=== PATIENT | male | born 1940 | race Caucasian/White ===

== ENCOUNTER 2016-11-01 14:00 | Outpatient (CLI) | payer MEDICARE, OTHER | END 2016-11-01 15:06 | disposition home or self-care (01) | LOC: RAD 14:00 | PROVIDERS: ATTEND Internal Medicine Critical Care Medicine | DX: G47.19 Other hypersomnia (principal); G47.9 Sleep disorder, unspecified; R06.83 Snoring; R06.00 Dyspnea, unspecified ==

== ENCOUNTER → 2016-11-01 | Outpatient (CLI) | payer MEDICARE, OTHER ==
[~2016-11-01] MED LIST: CATHETER FLUSH 10 ML SYR IV PRN; IOHEXOL 350 MG/ML 100 ML (OMNIPAQUE 350) VIAL IV ONE; NS 100 ML (IVPB) BAG IV ONE
[2016-11-01 11:57] LABS: BASOPHILS # (AUTO) 0.1 10^3/uL (0.0-0.1); BASOPHILS % (AUTO) 1 % (0-10); EOSINOPHILS # (AUTO) 0.5 10^3/uL (0.0-0.3); EOSINOPHILS % (AUTO) 5 % (0-10); LYMPHOCYTES # (AUTO) 2.4 X 10^3 (1.0-4.0); LYMPHOCYTES % (AUTO) 24 % (12-44); MEAN CORPUSCULAR HEMOGLOBIN 30 PG (25-34); MEAN CORPUSCULAR HGB CONC 33 G/DL (32-36); MEAN CORPUSCULAR VOLUME 89 FL (80-99); MEAN PLATELET VOLUME 9.5 FL (7.4-10.4); MONOCYTES # (AUTO) 1.2 X 10^3 (0.0-1.0); MONOCYTES % (AUTO) 12 % (0-12); NEUTROPHILS # (AUTO) 5.8 X 10^3 (1.8-7.8); NEUTROPHILS % (AUTO) 58 % (42-75); PLATELET COUNT 314 10^3/uL (130-400); RED BLOOD COUNT 4.31 10^6/uL (4.35-5.85); RED CELL DISTRIBUTION WIDTH 14.3 % (10.0-14.5)
[2016-11-01 12:17] LABS: CALCIUM 9.2 MG/DL (8.5-10.1); CREATININE SERUM 1.27 MG/DL (0.60-1.30); POTASSIUM 4.3 MMOL/L (3.6-5.0)
[2016-11-01 12:21] LABS: BASOPHILS % (MANUAL) 2 %; EOSINOPHILS % (MANUAL) 10 %; LYMPHOCYTES % (MANUAL) 18 %; NEUTROPHILS % (MANUAL) 53 %; REACTIVE LYMPHOCYTES 5 %
--- NOTE | 2016-11-01 16:29 | Diagnostic Imaging Report ---
PROCEDURE: CT chest with contrast only. TECHNIQUE: Multiple contiguous axial images were obtained through the chest after administration of intravenous contrast. INDICATION: Dyspnea. 75 mL of Omnipaque 350 is administered intravenously. FINDINGS: There is prominent septal interlobular and intralobular thickening seen involving both lungs in the upper, middle, and lower lung zones with no obvious predominance of these findings. This is associated with mild emphysema changes in the upper lungs. Component of ground-glass opacity is seen without solid consolidation. There is no dominant mass. The findings are suggestive of an interstitial lung disease with associated fibrosis. No prior studies are available to confirm chronicity, however. There is mild peripheral bronchiolectasis. There is some subpleural sparing seen which may favor nonspecific interstitial pneumonia (fibrotic variant of NSIP). There is a mildly enlarged right paratracheal lymph node measuring 1.5 cm in size. An infracarinal lymph node measuring 1.3 cm in size is seen. There is no hilar lymphadenopathy. No axillary lymphadenopathy. The thoracic aorta is normal in caliber. The heart size is normal. No pericardial or pleural effusion. The liver demonstrates diffuse fatty infiltration. The osseous structures demonstrate slight right convexity curvature in the mid thoracic spine and degenerative changes. There is a healed sternotomy with sternotomy wires seen in place. IMPRESSION: 1. Findings suggestive of interstitial lung disease with fibrotic changes. 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 2. Mild upper lobe predominant emphysema. 3. Hepatic steatosis. Dictated by: Dictated on workstation # [id number]
== END ==
LOC: RAD 11:36
PROVIDERS: ATTEND Internal Medicine Critical Care Medicine
DX: J84.10 Pulmonary fibrosis, unspecified (principal); K76.0 Fatty (change of) liver, not elsewhere classified
CPT/HCPCS: 36415; 71260; 80048; 83880; 85007; 85027

== ENCOUNTER → 2016-11-30 | Outpatient (CLI) | payer MEDICARE, OTHER ==
[~2016-11-30] MED LIST changes: +AMLO5TAB2 PO; +ASPI-983 PO; +CETI10TA23 PO; +DIAZ2TAB2 PO; +FORM1POW3 MC; +HYDR25TA4 PO; +LISI40TA PO; +MECL-124 PO; +MULT-974 PO; +RT-ALBUINH IH; +RT-ALBUTEROL SULF 2.5 MG/3 ML PRE-MIX VIAL IH ONE
== END ==
LOC: RAD 11:28
PROVIDERS: ATTEND Internal Medicine Critical Care Medicine
DX: R06.00 Dyspnea, unspecified (principal); J44.9 Chronic obstructive pulmonary disease, unspecified
CPT/HCPCS: 94060; 94640; 94726; 94729

== ENCOUNTER → 2016-12-04 | Outpatient (CLI) | payer MEDICARE, OTHER ==
[~2016-12-04] MED LIST changes: -CATHETER FLUSH 10 ML SYR IV PRN; -IOHEXOL 350 MG/ML 100 ML (OMNIPAQUE 350) VIAL IV ONE; -NS 100 ML (IVPB) BAG IV ONE; -RT-ALBUTEROL SULF 2.5 MG/3 ML PRE-MIX VIAL IH ONE
[2016-12-04 15:12] LABS: ALANINE AMINOTRANSFERASE 24 U/L (0-55); ALBUMIN 3.7 GM/DL (3.2-4.5); ANION GAP 6 MMOL/L (5-14); ASPARTATE AMINO TRANSFERASE 22 U/L (5-34); BILIRUBIN,TOTAL 0.3 MG/DL (0.1-1.0); BLOOD UREA NITROGEN 17 MG/DL (7-18); BUN/CREATININE RATIO 19; CALCIUM 9.2 MG/DL (8.5-10.1); CARBON DIOXIDE 26 MMOL/L (21-32); CHLORIDE 103 MMOL/L (98-107); CREATININE SERUM 0.91 MG/DL (0.60-1.30); GFR ESTIMATED > 60; GLUCOSE 128 MG/DL (70-105); POTASSIUM 4.7 MMOL/L (3.6-5.0); SODIUM 135 MMOL/L (135-145); TOTAL PROTEIN 7.6 GM/DL (6.4-8.2)
--- NOTE | 2016-12-04 15:54 | Diagnostic Imaging Report ---
PROCEDURE: CT chest without contrast. TECHNIQUE: Multiple contiguous axial images were obtained through the chest without the use of intravenous contrast. INDICATION: Followup pulmonary fibrosis and groundglass opacities. COMPARISON: 11/01/2016. FINDINGS: LUNGS AND AIRWAY: Moderate centrilobular emphysema in the lung apices is unchanged. Subpleural reticular and groundglass opacities are greatest in the lung bases and have not significantly changed. No definitive stacked subpleural cystic------- cut off . Minimal bronchiectasis within the lung bases is also unchanged. No peribronchial consolidations or centrilobular nodules. No endoluminal lesion in the trachea. There is a small amount of retained secretions in the right mainstem bronchus. PLEURA: No pleural effusion or pneumothorax. HEART AND MEDIASTINUM: No supraclavicular or axillary lymphadenopathy. The visualized thyroid is normal. The borderline enlarged lower right paratracheal lymph node is stable at 1.5 cm. The subcarinal lymph node is also unchanged at 1.2 cm in short axis. No new or enlarging intrathoracic lymphadenopathy. 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 Extensive coronary artery calcifications are present in the [place] vessels. No pericardial effusion. Normal caliber thoracic aorta with fairly extensive atherosclerotic plaquing. UPPER ABDOMEN: Extensive atherosclerotic plaque throughout the upper abdominal aorta and its branches. Mild diffuse hepatic steatosis is unchanged. MUSCULOSKELETAL: Median sternotomy with intact sternal wires. No concerning focal osseous lesions. IMPRESSION: 1. Since the examination of 1 month prior, there are unchanged subpleural and basilar predominant groundglass opacities with early fibrosis. Given the stability of findings, this pattern would suggest fibrotic NSIP versus less likely UIP. 2. A few borderline enlarged mediastinal lymph nodes are unchanged. 3. Stable hepatic steatosis. Dictated by: Dictated on workstation # [id number]
[2016-12-06 08:16] LABS: ANCA PATTERN Not Indicated; ANGIOTENSIN CONVERTING ENZYME 51 U/L (9-67); ANTI NEUTROPHIL CYTOPLASM <1:20 (<1:20)
== END ==
LOC: RAD 14:16
PROVIDERS: ATTEND Nurse Practitioner Family
DX: R91.8 Other nonspecific abnormal finding of lung field (principal); K76.0 Fatty (change of) liver, not elsewhere classified; G47.33 Obstructive sleep apnea (adult) (pediatric); R09.02 Hypoxemia; R06.00 Dyspnea, unspecified
CPT/HCPCS: 36415; 71250; 80053; 82164; 85652; 86021; 86038; 86141; 86430

== ENCOUNTER 2016-12-05 06:22 | Day surgery (SDC) | payer MEDICARE, OTHER ==
[~2016-12-05] VITALS: Ht 175.3 cm; Wt 88.5 kg
[2016-12-05] MEDS ORDERED: LIDOCAINE 4% INJ (XYLOCAINE) 5ML AMP INJ ONE (06:23)
[2016-12-05] MEDS ORDERED: LIDOCAINE JELLY 2% (XYLOCAINE) 30 ML TUBE TOP ONE (06:23)
[2016-12-05] MEDS ORDERED: LIDOCAINE PF 1% 2 ML AMP INJ ONE (06:23)
--- NOTE | 2016-12-05 06:49 | Progress Note-Pre Operative ---
Pre-Operative Progress Note H&P Reviewed The H&P was reviewed, patient examined and no changes noted. Date Seen by Provider: Dec 05, 2016 Time Seen by Provider: 06:49 Date H&P Reviewed: Dec 05, 2016 Time H&P Reviewed: 06:49 Pre-Operative Diagnosis: LORENZO KIRBY DO Dec 05, 2016 06:49
--- NOTE | 2016-12-05 06:50 | Pre-Op Note & Conscious Sedat ---
Pre-Operative Progress Note H&P Reviewed The H&P was reviewed, patient examined and no changes noted. Date H&P Reviewed: Dec 05, 2016 Time H&P Reviewed: 06:50 Conscious Sedation Pre-Proced Time Reviewed: 06:49 ASA Class: 3 Airway Mallampati Classification: (jamul appropriate class) I. II. III, IV Lungs Heart ASA score ASA 1: a normal healthy patient ASA 2: a patient with a mild systemic disease (mid diabetes, controlled hypertension, obesity ASA 3: a patient with a severe systemic disease that limits activity (angina , COPD, prior Myocardial infarction) ASA 4: a patient with an incapacitating disease that is a constant threat to life (CHF, renal failure) ASA 5: a moribund patient not expected to survive 24 hrs. (ruptured aneurysm) ASA 6: a declared brain patient whose organs are being harvested. For emergent operations, add the letter E after the classification Grade 3 Sedation Plan: Analgesia, Amnesia, Plan communicated to team members, Discussed options with patient/fam Note The patient is an appropriate candidate to undergo the planned procedure, sedation, and anesthesia. The patient immediately re-assessed prior to indication. LORENZO CULLEN DO Dec 05, 2016 06:50
[2016-12-05 07:08] VITALS: BP 146/80
[2016-12-05] MEDS ORDERED: NS IV 1000 ML 1,000 ML ONE (07:08)
[2016-12-05] MEDS ORDERED: CETI10TA23 PO (07:19)
[2016-12-05] MEDS ORDERED: DIAZ2TAB2 PO (07:19)
[2016-12-05] MEDS ORDERED: FORM1POW3 MC (07:19)
[2016-12-05] MEDS ORDERED: MULT-974 PO (07:19)
[2016-12-05] MEDS ORDERED: ASPI-983 PO (07:19)
[2016-12-05] MEDS ORDERED: MECL-124 PO (07:19)
[2016-12-05] MEDS ORDERED: HYDR25TA4 PO (07:19)
[2016-12-05] MEDS ORDERED: AMLO5TAB2 PO (07:19)
[2016-12-05] MEDS ORDERED: LISI40TA PO (07:19)
[2016-12-05] MEDS ORDERED: RT-ALBUINH IH (07:19)
[2016-12-05] MEDS ORDERED: NS IV 500 ML 500 ML IV PRN (07:25)
[2016-12-05] MEDS ORDERED: NS IV 1000 ML 1,000 ML IV SCH (07:30)
[2016-12-05] MEDS ORDERED: MIDAZOLAM 2 MG/2 ML (VERSED) VIAL ONE ×4 (07:39→07:40)
[2016-12-05] MEDS ORDERED: fentaNYL INJECTION 100 MCG/2 ML AMP ONE ×2 (07:39)
[2016-12-05] MEDS: fentaNYL INJECTION 100 MCG/2 ML AMP IVP PRN ×4 (07:57→08:08)
[2016-12-05] MEDS: MIDAZOLAM 2 MG/2 ML (VERSED) VIAL IVP PRN ×4 (07:58→08:09)
[2016-12-05 09:15] VITALS: BP 136/67
[2016-12-05 09:40] VITALS: BP 135/62
--- NOTE | 2016-12-05 09:54 | Diagnostic Imaging Report ---
Portable erect AP chest at 841 hours. INDICATION: COPD, respiratory distress. FINDINGS: The CT chest exam performed on 12/04/16 noted groundglass opacities with early fibrosis in both lungs. These finding seemed similar to the prior CT chest exam of 11/01/16. On this study, there are again diffuse alveolar/interstitial infiltrates involving both lungs, particularly lung bases and the right midlung. The density in both lungs, particularly the right midlung, does seem somewhat greater than on the CT exam and it is possible that there could be an element of acute pneumonia/atelectasis superimposed on the underlying chronic pulmonary changes. Clinical followup is recommended. The heart is stable in size. The sternal wires and surgical clips noted previously are again evident and no different. The mediastinum is not widened. The osseous structures are intact. IMPRESSION: 1. The density in both lungs does seem more prominent than noted on the prior exam. There could be an element of acute pneumonia/atelectasis superimposed on the underlying chronic pulmonary disease. Clinical followup is recommended 2. These results were discussed with Stephanie Kumari APRN. Dictated by: Dictated on workstation # [id number]
--- NOTE | 2016-12-05 19:18 | Diagnostic Imaging Report ---
EXAMINATION: Fluoroscopy. INDICATION: Bronchoscopy. FINDINGS: Fluoroscopic assistance was provided for Dr. Shoaib Lozano during his bronchoscopy procedure. 39.5 seconds of fluoro time was utilized. Multiple spot films of the right thorax were obtained. IMPRESSION: Fluoroscopic assistance was provided for Dr. Shoaib Lozano during his bronchoscopy procedure. Dictated by: Dictated on workstation # [id number]
--- NOTE | 2016-12-26 09:42 | Pulmonary Procedures ---
Pulmonary Procedures Date of Procedure Date of Service: Dec 05, 2016 Bronch Bronchoscopy with bronchoalveolar lavage (BAL), transbronchial washes and, brushes. Preop DX ILD Postop DX: same Complications: none After informed consent obtained and formal time out pt was sedated using Fentanyl and Versed. Bronchoscope was advanced through the nare and vocal cords. 1% lidocaine was used to anesthetize vocal cords, epiglottis, alejandrina, and left/right main stem bronchus. An anatomical tour was undertaken down to the segmental bronchi bilaterally. No endobronchial lesions noted. From the RLL a bronchoalveolar lavage (BAL), transbronchial washes and, brushes were obtained. Pt tolerated procedure well. No complications noted. Stat CXR is pending. LORENZO CULLEN DO Dec 26, 2016 09:42
== END 2016-12-05 09:40 | disposition home or self-care (01) ==
LOC: ENDO 06:22
PROVIDERS: ATTEND Internal Medicine Critical Care Medicine
DX: J44.9 Chronic obstructive pulmonary disease, unspecified (principal); R09.02 Hypoxemia; G47.33 Obstructive sleep apnea (adult) (pediatric); J84.10 Pulmonary fibrosis, unspecified; J30.2 Other seasonal allergic rhinitis
CPT/HCPCS: 71010; 87070; 87101; 87116; 87205; 88112; 88305

== ENCOUNTER → 2017-03-04 | Outpatient (CLI) | payer MEDICARE, OTHER ==
--- NOTE | 2017-03-04 12:03 | Diagnostic Imaging Report ---
PROCEDURE: CT chest without contrast. TECHNIQUE: Multiple contiguous axial images were obtained through the chest without the use of intravenous contrast. INDICATION: Shortness of breath. COPD. FINDINGS: When compared to 12/04/2016, fibrotic changes are again noted with subpleural honeycombing seen. The findings are equally distributed in the upper, mid and lower lung zones which is not typical for UIP. There is traction bronchiectasis seen. Mild upper lobe predominant emphysema changes are seen. No significant consolidation or mass is identified. No pleural or pericardial effusion. The thoracic aorta is normal in caliber. Nonspecific minimally enlarged mediastinal lymph nodes up to 1.1 cm in the right paratracheal station seen. Sternotomy wires are noted with healed sternotomy is seen. Sections in the upper abdomen appear grossly unremarkable. The osseous structures demonstrate degenerative changes in the thoracic spine. IMPRESSION: Essentially stable fibrotic changes with honeycombing seen in the lungs. The differential considerations include fibrotic NSIP, UIP or other fibrotic sequela of other interstitial lung disease. Dictated by: Dictated on workstation # [id number]
== END ==
LOC: RAD 10:00
PROVIDERS: ATTEND Nurse Practitioner Family
DX: J84.10 Pulmonary fibrosis, unspecified (principal); J44.9 Chronic obstructive pulmonary disease, unspecified; R09.02 Hypoxemia
CPT/HCPCS: 71250

== ENCOUNTER 2017-05-28 12:04 | Outpatient (RCR) | payer MEDICARE, OTHER ==
[2017-05-28 13:07] LABS: ABG BASE EXCESS -0.4 MMOL/L (-2.5-2.5); ABG OXYGEN SATURATION 99 % (94-100); ABG PCO2 40 MMHG (35-45); ABG PH 7.39 (7.37-7.43); ABG PO2 98 MMHG (79-93); ABG TCO2 25.2 MMOL/L (21.0-31.0)
[2017-05-28 13:11] LABS: ALLENS TEST YES-POS; INSPIRED O2 5; PATIENT TEMP 97.5; VENTILATOR NO
[2017-05-30 10:10] LABS: BUN/CREATININE RATIO 20; CREATININE SERUM 0.99 MG/DL (0.60-1.30); GFR ESTIMATED > 60
[2017-05-30] MEDS ORDERED: IOHEXOL 350 MG/ML 150 ML (OMNIPAQUE 350) VIAL IV ONE (10:15)
[2017-05-30] MEDS ORDERED: NS 250 ML (IVPB) BAG IV ONE (10:15)
--- NOTE | 2017-05-30 11:52 | Diagnostic Imaging Report ---
PROCEDURE: CT angiography of the chest with contrast. TECHNIQUE: Multiple contiguous axial images were obtained through the chest after uneventful bolus administration of intravenous contrast. Reconstructed CTA MIP acquisitions were also performed. INDICATION: Dyspnea upon exertion and hypoxemia. Comparison is made to study of 03/04/2017. FINDINGS: There is good opacification of pulmonary arteries without intraluminal filling defect. Predominantly peripheral interstitial lung disease with subpleural honeycombing and scattered bulla has not significantly changed. There is moderate amount of atherosclerotic disease involving the thoracic aorta with previous coronary artery bypass. There is no evidence of mass or infiltrate. No significant pleural or pericardial fluid is identified. Prominent precarinal lymph node measures 1.7 cm in diameter and may be slightly increased when compared to previous study. IMPRESSION: No CTA evidence of pulmonary embolism or other acute abnormality in the chest. Chronic fibrotic changes are seen in both lungs similar to the previous study. No superimposed infiltrate is identified. There may be mild interval increase in size of mediastinal lymph nodes. This could be on a reactive basis; however, clinical correlation is recommended. Dictated by: Dictated on workstation # [id number]
== END 2017-08-26 | disposition home or self-care (01) ==
LOC: RAD 12:04 → EDSTATUS 05-30 09:45
PROVIDERS: ATTEND Nurse Practitioner Family
DX: J44.9 Chronic obstructive pulmonary disease, unspecified (principal); J84.10 Pulmonary fibrosis, unspecified
CPT/HCPCS: 36415; 71275; 82565; 82805; 84520

== ENCOUNTER 2017-11-08 20:45 | Outpatient (CLI) | payer MEDICARE, OTHER | END 2017-11-09 05:58 | disposition home or self-care (01) | LOC: SLEEP 20:45 | PROVIDERS: ATTEND Nurse Practitioner Family | DX: G47.33 Obstructive sleep apnea (adult) (pediatric) (principal) | CPT/HCPCS: 95811 ==

== ENCOUNTER 2017-12-12 06:53 | Day surgery (SDC) | payer MEDICARE, OTHER ==
[~2017-12-12] VITALS: Ht 175.3 cm; Wt 95.7 kg
[~2017-12-12 06:53] MED LIST changes: -AMLO5TAB2 PO; +AMLO5TAB7 PO
--- OUTSIDE RECORDS SUMMARY | 2017-12-12 06:56 | XMS REPORT | Encounter Summary ---
Author Author [facility] Organization [facility] Address Unknown Phone Unavailable Care Team Providers Care Vp Of Digital Marketing Name Role Phone Pablo Mendes PCP Eris Jack DO 3 Maritza Rosa MD 3 Shoaib Lozano DO 3 Reason for Visit * Reason Comments Follow-up Phone Call Encounter Details Date Type Department Care Team Description 11/28/2017 Telephone [facility] Olegario Adrian MD Follow-up Phone Call Physicians - Internal [address] [place] [id number] [facility] [phone] [address] [place] [address] Social History Tobacco Use Types Packs/Day Years Used Date Former Smoker Cigarettes 2 50 1958 - 2013 Smokeless Tobacco: Former Quit: 1997 User Sex Assigned at Date Recorded Not on file as of this encounter Plan of Treatment Not on fileas of this encounter Visit Diagnoses Not on filein this encounter
--- OUTSIDE RECORDS SUMMARY | 2017-12-12 06:56 | XMS REPORT | Clinical Summary ---
Author Author [facility] Organization [facility] Address Unknown Phone Unavailable Care Team Providers Care Hinging Machine Operator Name Role Phone Pablo Mendes PCP Eris Jack DO 3 Maritza Rosa MD 3 Shoaib Lozano DO 3 Source Comments Some departments are not documenting in the electronic medical record. If you do not see the information that you expected, contact Release of Information in the Health Information Management department at [phone] for further assistance in locating additional records.[facility] Allergies Active Allergy Reactions Severity Noted Date Comments Penicillins UNKNOWN Low 11/26/2017 Current Medications Prescription Sig. Disp. Refills Start End Date Status Date [id number] Inhale by mouth into the Active anter (TRELEGY ELLIPTA) lungs. 100-62.5-25 mcg dsdv lisinopril (PRINIVIL; Take 20 mg by mouth Active ZESTRIL) 20 mg tablet daily. hydroCHLOROthiazide Take 25 mg by mouth every Active (HYDRODIURIL) 25 mg morning. tablet amLODIPine (NORVASC) 5 mg Take 5 mg by mouth daily. Active tablet montelukast (SINGULAIR) Take 10 mg by mouth at Active 10 mg tablet bedtime daily. cetirizine (ZYRTEC) 10 mg Take 10 mg by mouth every Active tablet morning. prednisone (DELTASONE) 10 Take 10 mg by mouth daily Active mg tablet with breakfast. 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 11/26/2017 GERD (gastroesophageal reflux disease) 11/26/2017 MADELYN on CPAP 11/26/2017 Encounters Date Type Specialty Care Team Description 12/04/2017 Telephone PulmonOlegario Jacobson MD Follow-up Phone Call 11/28/2017 Telephone PulmonOlegario Jacobson MD Follow-up Phone Call 11/26/2017 Hospital Lab Olegario Adrian MD Interstitial pulmonary Encounter disease, unspecified (HCC) 11/26/2017 Office Visit PulmonOlegario Jacobson MD ILD ( interstitial lung disease) (HCC) (Primary Dx); Interstitial lung disease (HCC); Exposure to silica; Gastroesophageal reflux disease without esophagitis; MADELYN on CPAP 11/26/2017 Hospital Doctor, Miscellaneous Encounter 11/21/2017 Ancillary Radiology Outpatient, Radiologist Orders 11/19/2017 Orders Only Pulmonology Olegario Adrian MD SOB (shortness of breath) (Primary Dx) 11/18/2017 Telephone PulmonOlegario Jacobson MD Records Request from Last 3 Months Social History Tobacco Use Types Packs/Day Years Used Date Former Smoker Cigarettes 2 50 1958 - 2013 Smokeless Tobacco: Former Quit: 1997 User Sex Assigned at Date Recorded Not on file Last Filed Vital Signs Vital Sign Reading Time Taken Blood Pressure 134/59 11/26/2017 1:34 PM CDT Pulse 77 11/26/2017 1:34 PM CDT Temperature 37 C (98.6 F) 11/26/2017 1:34 PM CDT Respiratory Rate 16 11/26/2017 1:34 PM CDT Oxygen Saturation 95% 11/26/2017 1:34 PM CDT Inhaled Oxygen - - Concentration Weight 98.1 kg (216 lb 3.2 oz) 11/26/2017 1:34 PM CDT Height 175.3 cm (5' 9") 11/26/2017 1:34 PM CDT Body Mass Index 31.93 11/26/2017 1:34 PM CDT Plan of Treatment Health Maintenance Due Date Last Done Comments PHYSICAL (COMPREHENSIVE) 1947 EXAM PERTUSSIS VACCINE 1952 TETANUS VACCINE 1958 SHINGLES RECOMBINANT 06/12/1991 VACCINE (1 of 2) PNEUMONIA (PCV13/PPSV23) 2006 VACCINES (1 of 2 - PCV13) INFLUENZA VACCINE 01/06/2018 Results * T SPOT TB (QUANTIFERON TB) (11/26/2017 2:46 PM) T Spot TB Negative REFERENCE LAB Reference range: Normal Value: Negative A negative test result does not exclude the possibility of exposure to or infection with Mycobacterium tuberculosis (M. tuberculosis). Patients with recent exposure to TB infected individuals exhibiting a negative T-SPOT.TB result should be considered for retesting within 6 weeks or if other relevant clinical symptoms indicate.Results from T-SPOT.TB testing must be used in conjunction with each individual's epidemiological history, current medical status, and results of other diagnostic evaluations.[id number] T-SPOT.TB test is qualitative and results are reported as positive, borderline or negative, given that the test controls perform as expected. In line with the Centers for Disease Control and Prevention's 2010 recommendation to report quantitative measurements alongside the qualitative result, the laboratory provides spot counts for informational purposes only.The T-SPOT.TB test should not be interpreted as a quantitative test. Neg Control TB Spot Count Passed REFERENCE LAB Panel A TB Spot Count 0 REFERENCE LAB Panel B TB Spot Count 0 REFERENCE LAB Pos Control TB Spot Count Passed REFERENCE LAB Specimen Blood Performing Organization Address City/State/[place]cos[place] Phone Number REFERENCE LAB REFERENCE LAB See results for address. * THIOPURINE METHYLTRANSFERASE RBC (11/26/2017 2:46 PM) Thiopurine S-Methyl 27.5 REFERENCE LAB (TPMT) Comment: Reference range: 24.0 to 44.0 Unit: U/mL INTERPRETIVE INFORMATION: Thiopurine Methyltransferase, RBC Normal TPMT activity: 24.0-44.0 U/mL................Individual s are predicted to be at low risk of bone marrow toxicity (myelosuppression) as a consequence of standard thiopurine therapy; no dose adjustment is recommended. Intermediate TPMT activity: 17.0-23.9 U/mL................Individual s are predicted to be at intermediate risk of bone marrow toxicity (myelosuppression) as a consequence of standard thiopurine therapy; a dose reduction and therapeutic drug management is recommended. Low TPMT activity: less than 17.0 U/mL...........Individuals are predicted to be at high risk of bone marrow toxicity (myelosuppression) as a consequence of standard thiopurine dosing. It is recommended to avoid the use of thiopurine drugs. High TPMT activity: greater than 44.0 U/mL........Individuals are not predicted to be at risk for bone marrow toxicity (myelosuppression) as a consequence of standard thiopurine dosing, but may be at risk for therapeutic failure due to excessive inactivation of thiopurine drugs. Individuals may require higher than the normal standard dose. Therapeutic drug management is recommended. The TPMT, RBC assay is used as a screen to detect individuals with low and intermediate TPMT activity who may be at risk for myelosuppression when exposed to standard doses of thiopurines, including azathioprine (Imuran) and 6-mercaptopurine (Purinethol). TPMT is the primary metabolic route for inactivation of thiopurine drugs in the bone marrow. When TPMT activity is low, it is predicted that proportionately more 6-mercaptopurine can be converted into the cytotoxic 6-thioguanine nucleotides that accumulate in the bone marrow causing excessive toxicity. The activity of TPMT is measured by the nanomoles of 6-methylmercaptopurine (inactive metabolite) produced per 1 mL of packed red blood cells, (U/mL). TPMT phenotype testing does not replace the need for clinical monitoring of patients treated with thiopurine drugs. Genotype for TPMT cannot be inferred from TPMT activity (phenotype). Phenotype testing should not be requested for patients currently treated with thiopurine drugs. Current TPMT phenotype may not reflect future TPMT phenotype, particularly in patients who received blood transfusion within 30-60 days of testing.TPMT enzyme activity can be inhibited by several drugs such as: naproxen (Aleve), ibuprofen (Advil, Motrin), ketoprofen (Orudis), furosemide (Lasix), sulfasalazine (Azulfidine), mesalamine (Asacol), olsalazine (Dipentum), mefenamic acid (Ponstel), thiazide diuretics, and benzoic acid inhibitors. TPMT inhibitors may contribute to falsely low results; patients should abstain from these drugs for at least 48 hours prior to TPMT testing. Falsely low results may also occur as a result of inappropriate specimen handling and hemolysis. Test developed and characteristics determined by [facility]. See Compliance Statement B: [email or web address] Performed by [facility], [address] [place] [id number] [email or web address], Jaren Mccarty MD, Lab. Director Specimen Blood Performing Organization Address City/State/Zipcode Phone Number REFERENCE LAB REFERENCE LAB See results for address. * RHEUMATOID FACTOR (RF) (11/26/2017 2:46 PM) Rheum Factor Screen <20 <24 IU/mL [facility] Specimen Blood Performing Organization Address City/State/Zipcode Phone Number [facility] [address] [place] [address] * HYPERSENSITIVITY PNEUMONITIS IGG (11/26/2017 2:46 PM) Alternaria Alternata <2.0 REFERENCE LAB Reference range: <12.0 Unit: mcg/mL Aspergillus Fumigatus IgG 11.6 REFERENCE LAB Comment: Reference range: <46.0 Unit: mcg/mL Aureobasidium Pullulans <2.0 REFERENCE LAB Reference range: <18.0 Unit: mcg/mL Micropolyspora Faeni <2.0 REFERENCE LAB Reference range: <5.0 Unit: mcg/mL Penicillium Notatum 12.5 REFERENCE LAB Comment: Reference range: <22.0 Unit: mcg/mL Phoma Herbarum 3.7 MCG/ML REFERENCE LAB Comment: Reference range: <8.0 Unit: mcg/mL Thermoactomyces Vulgaris 3.0 REFERENCE LAB Comment: Reference range: <13.0 Unit: mcg/mL Trichoderma Viride 5.0 REFERENCE LAB Comment: Reference range: <10.0 Unit: mcg/mL . Antibody levels greater than the reference range indicate that the patient has been immunologically sensitized to the antigen. The significance of elevated IgG depends on the nature of the antigen and the patient's clinical history. The test method was the [employer] ImmunoCAP. . *This test was developed and its performance characteristics determined by [facility]. It has not been cleared or approved by the U.S. Food and Drug Administration. Testing Performed At: [facility] [id number] CLIA ID: [id number] Specimen Blood Performing Organization Address [facility] Phone Number REFERENCE LAB REFERENCE LAB See results for address. * CARDIOLIPIN AB IGG/IGM (11/26/2017 2:46 PM) Cardiolipin, IgG <1.6 <20.0 GPL/ML MAIN LAB Cardiolipin, IgM <0.2 <20.0 MPL/ML MAIN LAB Specimen Blood Performing Organization Address [facility] Phone Number [facility] [address] [place] [address] * ANTI PERALTA(SM) ANTI TRANSMISSION ASSEMBLER AB (11/26/2017 2:46 PM) Anti-Peralta <0.2Comment: Interpretation: <1.0 [facility] MAIN LAB Negative Anti-TRANSMISSION ASSEMBLER 1.7 (H)Comment: <1.0 [facility] MAIN [facility] Interpretation: Positive Specimen Blood Performing Organization Address [facility] Phone Number MAIN LAB [address] [place] [address] * SCL 70 ANTIBODIES (11/26/2017 2:46 PM) SCL70 Ab <0.2 <1.0 [facility] MAIN [facility] Comment: Interpretation: Negative NOTE NEW METHODOLOGY AND REFERENCE RANGE Specimen Blood Performing Organization Address [facility] Phone Number MAIN LAB [address] [place] [address] * ANTI-NEUT CYTO AB (ANCA/PANCA) (11/26/2017 2:46 PM) C-ANCA <20,NEGATIVE TITER MAIN LAB P-ANCA <20,NEGATIVE TITER MAIN LAB Specimen Blood Performing Organization Address [facility] Phone Number MAIN LAB [address] [place] [address] * ANDREW 1 ANTIBODIES (11/26/2017 2:46 PM) Andrew 1 Antibody <0.2 <1.0 [facility] MAIN LAB Comment: Interpretation: Negative NOTE NEW METHODOLOGY AND REFERENCE RANGE Specimen Blood Performing Organization Address [facility] Phone Number MAIN LAB [address] [place] [address] * CCP IGG ANTIBODY (11/26/2017 2:46 PM) CCP IgG Antibody <0.5Comment: NOTE NEW <3.0 [IU]/mL [facility] METHODOLOGY AND REFERENCE RANGE Specimen Blood Performing Organization Address [facility] Phone Number [facility] [address] [place] [address] * ALDOLASE (11/26/2017 2:46 PM) Aldolase 6.9 REFERENCE LAB Comment: Reference range: <7.7 Unit: U/L [facility] Specimen Blood Performing Organization Address [facility] Phone Number REFERENCE LAB REFERENCE LAB See results for address. * ANTI SSA ANTI SSB AB (11/26/2017 2:46 PM) Anti-SSA <0.2Comment: Interpretation: <1.0 AI [facility] Negative Anti-SSB <0.2Comment: Interpretation: <1.0 AI [facility] Negative Specimen Blood Performing Organization Address [facility] Phone Number [facility] [address] [place] [address] * SED RATE (11/26/2017 2:46 PM) Sed Rate -ESR 15 0 - 20 MM/HR [facility] Specimen Blood Performing Organization Address [facility] Phone Number [facility] [address] [place] [address] * CBC AND DIFF (11/26/2017 2:46 PM) White Blood Cells 8.9 4.5 - 11.0 K/UL MAIN LAB RBC 3.76 (L) 4.4 - 5.5 M/UL MAIN LAB Hemoglobin 11.5 (L) 13.5 - 16.5 GM/DL [facility] Hematocrit 34.5 (L) 40 - 50 % [facility] MCV 91.7 80 - 100 FL [facility] MCH 30.6 26 - 34 PG [facility] MCHC 33.4 32.0 - 36.0 G/DL MAIN LAB RDW 15.9 (H) 11 - 15 % [facility] Platelet Count 214 150 - 400 K/UL [facility] MPV 8.4 7 - 11 FL MAIN LAB Neutrophils 80 (H) 41 - 77 % [facility] Lymphocytes 13 (L) 24 - 44 % [facility] Monocytes 7 4 - 12 % [facility] Eosinophils 0 0 - 5 % [facility] Basophils 0 0 - 2 % [facility] Absolute Neutrophil Count 7.00 1.8 - 7.0 K/UL [facility] Absolute Lymph Count 1.20 1.0 - 4.8 K/UL [facility] Absolute Monocyte Count 0.60 0 - 0.80 K/UL [facility] Absolute Eosinophil Count 0.00 0 - 0.45 K/UL [facility] Absolute Basophil Count 0.00 0 - 0.20 K/UL [facility] Specimen Blood Performing Organization Address [facility] Phone Number MAIN LAB [address] [place] [address] * IMMUNOGLOBULINS-IGA,IGG,IGM (11/26/2017 2:46 PM) IgG 1,168 762 - 1,488 MG/DL [facility] IgA 489 (H) 70 - 390 MG/DL [facility] IgM 72 38 - 328 MG/DL [facility] Specimen Blood Performing Organization Address [facility] Phone Number [facility] [address] [place] [address] * C REACTIVE PROTEIN (CRP) (11/26/2017 2:46 PM) C-Reactive Protein 0.11 <1.0 MG/DL MAIN LAB Specimen Blood Performing Organization Address [facility] Phone Number MAIN LAB [address] [place] [address] * ANTI-NUCLEAR ANTIBODY(GÉNESIS) (11/26/2017 2:46 PM) GÉNESIS Screen <80Comment: CYTOPLASMIC <80 TITER [facility] STAINING PRESENT Specimen Blood Performing Organization Address [facility] Phone Number MAIN LAB [address] [place] [address] * CREATINE KINASE-CPK (11/26/2017 2:46 PM) Creatine Kinase 109 35 - 232 U/L MAIN LAB Specimen Blood Performing Organization Address [facility] Phone Number [facility] [address] [place] [address] * COMPREHENSIVE METABOLIC PANEL (11/26/2017 2:46 PM) Sodium 136 (L) 137 - 147 MMOL/L [facility] Potassium 4.2 3.5 - 5.1 MMOL/L [facility] Chloride 102 98 - 110 MMOL/L [facility] Glucose 113 (H) 70 - 100 MG/DL [facility] Blood Urea Nitrogen 24 7 - 25 MG/DL [facility] Creatinine 1.06 0.4 - 1.24 MG/DL [facility] Calcium 9.7 8.5 - 10.6 MG/DL [facility] Total Protein 7.8 6.0 - 8.0 G/DL [facility] Total Bilirubin 0.4 0.3 - 1.2 MG/DL [facility] Albumin 4.4 3.5 - 5.0 G/DL [facility] Alk Phosphatase 42 25 - 110 U/L [facility] AST (SGOT) 20 7 - 40 U/L [facility] CO2 25 21 - 30 MMOL/L [facility] ALT (SGPT) 23 7 - 56 U/L [facility] Anion Gap 9 3 - 12 [facility] eGFR Non >60 >60 mL/min [facility] Comment: The eGFR is not validated for use in drug dosing adjustments.Continue to use estimated creatinine clearance per dosing reference text.Please contact the Clinical Pharmacist for questions. eGFR >60 >60 mL/min [facility] Comment: The eGFR is not validated for use in drug dosing adjustments.Continue to use estimated creatinine clearance per dosing reference text.Please contact the Clinical Pharmacist for questions. Specimen Blood Performing Organization Address City/State/Zipcode Phone Number MAIN LAB [address] [place] [address] * PFT COMPLETE PULM FUNCTION (11/26/2017 12:41 PM) FVC-Pre 2.24 L [facility] PFT MAIN FVC-%Pred-pre 58 % [facility] FEV1-Pre 1.92 L [facility] FEV1-%Pred-Pre 69 % [facility] [id number] 2.70 L/sec [facility]FT [facility] QRA8751-%Pred-Pre 136 % [facility] VCSVC-Pre 2.45 L [facility] ICSVC-Pre 2.24 L [facility] ERVSVC-Pre 0.21 L [facility] PEF-Pre 512.2 L/min [facility]FT [facility] TGVPleth-Pre 1.58 L [facility] PFT MAIN RVPleth-Pre 0.95 L [facility] PFT MAIN RVPleth-%Pred-Pre 38 % [facility] PFT MA[facility] TLCPleth-Pre 3.29 L [facility] PFT MAIN TLCPleth-%Pred-Pre 49 % [facility] PFT MA[facility] DLCOunc-Pred 23.83 ml/min/mmHg [facility] PFT MAIN DLCOunc-Pre 7.65 ml/min/mmHg [facility] PFT MAIN DLCOunc-%Pred-Pre 32 % [facility] PFT MAIN DLCOunc-SD 6.04 ml/min/mmHg [facility] PFT MAIN DLCOunc-LLN 11.75 ml/min/mmHg [facility] PFT [facility] DLCOunc-ULN 35.91 ml/min/mmHg [facility] PFT MA[facility] DLCOunc-#SD -2.678 ml/min/mmHg [facility] PFT [facility] DLVA-Pred 3.85 ml/min/mmHg/L [facility] PFT [facility] DLVA-Pre 2.52 ml/min/mmHg/L [facility] PFT [facility] DLVA-%Pred-Pre 65 % [facility] PFT [facility] DLVA-SD 0.73 ml/min/mmHg/L [facility] PFT [facility] DLVA-LLN 2.39 ml/min/mmHg/L [facility] PFT [facility] DLVA-ULN 5.31 ml/min/mmHg/L [facility] PFT [facility] DLVA-#SD -1.819 ml/min/mmHg/L [facility] PFT [facility]IN Performing Organization Address City/State/Zipcode Phone Number [facility] PFT [facility]IN [address] [place] [address] from Last 3 Months
--- OUTSIDE RECORDS SUMMARY | 2017-12-12 06:56 | XMS REPORT | Encounter Summary ---
Author Author [facility] Organization [facility] Address Unknown Phone Unavailable Care Team Providers Care Undercutter Operator Name Role Phone Pablo Mendes PCP Eris Jack DO 3 Maritza Rosa MD 3 Shoaib Lozano DO 3 Reason for Visit * Reason Comments Follow-up Phone Call Encounter Details Date Type Department Care Team Description 12/04/2017 Telephone [facility] Olegario Adrian MD Follow-up Phone Call Physicians - Internal [address] [place] [id number] [facility]o [facility] [phone] [address] [place] [address] Social History Tobacco Use Types Packs/Day Years Used Date Former Smoker Cigarettes 2 50 9 - 2013 Smokeless Tobacco: Former Quit: 1997 User Sex Assigned at Date Recorded Not on file as of this encounter Miscellaneous Notes * Telephone Encounter - Olegario Adrian MD - 12/04/2017 11:49 AM CDT I have attempted to contact Mr. Finn on the phone yesterday and today to discuss next steps in evaluation. I have been unable to reach him. I will attempt to contact his leather fitter. in this encounter Plan of Treatment Not on fileas of this encounter Visit Diagnoses Not on filein this encounter
--- OUTSIDE RECORDS SUMMARY | 2017-12-12 06:57 | XMS REPORT | Encounter Summary ---
Author Author [facility] Organization [facility] Address Unknown Phone Unavailable Care Team Providers Care Flask Maker Name Role Phone Ferniebrenton Pablo PCP Eris Jack DO 3 Maritza Rosa MD 3 Shoaib Lozano DO 3 Reason for Referral * Consult, Test & Treat Status Reason Specialty Diagnoses / Referred By Referred To Procedures Contact Contact New Request Specialty Diagnoses Olegario Adrian, Pulmonary Function Services ILD MD Wilkes dg Kennedy Required (interstitial [address] lung disease) [address] ([facility]) [place] [address] Phone: Fax: Scheduling Instructions With f/u * Radiology Services (Routine) Status Reason Specialty Diagnoses / Referred By Referred To Procedures Contact Contact New Request Radiology Diagnoses Olegario Adrian, ILD (interstitial [address] lung disease) ([facility]) [place] [address] rocedures Phone: CT CHEST WO [phone] CONTRAST Reason for Visit * Reason Comments Shortness of Breath * Consult, Test & Treat (Routine) Status Reason Specialty Diagnoses / Referred By Referred To Procedures Contact Contact New Request Pulmonology Eris Jack Ukp Im Pulmonary DO Ortho and Medical [address] Level [address] CIR [address] [place], [place] [phone] Phone: Fax: Encounter Details Date Type Department Care Team Description 11/26/2017 Office Visit [facility] Olegario Adrian MD ILD ( interstitial lung Physicians - Internal [address] disease) ([facility]) ([place] [address] Dx); Ortho and Medical [phone] Interstitial lung disease Pavilion Level 5A ([facility]); [address] Exposure to silica; [place], [place] Gastroesophageal reflux [id number] disease without [phone] esophagitis; MADELYN on CPAP Social History Tobacco Use Types Packs/Day Years Used Date Former Smoker Cigarettes 2 50 1958 - 2013 Smokeless Tobacco: Former Quit: 1997 User Sex Assigned at Date Recorded Not on file as of this encounter Last Filed Vital Signs Vital Sign Reading [...] Mass Index 31.93 11/26/2017 1:34 PM CDT in this encounter Instructions * Patient Instructions - Violette Rivers, RUTHIE - 11/26/2017 2:00 PM CDT Clinic Visit Summary: Lab after check out today We will schedule you for a high resolution CT of the chest next available. Next clinic visit follow up with Dr. Adrian recommended in 6 months with Pulmonary Function Test. Please contact Pulmonary Nurse Coordinator with signs and symptoms of worsening productive cough with thick secretions, blood in sputum, chest tightness/pain, shortness of breath, fever, chills, night sweats, or any questions or concerns. Pulmonary RN Coordinator-Eugenio Ariza RN/Martha Castrejon RN/ Violette Rivers RN T) [phone] F)[phone] For refills on medications, please have your pharmacy fax a refill authorization request form to our office at Fax) [phone]. Please allow at least 3 business days for refill requests. For urgent issues after business hours/weekends/holidays call [phone] and request for the health diagnostics teacher to be paged in this encounter Progress Notes * Olegario Adrian MD - 11/26/2017 2:00 PM CDT Formatting of this note may be different from the original. Date of Service: 11/26/2017 History of Present Illness This is a 77 y.o. year old male who presents to the [facility] for further evaluation. To summarize his history, patient's lung problems started about 1 year ago. Patient noticed worsening SOB with mowing and weed eating. Patient noted that over the last year he has worsened. He was subsequently referred to the [facility] for further evaluation. At his initial visit in the [facility]D Clinic, He reports respiratory symptoms have been subjectively worsening over the last few months. Dyspnea on stairs and inclines is the biggest limitation. Patient can climb 8 stairs without stopping. Patient is currently on 3 L oxygen at rest and exertion with occasional needs to go to 4-5 L oxygen with exertion. Patient also on CPAP for MADELYN. Patient just completed a new sleep study. Dr. Shoaib Lozano I screened him for autoimmune symptoms that might suggest an autoimmune featured interstitial lung disease. Patient reports arthralgias mainly in knees and ankles and occasionally in hands, but denies any synovitis. Patient denies significant sicca symptoms. Patient admits GERD symptoms which are controlled with acid reflux medication, and denies food sticking to suggest esophageal dysphagia. Patient denies denies raynaud's phenomenon, sclerodactyly , or hyperkeratosis. Patient admits muscle weakness and tenderness. Patient denies denies any significant skin rashes or ulcerations. I also screened for environmental exposures that might suggest a chronic hypersensitivity pneumonitis. Patient denies birds in the home. Patient denies feather pillows or a down comforter. Denies routine exposure polyurethane or isocyanate. Patient denies a history of water damage in the home. Mold growth is not obvious. Patient denies the use of a hot tub. Patient uses free standing humidifiers but cleans them regularly. He doesn't live near any industrial or agricultural facilities. 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 Patient is not currently exposed to any of the above. Potential drug exposures were also reviewed to exclude a drug induced cause. He denies the use of chronic nitrofurantoin, methotrexate or amiodarone. Patient denies radiation exposure. Patient currently in pulmonary rehab two days a week Past Medical History: Diagnosis Date COPD (chronic obstructive pulmonary disease) (HCC) On supplemental oxygen therapy Seasonal allergic reaction SOCIAL HISTORY: Former Smoker. 100 pack years. Quit 2013. He denies significant alcohol or illicit substances. FAMILY HISTORY: Pulmonary fibrosis or autoimmune diseases does not run in the family. Patient's brother has COPD but no other history of lung disease. Review of Systems Constitutional: Positive for chills. HENT: Positive for hearing loss. Respiratory: Positive for shortness of breath. Musculoskeletal: Positive for arthralgias, back pain and neck pain. Neurological: Positive for dizziness. A full 14 point review of systems was performed and is as above or is unremarkable. Objective: amLODIPine (NORVASC) 5 mg tablet Take 5 mg by mouth daily. cetirizine (ZYRTEC) 10 mg tablet Take 10 mg by mouth every morning. qiyzeqyixxz-rohglrecy-vvlhjiiq (TRELEGY ELLIPTA) 100-62.5-25 mcg dsdv Inhale by mouth into the lungs. hydroCHLOROthiazide (HYDRODIURIL) 25 mg tablet Take 25 mg by mouth every morning. lisinopril (PRINIVIL; ZESTRIL) 20 mg tablet Take 20 mg by mouth daily. montelukast (SINGULAIR) 10 mg tablet Take 10 mg by mouth at bedtime daily. prednisone (DELTASONE) 10 mg tablet Take 10 mg by mouth daily with breakfast. Vitals: 11/26/17 1334 BP: 134/59 Pulse: 77 Resp: 16 Temp: 37 C (98.6 F) TempSrc: Oral SpO2: 95% Weight: 98.1 kg (216 lb 3.2 oz) Height: 175.3 cm (69") Body mass index is 31.93 kg/m. Physical Exam GENERAL: Alert and Pleasant, No Distress, wearing O2 HEENT: PERRL, EOMI, Grade 2 Mallampati Airway, No Nasal Polyps, No Frontal or Maxillary Sinus Tenderness NECK: No Cervical or Supraclavicular Adenopathy, No Thyromegaly CVS: Regular Rate and Rhythm, No Splitting of P2 Heart Sound, No Murmurs, Rubs , or Gallops LUNGS: Bibasilar Crackles, No Wheezes ABDOMEN: Soft, Nontender, No Hepatosplenomegaly EXTREMITIES: Normal muscle bulk and tone with 5/5 strength, No active Raynaud's , No tenosynovitis, or sclerodactyly. No edema. SKIN: No rashes. No ulcers. 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 There is subpleural fibrosis throughout the lungs with traction bronchiectasis and possibly some honeycombing without a basilar predominance. There are some areas of ground glass opacities. Cardiac Data: Echocardiogram: Patient has had echocardiogram in the last year but we do not have the records Pathology Data: None available for review Lab Data: None available for review Assessment and Plan: This is a 77 y.o. male with interstitial lung disease who presents to the [facility] for further evaluation. I reviewed his prior CT imaging, and the radiologic features are not suggestive of UIP. There is evidence of fibrosis, traction bronchiectasis and possibly some honeycombing, but it does not have a basilar predominance. There are also ground glass opacities. We reviewed potential environmental exposures that could induce a chronic hypersensitivity pneumonitis. We will check a hypersensitivity pneumonitis panel. We also reviewed autoimmune symptoms that might suggest an autoimmune featured interstitial lung disease. In roughly 10% of cases the ILD may precede more definitive autoimmune symptoms by a few years. Consequently, we will plan to obtain additional autoimmune serologies to exclude an occult autoimmune process. We will check an GÉNESIS, ANCA with MPO and PR3 confirmatory antibodies, Rheumatoid Factor, and Anti-CCP antibodies, as well as a CK, Aldolase, SS-A, and Anti-Jo1. If the GÉNESIS, Aldolase , CK, or SSA/SSB is positive but the remaining studies are negative we will also send an anti-myositis antibody panel, Anti-Scl70, Anti-INVENTORY AUDITOR/Sm, and Anti- cardiolipin Antibodies. If a hypersensitivity pneumonitis is considered probable or confirmed, then we would recommend environmental testing of the home to exclude occult mold exposure. There has also been increasing recognition that GERD may play a role in the progression of several different types of interstitial lung disease. It is suspected that microaspiration of digestive enzymes might contribute to additional lung damage. In several clinical trials, subgroups of patients who were on an acid blocking medication showed stability in lung function tests and improved survival compared to patients who were not on any form of treatment. I generally favor empiric treatment initially, but if there is a progressive decline in lung function, then we should pursue formal testing with a pH probe to make certain this is not a contributing factor. I would like to obtain a high resolution CT scan with inspirator and expiratory images to evaluate for air trapping. His PFTs from 1 year ago are unchanged from the ones obtained today. It may be reasonable to monitor him and avoid further exposures, pending results from laboratory tests. Otherwise we will plan for follow-up in 6 months with repeat pulmonary function tests. He will follow with his local soil expert between visits. PROBLEM LIST: 1. Interstitial Lung Disease - likely from prior exposures 2. Significant exposure history 3. MADELYN 4. GERD PLAN: 1. Obtain lab studies as above. 2. Discuss at [facility] 3. Avoidance of known causes of hypersensitivity pneumonitis 4. TTE with estimation of PASP if not done in past year 5. Continue pulmonary rehabilitation 6. High Resolution CT with inspiratory and expiratory imaging 7. GERD therapy I spent 80% of this 70 minute encounter in face to face time. I spent 40 minutes counseling the patient discussing important aspects of disease education , including a review of specific imaging features that shape the differential diagnosis, as well as the proposed evaluation and management plan as above. If there are any additional questions please do not hesitate to contact the [facility]D Clinic at . (This documentation was created with [employer] Dictation software, and while some editing occurred at the time of the dictation, grammatical errors may still be present) in this encounter Plan of Treatment Name Priority Associated Diagnoses Order Schedule CT CHEST WO CONTRAST Routine ILD (interstitial lung Expected: 11/26/2017 disease) ([facility]) (Approximate), Expires: 11/26/2018 Name Priority Associated Diagnoses Order Schedule AMB REFERRAL TO PULMONARY FUNCTION LAB Routine ILD (interstitial lung Ordered: 11/26/2017 disease) ([facility]) as of this encounter Results * T SPOT TB (QUANTIFERON TB) [...] medical status, and results of other diagnostic evaluations.[id number] T-SPOT.TB test is qualitative and results are [...] REFERENCE LAB Specimen Blood Performing Organization Address City/State/Zipcode Phone Number REFERENCE LAB REFERENCE LAB See results for address. * IMMUNOGLOBULINS-IGA,IGG,IGM (11/26/2017 2:46 PM) IgG 1,168 762 - 1,488 MG/DL MAIN LAB IgA 489 (H) 70 - 390 MG/DL MAIN LAB IgM 72 38 - 328 MG/DL MAIN LAB Specimen Blood Performing Organization Address [facility] Phone Number MAIN LAB [address] [place] [address] * CARDIOLIPIN AB IGG/IGM (11/26/2017 2:46 PM) Cardiolipin, IgG <1.6 <20.0 GPL/ML MAIN LAB Cardiolipin, IgM <0.2 <20.0 MPL/ML MAIN LAB Specimen Blood Performing Organization Address [facility] Phone Number [facility] LAB [address] [place] [address] * CREATINE KINASE-CPK (11/26/2017 2:46 PM) Creatine Kinase 109 35 - 232 U/L MAIN LAB Specimen Blood Performing Organization Address [facility] Phone Number MAIN LAB [address] [place] [address] * ANTI PERALTA(SM) ANTI INVENTORY AUDITOR AB (11/26/2017 2:46 PM) Anti-Peralta <0.2Comment: Interpretation: <1.0 AI MAIN LAB Negative Anti-INVENTORY AUDITOR 1.7 (H)Comment: <1.0 AI MAIN LAB Interpretation: Positive Specimen Blood Performing Organization Address [facility] Phone Number MAIN LAB [address] [place] [address] * SCL 70 ANTIBODIES (11/26/2017 2:46 PM) SCL70 Ab <0.2 <1.0 AI MAIN LAB Comment: Interpretation: Negative NOTE NEW METHODOLOGY AND REFERENCE RANGE Specimen Blood Performing Organization Address [facility] Phone Number MA[facility] LAB [address] [place] [address] * HYPERSENSITIVITY PNEUMONITIS IGG (11/26/2017 2:46 PM) [...] clinical history. The test method was the [employer] ImmunoCAP. . *This test was developed and its performance characteristics determined by [facility]. It has not been cleared or approved by the U.S. Food and Drug Administration. Testing Performed At: [facility] [address] [place] [id number] CLIA ID: [id number] Specimen Blood Performing Organization Address [facility] Phone Number REFERENCE LAB REFERENCE LAB See results for address. * RHEUMATOID FACTOR (RF) (11/26/2017 2:46 PM) Rheum Factor Screen <20 <24 IU/mL [facility] MAIN [facility] Specimen Blood Performing Organization Address [facility] Phone Number [facility] [address] [place] [address] * ANTI-NEUT CYTO AB (ANCA/PANCA) (11/26/2017 2:46 PM) C-ANCA <20,NEGATIVE TITER [facility] MAIN [facility] P-ANCA <20,NEGATIVE TITER [facility] MAIN LAB Specimen Blood Performing Organization Address [facility] Phone Number [facility] [address] [place] [address] * THIOPURINE METHYLTRANSFERASE RBC (11/26/2017 2:46 PM) [...] hemolysis. Test developed and characteristics determined by [facility]. See Compliance Statement B: [email or web address] Performed by [facility], [address] [place] [address] [email or web address], Jaren Mccarty MD, Lab. Director Specimen Blood Performing Organization Address [facility] Phone Number REFERENCE LAB REFERENCE LAB See results for address. * SED RATE (11/26/2017 2:46 PM) Sed Rate -ESR 15 0 - 20 MM/HR MAIN LAB Specimen Blood Performing Organization Address [facility] Phone Number MAIN LAB [address] [place] [address] * C REACTIVE PROTEIN (CRP) (11/26/2017 2:46 PM) C-Reactive Protein 0.11 <1.0 MG/DL MAIN LAB Specimen Blood Performing Organization Address [facility] Phone Number [facility] LAB [address] [place] [address] * ANTI SSA ANTI SSB AB (11/26/2017 2:46 PM) Anti-SSA <0.2Comment: Interpretation: <1.0 AI [facility] MAIN LAB Negative Anti-SSB <0.2Comment: Interpretation: <1.0 AI [facility] MAIN [facility] Negative Specimen Blood Performing Organization Address [facility] Phone Number [facility] [address] [place] [address] * ANTI-NUCLEAR ANTIBODY(GÉNESIS) (11/26/2017 2:46 PM) GÉNESIS Screen <80Comment: CYTOPLASMIC <80 TITER [facility] MAIN LAB STAINING PRESENT Specimen Blood Performing Organization Address [facility] Phone Number [facility] [address] [place] [address] * JENNY 1 ANTIBODIES (11/26/2017 2:46 PM) Jenny 1 Antibody <0.2 <1.0 AI [facility] MAIN [facility] Comment: Interpretation: Negative NOTE NEW METHODOLOGY AND REFERENCE RANGE Specimen Blood Performing Organization Address [facility] Phone Number [facility] [address] [place] [address] * CCP IGG ANTIBODY (11/26/2017 2:46 PM) CCP IgG Antibody <0.5Comment: NOTE NEW <3.0 [IU]/mL [facility] MAIN [facility] METHODOLOGY AND REFERENCE RANGE Specimen Blood Performing Organization Address [facility] Phone Number [facility] [address] [place] [address] * ALDOLASE (11/26/2017 2:46 PM) Aldolase 6.9 REFERENCE LAB Comment: Reference range: <7.7 Unit: U/L [facility] Specimen Blood Performing Organization Address [facility] Phone Number REFERENCE LAB REFERENCE LAB See results for address. * COMPREHENSIVE METABOLIC PANEL (11/26/2017 2:46 PM) [...] Address City/State/Zipcode Phone Number [facility]IN [facility] [address] [place] [address] * CBC AND DIFF (11/26/2017 2:46 PM) White Blood Cells 8.9 4.5 - 11.0 K/UL [facility] MA[facility] RBC 3.76 (L) 4.4 - 5.5 M/UL [facility] MAIN [facility] Hemoglobin 11.5 (L) 13.5 - 16.5 GM/DL [facility] MAIN [facility] Hematocrit 34.5 (L) 40 - 50 % [facility] MA[facility] MCV 91.7 80 - 100 FL [facility] MA[facility] MCH 30.6 26 - 34 PG [facility] MCHC 33.4 32.0 - 36.0 G/DL [facility] MAIN [facility] RDW 15.9 (H) 11 - 15 % [facility] MAIN [facility] Platelet Count 214 150 - 400 K/UL [facility] MA[facility] MPV 8.4 7 - 11 FL [facility] MAIN LAB Neutrophils 80 (H) 41 - [...] Organization Address City/State/Zipcode Phone Number MAIN LAB [address] [place] [address] in this encounter Visit Diagnoses Diagnosis ILD (interstitial lung disease) (HCC) - Primary Postinflammatory pulmonary fibrosis Interstitial lung disease (HCC) 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
--- OUTSIDE RECORDS SUMMARY | 2017-12-12 06:57 | XMS REPORT | Encounter Summary ---
Author Author [facility] Organization [facility] Address Unknown Phone Unavailable Care Team Providers Care Truss Driver Helper Name Role Phone Pablo Mendes PCP Eris Jack DO 3 Maritza Rosa MD 3 Shoaib Lozano DO 3 Reason for Referral * Consult, Test & Treat Status Reason Specialty Diagnoses / Referred By Referred To Procedures Contact Contact New Request Specialty Diagnoses Olegario Adrian, Pulmonary Function Services SOB ([address] [place] Required of breath) [address] [place] [address] Phone: Fax: Encounter Details Date Type Department Care Team Description 11/19/2017 Orders Only [facility] Olegario Adrian MD SOB ( shortness of breath) Physicians - Internal [address] (Primary Dx) [place] [address] Ortho and Medical [phone] [address] [place] [address] Social History Tobacco Use Types Packs/Day Years Used Date Former Smoker Cigarettes 1 50 1958 - 2013 Sex Assigned at Date Recorded Not on file as of this encounter Plan of Treatment Name Priority Associated Diagnoses Order Schedule AMB REFERRAL TO PULMONARY FUNCTION LAB Routine SOB (shortness of breath) Ordered: 11/19/2017 as of this encounter Visit Diagnoses Diagnosis SOB (shortness of breath) - Primary Shortness of breath
--- OUTSIDE RECORDS SUMMARY | 2017-12-12 06:57 | XMS REPORT | Encounter Summary ---
Author Author [facility] Organization [facility] Address Unknown Phone Unavailable Care Team Providers Care Special Services Supervisor Name Role Phone Pablo Mendes PCP Eris Jack DO 3 Maritza Rosa MD 3 Shoaib Lozano DO 3 Encounter Details Date Type Department Care Team Description 11/26/2017 [facility] Olegario Adrian MD Interstitial pulmonary Encounter [facility] 1st fl [address] [facility] disease, unspecified [address] [place] [address] ([facility]) [place] [address] [phone] Social History Tobacco Use Types Packs/Day Years Used Date Former Smoker Cigarettes 2 50 1958 - 2013 Smokeless Tobacco: Former Quit: 1997 User Sex Assigned at Date Recorded Not on file as of this encounter Medications at Time of Discharge Medication Sig. Disp. Refills Start Date End Date amLODIPine (NORVASC) 5 mg Take 5 mg by mouth daily. tablet cetirizine (ZYRTEC) 10 mg Take 10 mg by mouth every tablet morning. serhxnsgyls-reoikabjb-kun Inhale by mouth into the anter (TRELEGY ELLIPTA) lungs. 100-62.5-25 mcg dsdv hydroCHLOROthiazide Take 25 mg by mouth every (HYDRODIURIL) 25 mg morning. tablet lisinopril (PRINIVIL; Take 20 mg by mouth ZESTRIL) 20 mg tablet daily. montelukast (SINGULAIR) Take 10 mg by mouth at 10 mg tablet bedtime daily. prednisone (DELTASONE) 10 Take 10 mg by mouth daily mg tablet with breakfast. as of this encounter Plan of Treatment Not on fileas of this encounter Results * T SPOT [...] medical status, and results of other diagnostic evaluations.[id number] T-SPOT.TB test is qualitative and results are [...] REFERENCE LAB Specimen Blood Performing Organization Address [facility] Phone Number REFERENCE LAB REFERENCE LAB See results for address. * IMMUNOGLOBULINS-IGA,IGG,IGM (11/26/2017 2:46 PM) IgG 1,168 762 - 1,488 MG/DL [facility] IgA 489 (H) 70 - 390 MG/DL [facility] IgM 72 38 - 328 MG/DL [facility] Specimen Blood Performing Organization Address [facility] Phone Number [facility] [address] [place] [address] * CARDIOLIPIN AB IGG/IGM (11/26/2017 2:46 PM) Cardiolipin, IgG <1.6 <20.0 GPL/ML [facility] Cardiolipin, IgM <0.2 <20.0 MPL/ML [facility] Specimen Blood Performing Organization Address [facility] Phone Number [facility] [address] [place] [address] * CREATINE KINASE-CPK (11/26/2017 2:46 PM) Creatine Kinase 109 35 - 232 U/L MAIN LAB Specimen Blood Performing Organization Address [facility] Phone Number MAIN LAB [address] [place] [address] * ANTI PERALTA(SM) ANTI HIGHWAY ENGINEERING TEACHER AB (11/26/2017 2:46 PM) Anti-Peralta <0.2Comment: Interpretation: <1.0 [facility] MAIN LAB Negative Anti-HIGHWAY ENGINEERING TEACHER 1.7 (H)Comment: <1.0 [facility] MAIN LAB Interpretation: Positive Specimen Blood Performing Organization Address [facility] Phone Number MAIN LAB [address] [place] [address] * SCL 70 ANTIBODIES (11/26/2017 2:46 PM) SCL70 Ab <0.2 <1.0 [facility] MAIN LAB Comment: Interpretation: Negative NOTE NEW METHODOLOGY AND REFERENCE RANGE Specimen Blood Performing Organization Address [facility] Phone Number MAIN LAB [address] [place] [address] * HYPERSENSITIVITY PNEUMONITIS IGG (11/26/2017 2:46 PM) [...] clinical history. The test method was the [employer] ImmunoCAP. . *This test was developed and its performance characteristics determined by [employer]. It has not been cleared or approved by the U.S. Food and Drug Administration. Testing Performed At: [employer] [address] [facility] [place] [id number] CLIA ID: [id number] Specimen Blood Performing Organization Address City/[facility]/Zipcode Phone Number REFERENCE LAB REFERENCE LAB See results for address. * RHEUMATOID FACTOR (RF) (11/26/2017 2:46 PM) Rheum Factor Screen <20 <24 IU/mL [facility] Specimen Blood Performing Organization Address [facility] Phone Number [facility] [address] [place] [address] * ANTI-NEUT CYTO AB (ANCA/PANCA) (11/26/2017 2:46 PM) C-ANCA <20,NEGATIVE TITER [facility] P-ANCA <20,NEGATIVE TITER [facility] Specimen Blood Performing Organization Address [facility] Phone Number [facility] [address] [place] [address] * THIOPURINE METHYLTRANSFERASE RBC (11/26/2017 2:46 PM) [...] hemolysis. Test developed and characteristics determined by [employer]. See Compliance Statement B: www.[employer]/CS Performed by [employer], [address] [facility] [place] [address] [email or web address], Jaren Mccarty MD, Lab. Director Specimen Blood Performing Organization Address [facility] Phone Number REFERENCE LAB REFERENCE LAB See results for address. * SED RATE (11/26/2017 2:46 PM) Sed Rate -ESR 15 0 - 20 MM/HR MAIN LAB Specimen Blood Performing Organization Address [facility] Phone Number MAIN LAB [address] [place] [address] * C REACTIVE PROTEIN (CRP) (11/26/2017 2:46 PM) C-Reactive Protein 0.11 <1.0 MG/DL MAIN LAB Specimen Blood Performing Organization Address [facility] Phone Number MAIN LAB [address] [place] [address] * ANTI SSA ANTI SSB AB (11/26/2017 2:46 PM) Anti-SSA <0.2Comment: Interpretation: <1.0 [facility] MAIN LAB Negative Anti-SSB <0.2Comment: Interpretation: <1.0 [facility] MAIN LAB Negative Specimen Blood Performing Organization Address [facility] Phone Number MAIN LAB [address] [place] [address] * ANTI-NUCLEAR ANTIBODY(GÉNESIS) (11/26/2017 2:46 PM) GÉNESIS Screen <80Comment: CYTOPLASMIC <80 TITER MAIN LAB STAINING PRESENT Specimen Blood Performing Organization [facility] Phone Number MAIN LAB [address] [place] [address] * ANDREW 1 ANTIBODIES (11/26/2017 2:46 PM) Andrew 1 Antibody <0.2 <1.0 [facility] MAIN LAB Comment: Interpretation: Negative NOTE NEW METHODOLOGY AND REFERENCE RANGE Specimen Blood Performing Organization Address [facility] Phone Number MAIN LAB [address] [place] [address] * CCP IGG ANTIBODY (11/26/2017 2:46 PM) CCP IgG Antibody <0.5Comment: NOTE NEW <3.0 [IU]/mL [facility] METHODOLOGY AND REFERENCE RANGE Specimen Blood Performing Organization Address [facility] Phone Number [facility] [address] [place] [address] * ALDOLASE (11/26/2017 2:46 PM) Aldolase 6.9 REFERENCE LAB Comment: Reference range: <7.7 Unit: U/L [facility] Specimen Blood Performing Organization Address [facility] Phone Number REFERENCE LAB REFERENCE LAB See [...] for questions. Specimen Blood Performing Organization Address [facility] Phone Number MAIN LAB [address] [place] [address] * CBC AND DIFF (11/26/2017 2:46 PM) [...] Organization Address City/State/Zipcode Phone Number MAIN LAB [address] [place] [address] in this encounter Visit Diagnoses Diagnosis ILD (interstitial lung disease) (HCC) Postinflammatory pulmonary fibrosis Admitting Diagnoses Diagnosis Interstitial pulmonary disease, unspecified (HCC) Interstitial pulmonary disease, unspecified
--- OUTSIDE RECORDS SUMMARY | 2017-12-12 06:57 | XMS REPORT | Encounter Summary ---
Author Author [facility] Organization [facility] Address Unknown Phone Unavailable Care Team Providers Care Case Supervisor Name Role Phone Pablo Mendes PCP Eris Jack DO 3 Maritza oRsa MD 3 Shoaib Lozano DO 3 Encounter Details Date Type Department Care Team Description 11/21/2017 [facility], Radiologist Orders [address] [place] [address] Social History Tobacco Use Types Packs/Day Years Used Date Former Smoker Cigarettes 1 50 1958 - 2013 Sex Assigned at Date Recorded Not on file as of this encounter Plan of Treatment Not on fileas of this encounter Results * CT CHEST EXTERNAL IMAGING (05/30/2017 12:00 PM) Narrative Performed At This order has been auto finalized and does not contain a result. in this encounter Visit Diagnoses Not on filein this encounter
--- OUTSIDE RECORDS SUMMARY | 2017-12-12 06:57 | XMS REPORT | Encounter Summary ---
Author Author [facility] Organization [facility] Address Unknown Phone Unavailable Care Team Providers Care Marketing Communications Manager Name Role Phone Pablo Mendes PCP Eris Jack DO 3 Maritza Rosa MD 3 Shoaib Lozano DO 3 Reason for Visit * Reason Comments Records Request Encounter Details Date Type Department Care Team Description 11/18/2017 Telephone [facility] Olegario Adrian MD Records Request Physicians - Internal [address] [place] [address] [facility] [phone] [address] [place] [address] Social History Tobacco Use Types Packs/Day Years Used Date Former Smoker Cigarettes 1 50 1958 - 2013 Sex Assigned at Date Recorded Not on file as of this encounter Miscellaneous Notes * Telephone Encounter - Violette Rivers RN - 11/18/2017 11:22 AM CDT Call placed to [facility] radiology to cloud images from 11/01/16 to [facility]. M requesting call back. Violette Rivers RN in this encounter Plan of Treatment Not on fileas of this encounter Visit Diagnoses Not on filein this encounter
--- OUTSIDE RECORDS SUMMARY | 2017-12-12 06:57 | XMS REPORT | Encounter Summary ---
Author Author [facility] Organization [facility] Address Unknown Phone Unavailable Care Team Providers Care Wet Roller Name Role Phone Pablo Mendes PCP Eris Jack DO 3 Maritza Rosa MD 3 Shoaib Lozano DO 3 Reason for Visit * Consult, Test & Treat Status Reason Specialty Diagnoses / Referred By Referred To Procedures Contact Contact New Request Specialty Diagnoses Olegario Adrian, Pulmonary Function Services SOB (anne Wil[facility] Required of breath) [address] [place], [place] [phone] Phone: Fax: Encounter Details Date Type Department Care Team Description 11/26/2017 Hospital [facility] Doctor, Miscellaneous Encounter Hospital Pulmonary Function [facility] [address] [place] [address] Social History Tobacco Use Types Packs/Day Years [...] 10 mg by mouth every tablet morning. ztwxntqbvnv-natvrtzff-iqf Inhale by mouth into the anter (TRELEGY [...] on fileas of this encounter Results * PFT COMPLETE PULM FUNCTION (11/26/2017 12:41 PM) FVC-Pre 2.24 L [facility]IN FVC-%Pred-pre 58 % [facility] FEV1-Pre 1.92 L [facility] FEV1-%Pred-Pre 69 % [facility] [id number] 2.70 L/sec [facility] VYL6788-%Pred-Pre 136 % [facility] VCSVC-Pre 2.45 [...] Address City/State/Zipcode Phone Number [facility] PFT MAIN [address] [place] [address] in this encounter Visit Diagnoses Diagnosis Dyspnea, unspecified type - Primary
[2017-12-12 07:15] VITALS: BP 154/81
[2017-12-12] MEDS ORDERED: CLINDAMYCIN 600 MG/50 ML IVPB 50 ML IV ONE (07:15)
[2017-12-12] MEDS: LACTATED RINGERS 1,000 ML IV PRN ×2 (07:25→09:38)
[2017-12-12] MEDS ORDERED: CATHETER FLUSH 10 ML SYR IV PRN (07:45)
--- NOTE | 2017-12-12 08:16 | Progress Note-Pre Operative ---
Pre-Operative Progress Note H&P Reviewed The H&P was reviewed, patient examined and no changes noted. Date Seen by Provider: Dec 12, 2017 Time Seen by Provider: 08:00 Date H&P Reviewed: Dec 12, 2017 Time H&P Reviewed: 08:05 Pre-Operative Diagnosis: Biliary Dyskinesia STEF COOK APRN Dec 12, 2017 8:16 am
[2017-12-12] MEDS ORDERED: BUP/EPI 0.5% 1:200,000 (SENSORCAINE) 30 ML VIAL ONE (08:21)
[2017-12-12] MEDS ORDERED: ACETAMINOPHEN 325 MG TABLET PO PRN (08:30)
[2017-12-12] MEDS ORDERED: HYDROcodone/APAP 5 MG/325 MG (LORTAB) TAB PO ONE (08:30)
[2017-12-12] MEDS ORDERED: ONDANSETRON 4 MG/2 ML (SDV) Z0FRAN IVP PRN ×2 (08:30→10:15)
[2017-12-12] MEDS ORDERED: fentaNYL INJECTION 100 MCG/2 ML AMP IVP PRN (08:30)
[2017-12-12] MEDS ORDERED: fentaNYL INJECTION 100 MCG/2 ML AMP ONE ×2 (08:36→09:49)
[2017-12-12] MEDS ORDERED: ONDANSETRON 4 MG/2 ML (SDV) Z0FRAN ONE (08:37)
[2017-12-12] MEDS ORDERED: ROCURONIUM 10 MG/ML 5 ML SYRINGE IV ONE (08:37)
[2017-12-12] MEDS ORDERED: LIDOCAINE PF 2% 5 ML (XYLOCAINE) VIAL ONE (08:37)
[2017-12-12] MEDS ORDERED: proPOfol 200 MG/20 ML (DIPRIVAN) VIAL IV ONE (08:37)
[2017-12-12] MEDS ORDERED: SEVOFLURANE (ULTANE) 15 ML INHAL SOLN ONE ×2 (08:59→10:05)
[2017-12-12 09:07] LABS: BASOPHILS % (AUTO) 0 % (0-10); EOSINOPHILS # (AUTO) 0.1 10^3/uL (0.0-0.3); EOSINOPHILS % (AUTO) 1 % (0-10); HEMATOCRIT 34 % (40-54); HEMOGLOBIN 11.3 G/DL (13.3-17.7); LYMPHOCYTES # (AUTO) 1.2 X 10^3 (1.0-4.0); LYMPHOCYTES % (AUTO) 10 % (12-44); MEAN CORPUSCULAR HEMOGLOBIN 30 PG (25-34); MEAN CORPUSCULAR HGB CONC 33 G/DL (32-36); MEAN CORPUSCULAR VOLUME 92 FL (80-99); MEAN PLATELET VOLUME 11.1 FL (7.4-10.4); MONOCYTES # (AUTO) 1.3 X 10^3 (0.0-1.0); MONOCYTES % (AUTO) 10 % (0-12); NEUTROPHILS # (AUTO) 10.2 X 10^3 (1.8-7.8); NEUTROPHILS % (AUTO) 79 % (42-75); PLATELET COUNT 235 10^3/uL (130-400); RED BLOOD COUNT 3.73 10^6/uL (4.35-5.85); RED CELL DISTRIBUTION WIDTH 14.9 % (10.0-14.5); WHITE BLOOD COUNT 12.8 10^3/uL (4.3-11.0)
[2017-12-12] MEDS ORDERED: DEXAMETHASONE 10 MG/ML (DECADRON) 1 ML VIAL ONE (09:14)
[2017-12-12] MEDS ORDERED: NEOSTIGMINE 1 MG/ML 5 ML SYRINGE ONE (09:32)
[2017-12-12] MEDS ORDERED: GLYCOPYRROLATE 0.2 MG/ML (ROBINUL) 2 ML VIAL ONE ×2 (09:32→09:37)
--- NOTE | 2017-12-12 10:13 | Progress Note-Post Operative ---
Post-Operative Progess Note Surgeon (s)/[employer] Machine Tender (s) Surgeon ELIGIO BANKS MD [employer] Machine Tender: yoan corona WASHER HAND Pre-Operative Diagnosis Biliary Dyskinesia Post-Operative Diagnosis same Procedure & Operative Findings Date of Procedure 12/12/17 Procedure Performed/Findings laparoscopic cholecystectomy. Anesthesia Type CS Estimated Blood Loss Estimated blood loss (mL): minimal Specimens/Packing Specimens Removed gallbladder ELGIIO BANKS MD Dec 12, 2017 10:13 am
[2017-12-12] MEDS ORDERED: HYDR-34 PO (10:14)
[2017-12-12] MEDS ORDERED: HYDROmorphone 2 MG/ML VIAL (DILAUDID) IV ONE (10:15)
--- NOTE | 2017-12-12 10:16 | Discharge Inst-Surgical ---
D/C Lap Instructions-JOCELYN New, Converted, or Re-Newed RX: RX on Chart Follow Up Appt in 2 weeks Activity as tolerated No driving for 24 hours No driving while on pain medications Incentive Spirometry use every 2 hours while awake Regular Diet Symptoms to Report: Fever over 101 degree F, Nausea/Vomiting Infection Signs and Symptoms to report: Increased redness, Foul odor of wound, Increased drainage Bathing instructions: May shower Operative Area Clean/Dry; Keep incision clean/dry If any problems/questions: Contact your physician or go to Emergency Room ELIGIO BANKS MD Dec 12, 2017 10:16 am
[2017-12-12] MEDS: morphine INJ 10 MG/ML 1ML (SYR OR VIAL) IVP ONE (10:37)
[2017-12-12 11:13] VITALS: BP 127/53
[2017-12-12 11:43] VITALS: BP 130/55
[2017-12-12 12:13] VITALS: BP 124/56
[2017-12-12] MEDS ORDERED: HYDROcodone/APAP 5 MG/325 MG (LORTAB) TAB ONE (12:13)
[2017-12-12 12:55] VITALS: BP 124/56
--- NOTE | 2017-12-12 13:36 | OPERATIVE REPORT ---
DATE OF SERVICE: 12/12/2017 ATTENDING PRIMARY CARE PHYSICIAN: Pablo Mendes M.D. PREOPERATIVE DIAGNOSIS: Symptomatic biliary dyskinesia. POSTOPERATIVE DIAGNOSIS: Symptomatic biliary dyskinesia. PROCEDURE: Laparoscopic cholecystectomy. SURGEON: Eligio Banks M.D. CUTTING DEPARTMENT SUPERVISOR: Jose Philip APRN. ANESTHESIA: General endotracheal. ESTIMATED BLOOD LOSS: Minimal. FINDINGS: Dilated gallbladder with a hpdf-ma-jjtdhjjd chronic inflammation. DISPOSITION: The patient tolerated the procedure well. INDICATIONS: The patient is a 77-year-old male who has had issues with abdominal pain, episodes of bloating, and fullness sensation using right upper abdominal quadrant usually after meals. An ultrasound was performed, which did not show any gallstones. He then underwent a HIDA scan, which showed a very low ejection fraction of 3% as well as reproduction of symptoms upon administration of the Kinevac analogue consistent with a biliary dyskinesia. DESCRIPTION OF PROCEDURE: The patient was brought to the operating room, laid supine on the table. After adequate IV pain and sedating medications and general endotracheal intubation, the abdomen was prepped and draped in standard surgical fashion. A Marcaine, 0.5% with epinephrine was used to anesthetize the overlying skin in the left upper abdominal quadrant and a small transverse skin incision made using a 15-blade. An 0-silk suture was applied to the medial aspect of the incision for retraction and a Veress needle inserted with a low opening pressure of 0 mmHg and the abdomen was then insufflated to 15 mmHg pressure. The Veress needle removed and a 5 mm Xcel trocar placed followed by a 5-mm 45 degree angle laparoscope visualizing the peritoneal cavity. A 4-quadrant abdominal exploration was performed. There was mild liver steatosis. There was a slightly distended gallbladder as well as hpxf-sf-haecxyfv chronic inflammatory changes. The remainder of the omentum, stomach, and small bowel appeared normal. We then proceeded to place a supraumbilical 10-mm port after the skin and peritoneal lining were anesthetized using 0.5% Marcaine with epinephrine and a transverse skin incision made using 15-blade. In a similar manner, a right upper abdominal quadrant 5-mm port was placed. The patient was then placed in reverse Trendelenburg position as well as plane right side up, left side down. The fundus of the gallbladder was then retracted anteriorly and superiorly. The hepatoduodenal ligament was then opened using electrocautery and the hook instrument as well as blunt dissection. The entire critical view of safety was identified including the triangle of Calot as well as the cystic duct and arteries as the only two structures going into the gallbladder and the cystic plate behind the proximal gallbladder. A timeout was then taken. The cystic duct and artery were then clipped proximally and distally and cut with EndoShears. The gallbladder was then dissected off of the liver bed using electrocautery on the hook instrument with visualization of good hemostasis as well as no leaking ducts of Luschka. The gallbladder was then removed through the 10-mm port site using an EndoCatch bag. The 10-mm port fascia and peritoneum were then closed under direct visualization using a Ishaan-Dashawn device and 0-Vicryl suture. The abdomen was desufflated and remaining ports removed. All skin incisions were closed using 4-0 Monocryl running subcuticular sutures. Wounds were then cleaned and covered with Dermabond. The patient tolerated the procedure well. We will start IV and oral pain medication as well as a clear liquid diet. Once he is tolerating clears, has good pain control with oral pain medications, ambulating well, we will discharge him home. Job ID: [id number] DocumentID: [id number] Dictated Date: 12/12/2017 09:53:43 Garnishment Specialist Date: 12/12/2017 12:57:09 Dictated By: ELIGIO BANKS MD
--- NOTE | 2017-12-12 14:24 | Anesthesia-General Post-Op ---
General Patient Condition Mental Status/LOC: Same as Preop Cardiovascular: Satisfactory Nausea/Vomiting: Absent Respiratory: Satisfactory Pain: Controlled Complications: Absent Post Op Complications Complications None Follow Up Care/Instructions Patient Instructions None needed. Anesthesia/Patient Condition Patient Condition Patient is doing well, no complaints, stable vital signs, no apparent adverse anesthesia problems. No complications reported per nursing. D/C home per [facility] Criteria: Yes HOLLY FRY CRNA Dec 12, 2017 14:24
== END 2017-12-12 13:10 | disposition home or self-care (01) ==
LOC: SDC 06:53
PROVIDERS: ATTEND Surgery
DX: K81.1 Chronic cholecystitis (principal); K82.8 Other specified diseases of gallbladder; I25.10 Atherosclerotic heart disease of native coronary artery without angina pectoris; I10 Essential (primary) hypertension; G47.33 Obstructive sleep apnea (adult) (pediatric); J44.9 Chronic obstructive pulmonary disease, unspecified; K21.9 Gastro-esophageal reflux disease without esophagitis; Z95.1 Presence of aortocoronary bypass graft; Z95.820 Peripheral vascular angioplasty status with implants and grafts; Z87.891 Personal history of nicotine dependence; Z79.82 Long term (current) use of aspirin; Z79.899 Other long term (current) drug therapy
CPT/HCPCS: 36415; 85025; 87081; 88304

== ENCOUNTER → 2018-08-19 | Outpatient (CLI) | payer MEDICARE, OTHER ==
[~2018-08-19] MED LIST changes: -AMLO5TAB7 PO; +AMLO5TAB9 PO; +HOLD METFORMIN - RECEIVED CONTRAST 20 ML VIAL IV SCH; +HYDR-34 PO; +IOHEXOL 350 MG/ML 100 ML (OMNIPAQUE 350) VIAL IV ONE
[2018-08-19 14:19] LABS: CREATININE SERUM 1.29 MG/DL (0.60-1.30)
--- NOTE | 2018-08-19 15:48 | Diagnostic Imaging Report ---
PROCEDURE: CT abdomen and pelvis with contrast. TECHNIQUE: Multiple contiguous axial images were obtained through the abdomen and pelvis after administration of intravenous contrast. Auto Exposure Controls were utilized during the CT exam to meet ALARA standards for radiation dose reduction. INDICATION: Left flank pain for three years. COMPARISON: No prior studies are available for comparison. FINDINGS: Imaging through the lung bases demonstrates interstitial fibrotic changes in bilateral lower lobes. There is calcified granuloma in left lower lobe as well. The liver demonstrates generalized low density consistent with hepatic steatosis. No discrete mass is identified. Gallbladder is surgically absent. No biliary ductal dilatation is seen. The pancreas and spleen are unremarkable. No adrenal mass is identified. Kidneys are unremarkable. Aorta is heavily calcified but nonaneurysmal. The small and large bowel loops are normal caliber. No obstruction is seen. The appendix is unremarkable in the right lower quadrant. There is no ascites. Prostate is enlarged. The bladder is unremarkable. No central retroperitoneal or mesenteric lymphadenopathy is seen. No pelvic lymphadenopathy is identified. Bony structures demonstrate postsurgical changes of posterior instrumented fusion from L4 through S1 as well as anterior lumbar interbody fusion at L4-L5 and L5-S1 levels. Decompression laminectomy at L5 is seen. IMPRESSION: 1. Hepatic steatosis. 2. Prostatomegaly. 3. No acute feature is identified. Dictated by: Dictated on workstation # [id number]
== END ==
LOC: RAD 13:41
PROVIDERS: ATTEND Surgery
DX: K76.0 Fatty (change of) liver, not elsewhere classified (principal); N40.0 Benign prostatic hyperplasia without lower urinary tract symptoms; Z98.1 Arthrodesis status; Z90.49 Acquired absence of other specified parts of digestive tract
CPT/HCPCS: 36415; 74177; 82565; 84520

== ENCOUNTER → 2018-11-06 | Outpatient (CLI) | payer MEDICARE, OTHER ==
[~2018-11-06] MED LIST changes: -HOLD METFORMIN - RECEIVED CONTRAST 20 ML VIAL IV SCH; -IOHEXOL 350 MG/ML 100 ML (OMNIPAQUE 350) VIAL IV ONE
--- NOTE | 2018-11-06 15:14 | Diagnostic Imaging Report ---
PROCEDURE: CT chest without contrast. TECHNIQUE: Multiple contiguous axial images were obtained through the chest without the use of intravenous contrast. Auto Exposure Controls were utilized during the CT exam to meet ALARA standards for radiation dose reduction. INDICATION: Interstitial lung disease, pulmonary fibrosis. Surveillance imaging. COMPARISON: 11/28/2013. FINDINGS: Lungs and airway: No endoluminal nodule within the trachea. Subpleural reticulations with associated stacked cysts and traction bronchiectasis involving all five lobes have not changed in distribution and severity. No pulmonary mass or noncalcified nodule. Pleura: No pleural effusion or pneumothorax. Heart and mediastinum: Stable calcified nodule within the right thyroid lobe. No supraclavicular or axillary lymphadenopathy. No mediastinal, hilar, or juxtaphrenic lymphadenopathy. 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 No pericardial effusion. Normal-caliber thoracic aorta. Upper abdomen: Extensive atherosclerotic plaquing in the upper abdomen is unchanged. Cholecystectomy. No acute abnormality in the upper abdomen. Musculoskeletal: No worrisome focal osseous lesions. IMPRESSION: 1. No progression of multifocal pulmonary fibrosis compared to examination approximately one year prior. Dictated by: Dictated on workstation # [id number]
== END ==
LOC: RAD 12:24
PROVIDERS: ATTEND Internal Medicine Pulmonary Disease
DX: J84.10 Pulmonary fibrosis, unspecified (principal); Z87.891 Personal history of nicotine dependence; Z95.1 Presence of aortocoronary bypass graft
CPT/HCPCS: 71250

== ENCOUNTER → 2018-11-14 | Outpatient (CLI) | payer MEDICARE, OTHER ==
[~2018-11-14] VITALS: Ht 175.3 cm; Wt 95.7 kg
[~2018-11-14] MED LIST changes: +NS IV 1000 ML 1,000 ML IV ONE; +NS IV 1000 ML 1,000 ML ONE; +ONDANSETRON 4 MG/2 ML (SDV) Z0FRAN IV PRN; +ONDANSETRON 4 MG/2 ML (SDV) Z0FRAN ONE; +RT-ALBUTEROL/IPRATROPIUM 3 ML (DUONEB) VIAL ONE
[2018-11-14 09:31] LABS: HEMOGLOBIN 10.1 G/DL (13.3-17.7); MEAN PLATELET VOLUME 8.6 FL (7.4-10.4); RED CELL DISTRIBUTION WIDTH 14.6 % (10.0-14.5); WHITE BLOOD COUNT 8.9 10^3/uL (4.3-11.0)
[2018-11-14 09:49] LABS: ALBUMIN 3.9 GM/DL (3.2-4.5); BILIRUBIN,TOTAL 0.3 MG/DL (0.1-1.0); CALCIUM 9.7 MG/DL (8.5-10.1); CREATININE SERUM 1.9 MG/DL (0.60-1.30); POTASSIUM 4.2 MMOL/L (3.6-5.0); TOTAL PROTEIN 6.7 GM/DL (6.4-8.2)
[2018-11-14 10:18] LABS: BILIRUBIN,URINE NEGATIVE (NEGATIVE); CLARITY,URINE CLEAR; COLOR,URINE YELLOW; GLUCOSE, URINE (UA) NEGATIVE (NEGATIVE); KETONES,URINE NEGATIVE (NEGATIVE); LEUKOCYTE ESTERASE ,URINE 1+ (NEGATIVE); NITRITE,URINE NEGATIVE (NEGATIVE); PH,URINE 5 (5-9); PROTEIN,URINE 2+ (NEGATIVE); UROBILINOGEN,URINE NORMAL (NORMAL)
[2018-11-14 10:32] LABS: BACTERIA,URINE NEGATIVE /HPF; HYALINE CASTS, URINE 25-50 /LPF; WBC,URINE RARE /HPF
--- NOTE | 2018-11-14 10:35 | NUR ---
IV FLUIDS INFUSED. LABS CALLED TO JOSEPH CALDERON APRN, [place] TO SEND PATIENT HOME. ENCOURAGE FLUIDS AND DISCONTINUE TAKING AMLODIPINE.
[2018-11-14 10:50] VITALS: BP 147/59
== END ==
LOC: SDC 09:13
PROVIDERS: ATTEND Nurse Practitioner Family
DX: E86.0 Dehydration (principal); R55 Syncope and collapse; R11.0 Nausea
CPT/HCPCS: 36415; 80053; 81000; 85027; 96360; 96374

== ENCOUNTER → 2019-04-02 | Outpatient (CLI) | payer MEDICARE, OTHER ==
[~2019-04-02] MED LIST changes: +GADOBUTROL 7.5 MMOL/7.5 ML (GADAVIST) VIAL IV ONE; -NS IV 1000 ML 1,000 ML IV ONE; -NS IV 1000 ML 1,000 ML ONE; -ONDANSETRON 4 MG/2 ML (SDV) Z0FRAN IV PRN; -ONDANSETRON 4 MG/2 ML (SDV) Z0FRAN ONE; -RT-ALBUTEROL/IPRATROPIUM 3 ML (DUONEB) VIAL ONE
[2019-04-02 09:15] LABS: BILIRUBIN,TOTAL 0.3 MG/DL (0.1-1.0); CALCIUM 9.1 MG/DL (8.5-10.1); CREATININE SERUM 1.44 MG/DL (0.60-1.30)
[2019-04-02 09:16] LABS: ALBUMIN 3.9 GM/DL (3.2-4.5); TOTAL PROTEIN 6.8 GM/DL (6.4-8.2)
--- NOTE | 2019-04-02 11:35 | Diagnostic Imaging Report ---
PROCEDURE: MR imaging of the brain with and without contrast. TECHNIQUE: Multiplanar, multisequence MR imaging of the brain was performed with and without contrast. INDICATION: Persistent vertigo. COMPARISON: No prior studies are available for comparison. FINDINGS: Ventricles and sulci are appropriate for the patient's age. There is moderate periventricular and subcortical white matter signal abnormalities noted consistent with chronic microvascular ischemia. 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 Small area in the right occipital lobe is also noted consistent with an old infarct. No diffusion restriction is identified to suggest acute ischemia. The normal expected flow-voids within the carotid siphons are seen. No acute intra-axial or extra-axial hemorrhage is detected. No abnormal enhancement following contrast administration is seen. Thin slice imaging through the IACs is unremarkable. Seventh and eighth nerve complexes are unremarkable. No CP angle mass is detected. Corpus callosum is unremarkable. The sella and parasellar structures are unremarkable. IMPRESSION: Chronic changes, as described. No acute intracranial process is detected. Dictated by: Dictated on workstation # [id number]
== END ==
LOC: RAD 08:29
PROVIDERS: ATTEND Nurse Practitioner Family
DX: R42 Dizziness and giddiness (principal)
CPT/HCPCS: 36415; 70553; 80053

== ENCOUNTER 2019-05-28 13:36 | Inpatient (IN) | payer MEDICARE, OTHER ==
[~2019-05-28] VITALS: Ht 175.3 cm; Wt 95.5 kg
[2019-05-28] VITALS (7 sets, daily range): BP systolic 111–169; BP diastolic 60–85
[~2019-05-28 13:36] MED LIST changes: -GADOBUTROL 7.5 MMOL/7.5 ML (GADAVIST) VIAL IV ONE
[2019-05-28] MEDS ORDERED: methylPREDNISolone 125 MG (Solu-MEDROL) VIAL IV STA (13:57)
[2019-05-28] MEDS ORDERED: RT-ALBUTEROL SULF 2.5 MG/3 ML PRE-MIX VIAL INH STA (13:57)
[2019-05-28] MEDS ORDERED: ASPIRIN 81 MG CHEW (CHILDREN'S ASA) PO ONE (14:00)
--- NOTE | 2019-05-28 14:00 | NUR ---
pt sitting in ED bed visiting with family, pt has no needs or c/o at this time, vs assessed and stable, pt shows no new s/s of distress, will continue to monitor
[2019-05-28 14:10] LABS: BASOPHILS % (AUTO) 0 % (0-10); EOSINOPHILS % (AUTO) 0 % (0-10); HEMATOCRIT 31 % (40-54); HEMOGLOBIN 9.4 G/DL (13.3-17.7); LYMPHOCYTES # (AUTO) 1.6 X 10^3 (1.0-4.0); LYMPHOCYTES % (AUTO) 7 % (12-44); MEAN CORPUSCULAR HEMOGLOBIN 31 PG (25-34); MEAN CORPUSCULAR HGB CONC 31 G/DL (32-36); MEAN CORPUSCULAR VOLUME 100 FL (80-99); MEAN PLATELET VOLUME 9.7 FL (7.4-10.4); MONOCYTES # (AUTO) 1.9 X 10^3 (0.0-1.0); MONOCYTES % (AUTO) 8 % (0-12); NEUTROPHILS # (AUTO) 19.4 X 10^3 (1.8-7.8); NEUTROPHILS % (AUTO) 85 % (42-75); PLATELET COUNT 266 10^3/uL (130-400); WHITE BLOOD COUNT 22.9 10^3/uL (4.3-11.0)
--- NOTE | 2019-05-28 14:14 | ED Respiratory ---
General Chief Complaint: Respiratory Problems Stated Complaint: SOA Nursing Triage Note: woke up this AM not feeling well, has hx of COPD, had an O2 sat of 77% when EMS arrived, was given an albuterol treatment in route Source: patient, EMS Exam Limitations: no limitations (CHITRA MCLAIN MEDICAL STUDENT) History of Present Illness Date Seen by Provider: May 28, 2019 Time Seen by Provider: 13:55 Initial Comments This is a 78 yo male brought in by EMS for complaint of SOB that started when he ambulated to the bathroom this morning upon waking. He continued to get progressively more SOB and also became dizzy, and experienced CP and PINEDA. He describes the CP as substernal pressure that worsens with deep inspiration. On scene O2 saturation was 77%. EMS provided one round of nebulizer tx and placed pt on 15L of 100% O2, which improved the patients sats to >90 and his CP resolved. The pt has a hx of COPD, he is on 2L of O2 via nasal cannula and BiPAP at home. He also has a hx of MA and CABG in 1998, but denies a hx of CHF. He denies recent cough, congestion, runny nose, nausea, vomiting, diarrhea, dysuria. He quit smoking cigarettes 4 years ago. 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 Timing/Duration: this morning Severity: moderate Context: ambulating to bathroom Prior Episodes/Possible Cause: occasional episodes, unknown cause Modifying Factors: Worse With Activity; Improves With Albuterol Nebulizer, Improves With Oxygen Associated Symptoms: chest pain/soreness; No cough; dizziness; No fever/chills, No nasal congestion; shortness of breath; No wheezing (CHITRA MCLAIN MEDICAL STUDENT) Timing/Duration: this morning, getting worse Severity: moderate, severe Associated Symptoms: chest pain/soreness, shortness of breath (ALVAREZ AVERY MD) Allergies and Home Medications Allergies Coded Allergies: Penicillins (Verified Allergy, Severe, 12/05/17) codeine (Verified Allergy, Severe, 12/05/17) Sulfa (Sulfonamide Antibiotics) (Verified Allergy, Unknown, 12/05/17) Home Medications Albuterol Sulfate 1 Puff Puff, 2 PUFF IH QID, (Reported) 1 PUFF = 90 MCG Amlodipine Besylate 5 Mg Tablet, 5 MG PO DAILY, (Reported) Aspirin 81 Mg Tablet.dr, 81 MG PO DAILY, (Reported) Cetirizine HCl 10 Mg Tab.chew, 10 MG PO DAILY, (Reported) Formoterol Fumarate 1 Gm Powder, 1 GM MC BID, (Reported) Hydrochlorothiazide 25 Mg Tablet, 25 MG PO DAILY, (Reported) Hydrocodone Bit/Acetaminophen 1 Ea Tablet, 1-2 EACH PO Q4H Prescribed by: ELIGIO BANKS on 12/12/17 1014 Lisinopril 40 Mg Tablet, 40 MG PO DAILY, (Reported) Patient Home Medication List Home Medication List Reviewed: Yes (CHITRA MCLAIN) Home Medication List Reviewed: Yes (ALVAREZ AVERY MD) Review of Systems Review of Systems Constitutional: No chills, No diaphoresis, No fever EENTM: No nose congestion, No throat swelling Respiratory: No cough; dyspnea on exertion, short of breath; No wheezing Cardiovascular: chest pain, Hx of Intervention Gastrointestinal: No abdominal pain, No diarrhea, No nausea, No vomiting Genitourinary: No dysuria, No hematuria Musculoskeletal: no symptoms reported Skin: no symptoms reported Psychiatric/Neurological: No Symptoms Reported Hematologic/Lymphatic: No Symptoms Reported Immunological/Allergic: no symptoms reported (CHITRA MCLAIN) All Other Systems Reviewed Negative Unless Noted: Yes (ALVAREZ AVERY MD) Past Eascwlo-Xwmmba-Vncovq Hx Past Med/Social Hx: Reviewed Nursing Past Med/Soc Hx (CHITRA MCLAIN) Patient Social History Type Used: Cigarettes Former Smoker, Quit: Dec 06, 2015 Recent Foreign Travel: No Contact w/Someone Who Travel: No Recent Infectious Disease Expo: No Recent Hopitalizations: No (CHITRA MCLAIN) Immunizations Up To Date Date of Pneumonia Vaccine: Jan 09, 2016 Date of Influenza Vaccine: Jan 21, 2017 (CHITRA MCLAIN) Seasonal Allergies Seasonal Allergies: Yes (CHITRA MCLAIN) Past Medical History CABG Sleep Apnea, COPD, Pulmonary Fibrosis, Emphysema Currently Using CPAP: Yes Currently Using BIPAP: No Coronary Artery Disease, Hypertension Reproductive Disorders: No Sexually Transmitted Disease: No HIV/AIDS: No Gall Bladder Disease Arthritis, Chronic Back Pain Loss of Vision: Bilateral Hearing Impairment: Denies Adverse Reaction/Blood Tranf: Yes (HAS HAD BLOOD WITH NO REACTION) (COOLMAN,CHITRA MEDICAL STUDENT) Family Medical History Reviewed Nursing Family Hx (ALVAREZ AVERY MD) Physical Exam Vital Signs - First Documented 05/28/19 05/28/19 13:39 14:18 Temp 36.8 Pulse 112 Resp 20 B/P (MAP) 100/58 (72) Pulse Ox 96 O2 Delivery Nasal Cannula O2 Flow Rate 3.00 (ALVAREZ AVERY MD) Capillary Refill : Less Than 3 Seconds (CHITRA MCLAIN MEDICAL STUDENT) Height: 5'9.00" Weight: 211lbs. 0.0oz. 95.911519bi; 27.00 BMI Method: General Appearance: WD/WN, no apparent distress Eyes: Bilateral Eye PERRL, Bilateral Eye EOMI HEENT: pharynx normal; No pale conjunctivae (R), No pale conjunctivae (L) Neck: non-tender, full range of motion, supple, normal inspection Respiratory: chest non-tender, respiratory distress, decreased breath sounds, a ccessory muscle use, crackles (diffuse) Cardiovascular: normal peripheral pulses, regular rate, rhythm, no gallop, no JVD, no murmur Gastrointestinal: normal bowel sounds, non tender, soft Extremities: non-tender, normal inspection, normal capillary refill, swelling Neurologic/Psychiatric: alert, oriented x 3 Skin: normal color, warm/dry Lymphatic: no adenopathy (CHITRA MCLAIN MEDICAL STUDENT) General Appearance: WD/WN, no apparent distress HEENT: PERRL/EOMI, pharynx normal Neck: full range of motion, supple Respiratory: respiratory distress (mild), crackles (throughout) Cardiovascular: no murmur, tachycardia Gastrointestinal: non tender, soft Extremities: non-tender, pedal edema, swelling Neurologic/Psychiatric: alert, oriented x 3 Skin: normal color, warm/dry (ALVAREZ AVERY MD) Progress/Results/Core Measures Suspected Sepsis Recent Fever Within 48 Hours: No Infection Criteria Present: Suspected New Infection New/Unexplained Altered Menta: No Sepsis Screen: No Definite Risk SIRS Temperature: Pulse: 112 Respiratory Rate: 20 Laboratory Tests 05/28/19 13:50: White Blood Count 22.9H Blood Pressure 100 /58 Mean: 72 Laboratory Tests 05/28/19 13:50: Platelet Count 266 (CHITRA MCLAIN MEDICAL STUDENT) Results/Orders Lab Results Laboratory Tests Test 05/28/19 13:50 05/28/19 14:20 Range/Units White Blood Count 22.9 H 4.3-11.0 10^3/uL Red Blood Count 3.06 L 4.35-5.85 10^6/uL Hemoglobin 9.4 L 13.3-17.7 G/DL Hematocrit 31 L 40-54 % Mean Corpuscular Volume 100 H 80-99 FL Mean Corpuscular Hemoglobin 31 25-34 PG Mean Corpuscular Hemoglobin Concent 31 L 32-36 G/DL Red Cell Distribution Width 15.0 H 10.0-14.5 % Platelet Count 266 130-400 10^3/uL Mean Platelet Volume 9.7 7.4-10.4 FL Neutrophils (%) (Auto) 85 H 42-75 % Lymphocytes (%) (Auto) 7 L 12-44 % Monocytes (%) (Auto) 8 0-12 % Eosinophils (%) (Auto) 0 0-10 % Basophils (%) (Auto) 0 0-10 % Neutrophils # (Auto) 19.4 H 1.8-7.8 X 10^3 Lymphocytes # (Auto) 1.6 1.0-4.0 X 10^3 Monocytes # (Auto) 1.9 H 0.0-1.0 X 10^3 Eosinophils # (Auto) 0.0 0.0-0.3 10^3/uL Basophils # (Auto) 0.0 0.0-0.1 10^3/uL Neutrophils % (Manual) 73 % Lymphocytes % (Manual) 6 % Monocytes % (Manual) 3 % Eosinophils % (Manual) 0 % Basophils % (Manual) 0 % Band Neutrophils 18 % Toxic Granulation 1+ Hypochromasia SLIGHT Poikilocytosis SLIGHT Anisocytosis SLIGHT Macrocytosis SLIGHT Elliptocytes SLIGHT Sodium Level 138 135-145 MMOL/L Potassium Level 4.0 3.6-5.0 MMOL/L Chloride Level 101 98-107 MMOL/L Carbon Dioxide Level 19 L 21-32 MMOL/L Anion Gap 18 H 5-14 MMOL/L Blood Urea Nitrogen 25 H 7-18 MG/DL Creatinine 1.98 H 0.60-1.30 MG/DL Estimat Glomerular Filtration Rate 33 BUN/Creatinine Ratio 13 Glucose Level 124 H 70-105 MG/DL Calcium Level 8.7 8.5-10.1 MG/DL Corrected Calcium 8.9 8.5-10.1 MG/DL Magnesium Level 1.2 L 1.6-2.4 MG/DL Total Bilirubin 0.6 0.1-1.0 MG/DL Aspartate Amino Transf (AST/SGOT) 43 H 5-34 U/L Alanine Aminotransferase (ALT/SGPT) 17 0-55 U/L Alkaline Phosphatase 51 40-136 U/L Myoglobin 2387.4 H 10.0-92.0 NG/ML Troponin I 9.913 *H <0.028 NG/ML B-Type Natriuretic Peptide 414.0 H <100.0 PG/ML Total Protein 6.5 6.4-8.2 GM/DL Albumin 3.8 3.2-4.5 GM/DL Prothrombin Time 15.2 H 12.2-14.7 SEC INR Comment 1.2 0.8-1.4 Activated Partial Thromboplast Time 37 H 24-35 SEC (ALVAREZ AVERY MD) Micro Results Microbiology 05/28/19 Influenza Types A,B Antigen (EMMANUELLE) - Final, Complete (ALVAREZ AVERY MD) My Orders Orders - ALVAREZ AVERY MD Cbc With Automated Diff (05/28/19 13:57) Magnesium (05/28/19 13:57) Chest 1 View, Ap/Pa Only (05/28/19 13:57) Ekg Tracing (05/28/19 13:57) Comprehensive Metabolic Panel (05/28/19 13:57) Myoglobin Serum (05/28/19 13:57) Protime With Inr (05/28/19 13:57) Partial Thromboplastin Time (05/28/19 13:57) O2 (05/28/19 13:57) Monitor-Rhythm Ecg Trace Only (05/28/19 13:57) Lipid Panel (05/29/19 06:00) Ed Iv/Invasive Line Start (05/28/19 13:57) BNP (05/28/19 13:57) Troponin I (05/28/19 13:57) Aspirin Chewable Tablet (Baby Aspirin Ch (05/28/19 14:00) Albuterol Pre-Mix Nebs (Rt) (Proventil (05/28/19 13:57) Methylprednisolone Sod Succ (Solu-Medrol (05/28/19 13:57) Svn Small Volume Nebulizer (05/28/19 13:57) Manual Differential (05/28/19 13:50) Lactic Acid Analyzer (05/28/19 14:39) Ua Culture If Indicated (05/28/19 14:39) Blood Culture (05/28/19 14:39) Sputum Culture (05/28/19 14:39) Lactated Ringers (Lr 1000 Ml Iv Solution (05/28/19 14:39) Enoxaparin Injection (Lovenox Injection) (05/28/19 14:45) Metoprolol Succinate (Xl) Tab (Toprol Xl (05/28/19 14:45) Clopidogrel Tablet (Plavix Tablet) (05/28/19 14:45) (ALVAREZ AVERY MD) Medications Given in ED Current Medications Medications Dose Ordered Sig/Shabana Route Start Time Stop Time Status Last Admin Dose Admin Aspirin 324 mg ONCE ONCE PO 05/28/19 14:00 05/28/19 14:01 DC 05/28/19 14:10 324 MG Clopidogrel Bisulfate 300 mg ONCE ONCE PO 05/28/19 14:45 05/28/19 14:46 DC 05/28/19 14:56 300 MG Enoxaparin Sodium 80 mg ONCE ONCE SC 05/28/19 14:45 05/28/19 14:46 DC 05/28/19 14:56 80 MG Lactated Ringer's 1,000 ml @ 0 mls/hr Q0M ONCE IV 05/28/19 14:39 05/28/19 14:42 DC 05/28/19 14:56 1,000 MLS/HR Metoprolol Succinate 25 mg ONCE ONCE PO 05/28/19 14:45 05/28/19 14:46 DC 05/28/19 14:56 25 MG (ALVAREZ AVERY MD) Vital Signs/I&O 05/28/19 05/28/19 13:39 14:18 Temp 36.8 Pulse 112 Resp 20 B/P (MAP) 100/58 (72) Pulse Ox 96 95 O2 Delivery Nasal Cannula Nasal Cannula O2 Flow Rate 3.00 (ALVAREZ AVERY MD) Vital Signs/I&O Capillary Refill : Less Than 3 Seconds (CHITRA MCLAIN MEDICAL STUDENT) Blood Pressure Mean: 72 Progress Note : Progress Note I have seen and evaluated the patient and agree with above except as indicated. Have directed the plan of care. We will initiate chest pain order set as well as albuterol neb 3 and Solu-Medrol 125 mg IV given. Presentation of respiratory distress in the setting of chronic COPD. Denies recent fevers or other infective symptoms. Chest pain is central and seems to be worse with respiratory distress and better now. He was evaluated by EMS and given DuoNeb in route which markedly improved his respiratory distress. He is having decreasing oxygen requirements. 1440: Patient's troponin noted to be 9.9 and he does have markedly elevated white count. Chest x-ray shows chronic lung disease. I did discuss the case with Dr. Mccall. We will go ahead and give Lovenox 80 mg subcutaneous now as well as Plavix 300 mg by mouth. Patient to be admitted to the ICU and he will further evaluate from there. He has requested old records which I have written orders for. 1449: I did discuss the case with Dr. Lozano. Given his chronic lung disease and elevated white count, we will go ahead and treat as if there is pneumonia although it is not clearly defined. I have added blood cultures and lactic acid. Lactic acid will be elevated in the setting of several hours of hypoxia so that will not be clear as to delineate sepsis. I do believe there is component of cardiogenic hypotension although it is greater than 90 systolic and 65 map. We will initiate 1 L of LR now. We may initiate more bolus depending on how patient is doing but we'll continue LR at 250 ml hour [address] per sepsis protocol. Dr. Lozano will see the patient in the ICU. 1454: I did discuss the case with Dr. Jones and she will see the patient in the ICU as well and agrees with current plan. Admit, inpatient status to the ICU. (ALVAREZ AVERY MD) ECG Initial ECG Impression Date: May 28, 2019 Initial ECG Impression Time: 13:57 Initial ECG Rate: 104 Initial ECG Rhythm: S.Tach Initial ECG Comparisson: No Previous ECG Available Comment Sinus tachycardia with ST depression in leads one and aVL. No evidence of ST elevation MA. There is LVH noted. Leftward axis. No previous available for comparison. Interpreted by me. (ALVAREZ AVERY MD) Diagnostic Imaging Diagonstic Imaging: Xray Comments [facility]. [place], [place] NAME: KIKO CARTY [facility] REC#: [id number] PT STATUS: REG ER : 07/03/1946 PHYSICIAN: ALVAREZ AVERY MD ADMIT DATE: 05/28/19/ER Signed Date of Exam:05/28/19 KNEE, RIGHT, 3 VIEWS Indication: Right knee injury from falling down stairs There is medial and lateral meniscal calcification. There is a suprapatellar joint effusion. There is no acute fracture or dislocation. Joint spaces are well-maintained. IMPRESSION: Meniscal calcification. Joint effusion. No fracture seen. Dictated by: Dictated on workstation # [id number] Dict: 05/28/19 1208 Trans: 05/28/19 1209 [id number] Interpreted by: ALVAREZ MONTENEGRO MD Electronically signed by: ALVAREZ MONTENEGRO MD 05/28/19 1209 (ALVAREZ AVERY MD) Departure Communication (Admissions) Time/Spoke to Admitting Phy: 14:54 Time/Spoke to Consulting Phy: 14:40 (ALVAREZ AVERY MD) Impression Primary Impression: Non-ST elevation MA (NSTEMI) Additional Impressions: COPD with acute exacerbation Pneumonia Qualified Codes: J18.9 - Pneumonia, unspecified organism Influenza A Acute renal failure (ARF) Qualified Codes: N17.9 - Acute kidney failure, unspecified Disposition: 09 ADMITTED INPATIENT Condition: Critical Admissions Decision to Admit Reason: Admit from ER (General) Decision to Admit/Date: May 28, 2019 Time/Decision to Admit Time: 14:40 (ALVAREZ AVERY MD) Departure-Patient Inst. Referrals: DEANDRA JONES MD (PCP/Family) Primary Care Physician CHITRA MCLAIN MEDICAL STUDENT May 28, 2019 14:14 ALVAREZ AVERY MD May 28, 2019 14:35
[2019-05-28 14:21] LABS: ALBUMIN 3.8 GM/DL (3.2-4.5); BILIRUBIN,TOTAL 0.6 MG/DL (0.1-1.0); CALCIUM 8.7 MG/DL (8.5-10.1); CREATININE SERUM 1.98 MG/DL (0.60-1.30); MAGNESIUM 1.2 MG/DL (1.6-2.4); TOTAL PROTEIN 6.5 GM/DL (6.4-8.2)
--- NOTE | 2019-05-28 14:24 | Diagnostic Imaging Report ---
INDICATION: Respiratory distress Portable chest 2:08 PM There are postoperative changes from a median sternotomy. There are interstitial infiltrates in the lungs. There are no effusions or pneumothoraces. IMPRESSION: Diffuse interstitial infiltrates. This could be due to chronic interstitial lung disease as the lungs have similar appearance on a prior exam from 12/05/2016. Dictated by: Dictated on workstation # [id number]
[2019-05-28] MEDS ORDERED: LACTATED RINGERS 1,000 ML IV ONE (14:39)
[2019-05-28 14:42] LABS: INR 1.2 (0.8-1.4); PROTHROMBIN TIME PATIENT 15.2 SEC (12.2-14.7)
[2019-05-28] MEDS ORDERED: CLOPIDOGREL 300 MG (PLAVIX) TABLET PO ONE (14:45)
[2019-05-28] MEDS ORDERED: ENOXAPARIN 80 MG/0.8 ML (LOVENOX) SYR SC ONE (14:45)
[2019-05-28 14:54] LABS: ANISOCYTOSIS SLIGHT; BAND NEUTROPHILS 18 %; BASOPHILS % (MANUAL) 0 %; EOSINOPHILS % (MANUAL) 0 %; HYPOCHROMASIA SLIGHT; LYMPHOCYTES % (MANUAL) 6 %; MONOCYTES % (MANUAL) 3 %; NEUTROPHILS % (MANUAL) 73 %; POIKILOCYTOSIS SLIGHT
[2019-05-28 14:55] LABS: ELLIPT/OVALOCYTES SLIGHT; TOXIC GRANULATION/VACUOLAZATIO 1+
[2019-05-28 14:57] LABS: ABG BASE EXCESS -3.4 MMOL/L (-2.5-2.5); ABG OXYGEN SATURATION 94 % (94-100); ABG PCO2 29 MMHG (35-45); ABG PH 7.46 (7.37-7.43); ABG PO2 69 MMHG (79-93); ABG TCO2 20.8 MMOL/L (21.0-31.0)
[2019-05-28 14:58] LABS: ALLENS TEST YES-POS
[2019-05-28 14:59] LABS: INSPIRED O2 3L; PATIENT TEMP 36.8; VENTILATOR NO
[2019-05-28] MEDS ORDERED: CEFEPIME INJECTION 1,000 MG in WATER (STERILE) FOR INJECTION 10 ML IV ONE (15:00)
--- NOTE | 2019-05-28 15:00 | NUR ---
no change in previous conditioino
[2019-05-28] MEDS ORDERED: OSELTAMIVIR 30 MG (TAMIFLU) CAPSULE PO ONE (15:30)
--- NOTE | 2019-05-28 15:51 | NUR ---
Pt arrived to ICU room 8 at this time via bed accompanied by ER, RN and daughter. Staff assisted pt into hospital gown and removed personal clothing. Personal belongings placed in bag at bedside. VSS on arrival. See physical assessment at 1600 for details.
--- NOTE | 2019-05-28 16:00 | NUR ---
no change in pt condition, vs remain stable, family continues to be at bedside
--- NOTE | 2019-05-28 16:14 | Pulmonary Consultation ---
History of Present Illness History of Present Illness Date Seen by Provider: May 28, 2019 Time Seen by Provider: 16:06 Date of Admission History of Present Illness 78yo with hx of CAD/CABG, oxygen dependent pulmonary fibrosis presented to ED secondary to worsening SOB, dizziness, CP, and PINEDA. While in the ED he was found to have hypoxia and dx with severe sepsis, NSTEMI, and influenza A. He was placed on emperic abx and tamiflu then admitted to ICU for close observation. Allergies and Home Medications Allergies Coded Allergies: Penicillins (Verified Allergy, Severe, 12/05/17) codeine (Verified Allergy, Severe, 12/05/17) Sulfa (Sulfonamide Antibiotics) (Verified Allergy, Unknown, 12/05/17) Home Medications Aspirin 81 Mg Tablet.dr, 81 MG PO DAILY, (Reported) Doxazosin Mesylate 4 Mg Tablet, 4 MG PO DAILY, (Reported) Duloxetine HCl 20 Mg Capsule.dr, 20 MG PO DAILY, (Reported) Hydrochlorothiazide 25 Mg Tablet, 25 MG PO HS, (Reported) Ibuprofen 200 Mg Tablet, 400 MG PO Q6H PRN for PAIN-MILD (1-4), (Reported) Lisinopril 20 Mg Tablet, 20 MG PO DAILY, (Reported) Meclizine HCl 25 Mg Tablet, 25 MG PO TID PRN for DIZZINESS, (Reported) Montelukast Sodium 10 Mg Tablet, 10 MG PO DAILY, (Reported) Mycophenolate Mofetil 500 Mg Tablet, 1,000 MG PO BID, (Reported) Pantoprazole Sodium 40 Mg Tablet.dr, 40 MG PO HS, (Reported) Prednisone 10 Mg Tab, 10 MG PO HS, (Reported) Past Ihfxapm-Zbmnsw-Ghhqeb Hx Past Med/Social Hx: Reviewed Nursing Past Med/Soc Hx Patient Social History Alcohol Use: Denies Use Recreational Drug Use: No Smoking Status: Former Smoker Type Used: Cigarettes Former Smoker, Quit: Dec 06, 2015 2nd Hand Smoke Exposure: No Recent Foreign Travel: No Contact w/Someone Who Travel: No Recent Infectious Disease Expo: No Recent Hopitalizations: No Immunizations Up To Date Tetanus Booster (TDap): Unknown Date of Pneumonia Vaccine: Jan 09, 2016 Date of Influenza Vaccine: Jan 21, 2017 Seasonal Allergies Seasonal Allergies: Yes Past Medical History Surgeries: Yes (BACK) CABG Respiratory: Yes (O2 NC) Sleep Apnea, COPD, Pulmonary Fibrosis, Emphysema Currently Using CPAP: Yes Currently Using BIPAP: No Cardiac: Yes Coronary Artery Disease, Hypertension Neurological: No Reproductive Disorders: No Sexually Transmitted Disease: No HIV/AIDS: No Gastrointestinal: Yes Gall Bladder Disease Musculoskeletal: Yes Arthritis, Chronic Back Pain Endocrine: No Loss of Vision: Bilateral Hearing Impairment: Denies Cancer: No Psychosocial: No Integumentary: No Blood Disorders: No Adverse Reaction/Blood Tranf: Yes (HAS HAD BLOOD WITH NO REACTION) Family Medical History Reviewed Nursing Family Hx Review of Systems Time Seen by Provider: 16:10 Sepsis Event Evaluation Height, Weight, BMI Height: 5'9.00" Weight: 211lbs. 0.0oz. 95.229402oe; 27.00 BMI Method: Exam Exam Vital Signs Date Time Temp Pulse Resp B/P (MAP) Pulse Ox O2 Delivery O2 Flow Rate FiO2 05/28/19 14:18 95 Nasal Cannula 3.00 05/28/19 13:39 36.8 112 20 100/58 (72) 96 Nasal Cannula Height & Weight Height: 5'9.00" Weight: 211lbs. 0.0oz. 95.808549xm; 27.00 BMI Method: General Appearance: Anxious, Chronically ill, Mild Distress HEENT: PERRL/EOMI, Normal ENT Inspection, Pharynx Normal Neck: Full Range of Motion, Non Tender, Supple Respiratory: Crackles, Decreased Breath Sounds Cardiovascular: Regular Rate, Rhythm Capillary Refill: Less Than 3 Seconds Gastrointestinal: non tender, soft Extremity: Normal Capillary Refill Neurologic/Psychiatric: Alert, Oriented x3 Skin: Normal Color, Warm/Dry Lymphatic: No Adenopathy Results Lab Laboratory Tests 05/28/19 13:50 Assessment/Plan Assessment/Plan Severe sepsis with pneumonia and influenza -Continue Cefepime and Azithromycin -IVF give 30cc/kg of IBW -engel cultures -Check MRSA nasal swab -Check urine strep and legionella Ag Metabolic lactic acidosis -Aggressive IVF -Monitor Acute renal failure LORENZO CULLEN DO May 28, 2019 16:14
[2019-05-28] MEDS ORDERED: LACTATED RINGERS 1,000 ML IV NR (16:15)
[2019-05-28] MEDS ORDERED: AZITHROMYCIN INJECTION 500 MG in NS (IVPB) 250 ML IV NR (16:15)
[2019-05-28] MEDS ORDERED: LACTATED RINGERS 1,000 ML IV SCH ×2 (16:15→17:15)
[2019-05-28] MEDS ORDERED: EPINEPHrine 1 MG INJECTION 2 MG in NS (IVPB) 250 ML IV SCH (16:30)
--- NOTE | 2019-05-28 16:30 | Consultation-Cardiology ---
HPI-Cardiology Cardiology Consultation: Date of Consultation 05/28/19 Time Seen by a Provider: 16:05 Date of Admission 05-28-2019 Attending Physician Yasmine Jones MD Admitting Physician Yasmine Jones MD Consulting Physician TRISTON NOLASCO HPI: Chief Complaint: Chest pain NSTEMI Progressive dyspnea Mr. Finn is a 78 year old male admitted to ICU 8 from the ED with increasing SOB which started this morning. He reports he got up to use the BR and suddenly became SOB. He reports sudden onset of right sided chest pain, dull ache, which was constant. He reports the chest pain is still there, but has improved. He reports productive cough which also started today. He reports gen weakness. He denies any n/v/d. He denies any palpitations. His primary compensation consultant is Dr. Rosa at [facility] in [place], [place]. No c/o LE swelling. Review of Systems-Cardiology Review of Systems Constitutional: No chills, No fever; malaise Eyes: No vision change Ears/Nose/Throat: No epistaxis, No recent hearing loss Respiratory: As described under HPI Cardiovascular: As described under HPI Gastrointestinal: No constipation, No diarrhea, No nausea, No vomiting Genitourinary: No dysuria, No hematuria Musculoskeletal: back pain (chronic) Skin: No rash on exposed areas, No ulcerations on exposed areas Psychiatric/Neurological: syncope; No anxiety, No depression, No seizure, No focal weakness Hematologic: No bleeding abnormalities All Other Systems Reviewed Negative Unless Noted: Yes MQK-Harpdi-Vxrxjv Hx Patient Social History Alcohol Use: Denies Use Recreational Drug Use: No Smoking Status: Former Smoker Type Used: Cigarettes 2nd Hand Smoke Exposure: No Recent Foreign Travel: No Recent Infectious Disease Expo: No Hospitalization with Isolation: Denies Immunizations Up To Date Tetanus Booster (TDap): Unknown Date of Pneumonia Vaccine: Jan 06, 2018 Date of Influenza Vaccine: Jan 06, 2019 Past Medical History PMH As described under Assessment. Family Medical History Family Medical History: He reports his father, 2 brothers and a sister had CAD first diagnosed in their 40's. Allergies and Home Medications Allergies Coded Allergies: Penicillins (Verified Allergy, Severe, 12/05/17) codeine (Verified Allergy, Severe, 12/05/17) Sulfa (Sulfonamide Antibiotics) (Verified Allergy, Unknown, 12/05/17) Home Medications Aspirin 81 Mg Tablet.dr, 81 MG PO DAILY, (Reported) Doxazosin Mesylate 4 Mg Tablet, 4 MG PO DAILY, (Reported) Duloxetine HCl 20 Mg Capsule.dr, 20 MG PO DAILY, (Reported) Hydrochlorothiazide 25 Mg Tablet, 25 MG PO HS, (Reported) Ibuprofen 200 Mg Tablet, 400 MG PO Q6H PRN for PAIN-MILD (1-4), (Reported) Lisinopril 20 Mg Tablet, 20 MG PO DAILY, (Reported) Meclizine HCl 25 Mg Tablet, 25 MG PO TID PRN for DIZZINESS, (Reported) Montelukast Sodium 10 Mg Tablet, 10 MG PO DAILY, (Reported) Mycophenolate Mofetil 500 Mg Tablet, 1,000 MG PO BID, (Reported) Pantoprazole Sodium 40 Mg Tablet.dr, 40 MG PO HS, (Reported) Prednisone 10 Mg Tab, 10 MG PO HS, (Reported) Physical Exam-Cardiology Physical Exam Vital Signs/I&O 05/31/19 05/31/19 05/31/19 05/31/19 20:21 21:00 22:00 22:00 Pulse 79 82 82 Resp B/P (MAP) 177/80 145/69 (94) 158/79 (105) Pulse Ox 92 95 95 O2 Delivery Mechanical Ventilator Mechanical Ventilator Mechanical Ventilator O2 Flow Rate 45.00 45.00 FiO2 45 05/31/19 05/31/19 05/31/19 05/31/19 22:51 23:00 23:19 23:21 Temp 36.7 Pulse 82 85 85 Resp 17 B/P (MAP) 158/79 165/79 (107) 165/79 Pulse Ox 97 O2 Delivery Mechanical Ventilator O2 Flow Rate 45.00 06/01/19 06/01/19 06/01/19 06/01/19 00:00 00:00 01:00 01:05 Pulse 80 77 79 Resp 21 B/P (MAP) 169/78 (108) 172/80 (110) Pulse Ox 95 95 94 O2 Delivery Mechanical Ventilator Mechanical Ventilator Mechanical Ventilator O2 Flow Rate 45.00 45.00 FiO2 45 06/01/19 06/01/19 06/01/19 06/01/19 02:00 02:47 02:52 02:53 Pulse 76 76 76 Resp 22 B/P (MAP) 173/76 (108) 173/76 Pulse Ox 94 95 O2 Delivery Mechanical Ventilator Mechanical Ventilator O2 Flow Rate 45.00 40.00 FiO2 45 06/01/19 06/01/19 06/01/19 06/01/19 03:00 03:44 04:00 04:00 Pulse 80 76 78 Resp 22 21 B/P (MAP) 146/64 (91) 173/76 120/53 (75) Pulse Ox 91 91 95 O2 Delivery Mechanical Ventilator Mechanical Ventilator Mechanical Ventilator O2 Flow Rate 40.00 40.00 FiO2 45 06/01/19 06/01/19 06/01/19 06/01/19 05:00 06:00 06:14 06:55 Pulse 79 77 78 74 Resp 21 21 18 B/P (MAP) 138/68 (91) 146/66 (92) 120/53 Pulse Ox 92 93 94 O2 Delivery Mechanical Ventilator Mechanical Ventilator O2 Flow Rate 40.00 40.00 FiO2 40 05/31/19 23:59 Intake Total 540 ml Output Total 850 ml Balance -310 ml Capillary Refill : Less Than 3 Seconds Constitutional: AAO x 3, well-developed, well-nourished HEENT: PERRL, hearing is well preserved, oral hygience is good Neck: carotid bruit, carotid pulses are 2 + bilaterally Respiratory: No accessory muscle use, No respiratory distress; chest expansion is symmetric, chest is bilaterally symmetric, crackles (bilat lower lobes), rhonchi (scattered), other (dyspneic with conversation) Cardiovascular: regular rate-rhythm; No JVD; S1 and S2 Gastrointestinal: No tender; soft, audible bowel sounds Extremities: no lower extremity edema bilateral Neurologic/Psychiatric: grossly intact (moves all extremities) Skin: No rash on exposed areas, No ulcerations on exposed areas Data Review Labs Laboratory Tests 05/31/19 11:18: Glucometer 165H 05/31/19 17:32: Glucometer 159H 06/01/19 03:00: B-Type Natriuretic Peptide 782.2H 06/01/19 03:20: White Blood Count 17.0H, Red Blood Count 3.07L, Hemoglobin 9.4L, Hematocrit 30L, Mean Corpuscular Volume 99, Mean Corpuscular Hemoglobin 31, Mean Corpuscular Hemoglobin Concent 31L, Red Cell Distribution Width 15.3H, Platelet Count 187, Mean Platelet Volume 9.6, Neutrophils (%) (Auto) 95H, Lymphocytes (%) (Auto) 2L, Monocytes (%) (Auto) 3, Eosinophils (%) (Auto) 0, Basophils (%) (Auto) 0, Neutrophils # (Auto) 16.1H, Lymphocytes # (Auto) 0.3L, Monocytes # (Auto) 0.5, Eosinophils # (Auto) 0.0, Basophils # (Auto) 0.0, Blood Gas Puncture Site LEFT RADIAL, Blood Gas Patient Temperature 36.5, Arterial Blood pH 7.46H, Arterial Blood Partial Pressure CO2 38, Arterial Blood Partial Pressure O2 71L, Arterial Blood HCO3 27, Arterial Blood Total CO2 27.8, Arterial Blood Oxygen Saturation 90L, Arterial Blood Base Excess 2.8H, Sundeep Test YES-POS, Blood Gas Ventilator Setting YES, Blood Gas Inspired Oxygen 40%, Sodium Level 138, Potassium Level 4.1, Chloride Level 105, Carbon Dioxide Level 24, Anion Gap 9, Blood Urea Nitrogen 26H, Creatinine 0.99, Estimat Glomerular Filtration Rate > 60, BUN/Creatinine Ratio 26, Glucose Level 174H, Calcium Level 8.1L, Corrected Calcium 8.9, Phosphorus Level 3.2, Magnesium Level 2.6H, Total Bilirubin 0.4, Aspartate Amino Transf (AST/SGOT) 85H, Alanine Aminotransferase (ALT/SGPT) 214H, Alkaline Phosphatase 76, Total Protein 5.4L, Albumin 3.0L, Triglycerides Level 229H Microbiology 05/30/19 Gram Stain - Final, Resulted 05/30/19 Sputum Culture - Preliminary, Resulted YEAST 05/28/19 Blood Culture - Preliminary, Resulted No growth Radiology NAME: LORNA FINN [facility] REC#: [id number] PT STATUS: REG ER : 1940 PHYSICIAN: ALVAREZ AVERY MD ADMIT DATE: 05/28/19/ER Signed Date of Exam:05/28/19 CHEST 1 VIEW, AP/PA ONLY INDICATION: Respiratory distress Portable chest 2:08 PM There are postoperative changes from a median sternotomy. There are interstitial infiltrates in the lungs. There are no effusions or pneumothoraces. IMPRESSION: Diffuse interstitial infiltrates. This could be due to chronic interstitial lung disease as the lungs have similar appearance on a prior exam from 12/05/2016. Dictated by: Dictated on workstation # [id number] Dict: 05/28/19 1421 Trans: 05/28/19 1445 [facility] [id number] Interpreted by: ALVAREZ MONTENEGRO MD Electronically signed by: ALVAREZ MONTENEGRO MD 05/28/19 1446 ECG Impression ECG Initial ECG Rhythm: Normal Sinus A/P-Cardiology Assessment/Admission Diagnosis NSTEMI Sepsis with Influenza A (+) Acute on chronic renal failure CAD - H/O 4 vessel CABG in 1998 at [facility] in [place], [place] by Dr. Magana H/O carotid dz bilat - followed by Dr. Rosa at [facility] Syncopal episodes, most recent 2 weeks ago, being followed by Dr. Rosa, Dr. Smith (neurology services at [facility] Dr. Cortez Orthostatic hypotension - being followed by Dr. Rosa COPD H/O tobaccoism - quit 4 years ago HTN HLD Chronic back pain Discussion and Recomendations NSTEMI - treat with ASA and Plavix Sepsis with influenza A - management per medical/ICU services BB as tolerated Echocardiogram to eval structure Obtain CABG report from [facility] Obtain cardiac records from Dr. Moe Macias Monitor lab closely Continue IVF Replace electrolytes as indicated Further recs will be based on his hospital course We would like to thank medical services for this consult Clinical Quality Measures DVT/VTE Risk/Contraindication: Risk Factor Score Per Nursin RFS Level Per Nursing on Admit: 4+=Very High TRISTON ALONSO May 28, 2019 16:30
--- NOTE | 2019-05-28 16:40 | History & Physical ---
History of Present Illness History of Present Illness Reason for visit/HPI PT IS A 78 Y/O MALE WHO IS KNOWN TO ME FROM CLINIC AND WAS ADMITTED TO THE ICU AFTER PRESENTING TO THE ER IN RESPIRATORY FAILURE. HE WAS AT HOME, IN HIS USUAL STATE OF HEALTH YESTERDAY AND THIS MORNING HE STARTED TO FEEL POORLY. HE REPORTS THAT HE WAS SO WEAK THAT HE WAS BARELY ABLE TO MAKE IT FROM THE RESTROOM TO HIS BED. HE REPORTS THAT HE WAS SO WEAK AND SO INCREASINGLY SHORT OF BREATH THAT HE FINALLY PRESENTED TO THE HOSPITAL FOR HELP. Date of Admission May 28, 2019 at 14:45 Date Seen by a Provider: May 28, 2019 Time Seen by a Provider: 16:00 I consulted on this patient on 05/28/19 16:00 Attending Physician Deandra Jones MD Admitting Physician Deandra Jones MD Consult Allergies and Home Medications Allergies Coded Allergies: Penicillins (Verified Allergy, Severe, 12/05/17) codeine (Verified Allergy, Severe, 12/05/17) Sulfa (Sulfonamide Antibiotics) (Verified Allergy, Unknown, 12/05/17) Home Medications Aspirin 81 Mg Tablet.dr, 81 MG PO DAILY, (Reported) Doxazosin Mesylate 4 Mg Tablet, 4 MG PO DAILY, (Reported) Duloxetine HCl 20 Mg Capsule.dr, 20 MG PO DAILY, (Reported) Hydrochlorothiazide 25 Mg Tablet, 25 MG PO HS, (Reported) Ibuprofen 200 Mg Tablet, 400 MG PO Q6H PRN for PAIN-MILD (1-4), (Reported) Lisinopril 20 Mg Tablet, 20 MG PO DAILY, (Reported) Meclizine HCl 25 Mg Tablet, 25 MG PO TID PRN for DIZZINESS, (Reported) Montelukast Sodium 10 Mg Tablet, 10 MG PO DAILY, (Reported) Mycophenolate Mofetil 500 Mg Tablet, 1,000 MG PO BID, (Reported) Pantoprazole Sodium 40 Mg Tablet.dr, 40 MG PO HS, (Reported) Prednisone 10 Mg Tab, 10 MG PO HS, (Reported) Patient Home Medication List Home Medication List Reviewed: Yes Past Zfhdpum-Aydsfo-Odgbvx Hx Past Med/Social Hx: Reviewed Nursing Past Med/Soc Hx Patient Social History Marrital Status: Living Status: LIVES AT HOME ALONE Employed/Student: retired Alcohol Use: Denies Use Recreational Drug Use: No Smoking Status: Former Smoker Former Smoker, Quit: Dec 06, 2015 Type Used: Cigarettes 2nd Hand Smoke Exposure: No Physical Abuse Screen: No Sexual Abuse: No Recent Foreign Travel: No Contact w/other who traveled: No Recent Hopitalizations: No Recent Infectious Disease Expo: No Immunizations Up To Date Tetanus Booster (TDap): Unknown Date of Pneumonia Vaccine: Jan 06, 2018 Date of Influenza Vaccine: Jan 06, 2019 Seasonal Allergies Seasonal Allergies: Yes Past Medical History Surgeries: CABG Currently Using CPAP: Yes Currently Using BIPAP: No Cardiac: Coronary Artery Disease, Hypertension Reproductive: No Sexually Transmitted Disease: No HIV/AIDS: No Gastrointestinal: Gall Bladder Disease Musculoskeletal: Arthritis, Chronic Back Pain Loss of Vision: Bilateral Hearing Impairment: Denies History of Blood Disorders: No Adverse Reaction to Blood Mcneil: Yes (HAS HAD BLOOD WITH NO REACTION) Family History Reviewed Nursing Family Hx Myocardial infarction 19 FATHER G8 BROTHER G8 SISTER Heart Disease, Hypertension Review of Systems Constitutional: No chills; fever, malaise, weakness EENTM: No hoarseness, No throat pain Respiratory: cough, dyspnea on exertion, phlegm, short of breath, wheezing Cardiovascular: chest pain Gastrointestinal: No abdominal pain, No diarrhea, No nausea Genitourinary: frequency, incontinence Musculoskeletal: muscle weakness Skin: no symptoms reported Psychiatric/Neurological: Denies Anxiety, Denies Depressed All Other Systems Reviewed Negative Unless Noted: Yes Physical Exam Vital Signs Vital Signs - First Documented 05/28/19 05/29/19 13:39 14:18 Temp 36.8 Pulse 112 Resp 20 B/P (MAP) 100/58 (72) Pulse Ox 92 O2 Delivery Nasal Cannula O2 Flow Rate 3.00 FiO2 40 Capillary Refill : Less Than 3 Seconds Height, Weight, BMI Height: 5'9.00" Weight: 211lbs. 0.0oz. 95.055176wb; 27.00 BMI Method: General Appearance: WD/WN, Mild Distress (DUE TO BREATHING) Eyes: Bilateral Eye Normal Inspection, Bilateral Eye PERRL, Bilateral Eye EOMI HEENT: PERRL/EOMI, Pharynx Normal Neck: Full Range of Motion, Non Tender, Supple Respiratory: Chest Non Tender, Crackles, Decreased Breath Sounds, Respiratory Distress, Wheezing Cardiovascular: Regular Rate, Rhythm, Systolic Murmur Gastrointestinal: Normal Bowel Sounds, No Organomegaly, No Pulsatile Mass, Non Tender, Soft Rectal: Deferred Back: Normal Inspection Extremity: Normal Capillary Refill, No Calf Tenderness, No Pedal Edema Neurologic/Psychiatric: Alert, Oriented x3, No Motor/Sensory Deficits, Normal 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 - PT IS ON AZITHROMYCIN AND CEFEPIME - CONTINUE WITH CURRENT MANAGEMENT INITIATED IN ER AND BY DR. CULLEN. ACUTE ON CHRONIC RENAL FAILURE - CONTINUE WITH IV FLUIDS, RENALLY ADJUST MEDICATIONS NEEDED. NON-ST MS - DEFER TO CARDIOLOGY - PT HAD SO MUCH PULMONARY DISTRESS THAT THIS CAUSED HIS SEVERE TROPONIN ELEVATION. WILL WATCH PT CLOSELY WE NAVIGATE HEALING FROM HIS PULMONARY ISSUES. CHRONIC DEPRESSION - RESTART CYMBALTA LEUKOCYTOSIS - SHOULD IMPROVE WITH HEALING FROM HIS FLU AND PNEUMONIA ANEMIA - MONITOR LABS TOMORROW - THIS ANEMIA IS WORSE THAN ON HIS LABS FROM LAST MONTH AT THE OFFICE. DISCUSSED WITH THE PATIENT AND HIS DTR-IN-LAW - SUPPORTIVE CARE AT THIS TIME - ANTICIPATE ADMISSION WILL BE AT LEAST A WEEK. Admission Diagnosis RESPIRATORY FAILURE WITH LACTIC ACIDOSIS INFLUENZA PNEUMONIA CHRONIC PULMONARY FIBROSIS COPD ACUTE ON CHRONIC RENAL FAILURE NON-ST MS CHRONIC DEPRESSION LEUKOCYTOSIS ANEMIA Admission Status: Inpatient Order (span 2 midnights) Reason for Inpatient Admission: INPATIENT ADMISSION FOR INFLUENZA, PNEUMONIA PULMONARY FIBROSIS AND ACUTE RENAL FAILURE WITH NON ST MYOCARDIAL INFARCTION Clinical Quality Measures DVT/VTE Risk/Contraindication: Risk Factor Score Per Nursin RFS Level Per Nursing on Admit: 4+=Very High DEANDRA JONES MD May 28, 2019 16:40
[2019-05-28] MEDS: LACTATED RINGERS 1,000 ML IV SCH ×4 (17:14→21:04)
[2019-05-28] MEDS: VASOPRESSIN INJECTION 20 UNIT in NORMAL SALINE 100 ML IV SCH ×2 (17:14→23:11)
[2019-05-28] MEDS: NOREPINEPHRINE 4 MG/250 ML 250 ML IV SCH ×2 (17:14→23:11)
[2019-05-28] MEDS ORDERED: CEFEPIME INJECTION 1,000 MG in WATER (STERILE) FOR INJECTION 10 ML IV SCH (18:00)
[2019-05-28] MEDS: MAGNESIUM 1 GM/100 ML IVPB 100 ML IV SCH ×4 (19:00→22:03)
--- NOTE | 2019-05-28 19:30 | Consultation-Cardiology ---
HPI-Cardiology Cardiology Consultation: Date of Consultation 05/28/19 Time Seen by a Provider: 19:05 Date of Admission Attending Physician Yasmine Jones MD Admitting Physician Yasmine Jones MD Consulting Physician CARINE PALOMINO MD, MA, FACP, FACC, FSCAI, CCDS HPI: Chief Complaint: CC: Chest pain; Progressive shortness of breath HPI Mr. Finn is a 78 year old male admitted to ICU 8 from the ED with increasing SOB which started this morning. He reports he got up to use the BR and suddenly became SOB. He reports sudden onset of right sided chest pain, dull ache, which was constant. He reports the chest pain is still there, but has improved. He reports productive cough which also started today. He reports gen weakness. He denies any n/v/d. He denies any palpitations. His primary stem mounter is Dr. Rosa at [facility] in [place], [place]. No c/o LE swelling. Review of Systems-Cardiology Review of Systems Constitutional: No chills, No fever; malaise Eyes: No vision change Ears/Nose/Throat: No epistaxis, No recent hearing loss Respiratory: As described under HPI Cardiovascular: As described under HPI Gastrointestinal: No constipation, No diarrhea, No nausea, No vomiting Genitourinary: No dysuria, No hematuria Musculoskeletal: back pain (chronic) Skin: No rash on exposed areas, No ulcerations on exposed areas Psychiatric/Neurological: syncope; No anxiety, No depression, No seizure, No focal weakness Hematologic: No bleeding abnormalities All Other Systems Reviewed Negative Unless Noted: Yes XHI-Ndrxdb-Juddyl Hx Patient Social History Alcohol Use: Denies Use Recreational Drug Use: No Smoking Status: Former Smoker Type Used: Cigarettes 2nd Hand Smoke Exposure: No Recent Foreign Travel: No Recent Infectious Disease Expo: No Hospitalization with Isolation: Denies Immunizations Up To Date Tetanus Booster (TDap): Unknown Date of Pneumonia Vaccine: Jan 06, 2018 Date of Influenza Vaccine: Jan 06, 2019 Past Medical History PMH As described under Assessment. Family Medical History Family Medical History: He reports his father, 2 brothers and a sister had CAD first diagnosed in their 40's. Family History: Myocardial infarction 19 FATHER G8 BROTHER G8 SISTER Allergies and Home Medications Allergies Coded Allergies: Penicillins (Verified Allergy, Severe, 12/05/17) codeine (Verified Allergy, Severe, 12/05/17) Sulfa (Sulfonamide Antibiotics) (Verified Allergy, Unknown, 12/05/17) Home Medications Albuterol Sulfate 1 Puff Puff, 2 PUFF IH QID, (Reported) 1 PUFF = 90 MCG Amlodipine Besylate 5 Mg Tablet, 5 MG PO DAILY, (Reported) Aspirin 81 Mg Tablet.dr, 81 MG PO DAILY, (Reported) Cetirizine HCl 10 Mg Tab.chew, 10 MG PO DAILY, (Reported) Formoterol Fumarate 1 Gm Powder, 1 GM MC BID, (Reported) Hydrochlorothiazide 25 Mg Tablet, 25 MG PO DAILY, (Reported) Hydrocodone Bit/Acetaminophen 1 Ea Tablet, 1-2 EACH PO Q4H Prescribed by: ELIGIO BANKS on 12/12/17 1014 Lisinopril 40 Mg Tablet, 40 MG PO DAILY, (Reported) Patient Home Medication List Home Medication List Reviewed: Yes Physical Exam-Cardiology Physical Exam Vital Signs/I&O 05/28/19 05/28/19 05/28/19 05/28/19 13:39 14:18 16:00 16:02 Temp 36.8 Pulse 112 111 Resp 20 B/P (MAP) 100/58 (72) Pulse Ox 96 95 95 O2 Delivery Nasal Cannula Nasal Cannula Nasal Cannula O2 Flow Rate 3.00 3.00 05/28/19 05/28/19 16:15 17:00 Pulse 108 99 Resp 32 20 B/P (MAP) 148/70 (96) 153/71 (98) Pulse Ox 95 93 O2 Delivery Nasal Cannula Nasal Cannula O2 Flow Rate 3.00 3.00 Capillary Refill : Less Than 3 Seconds Constitutional: AAO x 3, well-developed, well-nourished HEENT: PERRL, hearing is well preserved, oral hygience is good Neck: carotid bruit, carotid pulses are 2 + bilaterally Respiratory: No accessory muscle use, No respiratory distress; chest expansion is symmetric, chest is bilaterally symmetric, crackles (bilat lower lobes), rhonchi (scattered), other (dyspneic with conversation) Cardiovascular: regular rate-rhythm; No JVD; S1 and S2 Gastrointestinal: No tender; soft, audible bowel sounds Extremities: no lower extremity edema bilateral Neurologic/Psychiatric: grossly intact (moves all extremities) Skin: No rash on exposed areas, No ulcerations on exposed areas Data Review Labs Laboratory Tests 05/28/19 13:50: White Blood Count 22.9H, Red Blood Count 3.06L, Hemoglobin 9.4L, Hematocrit 31L, Mean Corpuscular Volume 100H, Mean Corpuscular Hemoglobin 31, Mean Corpuscular Hemoglobin Concent 31L, Red Cell Distribution Width 15.0H, Platelet Count 266, Mean Platelet Volume 9.7, Neutrophils (%) (Auto) 85H, Lymphocytes (%) (Auto) 7L, Monocytes (%) (Auto) 8, Eosinophils (%) (Auto) 0, Basophils (%) (Auto) 0, Neutrophils # (Auto) 19.4H, Lymphocytes # (Auto) 1.6, Monocytes # (Auto) 1.9H, Eosinophils # (Auto) 0.0, Basophils # (Auto) 0.0, Neutrophils % (Manual) 73, Lymphocytes % (Manual) 6, Monocytes % (Manual) 3, Eosinophils % (Manual) 0, Basophils % (Manual) 0, Band Neutrophils 18, Toxic Granulation 1+, Hypochromasia SLIGHT, Poikilocytosis SLIGHT, Anisocytosis SLIGHT, Macrocytosis SLIGHT, Elliptocytes SLIGHT, Sodium Level 138, Potassium Level 4.0, Chloride Level 101, Carbon Dioxide Level 19L, Anion Gap 18H, Blood Urea Nitrogen 25H, Creatinine 1.98H, Estimat Glomerular Filtration Rate 33, BUN/Creatinine Ratio 13, Glucose Level 124H, Calcium Level 8.7, Corrected Calcium 8.9, Magnesium Level 1.2L, Total Bilirubin 0.6, Aspartate Amino Transf (AST/SGOT) 43H, Alanine Aminotransferase (ALT/SGPT) 17, Alkaline Phosphatase 51, Myoglobin 2387.4H, Troponin I 9.913*H, B-Type Natriuretic Peptide 414.0H, Total Protein 6.5, Albumin 3.8 05/28/19 14:20: Prothrombin Time 15.2H, INR Comment 1.2, Activated Partial Thromboplast Time 37H 05/28/19 14:54: Blood Gas Puncture Site LEFT RA, Blood Gas Patient Temperature 36.8, Arterial Blood pH 7.46H, Arterial Blood Partial Pressure CO2 29L, Arterial Blood Partial Pressure O2 69L, Arterial Blood HCO3 20L, Arterial Blood Total CO2 20.8L, Arterial Blood Oxygen Saturation 94, Arterial Blood Base Excess -3.4L, Sundeep Test YES-POS, Blood Gas Ventilator Setting NO, Blood Gas Inspired Oxygen 3L 05/28/19 15:06: Lactic Acid Level 8.02*H 05/28/19 17:32: Lactic Acid Level 9.45*H Microbiology 05/28/19 Influenza Types A,B Antigen (EMMANUELLE) - Final, Complete A/P-Cardiology Assessment/Admission Diagnosis Ac on chronic resp failure Severe sepsis and influenza A NSTEMI, unclear if type 1 or type 2 Acute on chronic renal failure CAD - H/O 4 vessel CABG in 1998 at [facility] in [place], [place] by Dr. Magana H/O carotid dz bilat - followed by Dr. Rosa at [facility] Syncopal episodes, most recent 2 weeks ago, being followed by Dr. Rosa, Dr. Smith (neurology services at [facility]), Dr. Cortez Orthostatic hypotension - being followed by Dr. Rosa COPD H/O tobaccoism - quit 4 years ago HTN HLD Chronic back pain Discussion and Recomendations * NSTEMI - treat with ASA and Plavix * Sepsis with influenza A - management per medical/ICU services * BB as tolerated * Echocardiogram to eval structure and function * Obtain CABG report from [facility] * Obtain cardiac records from Dr. Moe Macias * Monitor lab closely * Continue IVF * Replace electrolytes as indicated * Further recs will be based on his hospital course * We would like to thank Medical services for this consult Clinical Quality Measures DVT/VTE Risk/Contraindication: Risk Factor Score Per Nursin RFS Level Per Nursing on Admit: 4+=Very High CARINE PALOMINO MD FACP FAC CCDS May 28, 2019 19:30
[2019-05-28] MEDS: CEFEPIME 1,000 MG/SWFI 10 ML IV PUSH IV SCH ×2 (22:58)
--- NOTE | 2019-05-28 23:45 | NUR ---
This RN contacted EICU to notify of patient's continuing critical Lactic Acid of 5.86 and uop of 150ml. New order received at this time, see order hx.
[2019-05-29] VITALS (31 sets, daily range): BP systolic 101–203; BP diastolic 57–190
[2019-05-29] MEDS ORDERED: LACTATED RINGERS 1,000 ML IV ONE (00:15)
[2019-05-29 03:11] LABS: BASOPHILS % (AUTO) 0 % (0-10); EOSINOPHILS % (AUTO) 0 % (0-10); HEMATOCRIT 25 % (40-54); HEMOGLOBIN 7.9 G/DL (13.3-17.7); LYMPHOCYTES # (AUTO) 0.6 X 10^3 (1.0-4.0); LYMPHOCYTES % (AUTO) 4 % (12-44); MEAN CORPUSCULAR HEMOGLOBIN 31 PG (25-34); MEAN CORPUSCULAR HGB CONC 31 G/DL (32-36); MEAN CORPUSCULAR VOLUME 98 FL (80-99); MEAN PLATELET VOLUME 9.8 FL (7.4-10.4); MONOCYTES # (AUTO) 0.5 X 10^3 (0.0-1.0); MONOCYTES % (AUTO) 3 % (0-12); NEUTROPHILS # (AUTO) 13.5 X 10^3 (1.8-7.8); NEUTROPHILS % (AUTO) 93 % (42-75); PLATELET COUNT 215 10^3/uL (130-400); RED CELL DISTRIBUTION WIDTH 14.8 % (10.0-14.5); WHITE BLOOD COUNT 14.5 10^3/uL (4.3-11.0)
[2019-05-29 03:33] LABS: CALCIUM 8.2 MG/DL (8.5-10.1); CREATININE SERUM 1.4 MG/DL (0.60-1.30); MAGNESIUM 2.4 MG/DL (1.6-2.4); PHOSPHORUS 3.6 MG/DL (2.3-4.7); POTASSIUM 3.8 MMOL/L (3.6-5.0); TOTAL PROTEIN 5.4 GM/DL (6.4-8.2)
--- NOTE | 2019-05-29 03:45 | NUR ---
This RN contacted EICU, pt became increasingly SOB with labored breathing when up to side of bed to use urinal. New order received at this time, see order hx.
[2019-05-29] MEDS ORDERED: FUROSEMIDE 40 MG/4 ML INJ (LASIX) ONE (03:47)
[2019-05-29] MEDS ORDERED: LIDOCAINE UROJET 2% GEL 10 ML PKG ONE (03:51)
[2019-05-29] MEDS ORDERED: FUROSEMIDE 40 MG/4 ML INJ (LASIX) IVP ONE (04:00)
[2019-05-29] MEDS ORDERED: LIDOCAINE UROJET 2% GEL 10 ML PKG TOP ONE (04:00)
[2019-05-29] MEDS: POTASSIUM CL 10MEQ/50ML IVPB 50 ML IV SCH ×3 (04:35→08:33)
[2019-05-29] MEDS: KCL 20 MEQ TAB (K-DUR) PO SCH (04:35)
[2019-05-29] MEDS: MAGNESIUM 1 GM/100 ML IVPB 100 ML IV SCH (04:35)
[2019-05-29] MEDS: OSELTAMIVIR 30 MG (TAMIFLU) CAPSULE PO SCH ×2 (04:50→16:03)
--- NOTE | 2019-05-29 05:43 | Pulmonary Progress Note ---
Subjective Time Seen by a Provider: 07:25 Subjective/Events-last exam Pt feels improved. Sepsis Event Evaluation Height, Weight, BMI Height: 5'9.00" Weight: 211lbs. 0.0oz. 95.162285so; 28.08 BMI Method: Focused Exam Lactate Level 05/29/19 00:50: Lactic Acid Level 3.38*H 05/29/19 02:55: Lactic Acid Level 3.42*H 05/29/19 05:15: Lactic Acid Level Laboratory Tests Test 05/29/19 02:55 05/29/19 05:15 Lactic Acid Level 3.42 MMOL/L (0.50-2.00) *H Exam Exam Vital Signs Date Time Temp Pulse Resp B/P (MAP) Pulse Ox O2 Delivery O2 Flow Rate FiO2 05/29/19 04:51 Nasal Cannula 2.00 05/29/19 04:00 82 18 129/69 (89) 97 Nasal Cannula 3.00 05/29/19 03:00 82 21 123/112 (116) 96 Nasal Cannula 3.00 05/29/19 02:00 82 19 144/75 (98) 91 Nasal Cannula 3.00 05/29/19 01:00 92 05/29/19 01:00 90 13 132/69 (90) 94 Nasal Cannula 3.00 05/29/19 00:00 95 Nasal Cannula 3.00 05/29/19 00:00 36.4 05/29/19 00:00 87 15 135/68 (90) 96 Nasal Cannula 3.00 05/28/19 23:00 92 23 111/61 (78) 91 Nasal Cannula 3.00 05/28/19 22:00 93 17 152/75 (100) 96 Nasal Cannula 3.00 05/28/19 21:00 98 26 169/85 (113) 95 Nasal Cannula 3.00 05/28/19 20:00 95 Nasal Cannula 3.00 05/28/19 19:56 37.2 101 26 153/65 (94) 95 Nasal Cannula 3.00 05/28/19 19:00 102 05/28/19 19:00 101 25 124/60 (81) 95 Nasal Cannula 3.00 05/28/19 17:00 99 20 153/71 (98) 93 Nasal Cannula 3.00 05/28/19 16:15 108 32 148/70 (96) 95 Nasal Cannula 3.00 05/28/19 16:02 111 05/28/19 16:01 36.8 70 22 110/90 94 Nasal Cannula 3.00 05/28/19 16:00 95 Nasal Cannula 3.00 05/28/19 14:18 95 Nasal Cannula 3.00 05/28/19 13:39 36.8 112 20 100/58 (72) 96 Nasal Cannula 05/28/19 13:39 92 Nasal Cannula 3.00 I & O 05/29/19 07:00 Intake Total 3620 ml Output Total 150 ml Balance 3470 ml Height & Weight Height: 5'9.00" Weight: 211lbs. 0.0oz. 95.595069ee; 28.08 BMI Method: General Appearance: Anxious, Chronically ill, Mild Distress HEENT: PERRL/EOMI, Normal ENT Inspection, Pharynx Normal Neck: Full Range of Motion, Non Tender, Supple Respiratory: Crackles, Decreased Breath Sounds Cardiovascular: Regular Rate, Rhythm Capillary Refill: Less Than 3 Seconds Gastrointestinal: non tender, soft Extremity: Normal Capillary Refill Neurologic/Psychiatric: Alert, Oriented x3 Skin: Normal Color, Warm/Dry Lymphatic: No Adenopathy Results Lab Laboratory Tests 05/28/19 13:50 05/29/19 02:55 Assessment/Plan Assessment/Plan Severe sepsis with pneumonia and influenza -Continue Cefepime and Azithromycin -IVF -engel cultures -Check MRSA nasal swab -Check urine strep and legionella Ag Metabolic lactic acidosis -Aggressive IVF -Monitor Acute renal failure LORENZO CULLEN DO May 29, 2019 05:42
[2019-05-29] MEDS: CEFEPIME 1,000 MG/SWFI 10 ML IV PUSH IV SCH ×6 (06:03→23:34)
[2019-05-29] MEDS: LACTATED RINGERS 1,000 ML IV SCH ×4 (06:03→14:17)
[2019-05-29 06:20] LABS: BILIRUBIN,URINE NEGATIVE (NEGATIVE); CLARITY,URINE CLEAR; COLOR,URINE YELLOW; GLUCOSE, URINE (UA) NEGATIVE (NEGATIVE); KETONES,URINE NEGATIVE (NEGATIVE); LEUKOCYTE ESTERASE ,URINE NEGATIVE (NEGATIVE); NITRITE,URINE NEGATIVE (NEGATIVE); PROTEIN,URINE NEGATIVE (NEGATIVE)
[2019-05-29 06:39] LABS: BACTERIA,URINE NEGATIVE /HPF; RBC,URINE RARE /HPF; SQUAMOUS EPITHELIAL CELL,UR RARE /HPF
[2019-05-29] MEDS: RT-ALBUTEROL/IPRATROPIUM 3 ML (DUONEB) VIAL INH SCH ×5 (07:06→21:36)
[2019-05-29] MEDS: CLOPIDOGREL 75 MG (PLAVIX) TABLET PO SCH (07:45)
--- NOTE | 2019-05-29 07:51 | Diagnostic Imaging Report ---
INDICATION: Dyspnea. TECHNIQUE: Single view chest 4:18 AM. CORRELATION STUDY: 05/28/2019 FINDINGS: Poststernotomy changes with coronary artery bypass. Cardiac enlargement is generally stable. Increasing severity pulmonary vascular congestion and perihilar edema. Also likely more prominent interstitial markings favor edema. Increased density at the right lung base which underlying edema and/or infiltrate not excluded. IMPRESSION: 1. Findings of congestive heart failure appearing adversely changed from previous study. Superimposed infiltrate particularly at the right lung base not excluded. Dictated by: Dictated on workstation # [id number]
[2019-05-29] MEDS: NOREPINEPHRINE 4 MG/250 ML 250 ML IV SCH ×3 (08:33→22:32)
[2019-05-29] MEDS: VASOPRESSIN INJECTION 20 UNIT in NORMAL SALINE 100 ML IV SCH ×3 (08:35→22:32)
[2019-05-29] MEDS ORDERED: ASPIRIN 81 MG CHEW (CHILDREN'S ASA) PO SCH (09:00)
[2019-05-29] MEDS ORDERED: PANTOPRAZOLE 40 MG (PROTONIX) VIAL IV SCH (09:00)
[2019-05-29] MEDS ORDERED: NS IV 500 ML 500 ML IV SCH ×2 (09:03→09:15)
[2019-05-29] MEDS ORDERED: FUROSEMIDE 40 MG/4 ML INJ (LASIX) IVP NR ×2 (09:15→15:05)
[2019-05-29] MEDS ORDERED: diphenhydrAMINE 50 MG/ML INJ (BENADRYL) IVP PRN (09:15)
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
--- NOTE | 2019-05-29 09:39 | Progress Note - Cardiology ---
Cardiology SOAP Progress Note Subjective: No cp Still short of breath, but marginally improved Gen malaise and weakness No palp or syncope No n/v/d Objective: I&O/Vital Signs 05/28/19 05/28/19 05/29/19 05/29/19 22:00 23:00 00:00 00:00 Temp 36.4 Pulse 93 92 87 Resp 17 23 15 B/P (MAP) 152/75 (100) 111/61 (78) 135/68 (90) Pulse Ox 96 91 96 O2 Delivery Nasal Cannula Nasal Cannula Nasal Cannula O2 Flow Rate 3.00 3.00 3.00 05/29/19 05/29/19 05/29/19 05/29/19 00:00 01:00 01:00 02:00 Pulse 90 92 82 Resp 13 19 B/P (MAP) 132/69 (90) 144/75 (98) Pulse Ox 95 94 91 O2 Delivery Nasal Cannula Nasal Cannula Nasal Cannula O2 Flow Rate 3.00 3.00 3.00 05/29/19 05/29/19 05/29/19 05/29/19 03:00 04:00 04:00 04:51 Pulse 82 82 Resp 21 18 B/P (MAP) 123/112 (116) 129/69 (89) Pulse Ox 96 97 95 O2 Delivery Nasal Cannula Nasal Cannula Nasal Cannula Nasal Cannula O2 Flow Rate 3.00 3.00 3.00 2.00 05/29/19 05/29/19 05/29/19 05/29/19 05:00 06:00 07:00 07:00 Pulse 107 97 93 94 Resp 22 24 B/P (MAP) 117/83 (94) 122/66 (84) 101/57 (72) Pulse Ox 93 92 90 O2 Delivery Nasal Cannula Nasal Cannula Nasal Cannula O2 Flow Rate 3.00 3.00 3.00 05/29/19 05/29/19 05/29/19 05/29/19 07:06 08:00 08:21 09:00 Pulse 93 96 Resp 29 26 B/P (MAP) 155/84 (107) 171/76 (107) Pulse Ox 93 90 92 O2 Delivery Nasal Cannula Nasal Cannula Nasal Cannula Nasal Cannula O2 Flow Rate 2.00 3.00 4.00 4.00 05/29/19 00:00 Intake Total 2610 ml Output Total 150 ml Balance 2460 ml Weight (Pounds): 211 Weight (Ounces): 0.0 Weight (Calculated Kilograms): 95.554854 Constitutional: AAO x 3, well-developed, well-nourished Respiratory: No accessory muscle use, No respiratory distress; chest expansion is symmetric, chest is bilaterally symmetric, crackles (bilat lower lobes), rhonchi (scattered), other (dyspneic with conversation) Cardiovascular: regular rate-rhythm; No JVD; S1 and S2 Gastrointestional: No tender; soft, audible bowel sounds Extremities: no lower extremity edema bilateral Neurologic/Psychiatric: grossly intact (moves all extremities) Skin: No rash on exposed areas, No ulcerations on exposed areas Results/Procedures: Labs Laboratory Tests 05/28/19 13:50: White Blood Count 22.9H, Red Blood Count 3.06L, Hemoglobin 9.4L, Hematocrit 31L, Mean Corpuscular Volume 100H, Mean Corpuscular Hemoglobin 31, Mean Corpuscular Hemoglobin Concent 31L, Red Cell Distribution Width 15.0H, Platelet Count 266, Mean Platelet Volume 9.7, Neutrophils (%) (Auto) 85H, Lymphocytes (%) (Auto) 7L, Monocytes (%) (Auto) 8, Eosinophils (%) (Auto) 0, Basophils (%) (Auto) 0, Neutrophils # (Auto) 19.4H, Lymphocytes # (Auto) 1.6, Monocytes # (Auto) 1.9H, Eosinophils # (Auto) 0.0, Basophils # (Auto) 0.0, Neutrophils % (Manual) 73, Lymphocytes % (Manual) 6, Monocytes % (Manual) 3, Eosinophils % (Manual) 0, Bas ophils % (Manual) 0, Band Neutrophils 18, Toxic Granulation 1+, Hypochromasia SLIGHT, Poikilocytosis SLIGHT, Anisocytosis SLIGHT, Macrocytosis SLIGHT, Elliptocytes SLIGHT, Sodium Level 138, Potassium Level 4.0, Chloride Level 101, Carbon Dioxide Level 19L, Anion Gap 18H, Blood Urea Nitrogen 25H, Creatinine 1.98H, Estimat Glomerular Filtration Rate 33, BUN/Creatinine Ratio 13, Glucose Level 124H, Calcium Level 8.7, Corrected Calcium 8.9, Magnesium Level 1.2L, Total Bilirubin 0.6, Aspartate Amino Transf (AST/SGOT) 43H, Alanine Aminotransferase (ALT/SGPT) 17, Alkaline Phosphatase 51, Myoglobin 2387.4H, Troponin I 9.913*H, B-Type Natriuretic Peptide 414.0H, Total Protein 6.5, Albumin 3.8 05/28/19 14:20: Prothrombin Time 15.2H, INR Comment 1.2, Activated Partial Thromboplast Time 37H 05/28/19 14:54: Blood Gas Puncture Site LEFT RA, Blood Gas Patient Temperature 36.8, Arterial Blood pH 7.46H, Arterial Blood Partial Pressure CO2 29L, Arterial Blood Partial Pressure O2 69L, Arterial Blood HCO3 20L, Arterial Blood Total CO2 20.8L, Arter ial Blood Oxygen Saturation 94, Arterial Blood Base Excess -3.4L, Sundeep Test YE S-POS, Blood Gas Ventilator Setting NO, Blood Gas Inspired Oxygen 3L 05/28/19 15:06: Lactic Acid Level 8.02*H 05/28/19 17:32: Lactic Acid Level 9.45*H 05/28/19 22:40: Lactic Acid Level 5.86*H 05/29/19 00:50: Lactic Acid Level 3.38*H 05/29/19 02:55: Lactic Acid Level 3.42*H, White Blood Count 14.5H, Red Blood Count 2.57L, Hemoglobin 7.9L, Hematocrit 25L, Mean Corpuscular Volume 98, Mean Corpuscular Hemoglobin 31, Mean Corpuscular Hemoglobin Concent 31L, Red Cell Distribution Width 14.8H, Platelet Count 215, Mean Platelet Volume 9.8, Neutrophils (%) (Auto) 93H, Lymphocytes (%) (Auto) 4L, Monocytes (%) (Auto) 3, Eosinophils (%) (Auto) 0, Basophils (%) (Auto) 0, Neutrophils # (Auto) 13.5H, Lymphocytes # (Auto) 0.6L, Monocytes # (Auto) 0.5, Eosinophils # (Auto) 0.0, Basophils # (Auto) 0.0, Sodium Level 134L, Potassium Level 3.8, Chloride Level 101, Carbon Dioxide Level 18L, Anion Gap 15H, Blood Urea Nitrogen 28H, Creatinine 1.40H, Estimat Glomerular Filtration Rate 49, BUN/Creatinine Ratio 20, Glucose Level 164H, Calcium Level 8.2L, Corrected Calcium 9.0, Phosphorus Level 3.6, Magnesium Level 2.4, Total Bilirubin 1.0, Aspartate Amino Transf (AST/SGOT) 128H, Alanine Aminotransferase (ALT/SGPT) 58H, Alkaline Phosphatase 69, Total Protein 5.4L, Albumin 3.0L, Triglycerides Level 30, Cholesterol Level 87, LDL Cholesterol Direct 31, VLDL Cholesterol 6, HDL Cholesterol 42 05/29/19 04:30: Stool Occult Blood Immunoassay POSITIVEH 05/29/19 05:15: Lactic Acid Level 3.83*H 05/29/19 06:15: Urine Color YELLOW, Urine Clarity CLEAR, Urine pH 6.0, Urine Specific [place] 1.010L, Urine Protein NEGATIVE, Urine Glucose (UA) NEGATIVE, Urine Ketones NEGATIVE, Urine Nitrite NEGATIVE, Urine Bilirubin NEGATIVE, Urine Urobilinogen 0.2, Urine Leukocyte Esterase NEGATIVE, Urine RBC (Auto) 1+H, Urine RBC RARE, Urine WBC NONE, Urine Squamous Epithelial Cells RARE, Urine Crystals NONE, Urine Bacteria NEGATIVE, Urine Casts NONE, Urine Mucus NEGATIVE, Urine Culture Indicated NO 05/29/19 07:34: Lactic Acid Level 3.57*H 05/29/19 07:54: Microbiology 05/28/19 Influenza Types A,B Antigen (EMMANUELLE) - Final, Complete Laboratory Tests 05/28/19 13:50 05/29/19 02:55 A/P: Assessment: Severe sepsis and presentation with septic shock Influenza A NSTEMI, unclear if type 1 or type 2 EMA-3, likely due to ATN due to hypotension due to septic shock, improving Anemia of undetermined etiology Chronic resp failure due to interstitial lung disease / pulmonary fibrosis CAD - H/o 4-vessel CABG in 1998 at [facility] in [place], [place] by Dr. Magana H/o carotid dz bilat - followed by Dr. Rosa at [facility] Syncopal episodes, being followed by Dr. Rosa, Dr. Smith (neurology services at [facility]), Dr. Cortez Orthostatic hypotension - being followed by Dr. Rosa COPD H/O tobaccoism - quit 4 years ago HTN HLD Chronic back pain Plan: * Continue DAPT and bb for CAD and NSTEMI * Sepsis with influenza A - management per medical/ICU services * Echo today * Obtain records from [facility] * Enoxaparin for DVT prophylaxis * Monitor lab closely * Continue IVF * Replace electrolytes as indicated CARINE PALOMINO MD FACP FAC CCDS May 29, 2019 09:39
[2019-05-29] MEDS: LIDOCAINE 4% (SALONPAS) PATCH TOP SCH (09:41)
[2019-05-29] MEDS: AZITHROMYCIN INJECTION 250 MG in NS (IVPB) 250 ML IV SCH (09:41)
--- NOTE | 2019-05-29 10:02 | NUR ---
Pastoral care visit.
[2019-05-29] MEDS: ENOXAPARIN 40 MG/0.4 ML (LOVENOX) SYR SC SCH (11:47)
[2019-05-29] MEDS ORDERED: PRD10T PO (12:13)
[2019-05-29] MEDS ORDERED: PANT40TA3 PO (12:13)
[2019-05-29] MEDS ORDERED: LISI-552 PO (12:13)
[2019-05-29] MEDS ORDERED: MONT10TA26 PO (12:13)
[2019-05-29] MEDS ORDERED: DOXA4TAB2 PO (12:13)
[2019-05-29] MEDS ORDERED: MECL-149 PO (12:13)
[2019-05-29] MEDS ORDERED: DULO20CA19 PO (12:13)
[2019-05-29] MEDS ORDERED: MYCO500T3 PO (12:15)
[2019-05-29] MEDS ORDERED: IBUP-2473 PO (12:19)
--- NOTE | 2019-05-29 12:20 | NUR ---
SPOKE WITH THE PT WELL GOING THRU THE EXT MED HISTORY TO COMPLETE THE MED REC. DOXAZOSIN: THE EXT MED HISTORY SAYS " 1 TAB BID" HOWEVER THE PT SAID THE DR DECREASED THAT AND HE IS ONLY TAKING 1 TAB DAILY. OTC MEDS: ASPIRIN IBUPROFEN Addendum: 05/29/19 at 1222 by URIEL BATISTA CPhT ALSO TAKES ASPIRIN OTC
[2019-05-29] MEDS ORDERED: NITROGLYCERIN 0.4 MG SL TABS BTL 25'S SL PRN (14:45)
[2019-05-29] MEDS ORDERED: meTOproloL SUCCINATE 50 MG (TOPROL XL) TAB PO NR (15:09)
[2019-05-29] MEDS ORDERED: MECLIZINE 25 MG (ANTIVERT) TAB PO PRN (15:15)
[2019-05-29] MEDS ORDERED: NS IV 500 ML 500 ML ONE (15:52)
[2019-05-29] MEDS: ANTACID SUSP 30 ML UDC (MYLANTA) PO SCH ×2 (16:03→20:49)
[2019-05-29] MEDS: DULoxetine 20 MG (CYMBALTA) CAP PO SCH (16:32)
[2019-05-29] MEDS ORDERED: predniSONE 10 MG TAB PO SCH (17:00)
--- NOTE | 2019-05-29 19:48 | Diagnostic Imaging Report ---
INDICATION: COPD exacerbation. Comparison is made with prior examination from 05/29/2019. FINDINGS: There is cardiomegaly. There has been a previous median sternotomy and coronary artery bypass graft. There is diffuse bilateral airspace disease. There is no pleural effusion or pneumothorax. Mediastinum is unremarkable. IMPRESSION: Diffuse bilateral airspace disease some of which may reflect venous congestion. Recommend clinical correlation. Cardiomegaly Dictated by: Dictated on workstation # [id number]
[2019-05-29 20:15] LABS: ABG BASE EXCESS 0.1 MMOL/L (-2.5-2.5); ABG OXYGEN SATURATION 84 % (94-100); ABG PCO2 33 MMHG (35-45); ABG PH 7.47 (7.37-7.43); ABG PO2 55 MMHG (79-93); ABG TCO2 24.5 MMOL/L (21.0-31.0); ALLENS TEST YES-POS; INSPIRED O2 50%; PATIENT TEMP 36.5; VENTILATOR NO
[2019-05-29] MEDS: LIDOCAINE PATCH REMOVAL TP SCH (20:49)
[2019-05-29] MEDS ORDERED: MYCOPHENOLATE MOFETIL 1000 MG PO SCH (21:00)
[2019-05-29] MEDS ORDERED: PANTOPRAZOLE 40 MG (PROTONIX) TAB PO SCH (21:00)
--- NOTE | 2019-05-29 21:00 | NUR ---
This RN notified EICU that patient is growing increasingly anxious on BiPAP. New order received for Precedex gtt, see order hx.
[2019-05-29] MEDS ORDERED: DexMEDEtomidine 200 MCG/NS 50 ML IV SCH ×2 (21:45)
[2019-05-29] MEDS ORDERED: DexMEDEtomidine 250 ML DRIP 250 ML IV ONE (22:09)
[2019-05-29] MEDS: DexMEDEtomidine 250 ML DRIP 250 ML IV SCH (22:31)
[2019-05-30] VITALS (30 sets, daily range): BP systolic 98–187; BP diastolic 57–99
[2019-05-30] MEDS: RT-ALBUTEROL/IPRATROPIUM 3 ML (DUONEB) VIAL INH SCH ×6 (02:20→22:16)
[2019-05-30 02:30] LABS: BASOPHILS % (AUTO) 0 % (0-10); EOSINOPHILS % (AUTO) 0 % (0-10); HEMATOCRIT 30 % (40-54); HEMOGLOBIN 9.5 G/DL (13.3-17.7); LYMPHOCYTES # (AUTO) 0.8 X 10^3 (1.0-4.0); LYMPHOCYTES % (AUTO) 5 % (12-44); MEAN CORPUSCULAR HEMOGLOBIN 31 PG (25-34); MEAN CORPUSCULAR HGB CONC 32 G/DL (32-36); MEAN CORPUSCULAR VOLUME 97 FL (80-99); MEAN PLATELET VOLUME 9.5 FL (7.4-10.4); MONOCYTES # (AUTO) 0.9 X 10^3 (0.0-1.0); MONOCYTES % (AUTO) 5 % (0-12); NEUTROPHILS % (AUTO) 90 % (42-75); PLATELET COUNT 212 10^3/uL (130-400); RED CELL DISTRIBUTION WIDTH 15.6 % (10.0-14.5); WHITE BLOOD COUNT 17.8 10^3/uL (4.3-11.0)
[2019-05-30 02:51] LABS: ALBUMIN 3.3 GM/DL (3.2-4.5); BILIRUBIN,TOTAL 0.8 MG/DL (0.1-1.0); CALCIUM 8.4 MG/DL (8.5-10.1); CREATININE SERUM 1.49 MG/DL (0.60-1.30); MAGNESIUM 2.2 MG/DL (1.6-2.4); PHOSPHORUS 4.1 MG/DL (2.3-4.7)
[2019-05-30 03:33] LABS: ABG BASE EXCESS 0.4 MMOL/L (-2.5-2.5); ABG OXYGEN SATURATION 89 % (94-100); ABG PCO2 38 MMHG (35-45); ABG PH 7.43 (7.37-7.43); ABG PO2 71 MMHG (79-93); ABG TCO2 25.5 MMOL/L (21.0-31.0)
[2019-05-30 03:35] LABS: ALLENS TEST YES-POS; INSPIRED O2 45%; PATIENT TEMP 36.6; VENTILATOR NO
[2019-05-30] MEDS: MAGNESIUM 1 GM/100 ML IVPB 100 ML IV SCH (05:37)
[2019-05-30] MEDS: POTASSIUM CL 10MEQ/50ML IVPB 50 ML IV SCH (05:37)
[2019-05-30] MEDS: KCL 20 MEQ TAB (K-DUR) PO SCH (05:37)
[2019-05-30] MEDS: CEFEPIME 1,000 MG/SWFI 10 ML IV PUSH IV SCH ×6 (06:00→22:37)
[2019-05-30] MEDS: OSELTAMIVIR 30 MG (TAMIFLU) CAPSULE PO SCH ×2 (06:00→17:34)
--- NOTE | 2019-05-30 07:00 | NUR ---
UPON ARRIVING FOR START OF SHIFT, DR CULLEN AT BEDSIDE DISCUSSING INTUBATION WITH PATIENT. THIS RN ALSO DISCUSSED PLANS TO INTUBATE. PT AGREEABLE TO SHORT TERM INTUBATION. DR. CULLEN WILL ATTEMPT TO SPEAK TO FAMILY VIA TELEPHONE. PREPARING ROOM FOR INTUBATION. INTUBATION TIMELINE: 714: ADDITIONAL 20GA PIV GAINED TO RIGHT FA. 0735: 2MG VERSED GIVEN 0739: 3MG OF VERSED GIVEN 0740: 5ML PROPOFOL GIVEN 0743: PT SUCCESSFULLY INTUBATED WITH SIZE 8 TUBE POSITIONED 23 AT THE LIP. POSITIVE COLOR CHANGE AND AUSCULTATION BILATERALLY. A/C MODE, RATE 22 [id number] PEEP 5. RESTRAINTS APPLIED. 0746: OGT PLACED AND PLACEMENT CHECKED VIA AUSCULTATION. PROPOFOL STARTED AT 20MCG/KG/MIN. PT HAD COPIOUS AMOUNTS OF BLOODY, RUST COLORED SPUTUM IMMEDIATELY AFTER INTUBATION. RT SENT SPECIMEN TO LAB. DR CULLEN ORDERED BRONCHOSCOPY AND CENTRAL LINE PLACEMENT. CENTRAL LINE PLACEMENT TIMELINE: 814: 4MG VERSED GIVEN. 819: CENTRAL LINE IN PLACE. DR CULLEN TRANSITIONS TO BRONCH IMMEDIATELY. NOTES PER RESPIRATORY. STAT CHEST XRAY ORDERED FOR PLACEMENT. DR CULLEN INCREASES PEEP TO 10 AFTER BRONCH. RT IN ROOM TO ADJUST.
--- NOTE | 2019-05-30 07:05 | Pulmonary Progress Note ---
Subjective Time Seen by a Provider: 07:00 Sepsis Event Evaluation Height, Weight, BMI Height: 5'9.00" Weight: 211lbs. 0.0oz. 95.008004gw; 28.08 BMI Method: Focused Exam Lactate Level 05/29/19 23:17: Lactic Acid Level 2.88*H 05/30/19 02:15: Lactic Acid Level 4.65*H 05/30/19 04:47: Lactic Acid Level 2.51*H Lactic Acid Level Laboratory Tests Test 05/30/19 04:47 Lactic Acid Level 2.51 MMOL/L (0.50-2.00) *H Exam Exam Vital Signs Date Time Temp Pulse Resp B/P (MAP) Pulse Ox O2 Delivery O2 Flow Rate FiO2 05/30/19 06:00 73 20 168/91 (116) 91 NIV Bilevel 45.00 05/30/19 05:00 74 21 167/89 (115) 90 NIV Bilevel 45.00 05/30/19 04:00 75 14 167/91 (116) 90 NIV Bilevel 45.00 05/30/19 04:00 91 NIV Bilevel 50 05/30/19 03:00 78 19 161/81 (107) 90 NIV Bilevel 45.00 05/30/19 02:20 71 20 96 45.00 05/30/19 02:00 98 16 150/81 (104) 90 NIV Bilevel 45.00 05/30/19 01:00 74 17 149/77 (101) 92 NIV Bilevel 45.00 05/30/19 01:00 74 05/30/19 00:00 91 NIV Bilevel 50 05/30/19 00:00 75 18 143/72 (95) 91 NIV Bilevel 45.00 05/29/19 23:34 36.6 NIV Bilevel 45.00 05/29/19 23:00 81 20 163/84 (110) 92 NIV Bilevel 60.00 05/29/19 22:31 87 192/100 05/29/19 21:36 91 27 96 50.00 05/29/19 21:00 87 15 192/100 (130) 91 NIV Bilevel 60.00 05/29/19 20:00 91 NIV Bilevel 50 05/29/19 20:00 93 24 178/95 (122) 93 NIV Bilevel 60.00 05/29/19 19:00 81 22 193/103 (133) 98 NIV Bilevel 60.00 05/29/19 19:00 93 05/29/19 18:49 NIV Bilevel 60.00 05/29/19 18:47 90 13 99 60.00 05/29/19 18:30 100 48 169/90 (116) 82 Vapotherm 30.00 40.00 05/29/19 18:00 95 24 189/98 (128) 89 Vapotherm 30.00 40.00 05/29/19 17:30 98 7 188/104 (132) 90 Nasal Cannula 4.00 05/29/19 17:15 100 15 196/96 (129) 88 Nasal Cannula 4.00 05/29/19 17:00 98 30 190/97 (128) 87 Nasal Cannula 4.00 05/29/19 16:45 95 25 191/95 (127) 91 Nasal Cannula 4.00 05/29/19 16:30 95 38 191/104 (133) 88 Nasal Cannula 4.00 05/29/19 16:13 92 24 172/91 94 Vapotherm 40 05/29/19 16:00 92 30 172/91 (118) 93 Nasal Cannula 4.00 05/29/19 16:00 36.6 05/29/19 16:00 91 Vapotherm 30.00 40 05/29/19 15:00 92 25 175/86 (115) 90 Nasal Cannula 4.00 05/29/19 14:18 93 Vapotherm 40.00 40 05/29/19 14:00 93 25 154/86 (108) 87 Nasal Cannula 4.00 05/29/19 13:00 102 15 195/90 (125) 90 Nasal Cannula 4.00 05/29/19 13:00 103 05/29/19 12:00 95 Nasal Cannula 4.00 05/29/19 12:00 97 31 140/78 (98) 91 Nasal Cannula 4.00 05/29/19 11:01 89 Nasal Cannula 4.00 05/29/19 11:00 98 18 161/68 (99) 90 Nasal Cannula 4.00 05/29/19 10:00 95 26 155/86 (109) 91 Nasal Cannula 4.00 05/29/19 09:00 96 26 171/76 (107) 92 Nasal Cannula 4.00 05/29/19 08:21 Nasal Cannula 4.00 05/29/19 08:00 95 Nasal Cannula 4.00 05/29/19 08:00 93 29 155/84 (107) 90 Nasal Cannula 3.00 05/29/19 07:06 93 Nasal Cannula 2.00 I & O 05/30/19 07:00 Intake Total 1460 ml Output Total 2450 ml Balance -990 ml Height & Weight Height: 5'9.00" Weight: 211lbs. 0.0oz. 95.550959md; 28.08 BMI Method: General Appearance: Anxious, Chronically ill, Mild Distress (WHEN LYING FLAT) HEENT: PERRL/EOMI, Normal ENT Inspection, Pharynx Normal Neck: Full Range of Motion, Non Tender, Supple Respiratory: Crackles, Decreased Breath Sounds Cardiovascular: Regular Rate, Rhythm Capillary Refill: Less Than 3 Seconds Gastrointestinal: non tender, soft Extremity: Normal Capillary Refill Neurologic/Psychiatric: Alert, Oriented x3 Skin: Normal Color, Warm/Dry Lymphatic: No Adenopathy Results Lab Laboratory Tests 05/28/19 13:50 05/29/19 02:55 05/30/19 02:15 Assessment/Plan Assessment/Plan Acute worsening respiratory failure with pneumonia and influenza -I talked to pt and he is agreeable to short term intubation only -I also discussed with Dr. Jones, medical staff, patient, and family. -Will proceed with intubation -CXR is worse Severe sepsis with pneumonia and influenza -Continue Cefepime and Azithromycin -IVF -engel cultures -MRSA nasal swab -- is negative -Check urine strep and legionella Ag Metabolic lactic acidosis -Aggressive IVF -Monitor Acute renal failure -IVF and monitor 60min spent with pt, family and medical staff not including procedures. Critical Care: Critically Ill Patient Time spent with patient (mins): 60 LORENZO CULLEN DO May 30, 2019 07:05
[2019-05-30] MEDS ORDERED: PROPOFOL DRIP (ICU) 100 ML IV ONE (07:15)
[2019-05-30] MEDS ORDERED: proPOfol 200 MG/20 ML (DIPRIVAN) VIAL IV ONE (07:15)
[2019-05-30] MEDS ORDERED: methylPREDNISolone 125 MG (Solu-MEDROL) VIAL IVP ONE (07:15)
[2019-05-30] MEDS ORDERED: LACTATED RINGERS 1,000 ML IV ONE (07:15)
--- NOTE | 2019-05-30 08:46 | Diagnostic Imaging Report ---
INDICATION: Dyspnea Single AP view of the chest is obtained with comparison made to study one day earlier. There has been worsening of bilateral airspace disease. Cardiomegaly and pulmonary venous congestion persists. There is blunting of both costophrenic sulci. IMPRESSION: Findings are again suggest congestive heart failure with worsening bilateral airspace disease likely due to pulmonary edema. Dictated by: Dictated on workstation # [id number]
[2019-05-30] MEDS ORDERED: MONTELUKAST 10 MG (SINGULAIR) TAB PO SCH (09:00)
[2019-05-30] MEDS ORDERED: lisINopril 20 MG (PRINIVIL) TABLET PO SCH (09:00)
--- NOTE | 2019-05-30 09:09 | Diagnostic Imaging Report ---
INDICATION: Post support apparatus placement. Compared with exam earlier this same day. FINDINGS: An ET tube tip is in the mid thoracic trachea and OG catheter goes into the stomach and a right IJ is at the mid SVC. There is no pneumothorax. Five-lobe pulmonary opacities not substantially changed when improved inspiratory volumes are taken into account. IMPRESSION: Support apparatus placed in good alignment. Intubation results in improved lung expansion but overall otherwise unchanged five-lobe pulmonary opacities without pneumothorax. Dictated by: Dictated on workstation # [id number]
--- NOTE | 2019-05-30 09:40 | Pulmonary Procedures ---
Pulmonary Procedures Date of Procedure Date of Service: May 30, 2019 Bronch Bronchoscopy with RLL bronchoalveolar lavage (BAL), bilateral bronchial washes. Preop DX respiratory failure. Copious amounts of bloody sputum Postop DX: same Complications: none After informed consent obtained and formal time out pt was sedated using Fentanyl and Versed. Bronchoscope was advanced through the ET tube. 1% lidocaine was used to anesthetize left/right main stem bronchus. An anatomical tour was undertaken down to the segmental bronchi bilaterally. No endobronchial lesions noted. Bronchoscopy with RLL bronchoalveolar lavage (BAL), bilateral bronchial washes.were obtained. Pt tolerated procedure well. No complications noted. Stat CXR is pending. LORENZO CULLEN DO May 30, 2019 09:40
--- NOTE | 2019-05-30 09:40 | Pulmonary Procedures ---
Pulmonary Procedures Date of Procedure Date of Service: May 30, 2019 Lumen: triple (US guided) Central Line Procedure: betadine prep, sterile drapes applied, sterile dressing applied Position: subclavian (R) Anesthesia: local Complications: none Post Position: sutured, good blood return, position confirmed w/ CXR LORENZO CULLEN DO May 30, 2019 09:40
--- NOTE | 2019-05-30 09:41 | Pulmonary Procedures ---
Pulmonary Procedures Date of Procedure Date of Service: May 30, 2019 Reason for Intubation: Acute respiratory failure Time of Intubation: 07:00 Intubation Method: orotracheal Tube Size: 8 Medications: Fentanyl, Propofol, Versed Breath Sounds after Intubation: bilateral-equal Intubation Complications: no complications Post Intubation Xray: Yes LORENZO CULLEN DO May 30, 2019 09:41
[2019-05-30] MEDS ORDERED: MIDAZOLAM 5 MG/5 ML (VERSED) VIAL IJ ONE (09:55)
[2019-05-30] MEDS ORDERED: methylPREDNISolone 125 MG (Solu-MEDROL) VIAL ONE (10:46)
[2019-05-30] MEDS: DULoxetine 20 MG (CYMBALTA) CAP PO SCH (10:52)
[2019-05-30] MEDS: ASPIRIN E.C. 81 MG (ECOTRIN) TAB PO SCH (10:52)
[2019-05-30] MEDS: CLOPIDOGREL 75 MG (PLAVIX) TABLET PO SCH (10:53)
[2019-05-30] MEDS: doxAzosin 4 MG (CARDURA) TAB PO SCH (10:53)
[2019-05-30] MEDS: ANTACID SUSP 30 ML UDC (MYLANTA) PO SCH ×4 (10:53→19:39)
[2019-05-30] MEDS: meTOproloL SUCCINATE 50 MG (TOPROL XL) TAB PO SCH (10:53)
[2019-05-30] MEDS: ENOXAPARIN 40 MG/0.4 ML (LOVENOX) SYR SC SCH (10:53)
[2019-05-30] MEDS: LIDOCAINE 4% (SALONPAS) PATCH TOP SCH ×2 (10:53→17:44)
[2019-05-30] MEDS: PROPOFOL DRIP (ICU) 100 ML IV SCH ×4 (10:56→22:02)
[2019-05-30 11:14] LABS: ABG BASE EXCESS 0.2 MMOL/L (-2.5-2.5); ABG OXYGEN SATURATION 97 % (94-100); ABG PCO2 46 MMHG (35-45); ABG PH 7.35 (7.37-7.43); ABG PO2 215 MMHG (79-93); ABG TCO2 26.9 MMOL/L (21.0-31.0)
[2019-05-30 11:16] LABS: ALLENS TEST POSITIVE; INSPIRED O2 100%; PATIENT TEMP 35.6; VENTILATOR YES
[2019-05-30] MEDS: AZITHROMYCIN INJECTION 250 MG in NS (IVPB) 250 ML IV SCH (11:17)
--- NOTE | 2019-05-30 12:04 | Progress Note - Hospitalist ---
Subjective HPI/CC On Admission Date Seen by Provider: May 30, 2019 Time Seen by Provider: 08:30 Subjective/Events-last exam He is intubated and sedated. There is no family at the bedside. Focused Exam Lactate Level 05/30/19 04:47: Lactic Acid Level 2.51*H 05/30/19 06:58: Lactic Acid Level 2.03*H 05/30/19 11:15: Lactic Acid Level 2.00 Lactic Acid Level Laboratory Tests Test 05/30/19 11:15 Lactic Acid Level 2.00 MMOL/L (0.50-2.00) Objective Exam Vital Signs Vital Signs Date Time Temp Pulse Resp B/P (MAP) Pulse Ox O2 Delivery O2 Flow Rate FiO2 05/30/19 11:28 36.0 05/30/19 11:00 86 18 183/94 (123) 97 Mechanical Ventilator 100.00 05/30/19 10:59 100 Capillary Refill : Less Than 3 Seconds General Appearance: No Apparent Distress, Obese, Other (Intubated and sedated) Respiratory: Lungs Clear, Normal Breath Sounds, No Respiratory Distress, Other (Intubated and mechanically ventilated) Cardiovascular: Regular Rate, Rhythm, No Murmur Gastrointestinal: Normal Bowel Sounds, Soft Extremity: Normal Inspection, No Pedal Edema Neurologic/Psychiatric: Other (Sedated) Skin: Normal Color, Warm/Dry Results/Procedures Lab Laboratory Tests 05/30/19 02:15 Patient resulted labs reviewed. Assessment/Plan Assessment and Plan Assess & Plan/Chief Complaint Acute respiratory failure with hypoxia Severe sepsis due to pneumonia Influenza Lactic acidosis Acute kidney injury superimposed on chronic kidney disease NSTEMI Heart failure with preserved ejection fraction Intubated this morning due to hypoxia Patient requested short-term intubation only Continue antibiotics Continue Tamiflu Continue IV fluids Continue steroids Pulmonology and cardiology assisting, appreciate recommendations Echo 05/29 revealed ejection fraction 40-45 percent, basal hypokinesis Continue DAPT DVT prophylaxis: Lovenox Critical Care Critically Ill Patient Diagnosis/Problems Diagnosis/Problems (1) Acute respiratory failure with hypoxia Status: Acute (2) Endotracheally intubated Status: Acute (3) Severe sepsis Status: Acute (4) Pneumonia Status: Acute Qualifiers: Pneumonia type: due to unspecified organism Laterality: bilateral Lung location: unspecified part of lung Qualified Codes: J18.9 - Pneumonia, unspecified organism (5) Influenza Status: Acute (6) Lactic acidosis Status: Resolved Resolution Date/Time: 05/30/19 @ 12:04 (7) Acute kidney injury superimposed on chronic kidney disease Status: Acute (8) (HFpEF) heart failure with preserved ejection fraction Status: Acute (9) Non-ST elevation [place] (NSTEMI) Status: Acute Clinical Quality Measures DVT/VTE Risk/Contraindication: Risk Factor Score Per Nursin RFS Level Per Nursing on Admit: 4+=Very High OLIVE TIJERINA MD May 30, 2019 12:04
--- NOTE | 2019-05-30 12:38 | Physical Therapy Progress Note ---
Therapy Progress Note Pt intubated and under full sedation. Plan to hold evaluation until patient regains consciousness and is alert and able to participate in treatment. SADE Edwards CLAYTON PT May 30, 2019 12:38
[2019-05-30] MEDS: methylPREDNISolone 40 MG/ML (Solu-MEDROL) VIAL IV SCH ×3 (12:46→22:47)
[2019-05-30] MEDS ORDERED: LIDOCAINE PF 1% 2 ML VIAL IJ ONE (12:58)
--- NOTE | 2019-05-30 13:21 | Progress Note - Cardiology ---
Cardiology SOAP Progress Note Subjective: On [facility] vent, sedated, unable to communicate Objective: I&O/Vital Signs 05/30/19 05/30/19 05/30/19 05/30/19 02:00 02:20 03:00 04:00 Pulse 98 71 78 Resp 16 20 19 B/P (MAP) 150/81 (104) 161/81 (107) Pulse Ox 90 96 90 91 O2 Delivery NIV Bilevel NIV Bilevel NIV Bilevel O2 Flow Rate 45.00 45.00 45.00 FiO2 50 05/30/19 05/30/19 05/30/19 05/30/19 04:00 05:00 06:00 07:00 Pulse 75 74 73 72 Resp 14 21 20 24 B/P (MAP) 167/91 (116) 167/89 (115) 168/91 (116) 163/86 (111) Pulse Ox 90 90 91 92 O2 Delivery NIV Bilevel NIV Bilevel NIV Bilevel NIV Bilevel O2 Flow Rate 45.00 45.00 45.00 45.00 05/30/19 05/30/19 05/30/19 05/30/19 07:00 07:50 08:00 09:00 Pulse 71 65 69 64 Resp 24 28 24 B/P (MAP) 98/57 (71) 134/80 (98) Pulse Ox 99 95 99 O2 Delivery Mechanical Ventilator Mechanical Ventilator O2 Flow Rate 100.00 FiO2 100 05/30/19 05/30/19 05/30/19 05/30/19 10:00 10:56 10:59 11:00 Pulse 84 84 88 86 Resp 18 29 18 B/P (MAP) 178/97 (124) 169/92 183/94 (123) Pulse Ox 99 99 97 O2 Delivery Mechanical Ventilator Mechanical Ventilator O2 Flow Rate 100.00 100.00 FiO2 100 05/30/19 05/30/19 05/30/19 05/30/19 11:28 12:00 12:35 12:41 Temp 36.0 Pulse 82 83 Resp 20 B/P (MAP) 163/99 (120) Pulse Ox 98 O2 Delivery Mechanical Ventilator Mechanical Ventilator O2 Flow Rate 100.00 50.00 05/30/19 00:00 Intake Total 1350 ml Output Total 1825 ml Balance -475 ml Weight (Pounds): 211 Weight (Ounces): 0.0 Weight (Calculated Kilograms): 95.780734 Constitutional: well-developed, well-nourished, other (On mech vent, sedated, unable to communicate) Respiratory: chest expansion is symmetric, chest is bilaterally symmetric, crackles, rhonchi, other Cardiovascular: regular rate-rhythm, S1 and S2 Gastrointestional: soft, audible bowel sounds Extremities: no lower extremity edema bilateral Neurologic/Psychiatric: other (On mech vent, sedated, unable to communicate) Skin: No rash on exposed areas, No ulcerations on exposed areas Results/Procedures: Labs Laboratory Tests 05/29/19 14:11: Lactic Acid Level 6.10*H 05/29/19 20:05: Blood Gas Puncture Site RIGHT RADIAL, Blood Gas Patient Temperature 36.5, Arterial Blood pH 7.47H, Arterial Blood Partial Pressure CO2 33L, Arterial Blood Partial Pressure O2 55L, Arterial Blood HCO3 24, Arterial Blood Total CO2 24.5, Arterial Blood Oxygen Saturation 84L, Arterial Blood Base Excess 0.1, Sundeep Test YES-POS, Blood Gas Ventilator Setting NO, Blood Gas Inspired Oxygen 50% 05/29/19 23:17: Lactic Acid Level 2.88*H 05/30/19 02:15: Lactic Acid Level 4.65*H, White Blood Count 17.8H, Red Blood Count 3.08L, Hemoglobin 9.5#L, Hematocrit 30L, Mean Corpuscular Volume 97, Mean Corpuscular Hemoglobin 31, Mean Corpuscular Hemoglobin Concent 32, Red Cell Distribution Width 15.6H, Platelet Count 212, Mean Platelet Volume 9.5, Neutrophils (%) (Auto) 90H, Lymphocytes (%) (Auto) 5L, Monocytes (%) (Auto) 5, Eosinophils (%) (Auto) 0, Basophils (%) (Auto) 0, Neutrophils # (Auto) 16.0H, Lymphocytes # (Auto) 0.8L, Monocytes # (Auto) 0.9, Eosinophils # (Auto) 0.0, Basophils # (Auto) 0.0, Sodium Level 133L, Potassium Level 5.0, Chloride Level 100, Carbon Dioxide Level 17L, Anion Gap 16H, Blood Urea Nitrogen 39H, Creatinine 1.49H, Estimat Glomerular Filtration Rate 46, BUN/Creatinine Ratio 26, Glucose Level 132H, Calcium Level 8.4L, Corrected Calcium 9.0, Phosphorus Level 4.1, Magnesium Level 2.2, Total Bilirubin 0.8, Aspartate Amino Transf (AST/SGOT) 344H, Alanine Aminotransferase (ALT/SGPT) 274H, Alkaline Phosphatase 86, Total Protein 6.0L, Albumin 3.3, Triglycerides Level 109 05/30/19 03:26: Blood Gas Puncture Site LEFT RADIAL, Blood Gas Patient Temperature 36.6, Arter ial Blood pH 7.43, Arterial Blood Partial Pressure CO2 38, Arterial Blood Partial Pressure O2 71L, Arterial Blood HCO3 24, Arterial Blood Total CO2 25.5, Arterial Blood Oxygen Saturation 89L, Arterial Blood Base Excess 0.4, Sundeep Test YES-POS, Blood Gas Ventilator Setting NO, Blood Gas Inspired Oxygen 45% 05/30/19 04:47: Lactic Acid Level 2.51*H 05/30/19 06:58: Lactic Acid Level 2.03*H 05/30/19 10:50: Blood Gas Puncture Site LEFT RADIAL, Blood Gas Patient Temperature 35.6, Arterial Blood pH 7.35L, Arterial Blood Partial Pressure CO2 46H, Arterial Blood Partial Pressure O2 215H, Arterial Blood HCO3 25, Arterial Blood Total CO2 26.9, Arterial Blood Oxygen Saturation 97, Arterial Blood Base Excess 0.2, Sundeep Test POSITIVE, Blood Gas Ventilator Setting YES, Blood Gas Inspired Oxygen 100% 05/30/19 11:15: Lactic Acid Level 2.00 05/30/19 11:29: Glucometer 131H Microbiology 05/28/19 MRSA Screen - Final, Complete MRSA not isolated 05/28/19 Blood Culture - Preliminary, Resulted No growth Laboratory Tests 05/28/19 13:50 05/29/19 02:55 05/30/19 02:15 A/P: Assessment: Ac resp failure (multifactorial, see below) Severe sepsis; presented with septic shock Influenza A NSTEMI, unclear if type 1 or type 2 EMA-3, likely due to ATN due to hypotension due to septic shock, improving Anemia of undetermined etiology Chronic resp failure due to interstitial lung disease / pulmonary fibrosis CAD and ischemic cardiomyopathy - H/o 4-vessel CABG in 1998 at [facility] in [place], [place] by Dr. Magana Echo of 05/29/19: LVEF 40-45%, basal inferior hypokinesis, RVSP 18 mmHg, mod MR H/o carotid dz bilat - followed by Dr. Rosa at [facility] Syncopal episodes, being followed by Dr. Rosa, [place] [facility] [place] Orthostatic hypotension - being followed by Dr. Rosa COPD H/O tobaccoism - quit 4 years ago HTN HLD Chronic back pain Plan: * Complex management due to multiple comorbidities. Guarded prognosis * Continue DAPT and bb for CAD and NSTEMI * Sepsis with influenza A - management per medical/ICU services * Obtain records from [facility] * Enoxaparin for DVT prophylaxis * Monitor labs and correct them as needed CARINE PALOMINO MD FACP FAC CCDS May 30, 2019 13:21
[2019-05-30] MEDS: VASOPRESSIN INJECTION 20 UNIT in NORMAL SALINE 100 ML IV SCH ×2 (13:34→18:49)
[2019-05-30] MEDS: NOREPINEPHRINE 4 MG/250 ML 250 ML IV SCH ×3 (13:34→22:40)
[2019-05-30] MEDS: DexMEDEtomidine 250 ML DRIP 250 ML IV SCH (15:28)
[2019-05-30] MEDS: LIDOCAINE PATCH REMOVAL TP SCH (19:39)
[2019-05-30] MEDS ORDERED: hydrALAZINE (APESOLINE) 20 MG/ML VIAL ONE (21:54)
[2019-05-30] MEDS: hydrALAZINE (APESOLINE) 20 MG/ML VIAL IV PRN (22:00)
[2019-05-30] MEDS: inSUlin ASPART (NovoLOG) 1 UNIT/0.01 ML (CHARGE PER UNIT) SC SCH (23:32)
[2019-05-31] VITALS (29 sets, daily range): BP systolic 127–189; BP diastolic 56–94
--- NOTE | 2019-05-31 00:22 | NUR ---
e-icu contacted due to pt vent alarming for high inspiratory peak pressures. orders given for vent setting changes per e-icu
[2019-05-31] MEDS: PROPOFOL DRIP (ICU) 100 ML IV SCH ×5 (01:28→22:51)
[2019-05-31] MEDS: VASOPRESSIN INJECTION 20 UNIT in NORMAL SALINE 100 ML IV SCH ×3 (01:32→20:03)
[2019-05-31] MEDS: hydrALAZINE (APESOLINE) 20 MG/ML VIAL IV PRN ×3 (02:12→20:22)
[2019-05-31] MEDS: RT-ALBUTEROL/IPRATROPIUM 3 ML (DUONEB) VIAL INH SCH ×5 (02:50→18:57)
[2019-05-31 02:55] LABS: BASOPHILS % (AUTO) 0 % (0-10); EOSINOPHILS % (AUTO) 0 % (0-10); HEMATOCRIT 31 % (40-54); HEMOGLOBIN 9.8 G/DL (13.3-17.7); LYMPHOCYTES # (AUTO) 0.2 X 10^3 (1.0-4.0); LYMPHOCYTES % (AUTO) 2 % (12-44); MEAN CORPUSCULAR HEMOGLOBIN 31 PG (25-34); MEAN CORPUSCULAR HGB CONC 32 G/DL (32-36); MEAN CORPUSCULAR VOLUME 97 FL (80-99); MEAN PLATELET VOLUME 10.1 FL (7.4-10.4); MONOCYTES # (AUTO) 0.3 X 10^3 (0.0-1.0); MONOCYTES % (AUTO) 3 % (0-12); NEUTROPHILS # (AUTO) 10.4 X 10^3 (1.8-7.8); NEUTROPHILS % (AUTO) 95 % (42-75); PLATELET COUNT 192 10^3/uL (130-400); RED CELL DISTRIBUTION WIDTH 15.2 % (10.0-14.5); WHITE BLOOD COUNT 10.9 10^3/uL (4.3-11.0)
[2019-05-31 03:06] LABS: ABG BASE EXCESS 0.5 MMOL/L (-2.5-2.5); ABG OXYGEN SATURATION 94 % (94-100); ABG PCO2 36 MMHG (35-45); ABG PH 7.44 (7.37-7.43); ABG PO2 87 MMHG (79-93); ABG TCO2 25.5 MMOL/L (21.0-31.0)
[2019-05-31 03:07] LABS: ALLENS TEST YES-POS; INSPIRED O2 45%; PATIENT TEMP 36.2; VENTILATOR YES
[2019-05-31 03:17] LABS: ALANINE AMINOTRANSFERASE 238 U/L (0-55); ALBUMIN 3.2 GM/DL (3.2-4.5); ALKALINE PHOSPHATASE 88 U/L (40-136); BILIRUBIN,TOTAL 0.4 MG/DL (0.1-1.0); BUN/CREATININE RATIO 28; CALCIUM 8.5 MG/DL (8.5-10.1); CARBON DIOXIDE 23 MMOL/L (21-32); CHLORIDE 104 MMOL/L (98-107); CREATININE SERUM 1.08 MG/DL (0.60-1.30); GFR ESTIMATED > 60; GLUCOSE 169 MG/DL (70-105); MAGNESIUM 2.6 MG/DL (1.6-2.4); PHOSPHORUS 1.9 MG/DL (2.3-4.7); POTASSIUM 3.9 MMOL/L (3.6-5.0); SODIUM 139 MMOL/L (135-145); TOTAL PROTEIN 6.1 GM/DL (6.4-8.2)
[2019-05-31] MEDS: OSELTAMIVIR 30 MG (TAMIFLU) CAPSULE PO SCH ×2 (04:43→18:31)
[2019-05-31] MEDS: POTASSIUM CL 10MEQ/50ML IVPB 50 ML IV SCH (04:44)
[2019-05-31] MEDS: MAGNESIUM 1 GM/100 ML IVPB 100 ML IV SCH (04:44)
[2019-05-31] MEDS: KCL 20 MEQ TAB (K-DUR) PO SCH (04:44)
[2019-05-31] MEDS: DexMEDEtomidine 250 ML DRIP 250 ML IV SCH ×3 (04:56→20:21)
--- NOTE | 2019-05-31 05:11 | Pulmonary Progress Note ---
Subjective Time Seen by a Provider: 05:09 Subjective/Events-last exam Sedated on vent Sepsis Event Evaluation Height, Weight, BMI Height: 5'9.00" Weight: 211lbs. 0.0oz. 95.610239ly; 28.08 BMI Method: Focused Exam Lactate Level 05/30/19 04:47: Lactic Acid Level 2.51*H 05/30/19 06:58: Lactic Acid Level 2.03*H 05/30/19 11:15: Lactic Acid Level 2.00 Exam Exam Vital Signs Date Time Temp Pulse Resp B/P (MAP) Pulse Ox O2 Delivery O2 Flow Rate FiO2 05/31/19 04:56 145/64 05/31/19 04:54 145/64 05/31/19 04:00 98 17 134/58 (83) 95 Mechanical Ventilator 45.00 05/31/19 03:04 36.2 05/31/19 03:03 95 Mechanical Ventilator 45 05/31/19 03:00 92 19 127/56 (79) 95 Mechanical Ventilator 45.00 05/31/19 02:50 93 24 95 35 05/31/19 02:00 88 18 174/73 (106) 96 Mechanical Ventilator 45.00 05/31/19 01:28 173/76 05/31/19 01:00 92 05/31/19 01:00 90 17 172/75 (107) 96 Mechanical Ventilator 45.00 05/31/19 00:00 96 18 168/79 (108) 96 Mechanical Ventilator 45.00 05/30/19 23:45 Mechanical Ventilator 45.00 05/30/19 23:25 95 Mechanical Ventilator 35 05/30/19 23:24 36.3 05/30/19 23:00 99 18 152/68 (96) 93 Mechanical Ventilator 35.00 05/30/19 22:16 89 29 93 35 05/30/19 22:02 187/87 05/30/19 22:00 93 18 159/73 (101) 93 Mechanical Ventilator 35.00 05/30/19 21:00 87 21 174/80 (111) 94 Mechanical Ventilator 35.00 05/30/19 20:00 80 17 164/79 (107) 94 Mechanical Ventilator 35.00 05/30/19 20:00 95 Mechanical Ventilator 35 05/30/19 19:46 Mechanical Ventilator 35.00 2/22/20 19:36 35.9 05/30/19 19:36 79 27 96 40 05/30/19 19:00 80 05/30/19 19:00 80 17 166/77 (106) 96 Mechanical Ventilator 40.00 05/30/19 18:49 79 163/78 05/30/19 18:00 82 17 161/78 (105) 95 Mechanical Ventilator 40.00 05/30/19 17:00 87 20 155/76 (102) 95 Mechanical Ventilator 40.00 05/30/19 16:47 35.9 05/30/19 16:00 81 18 165/81 (109) 95 Mechanical Ventilator 40.00 05/30/19 15:59 95 Mechanical Ventilator 40 05/30/19 15:28 85 155/86 05/30/19 15:28 86 05/30/19 15:00 90 17 152/80 (104) 94 Mechanical Ventilator 40.00 05/30/19 14:49 Mechanical Ventilator 40.00 05/30/19 14:34 80 28 94 50 05/30/19 14:00 80 23 159/88 (111) 96 Mechanical Ventilator 50.00 05/30/19 13:00 80 17 166/88 (114) 95 Mechanical Ventilator 50.00 05/30/19 12:41 Mechanical Ventilator 50.00 05/30/19 12:35 83 05/30/19 12:00 95 Mechanical Ventilator 70 05/30/19 12:00 82 20 163/99 (120) 98 Mechanical Ventilator 100.00 05/30/19 11:28 36.0 05/30/19 11:00 86 18 183/94 (123) 97 Mechanical Ventilator 100.00 05/30/19 10:59 88 29 99 100 05/30/19 10:56 84 169/92 05/30/19 10:00 84 18 178/97 (124) 99 Mechanical Ventilator 100.00 05/30/19 09:00 64 24 134/80 (98) 99 Mechanical Ventilator 100.00 05/30/19 08:00 69 28 98/57 (71) 95 Mechanical Ventilator 05/30/19 07:50 65 24 99 100 05/30/19 07:45 35.9 05/30/19 07:45 92 Mechanical Ventilator 100 05/30/19 07:00 71 05/30/19 07:00 72 24 163/86 (111) 92 NIV Bilevel 45.00 05/30/19 06:00 73 20 168/91 (116) 91 NIV Bilevel 45.00 I & O 05/31/19 07:00 Intake Total 1260 ml Output Total 2500 ml Balance -1240 ml Height & Weight Height: 5'9.00" Weight: 211lbs. 0.0oz. 95.192433gd; 28.08 BMI Method: General Appearance: No Apparent Distress, Obese, Other (Intubated and sedated) HEENT: PERRL/EOMI, Normal ENT Inspection, Pharynx Normal Neck: Full Range of Motion, Non Tender, Supple Respiratory: Lungs Clear, Normal Breath Sounds, No Respiratory Distress, Other (Intubated and mechanically ventilated) Cardiovascular: Regular Rate, Rhythm, No Murmur Capillary Refill: Less Than 3 Seconds Gastrointestinal: non tender, soft Extremity: Normal Inspection, No Pedal Edema Neurologic/Psychiatric: Other (Sedated) Skin: Normal Color, Warm/Dry Lymphatic: No Adenopathy Results Lab Laboratory Tests 05/30/19 02:15 05/31/19 02:41 Assessment/Plan Assessment/Plan Acute worsening respiratory failure with pneumonia and influenza -Continue vent therapy -CXR now improved Severe sepsis with pneumonia and influenza -Continue Cefepime and Azithromycin -Tamiflu -IVF -engel cultures -MRSA nasal swab -- is negative -Check urine strep and legionella Ag Metabolic lactic acidosis -Aggressive IVF -Monitor Acute renal failure -IVF and monitor Hypophos -replace LORENZO CULLEN DO May 31, 2019 05:11
[2019-05-31] MEDS ORDERED: LACTATED RINGERS 1,000 ML IV SCH (05:15)
[2019-05-31] MEDS ORDERED: SODIUM PHOSPHATE INJ 30 MM in NS (IVPB) 250 ML IV ONE (05:15)
[2019-05-31] MEDS: LACTATED RINGERS 1,000 ML IV SCH ×3 (05:32→22:52)
[2019-05-31] MEDS: CEFEPIME 1,000 MG/SWFI 10 ML IV PUSH IV SCH ×6 (05:43→23:14)
[2019-05-31] MEDS: methylPREDNISolone 40 MG/ML (Solu-MEDROL) VIAL IV SCH ×2 (05:44→20:22)
[2019-05-31] MEDS: inSUlin ASPART (NovoLOG) 1 UNIT/0.01 ML (CHARGE PER UNIT) SC SCH ×4 (05:44→23:19)
[2019-05-31 07:15] LABS: ABG BASE EXCESS 1.1 MMOL/L (-2.5-2.5); ABG OXYGEN SATURATION 96 % (94-100); ABG PCO2 35 MMHG (35-45); ABG PH 7.46 (7.37-7.43); ABG PO2 110 MMHG (79-93); ABG TCO2 25.7 MMOL/L (21.0-31.0)
[2019-05-31 07:16] LABS: ALLENS TEST YES-POS
[2019-05-31 07:17] LABS: INSPIRED O2 45%; PATIENT TEMP 97.3; VENTILATOR YES
--- NOTE | 2019-05-31 08:32 | Diagnostic Imaging Report ---
Portable semi-erect AP chest at 3:44. Indication: Respiratory distress. The cardiomegaly and the diffuse alveolar/interstitial pulmonary infiltrates seen on the prior exam of 05/30/2019 are again evident and not significantly changed. The supportive tubes and lines seen on the previous study are also again visualized and do not appear to have changed significantly. The mediastinum is not widened. The osseous structures are intact. Impression: Stable chest. There has been no adverse change since the prior exam. A followup study would be recommended for continued evaluation. Dictated by: Dictated on workstation # [id number]
[2019-05-31] MEDS ORDERED: doxAzosin 4 MG (CARDURA) TAB PO SCH (09:00)
[2019-05-31] MEDS: NOREPINEPHRINE 4 MG/250 ML 250 ML IV SCH ×3 (09:03→23:19)
[2019-05-31] MEDS: AZITHROMYCIN INJECTION 250 MG in NS (IVPB) 250 ML IV SCH (09:04)
[2019-05-31] MEDS: meTOproloL SUCCINATE 50 MG (TOPROL XL) TAB PO SCH (09:05)
[2019-05-31] MEDS: doxAzosin 4 MG (CARDURA) TAB PO SCH (09:05)
[2019-05-31] MEDS: DULoxetine 20 MG (CYMBALTA) CAP PO SCH (09:05)
[2019-05-31] MEDS: ASPIRIN E.C. 81 MG (ECOTRIN) TAB PO SCH (09:05)
[2019-05-31] MEDS: PANTOPRAZOLE 40 MG (PROTONIX) VIAL IV SCH (09:05)
[2019-05-31] MEDS: lisINopril 20 MG (PRINIVIL) TABLET PO SCH (09:06)
[2019-05-31] MEDS: CLOPIDOGREL 75 MG (PLAVIX) TABLET PO SCH (09:06)
[2019-05-31] MEDS: ENOXAPARIN 40 MG/0.4 ML (LOVENOX) SYR SC SCH (09:06)
[2019-05-31] MEDS: LIDOCAINE 4% (SALONPAS) PATCH TOP SCH (09:07)
[2019-05-31] MEDS: ANTACID SUSP 30 ML UDC (MYLANTA) PO SCH ×4 (09:07→20:27)
--- NOTE | 2019-05-31 11:15 | Progress Note - Hospitalist ---
Subjective HPI/CC On Admission Date Seen by Provider: May 31, 2019 Time Seen by Provider: 08:40 Subjective/Events-last exam He is intubated and sedated. He has family at the bedside. They were updated on his current clinical situation and all questions were answered to the best of my ability. Focused Exam Lactate Level 05/30/19 04:47: Lactic Acid Level 2.51*H 05/30/19 06:58: Lactic Acid Level 2.03*H 05/30/19 11:15: Lactic Acid Level 2.00 Objective Exam Vital Signs Vital Signs Date Time Temp Pulse Resp B/P (MAP) Pulse Ox O2 Delivery O2 Flow Rate FiO2 05/31/19 11:00 83 18 183/82 (115) 95 Mechanical Ventilator 45.00 05/31/19 10:35 45 05/31/19 03:04 36.2 Capillary Refill : Less Than 3 Seconds General Appearance: No Apparent Distress, Other (Intubated and sedated) Respiratory: Normal Breath Sounds, No Respiratory Distress, Crackles Cardiovascular: Regular Rate, Rhythm, No Edema, No Murmur Gastrointestinal: Normal Bowel Sounds, Non Tender, Soft Extremity: Normal Inspection, Non Tender, No Pedal Edema Neurologic/Psychiatric: Alert, Oriented x3, No Motor/Sensory Deficits, Normal Mood/Affect Skin: Normal Color, Warm/Dry Results/Procedures Lab Laboratory Tests 05/31/19 02:41 Patient resulted labs reviewed. Imaging: Reviewed Imaging Report Assessment/Plan Assessment and Plan Assess & Plan/Chief Complaint Acute respiratory failure with hypoxia Severe sepsis due to pneumonia Influenza Lactic acidosis Acute kidney injury superimposed on chronic kidney disease NSTEMI Heart failure with preserved ejection fraction Intubated due to hypoxia 05/30 Patient requested short-term intubation only Continue antibiotics Continue Tamiflu Continue IV fluids, decrease rate Continue steroids Pulmonology and cardiology assisting, appreciate recommendations Echo 05/29 revealed ejection fraction 40-45 percent, basal hypokinesis Continue DAPT DVT prophylaxis: Lovenox Critical Care Critically Ill Patient Diagnosis/Problems Diagnosis/Problems (1) Acute respiratory failure with hypoxia Status: Acute (2) Endotracheally intubated Status: Acute (3) Severe sepsis Status: Acute (4) Pneumonia Status: Acute Qualifiers: Pneumonia type: due to unspecified organism Laterality: bilateral Lung location: unspecified part of lung Qualified Codes: J18.9 - Pneumonia, unspecified organism (5) Influenza Status: Acute (6) Lactic acidosis Status: Resolved Resolution Date/Time: 05/30/19 @ 12:04 (7) Acute kidney injury superimposed on chronic kidney disease Status: Acute (8) (HFpEF) heart failure with preserved ejection fraction Status: Acute (9) Non-ST elevation [place] (NSTEMI) Status: Acute Clinical Quality Measures DVT/VTE Risk/Contraindication: Risk Factor Score Per Nursin RFS Level Per Nursing on Admit: 4+=Very High OLIVE TIJERINA MD May 31, 2019 11:15
--- NOTE | 2019-05-31 13:46 | Progress Note - Cardiology ---
Cardiology SOAP Progress Note Subjective: Still intubated, sedated, on mech vent. Unable to communicate Objective: I&O/Vital Signs 05/31/19 05/31/19 05/31/19 05/31/19 02:00 02:50 03:00 03:03 Pulse 88 93 92 Resp 18 19 B/P (MAP) 174/73 (106) 127/56 (79) Pulse Ox 96 95 95 95 O2 Delivery Mechanical Ventilator Mechanical Ventilator Mechanical Ventilator O2 Flow Rate 45.00 45.00 FiO2 35 45 05/31/19 05/31/19 05/31/19 05/31/19 03:04 04:00 04:54 04:56 Temp 36.2 Pulse 98 Resp 17 B/P (MAP) 134/58 (83) 145/64 145/64 Pulse Ox 95 O2 Delivery Mechanical Ventilator O2 Flow Rate 45.00 05/31/19 05/31/19 05/31/19 05/31/19 05:00 06:00 06:55 07:00 Pulse 92 89 87 87 Resp 22 B/P (MAP) 142/61 (88) 164/71 (102) 155/87 (109) Pulse Ox 95 96 95 95 O2 Delivery Mechanical Ventilator Mechanical Ventilator Mechanical Ventilator O2 Flow Rate 45.00 45.00 45.00 FiO2 45 05/31/19 05/31/19 05/31/19 05/31/19 07:00 08:00 08:00 09:00 Pulse 89 88 86 Resp B/P (MAP) 179/78 (111) 178/81 (113) Pulse Ox 95 95 95 O2 Delivery Mechanical Ventilator Mechanical Ventilator Mechanical Ventilator O2 Flow Rate 45.00 45.00 FiO2 45 05/31/19 05/31/19 05/31/19 05/31/19 09:03 10:00 10:26 10:35 Pulse 84 88 Resp 24 B/P (MAP) 178/81 181/85 (117) 176/84 Pulse Ox 95 95 O2 Delivery Mechanical Ventilator O2 Flow Rate 45.00 FiO2 45 05/31/19 05/31/19 05/31/19 05/31/19 11:00 12:00 12:00 12:00 Temp 35.8 Pulse 83 84 Resp 22 B/P (MAP) 183/82 (115) 187/85 (119) Pulse Ox 95 95 95 O2 Delivery Mechanical Ventilator Mechanical Ventilator Mechanical Ventilator O2 Flow Rate 45.00 45.00 FiO2 45 05/31/19 05/31/19 05/31/19 12:14 12:54 13:00 Pulse 85 84 Resp 21 B/P (MAP) 203/92 172/81 (111) Pulse Ox 94 O2 Delivery Mechanical Ventilator O2 Flow Rate 45.00 05/31/19 00:00 Intake Total 710 ml Output Total 1650 ml Balance -940 ml Weight (Pounds): 211 Weight (Ounces): 0.0 Weight (Calculated Kilograms): 95.882905 Constitutional: well-developed, well-nourished, other (On mech vent, sedated, unable to communicate) Respiratory: chest expansion is symmetric, chest is bilaterally symmetric, crackles, rhonchi, other Cardiovascular: regular rate-rhythm, S1 and S2 Gastrointestional: soft, audible bowel sounds Extremities: no lower extremity edema bilateral Neurologic/Psychiatric: other (On mech vent, sedated, unable to communicate) Skin: No rash on exposed areas, No ulcerations on exposed areas Results/Procedures: Labs Laboratory Tests 05/30/19 17:21: Glucometer 188H 05/30/19 22:48: Glucometer 204H 05/31/19 02:41: White Blood Count 10.9, Red Blood Count 3.16L, Hemoglobin 9.8L, Hematocrit 31L, Mean Corpuscular Volume 97, Mean Corpuscular Hemoglobin 31, Mean Corpuscular Hemoglobin Concent 32, Red Cell Distribution Width 15.2H, Platelet Count 192, Mean Platelet Volume 10.1, Neutrophils (%) (Auto) 95H, Lymphocytes (%) (Auto) 2L , Monocytes (%) (Auto) 3, Eosinophils (%) (Auto) 0, Basophils (%) (Auto) 0, Neutrophils # (Auto) 10.4H, Lymphocytes # (Auto) 0.2L, Monocytes # (Auto) 0.3, Eosinophils # (Auto) 0.0, Basophils # (Auto) 0.0, Sodium Level 139, Potassium Level 3.9, Chloride Level 104, Carbon Dioxide Level 23, Anion Gap 12, Blood Urea Nitrogen 30H, Creatinine 1.08, Estimat Glomerular Filtration Rate > 60, BUN/Creatinine Ratio 28, Glucose Level 169H, Calcium Level 8.5, Corrected Calcium 9.1, Phosphorus Level 1.9L, Magnesium Level 2.6H, Total Bilirubin 0.4, Aspartate Amino Transf (AST/SGOT) 130H, Alanine Aminotransferase (ALT/SGPT) 238H , Alkaline Phosphatase 88, Total Protein 6.1L, Albumin 3.2 05/31/19 02:58: Blood Gas Puncture Site LEFT RADIAL, Blood Gas Patient Temperature 36.2, Arterial Blood pH 7.44H, Arterial Blood Partial Pressure CO2 36, Arterial Blood Partial Pressure O2 87, Arterial Blood HCO3 24, Arterial Blood Total CO2 25.5, Arterial Blood Oxygen Saturation 94, Arterial Blood Base Excess 0.5, Sundeep Test YES-POS, Blood Gas Ventilator Setting YES, Blood Gas Inspired Oxygen 45% 05/31/19 07:05: Blood Gas Puncture Site LEFT RADIAL, Blood Gas Patient Temperature 97.3, Ar terial Blood pH 7.46H, Arterial Blood Partial Pressure CO2 35, Arterial Blood P artial Pressure O2 110H, Arterial Blood HCO3 25, Arterial Blood Total CO2 25.7, Arterial Blood Oxygen Saturation 96, Arterial Blood Base Excess 1.1, Sundeep Test YES-POS, Blood Gas Ventilator Setting YES, Blood Gas Inspired Oxygen 45% 05/31/19 11:18: Glucometer 165H Microbiology 05/29/19 MRSA Screen - Final, Complete MRSA not isolated 05/28/19 Blood Culture - Preliminary, Resulted No growth Laboratory Tests 05/30/19 02:15 05/31/19 02:41 A/P: Assessment: Ac resp failure (multifactorial, see below) Severe sepsis; presented with septic shock Influenza A NSTEMI, unclear if type 1 or type 2 EMA-3, likely due to ATN due to hypotension due to septic shock, improved Anemia of undetermined etiology Chronic resp failure due to interstitial lung disease / pulmonary fibrosis CAD and ischemic cardiomyopathy - H/o 4-vessel CABG in 1998 at [facility] in [place], [place] by Dr. Magana Echo of 05/29/19: LVEF 40-45%, basal inferior hypokinesis, RVSP 18 mmHg, mod MR H/o carotid dz bilat - followed by Dr. Rosa at [facility] Syncopal episodes, being followed by Dr. Rosa, Dr. Smith (neurology services at [facility] [place] Dr. Cortez Orthostatic hypotension - being followed by Dr. Rosa COPD H/O tobaccoism - quit 4 years ago HTN HLD Chronic back pain Plan: * Continue ASA * iv bb while he is on the vent * Sepsis with influenza A - management per medical/ICU services * Obtain records from [facility] * Enoxaparin for DVT prophylaxis * Monitor labs and correct them as needed CARINE APLOMINO MD FACP FAC [facility]S May 31, 2019 13:46
[2019-05-31] MEDS: meTOprolol 5 MG/5 ML (LOPRESSOR) VIAL IV SCH ×3 (14:46→23:14)
--- NOTE | 2019-05-31 20:00 | NUR ---
This RN checked tube feed residual: 70cc. Tube feeding continued at 10 mL/hr
--- NOTE | 2019-05-31 20:00 | NUR ---
This RN contacted EICU d/t patient's continued HTN. SBP ranging from 170-180's, current BP:189/87. New order received for Fentanyl 25-50mcg IVP Q1HR PRN for pain.
[2019-05-31] MEDS ORDERED: fentaNYL INJECTION 100 MCG/2 ML AMP ONE (20:19)
[2019-05-31] MEDS: LIDOCAINE PATCH REMOVAL TP SCH (20:27)
[2019-05-31] MEDS ORDERED: fentaNYL INJECTION 100 MCG/2 ML AMP IVP PRN (20:30)
[2019-05-31] MEDS: fentaNYL INJECTION 100 MCG/2 ML AMP IV PRN ×2 (20:32→23:14)
[2019-06-01] VITALS (30 sets, daily range): BP systolic 14–185; BP diastolic 40–89
[2019-06-01] MEDS: fentaNYL INJECTION 100 MCG/2 ML AMP IV PRN ×4 (00:30→06:15)
--- NOTE | 2019-06-01 02:00 | NUR ---
This RN checked tube feed residual: 130cc. Tube feed continued at 10 mL/hr
[2019-06-01] MEDS: meTOprolol 5 MG/5 ML (LOPRESSOR) VIAL IV SCH (02:27)
[2019-06-01] MEDS: RT-ALBUTEROL/IPRATROPIUM 3 ML (DUONEB) VIAL INH SCH ×7 (02:46→21:17)
[2019-06-01] MEDS: VASOPRESSIN INJECTION 20 UNIT in NORMAL SALINE 100 ML IV SCH (02:53)
[2019-06-01 03:34] LABS: ABG BASE EXCESS 2.8 MMOL/L (-2.5-2.5); ABG OXYGEN SATURATION 90 % (94-100); ABG PCO2 38 MMHG (35-45); ABG PH 7.46 (7.37-7.43); ABG PO2 71 MMHG (79-93); ABG TCO2 27.8 MMOL/L (21.0-31.0); BASOPHILS % (AUTO) 0 % (0-10); EOSINOPHILS % (AUTO) 0 % (0-10); HEMATOCRIT 30 % (40-54); HEMOGLOBIN 9.4 G/DL (13.3-17.7); LYMPHOCYTES # (AUTO) 0.3 X 10^3 (1.0-4.0); LYMPHOCYTES % (AUTO) 2 % (12-44); MEAN CORPUSCULAR HEMOGLOBIN 31 PG (25-34); MEAN CORPUSCULAR HGB CONC 31 G/DL (32-36); MEAN CORPUSCULAR VOLUME 99 FL (80-99); MEAN PLATELET VOLUME 9.6 FL (7.4-10.4); MONOCYTES # (AUTO) 0.5 X 10^3 (0.0-1.0); MONOCYTES % (AUTO) 3 % (0-12); NEUTROPHILS # (AUTO) 16.1 X 10^3 (1.8-7.8); NEUTROPHILS % (AUTO) 95 % (42-75); PLATELET COUNT 187 10^3/uL (130-400); RED CELL DISTRIBUTION WIDTH 15.3 % (10.0-14.5)
[2019-06-01 03:36] LABS: ALLENS TEST YES-POS; INSPIRED O2 40%; PATIENT TEMP 36.5; VENTILATOR YES
[2019-06-01] MEDS: DexMEDEtomidine 250 ML DRIP 250 ML IV SCH ×3 (03:44→17:36)
[2019-06-01] MEDS: hydrALAZINE (APESOLINE) 20 MG/ML VIAL IV PRN ×3 (03:51→20:26)
[2019-06-01 03:57] LABS: ALANINE AMINOTRANSFERASE 214 U/L (0-55); ALKALINE PHOSPHATASE 76 U/L (40-136); BILIRUBIN,TOTAL 0.4 MG/DL (0.1-1.0); BUN/CREATININE RATIO 26; CALCIUM 8.1 MG/DL (8.5-10.1); CARBON DIOXIDE 24 MMOL/L (21-32); CHLORIDE 105 MMOL/L (98-107); CREATININE SERUM 0.99 MG/DL (0.60-1.30); GFR ESTIMATED > 60; GLUCOSE 174 MG/DL (70-105); MAGNESIUM 2.6 MG/DL (1.6-2.4); PHOSPHORUS 3.2 MG/DL (2.3-4.7); POTASSIUM 4.1 MMOL/L (3.6-5.0); SODIUM 138 MMOL/L (135-145); TOTAL PROTEIN 5.4 GM/DL (6.4-8.2); TRIGLYCERIDES 229 MG/DL (<150)
[2019-06-01] MEDS ORDERED: ANIDULAFUNGIN INJECTION 200 MG in NS (IVPB) 250 ML IV ONE (05:00)
[2019-06-01] MEDS ORDERED: fentaNYL INJECTION 1,250 MCG in NS (IVPB) 250 ML IV SCH (05:00)
[2019-06-01] MEDS: MAGNESIUM 1 GM/100 ML IVPB 100 ML IV SCH (05:48)
[2019-06-01] MEDS: POTASSIUM CL 10MEQ/50ML IVPB 50 ML IV SCH ×4 (05:48→07:15)
[2019-06-01] MEDS: inSUlin ASPART (NovoLOG) 1 UNIT/0.01 ML (CHARGE PER UNIT) SC SCH ×3 (05:49→18:33)
[2019-06-01] MEDS: KCL 20 MEQ TAB (K-DUR) PO SCH (05:49)
[2019-06-01] MEDS: OSELTAMIVIR 30 MG (TAMIFLU) CAPSULE PO SCH (06:14)
[2019-06-01] MEDS: PROPOFOL DRIP (ICU) 100 ML IV SCH ×3 (06:14→17:37)
[2019-06-01] MEDS: CEFEPIME 1,000 MG/SWFI 10 ML IV PUSH IV SCH ×6 (06:15→17:35)
[2019-06-01] MEDS: methylPREDNISolone 40 MG/ML (Solu-MEDROL) VIAL IV SCH ×2 (06:24→08:05)
[2019-06-01] MEDS: FUROSEMIDE 40 MG/4 ML INJ (LASIX) IVP SCH ×2 (06:25→08:05)
--- NOTE | 2019-06-01 06:56 | Diagnostic Imaging Report ---
INDICATION: Shortness of breath, intubated, coronary artery disease. COMPARISON: 05/31/2019. FINDINGS: Single view of the chest demonstrates stable support lines. The heart remains enlarged with bilateral interstitial infiltrates. There is no pneumothorax. Lung volumes remain low. Sternal wires are midline. IMPRESSION: 1. Stable support lines without pneumothorax. 2. Unchanged aeration. Dictated by: Dictated on workstation # [id number]
[2019-06-01] MEDS: LIDOCAINE 4% (SALONPAS) PATCH TOP SCH (07:50)
[2019-06-01] MEDS: ANTACID SUSP 30 ML UDC (MYLANTA) PO SCH ×4 (08:05→20:26)
[2019-06-01] MEDS: DULoxetine 20 MG (CYMBALTA) CAP PO SCH (08:05)
[2019-06-01] MEDS: CLOPIDOGREL 75 MG (PLAVIX) TABLET PO SCH (08:05)
[2019-06-01] MEDS: PANTOPRAZOLE 40 MG (PROTONIX) VIAL IV SCH (08:05)
[2019-06-01] MEDS: ENOXAPARIN 40 MG/0.4 ML (LOVENOX) SYR SC SCH (08:05)
[2019-06-01] MEDS: lisINopril 20 MG (PRINIVIL) TABLET PO SCH (08:05)
[2019-06-01] MEDS: ASPIRIN E.C. 81 MG (ECOTRIN) TAB PO SCH (08:06)
[2019-06-01] MEDS: doxAzosin 4 MG (CARDURA) TAB PO SCH (08:06)
[2019-06-01] MEDS: meTOprolol TARTRATE 50 MG (LOPRESSOR) TAB PO SCH ×2 (08:06→20:26)
--- NOTE | 2019-06-01 08:11 | Physical Therapy Progress Note ---
Therapy Progress Note Patient sedated and on vent, will check patient condition tomorrow. ABELINO AQUINO PT Jun 01, 2019 08:11
--- NOTE | 2019-06-01 08:30 | Progress Note ---
Subjective Subjective Date Seen by Provider: Jun 01, 2019 Time Seen by Provider: 08:15 INFLUENZA, PNEUMONIA, COPD, NON ST GA, INTUBATED (PT AGREED TO SHORT TERM ONLY) PT'S DTR SITTING IN ROOM AT BEDSIDE - SHE STATES THAT HE SEEMS TO BE RESTING MUCH BETTER AND SHE HAS NOTICED THAT HIS BLOOD PRESSURE IMPROVED A LOT OVERNIGHT AFTER HE WAS GIVEN MORE MEDICATION FOR PAIN. Review of Systems ROS Unable to Obtain: PT INTUBATED General: Other (INTUBATED) Neurological: Other (INTUBATED AND SEDATED) All Other Systems Reviewed All Other Systems Reviewed: Yes Objective Exam Vital Signs Vital Signs - First Documented 05/28/19 05/29/19 13:39 14:18 Temp 36.8 Pulse 112 Resp 20 B/P (MAP) 100/58 (72) Pulse Ox 92 O2 Delivery Nasal Cannula O2 Flow Rate 3.00 FiO2 40 Capillary Refill : Less Than 3 Seconds General Appearance: Other (INTUBATED, DOES NOT APPEAR TO BE IN DISTRESS) Eyes: Bilateral Eye Normal Inspection, Bilateral Eye PERRL, Bilateral Eye EOMI HEENT: Other (ENDOTRACHEAL TUBE IN PLACE) Respiratory: Decreased Breath Sounds Cardiovascular: Regular Rate, Rhythm, No Edema Gastrointestinal: Non Tender, Soft, Abnormal Bowel Sounds (DECREASED); No Tenderness Rectal: Deferred Extremity: Pedal Edema (RIGHT GREATER THAN LEFT, SCDS IN PLACE BILATERAL LOWER EXTREMITIES), Other (SWELLING OF HANDS BILATERALLY - LEFT GREATER THAN RIGHT) Neurologic/Psychiatric: Other (INTUBATED AND SEDATED) Skin: Warm/Dry Results Lab Laboratory Tests 05/31/19 11:18: Glucometer 165H 05/31/19 17:32: Glucometer 159H 06/01/19 03:00: B-Type Natriuretic Peptide 782.2H 06/01/19 03:20: White Blood Count 17.0H, Red Blood Count 3.07L, Hemoglobin 9.4L, Hematocrit 30L, Mean Corpuscular Volume 99, Mean Corpuscular Hemoglobin 31, Mean Corpuscular Hemoglobin Concent 31L, Red Cell Distribution Width 15.3H, Platelet Count 187, Mean Platelet Volume 9.6, Neutrophils (%) (Auto) 95H, Lymphocytes (%) (Auto) 2L, Monocytes (%) (Auto) 3, Eosinophils (%) (Auto) 0, Basophils (%) (Auto) 0, Neutrophils # (Auto) 16.1H, Lymphocytes # (Auto) 0.3L, Monocytes # (Auto) 0.5, Eosinophils # (Auto) 0.0, Basophils # (Auto) 0.0, Blood Gas Puncture Site LEFT RADIAL, Blood Gas Patient Temperature 36.5, Arterial Blood pH 7.46H, Arterial Blood Partial Pressure CO2 38, Arterial Blood Partial Pressure O2 71L, Arterial Blood HCO3 27, Arterial Blood Total CO2 27.8, Arterial Blood Oxygen Saturation 90L, Arterial Blood Base Excess 2.8H, Sundeep Test YES-POS, Blood Gas Ventilator Setting YES, Blood Gas Inspired Oxygen 40%, Sodium Level 138, Potassium Level 4.1, Chloride Level 105, Carbon Dioxide Level 24, Anion Gap 9, Blood Urea Nitrogen 26H, Creatinine 0.99, Estimat Glomerular Filtration Rate > 60, BUN/Creatinine Ratio 26, Glucose Level 174H, Calcium Level 8.1L, Corrected Calcium 8.9, Phosphorus Level 3.2, Magnesium Level 2.6H, Total Bilirubin 0.4, Aspartate Amino Transf (AST/SGOT) 85H, Alanine Aminotransferase (ALT/SGPT) 214H, Alkaline Phosphatase 76, Total Protein 5.4L, Albumin 3.0L, Triglycerides Level 229H Microbiology 05/30/19 Gram Stain - Final, Resulted 05/30/19 Sputum Culture - Preliminary, Resulted YEAST 05/28/19 Blood Culture - Preliminary, Resulted No growth Assessment/Plan Assessment/Plan Admission Dx RESPIRATORY FAILURE WITH LACTIC ACIDOSIS INFLUENZA PNEUMONIA CHRONIC PULMONARY FIBROSIS COPD ACUTE ON CHRONIC RENAL FAILURE NON-ST GA CHRONIC DEPRESSION LEUKOCYTOSIS ANEMIA CONSTIPATION ELEVATED LFT'S RESPIRATORY FAILURE WITH LACTIC ACIDOSIS PT AGREED TO SHORT TERM INTUBATION ON 05/30/2019: INFLUENZA AND PNEUMONIA WITH CHRONIC PULMONARY FIBROSIS AND COPD - PT IS ON TAMIFLU FOR TREATMENT OF THE FLU - LAST DOSE GIVEN - PT IS ON AZITHROMYCIN AND CEFEPIME, ANTIFUNGAL, STEROIDS - CONTINUE WITH CURRENT MANAGEMENT INITIATED IN ER AND BY DR. CULLEN. ACUTE ON CHRONIC RENAL FAILURE - RESOLVED - CONTINUE WITH IV FLUIDS, RENALLY ADJUST MEDICATIONS NEEDED. NON-ST GA - DEFER TO CARDIOLOGY - PT HAD SO MUCH PULMONARY DISTRESS THAT THIS CAUSED HIS SEVERE TROPONIN ELEVATION. WILL WATCH PT CLOSELY WE NAVIGATE HEALING FROM HIS PULMONARY I SSUES. CHRONIC DEPRESSION - RESTARTED CYMBALTA LEUKOCYTOSIS -INCREASING AGAIN - SUSPECT DUE TO STEROID USE, CONTINUE TO MONITOR SYMPTOMS AND LABS ANEMIA -STABLE AT 9.4 - THIS IS STATUS POST BLOOD TRANSFUSION ON 05/29/2019 - CONTINUE TO MONITOR LABS. ELEVATED LFT'S - DUE TO SHOCK - CONTINUE WITH CURRENT MANAGEMENT - LFT'S HAVE IMPROVED COMPARED TO LABS OVER THE WEEKEND. CONSTIPATION - NO BM DOCUMENTED FOR SEVERAL DAYS - GIVE DULCOLAX SUPPOSITORY TODAY CONTINUE TO EXPECT SEVERAL MORE DAYS IN THE ICU - DEFER EXTUBATION PLANS TO DR. CULLEN Problems: (1) Acute respiratory failure with hypoxia (2) Endotracheally intubated (3) Severe sepsis (4) Pneumonia Qualifiers: Qualified Codes: J18.9 - Pneumonia, unspecified organism (5) Influenza (6) Lactic acidosis (7) Acute kidney injury superimposed on chronic kidney disease (8) (HFpEF) heart failure with preserved ejection fraction (9) Non-ST elevation GA (NSTEMI) Admission Dx RESPIRATORY FAILURE WITH LACTIC ACIDOSIS INFLUENZA PNEUMONIA CHRONIC PULMONARY FIBROSIS COPD ACUTE ON CHRONIC RENAL FAILURE NON-ST GA CHRONIC DEPRESSION LEUKOCYTOSIS ANEMIA RESPIRATORY FAILURE WITH LACTIC ACIDOSIS DUE TO: INFLUENZA AND PNEUMONIA WITH CHRONIC PULMONARY FIBROSIS AND COPD - PT IS ON TAMIFLU FOR TREATMENT OF THE FLU. - PT IS ON AZITHROMYCIN AND CEFEPIME - CONTINUE WITH CURRENT MANAGEMENT INITIATED IN ER AND BY DR. CULLEN. ACUTE ON CHRONIC RENAL FAILURE - CONTINUE WITH IV FLUIDS, RENALLY ADJUST MEDICATIONS NEEDED. NON-ST GA - DEFER TO CARDIOLOGY - PT HAD SO MUCH PULMONARY DISTRESS THAT THIS CAUSED HIS SEVERE TROPONIN ELEVATION. WILL WATCH PT CLOSELY WE NAVIGATE HEALING FROM HIS PULMONARY ISSUES. CHRONIC DEPRESSION - RESTARTED CYMBALTA LEUKOCYTOSIS - IMPROVED AND SHOULD IMPROVE FURTHER WITH HEALING FROM HIS FLU AND PNEUMONIA ANEMIA -DUE TO HIS CARDIAC ISSUES AND PULMONARY ISSUES - WILL GIVE 1 UNIT PRBC'S TODAY. DISCUSSED WITH THE PATIENT AND HIS DTR-IN-LAW - SUPPORTIVE CARE AT THIS TIME - ANTICIPATE ADMISSION WILL BE AT LEAST A WEEK. Clinical Quality Measures Admission Status Admission Dx RESPIRATORY FAILURE WITH LACTIC ACIDOSIS INFLUENZA PNEUMONIA CHRONIC PULMONARY FIBROSIS COPD ACUTE ON CHRONIC RENAL FAILURE NON-ST GA CHRONIC DEPRESSION LEUKOCYTOSIS ANEMIA RESPIRATORY FAILURE WITH LACTIC ACIDOSIS DUE TO: INFLUENZA AND PNEUMONIA WITH CHRONIC PULMONARY FIBROSIS AND COPD - PT IS ON TAMIFLU FOR TREATMENT OF THE FLU. - PT IS ON AZITHROMYCIN AND CEFEPIME - CONTINUE WITH CURRENT MANAGEMENT INITIATED IN ER AND BY DR. CULLEN. ACUTE ON CHRONIC RENAL FAILURE - CONTINUE WITH IV FLUIDS, RENALLY ADJUST MEDICATIONS NEEDED. NON-ST GA - DEFER TO CARDIOLOGY - PT HAD SO MUCH PULMONARY DISTRESS THAT THIS CAUSED HIS SEVERE TROPONIN ELEVATION. WILL WATCH PT CLOSELY WE NAVIGATE HEALING FROM HIS PULMONARY ISSUES. CHRONIC DEPRESSION - RESTARTED CYMBALTA LEUKOCYTOSIS - IMPROVED AND SHOULD IMPROVE FURTHER WITH HEALING FROM HIS FLU AND PNEUMONIA ANEMIA -DUE TO HIS CARDIAC ISSUES AND PULMONARY ISSUES - WILL GIVE 1 UNIT PRBC'S TODAY. DISCUSSED WITH THE PATIENT AND HIS DTR-IN-LAW - SUPPORTIVE CARE AT THIS TIME - ANTICIPATE ADMISSION WILL BE AT LEAST A WEEK. DVT/VTE Risk/Contraindication: Risk Factor Score Per Nursin RFS Level Per Nursing on Admit: 4+=Very High DEANDRA MOTA MD Jun 01, 2019 08:30
[2019-06-01] MEDS ORDERED: BISACODYL 10 MG SUPP (DULCOLAX) PR ONE (08:45)
[2019-06-01] MEDS ORDERED: BISACODYL 10 MG SUPP (DULCOLAX) PR PRN (08:45)
--- NOTE | 2019-06-01 09:14 | Progress Note - Cardiology ---
Cardiology SOAP Progress Note Subjective: Intubated and sedated Objective: I&O/Vital Signs 06/03/19 06/03/19 06/03/19 06/03/19 19:56 20:00 20:00 21:00 Temp 36.8 Pulse 71 68 Resp 17 14 B/P (MAP) 132/48 (76) 124/47 (72) Pulse Ox 96 93 95 O2 Delivery Mechanical Ventilator Mechanical Ventilator Mechanical Ventilator O2 Flow Rate 40.00 40.00 FiO2 40 06/03/19 06/03/19 06/03/19 06/03/19 21:29 22:00 22:17 23:00 Pulse 68 71 71 72 Resp 19 16 17 B/P (MAP) 139/50 (79) 143/52 150/52 (84) Pulse Ox 93 95 96 O2 Delivery Mechanical Ventilator Mechanical Ventilator O2 Flow Rate 40.00 40.00 FiO2 35 06/04/19 06/04/19 06/04/19 06/04/19 00:00 00:00 00:18 01:00 Temp 36.6 Pulse 71 70 Resp 16 17 B/P (MAP) 156/56 (89) 172/62 (98) Pulse Ox 95 93 97 O2 Delivery Mechanical Ventilator Mechanical Ventilator Mechanical Ventilator O2 Flow Rate 40.00 40.00 FiO2 40 06/04/19 06/04/19 06/04/19 06/04/19 01:00 01:40 01:56 02:00 Pulse 71 72 73 Resp 17 16 B/P (MAP) 177/61 (99) Pulse Ox 95 94 O2 Delivery Mechanical Ventilator Mechanical Ventilator O2 Flow Rate 35.00 35.00 FiO2 35 06/04/19 06/04/19 06/04/19 06/04/19 03:00 03:19 04:00 04:00 Pulse 70 69 Resp 17 28 B/P (MAP) 168/57 (94) 160/56 (90) Pulse Ox 93 92 93 O2 Delivery Mechanical Ventilator Mechanical Ventilator Mechanical Ventilator Mechanical Ventilator O2 Flow Rate 35.00 30.00 30.00 FiO2 30 06/04/19 06/04/19 06/04/19 05:00 06:00 06:54 Pulse 69 69 72 Resp 23 17 16 B/P (MAP) 170/60 (96) 163/55 (91) Pulse Ox 93 91 91 O2 Delivery Mechanical Ventilator Mechanical Ventilator O2 Flow Rate 30.00 30.00 FiO2 35 06/04/19 00:00 Intake Total 1220 ml Output Total 650 ml Balance 570 ml Weight (Pounds): 211 Weight (Ounces): 0.0 Weight (Calculated Kilograms): 95.119340 Constitutional: well-developed, well-nourished, other (On mech vent, sedated, unable to communicate) Respiratory: chest expansion is symmetric, chest is bilaterally symmetric, crackles, rhonchi, other Cardiovascular: regular rate-rhythm, S1 and S2 Gastrointestional: soft, audible bowel sounds Extremities: no lower extremity edema bilateral Neurologic/Psychiatric: other (On mech vent, sedated, unable to communicate) Skin: No rash on exposed areas, No ulcerations on exposed areas Results/Procedures: Labs Laboratory Tests 06/03/19 13:03: Glucometer 104 06/03/19 17:56: Glucometer 128H 06/04/19 03:09: White Blood Count 16.4H, Red Blood Count 2.83L, Hemoglobin 8.7L, Hematocrit 29L, Mean Corpuscular Volume 102H, Mean Corpuscular Hemoglobin 31, Mean Corpuscular Hemoglobin Concent 30L, Red Cell Distribution Width 15.1H, Platelet Count 171, Mean Platelet Volume 9.7, Neutrophils (%) (Auto) 88H, Lymphocytes (%) (Auto) 8L, Monocytes (%) (Auto) 3, Eosinophils (%) (Auto) 1, Basophils (%) (Auto) 0, Neutrophils # (Auto) 14.5H, Lymphocytes # (Auto) 1.2, Monocytes # (Auto) 0.6, Eosinophils # (Auto) 0.1, Basophils # (Auto) 0.0, Neutrophils % (Manual) 86, Lymphocytes % (Manual) 4, Monocytes % (Manual) 1, Eosinophils % (Manual) 0, Basophils % (Manual) 0, Band Neutrophils 9, Toxic Granulation 1+, Polychromasia SLIGHT, Hypochromasia SLIGHT, Poikilocytosis SLIGHT, Anisocytosis SLIGHT, Microcytosis SLIGHT, Macrocytosis SLIGHT, Elliptocytes SLIGHT, Schistocytes SLIGHT, Sodium Level 141, Potassium Level 4.7, Chloride Level 105, Carbon Dioxide Level 28, Anion Gap 8, Blood Urea Nitrogen 49H, Creatinine 1.41H, Estimat Glomerular Filtration Rate 49, BUN/Creatinine Ratio 35, Glucose Level 107H, Calcium Level 7.8L, Corrected Calcium 8.8, Phosphorus Level 4.2, Magnesium Level 3.5H, Total Bilirubin 0.5, Aspartate Amino Transf (AST/SGOT) 85H, Alanine Aminotransferase (ALT/SGPT) 167H, Alkaline Phosphatase 67, Total Protein 5.4L, Albumin 2.7L 06/04/19 03:18: Blood Gas Puncture Site LEFT ART LINE, Blood Gas Patient Temperature 36.8, Arterial Blood pH 7.46H, Arterial Blood Partial Pressure CO2 42, Arterial Blood Partial Pressure O2 75L, Arterial Blood HCO3 29H, Arterial Blood Total CO2 30.6, Arterial Blood Oxygen Saturation 92L, Arterial Blood Base Excess 5.4H, Sundeep Test POSITIVE, Blood Gas Ventilator Setting YES, Blood Gas Inspired Oxygen 17 Microbiology 05/30/19 Gram Stain - Final, Resulted 05/30/19 Sputum Culture - Preliminary, Resulted Aerobic actinomycetes See Comments YEAST 05/28/19 Blood Culture - Final, Complete No growth Procedures NAME: LORNA HILLMAN [facility] REC#: [id number] PT STATUS: ADM IN : 1940 PHYSICIAN: DEANDRA MOTA MD ADMIT DATE: 05/28/19/ICU Draft Date of Exam:06/01/19 CHEST 1 VIEW, AP/PA ONLY INDICATION: Shortness of breath, intubated, coronary artery disease. COMPARISON: 05/31/2019. FINDINGS: Single view of the chest demonstrates stable support lines. The heart remains enlarged with bilateral interstitial infiltrates. There is no pneumothorax. Lung volumes remain low. Sternal wires are midline. IMPRESSION: 1. Stable support lines without pneumothorax. 2. Unchanged aeration. Dictated on workstation # [id number] Dict: 06/01/19 [id number] Trans: 06/01/19 [id number] Interpreted by: FARHAT RIVERA Electronically signed by: A/P: Assessment: Ac resp failure (multifactorial, see below) Severe sepsis; presented with septic shock Influenza A NSTEMI, unclear if type 1 or type 2 EMA-3, likely due to ATN due to hypotension due to septic shock, improved Anemia of undetermined etiology Chronic resp failure due to interstitial lung disease / pulmonary fibrosis CAD and ischemic cardiomyopathy - H/o 4-vessel CABG in 1998 at [facility] in [place], [place] by Dr. Magana Echo of 05/29/19: LVEF 40-45%, basal inferior hypokinesis, RVSP 18 mmHg, mod MR H/o carotid dz bilat - followed by Dr. Rosa at [facility] Syncopal episodes, being followed by Dr. Rosa, Dr. Smith ([place] [facility]. Cortez Orthostatic hypotension - being followed by Dr. Rosa COPD H/O tobaccoism - quit 4 years ago HTN HLD Chronic back pain Plan: * Continue ASA * Continue iv bb while he is on the vent * Sepsis with influenza A - management per medical/ICU services * Obtain records from [facility] * Enoxaparin for DVT prophylaxis * Monitor labs and correct them as needed TRISTON ALONSO Jun 01, 2019 09:14
--- NOTE | 2019-06-01 09:29 | Physician Query Clarification ---
PQ-Conflicting Diagnosis Admission/Discharge Admission Date: May 28, 2019 at 14:45 Discharge Date: Query for Dr. Jones The medical record reflects the following clinical scenario: History/Risk Factors: Respiratory Failure Lactic acidosis Pneumonia/Influenza A Clinical Findings: Admission vitals: T 36.8, P 112, Resp 20, BP 100/58. WBC 22.9, Bands 18, Blood cultures no growth. Lactic acid on admission 8.02 rising to 9.45. Treatment: IV Cefepime HCI and IV Azithromycin 250mg/Sodium Chloride. Question: Do you agree with the impression of the Severe Sepsis per Dr. Shoaib Lozano and Dr. Rafael Mccall? Please document a response in Progress Note or Discharge Summary. 1. Yes 2. No 3. Other, with explanation of clinical findings 4. Clinically undetermined, no explanation for clinical findings. PHYSICIAN RESPONSE Do you agree w/Consulting Dx?: Yes Please remember a lack of response to the above will prompt a phone page by CDI/Coding staff. In responding to this query, please exercise your independent professional judgment. The purpose of this communication is to more accurately reflect the complexity of your patients condition. The fact that a question is asked does not imply that any particular answer is desired or expected. Thank you for your timely response to this clarification. Requestors name: Henny Serrano [facility] Phone # ext [phone] or [phone] THIS PHYSICIAN QUERY FORM IS A PERMANENT PART OF THE MEDICAL RECORD HENNY SERRANO Jun 01, 2019 09:29 DEANDRA JONES MD Jun 05, 2019 12:40
--- NOTE | 2019-06-01 10:13 | Occ Therapy Progress Note ---
Therapy Progress Note Pt sedated/ intubated. OT to hold eval/ treat on this day due to medical status and follow up when medically stable/ able to participate in skilled therapy sessions. REYNA RAUSCH OTR Jun 01, 2019 10:13
[2019-06-01] MEDS: AZITHROMYCIN INJECTION 250 MG in NS (IVPB) 250 ML IV SCH (11:36)
[2019-06-01] MEDS: LACTATED RINGERS 1,000 ML IV SCH (11:37)
--- NOTE | 2019-06-01 12:57 | Progress Note - Cardiology ---
Cardiology SOAP Progress Note Subjective: Still intubated, on mech vent, not able to communicate Objective: I&O/Vital Signs 06/01/19 06/01/19 06/01/19 06/01/19 01:00 01:05 02:00 02:47 Pulse 77 79 76 76 Resp 22 B/P (MAP) 172/80 (110) 173/76 (108) Pulse Ox 94 94 95 O2 Delivery Mechanical Ventilator Mechanical Ventilator O2 Flow Rate 45.00 45.00 FiO2 45 06/01/19 06/01/19 06/01/19 06/01/19 02:52 02:53 03:00 03:44 Pulse 76 80 76 Resp 22 B/P (MAP) 173/76 146/64 (91) 173/76 Pulse Ox 91 O2 Delivery Mechanical Ventilator Mechanical Ventilator O2 Flow Rate 40.00 40.00 06/01/19 06/01/19 06/01/19 06/01/19 04:00 04:00 05:00 06:00 Pulse 78 79 77 Resp B/P (MAP) 120/53 (75) 138/68 (91) 146/66 (92) Pulse Ox 91 95 92 93 O2 Delivery Mechanical Ventilator Mechanical Ventilator Mechanical Ventilator Mechanical Ventilator O2 Flow Rate 40.00 40.00 40.00 FiO2 45 06/01/19 06/01/19 06/01/19 06/01/19 06:14 06:39 06:55 07:00 Pulse 78 77 74 74 Resp 18 17 B/P (MAP) 120/53 138/66 (90) Pulse Ox 94 94 O2 Delivery Mechanical Ventilator O2 Flow Rate 40.00 FiO2 40 06/01/19 06/01/19 06/01/19 06/01/19 08:00 08:00 08:00 09:00 Temp 36.3 Pulse 75 73 Resp 16 17 B/P (MAP) 152/67 (95) 159/72 (101) Pulse Ox 95 94 95 O2 Delivery Mechanical Ventilator Mechanical Ventilator Mechanical Ventilator O2 Flow Rate 40.00 40.00 FiO2 40 06/01/19 06/01/19 06/01/19 06/01/19 10:00 10:01 10:48 10:49 Pulse 78 79 75 75 Resp 18 15 B/P (MAP) 160/74 (102) 160/74 160/74 Pulse Ox 95 95 O2 Delivery Mechanical Ventilator Mechanical Ventilator O2 Flow Rate 40.00 FiO2 40 06/01/19 06/01/19 06/01/19 06/01/19 10:58 11:00 12:00 12:00 Pulse 74 77 74 Resp 19 17 16 B/P (MAP) 169/73 (105) 149/74 (99) Pulse Ox 95 95 95 93 O2 Delivery Mechanical Ventilator Mechanical Ventilator Mechanical Ventilator O2 Flow Rate 40.00 40.00 FiO2 35 40 06/01/19 00:00 Intake Total 1890 ml Output Total 850 ml Balance 1040 ml Weight (Pounds): 211 Weight (Ounces): 0.0 Weight (Calculated Kilograms): 95.139884 Constitutional: well-developed, well-nourished, other (On mech vent, sedated, unable to communicate) Respiratory: chest expansion is symmetric, chest is bilaterally symmetric, crackles, rhonchi, other Cardiovascular: regular rate-rhythm, S1 and S2 Gastrointestional: soft, audible bowel sounds Extremities: no lower extremity edema bilateral Neurologic/Psychiatric: other (On mech vent, sedated, unable to communicate) Skin: No rash on exposed areas, No ulcerations on exposed areas Results/Procedures: Labs Laboratory Tests 05/31/19 17:32: Glucometer 159H 06/01/19 03:00: B-Type Natriuretic Peptide 782.2H 06/01/19 03:20: White Blood Count 17.0H, Red Blood Count 3.07L, Hemoglobin 9.4L, Hematocrit 30L, Mean Corpuscular Volume 99, Mean Corpuscular Hemoglobin 31, Mean Corpuscular Hemoglobin Concent 31L, Red Cell Distribution Width 15.3H, Platelet Count 187, Mean Platelet Volume 9.6, Neutrophils (%) (Auto) 95H, Lymphocytes (%) (Auto) 2L, Monocytes (%) (Auto) 3, Eosinophils (%) (Auto) 0, Basophils (%) (Auto) 0, Neutrophils # (Auto) 16.1H, Lymphocytes # (Auto) 0.3L, Monocytes # (Auto) 0.5, Eosinophils # (Auto) 0.0, Basophils # (Auto) 0.0, Blood Gas Puncture Site LEFT RADIAL, Blood Gas Patient Temperature 36.5, Arterial Blood pH 7.46H, Arterial Blood Partial Pressure CO2 38, Arterial Blood Partial Pressure O2 71L, Arterial Blood HCO3 27, Arterial Blood Total CO2 27.8, Arterial Blood Oxygen Saturation 90L, Arterial Blood Base Excess 2.8H, Sundeep Test YES-POS, Blood Gas Ventilator Setting YES, Blood Gas Inspired Oxygen 40%, Sodium Level 138, Potassium Level 4.1, Chloride Level 105, Carbon Dioxide Level 24, Anion Gap 9, Blood Urea Nitrogen 26H, Creatinine 0.99, Estimat Glomerular Filtration Rate > 60, BUN/Creatinine Ratio 26, Glucose Level 174H, Calcium Level 8.1L, Corrected Calcium 8.9, Phosphorus Level 3.2, Magnesium Level 2.6H, Total Bilirubin 0.4, Aspartate Amino Transf (AST/SGOT) 85H, Alanine Aminotransferase (ALT/SGPT) 214H, Alkaline Phosphatase 76, Total Protein 5.4L, Albumin 3.0L, Triglycerides Level 229H Microbiology 05/30/19 Gram Stain - Final, Resulted 05/30/19 Sputum Culture - Preliminary, Resulted YEAST 05/28/19 Blood Culture - Preliminary, Resulted No growth Laboratory Tests 05/31/19 02:41 06/01/19 03:20 A/P: Assessment: Ac resp failure (multifactorial, see below) Severe sepsis; presented with septic shock Influenza A NSTEMI, unclear if type 1 or type 2 EMA-3, likely due to ATN due to hypotension due to septic shock, improved Anemia of undetermined etiology Chronic resp failure due to interstitial lung disease / pulmonary fibrosis CAD and ischemic cardiomyopathy - H/o 4-vessel CABG in 1998 at [facility] in [place], [place] by Dr. Magana Echo of 05/29/19: LVEF 40-45%, basal inferior hypokinesis, RVSP 18 mmHg, mod MR H/o carotid dz bilat - followed by Dr. Rosa at [facility] Syncopal episodes, being followed by Dr. Rosa, Dr. Smith (neurology services at [facility]), Dr. Cortez Orthostatic hypotension - being followed by Dr. Rosa COPD H/O tobaccoism - quit 4 years ago HTN HLD Chronic back pain Plan: * Continue DAPT * BB changed from iv to via NGT * Sepsis with influenza A - management per medical/ICU services * Enoxaparin for DVT prophylaxis * Monitor labs and correct them as needed CARINE PALOMINO MD FACP [facility] CCDS Jun 01, 2019 12:57
[2019-06-01] MEDS ORDERED: NS IV 1000 ML 1,000 ML ONE (14:52)
--- NOTE | 2019-06-01 15:16 | Anesthesia-Procedure Note ---
Procedures/Interventions Procedure Start/Stop/Diagnosis Date of Procedure: Jun 01, 2019 Start Time: 15:00 Stop Time: 15:10 Arterial Line Arterial Line Catheter: 20G Type: Radial Location: Right Procedure: prepped, draped in sterile fashion, good wave-form was obtained, patient tolerated procedure well, no immediate complications, post procedure area cleaned, post procedure dressing applied AUDELIA SALAS CRNA Jun 01, 2019 15:16
[2019-06-01 15:29] LABS: ABG BASE EXCESS 4.5 MMOL/L (-2.5-2.5); ABG OXYGEN SATURATION 91 % (94-100); ABG PCO2 40 MMHG (35-45); ABG PH 7.46 (7.37-7.43); ABG PO2 73 MMHG (79-93); ABG TCO2 29.6 MMOL/L (21.0-31.0)
[2019-06-01 15:31] LABS: ALLENS TEST YES-POS; INSPIRED O2 40%
[2019-06-01 15:32] LABS: PATIENT TEMP 97.7; VENTILATOR NO
[2019-06-01] MEDS: OSELTAMIVIR 75 MG (TAMIFLU) CAPSULE PO SCH (17:35)
[2019-06-01] MEDS: LIDOCAINE PATCH REMOVAL TP SCH (20:02)
--- NOTE | 2019-06-01 20:29 | NUR ---
This RN checked tube feed residual: 160cc's. Tube feeding held at this time per Dr. Lozano residual parameters.
[2019-06-02] VITALS (30 sets, daily range): BP systolic 135–167; BP diastolic 44–59
[2019-06-02] MEDS: PROPOFOL DRIP (ICU) 100 ML IV SCH ×5 (00:45→22:41)
[2019-06-02] MEDS: CEFEPIME 1,000 MG/SWFI 10 ML IV PUSH IV SCH ×4 (00:45→06:44)
[2019-06-02] MEDS: DexMEDEtomidine 250 ML DRIP 250 ML IV SCH ×4 (00:46→22:40)
[2019-06-02] MEDS: inSUlin ASPART (NovoLOG) 1 UNIT/0.01 ML (CHARGE PER UNIT) SC SCH ×4 (00:46→17:52)
[2019-06-02] MEDS: RT-ALBUTEROL/IPRATROPIUM 3 ML (DUONEB) VIAL INH SCH ×6 (01:59→21:43)
[2019-06-02 03:42] LABS: BASOPHILS % (AUTO) 0 % (0-10); EOSINOPHILS % (AUTO) 0 % (0-10); HEMATOCRIT 31 % (40-54); HEMOGLOBIN 9.5 G/DL (13.3-17.7); LYMPHOCYTES # (AUTO) 0.5 X 10^3 (1.0-4.0); LYMPHOCYTES % (AUTO) 3 % (12-44); MEAN CORPUSCULAR HEMOGLOBIN 31 PG (25-34); MEAN CORPUSCULAR HGB CONC 31 G/DL (32-36); MEAN CORPUSCULAR VOLUME 100 FL (80-99); MEAN PLATELET VOLUME 9.9 FL (7.4-10.4); MONOCYTES # (AUTO) 0.8 X 10^3 (0.0-1.0); MONOCYTES % (AUTO) 5 % (0-12); NEUTROPHILS # (AUTO) 13.9 X 10^3 (1.8-7.8); NEUTROPHILS % (AUTO) 92 % (42-75); PLATELET COUNT 192 10^3/uL (130-400); RED CELL DISTRIBUTION WIDTH 15.2 % (10.0-14.5); WHITE BLOOD COUNT 15.2 10^3/uL (4.3-11.0)
[2019-06-02 03:43] LABS: ABG BASE EXCESS 4.3 MMOL/L (-2.5-2.5); ABG OXYGEN SATURATION 96 % (94-100); ABG PCO2 42 MMHG (35-45); ABG PH 7.44 (7.37-7.43); ABG PO2 85 MMHG (79-93); ABG TCO2 29.7 MMOL/L (21.0-31.0); ALLENS TEST ART LINE
[2019-06-02 03:44] LABS: INSPIRED O2 45%; PATIENT TEMP 36.3; VENTILATOR YES
[2019-06-02 04:06] LABS: ALANINE AMINOTRANSFERASE 191 U/L (0-55); ALBUMIN 2.9 GM/DL (3.2-4.5); ALKALINE PHOSPHATASE 69 U/L (40-136); BILIRUBIN,TOTAL 0.4 MG/DL (0.1-1.0); BUN/CREATININE RATIO 32; CALCIUM 7.8 MG/DL (8.5-10.1); CARBON DIOXIDE 27 MMOL/L (21-32); CHLORIDE 105 MMOL/L (98-107); GFR ESTIMATED > 60; GLUCOSE 152 MG/DL (70-105); MAGNESIUM 2.8 MG/DL (1.6-2.4); PHOSPHORUS 3.3 MG/DL (2.3-4.7); SODIUM 140 MMOL/L (135-145); TOTAL PROTEIN 5.4 GM/DL (6.4-8.2)
--- NOTE | 2019-06-02 05:00 | NUR ---
0500 Tamiflu to be given with [address] Lozano.
[2019-06-02] MEDS ORDERED: MINERAL OIL ENEMA 133 ML BTL PR PRN (05:15)
[2019-06-02] MEDS ORDERED: BISACODYL 10 MG SUPP (DULCOLAX) PR PRN (05:15)
--- NOTE | 2019-06-02 05:21 | Pulmonary Progress Note ---
Subjective Time Seen by a Provider: 05:11 Subjective/Events-last exam PT is sedated on vent Sepsis Event Evaluation Height, Weight, BMI Height: 5'9.00" Weight: 211lbs. 0.0oz. 95.466224zf; 28.08 BMI Method: Focused Exam Lactate Level 05/30/19 06:58: Lactic Acid Level 2.03*H 05/30/19 11:15: Lactic Acid Level 2.00 Exam Exam Vital Signs Date Time Temp Pulse Resp B/P (MAP) Pulse Ox O2 Delivery O2 Flow Rate FiO2 06/02/19 03:35 80 18 153/47 (82) 95 Mechanical Ventilator 45.00 06/02/19 02:05 78 17 156/47 (83) 91 Mechanical Ventilator 45.00 06/02/19 01:59 75 18 91 35 06/02/19 01:40 75 06/02/19 01:00 86 17 167/47 (87) 91 Mechanical Ventilator 40.00 06/02/19 00:46 36.1 06/02/19 00:46 80 156/44 06/02/19 00:45 80 156/44 06/02/19 00:00 80 17 156/44 (81) 92 Mechanical Ventilator 40.00 06/02/19 00:00 91 Mechanical Ventilator 35 06/01/19 23:00 78 17 144/45 (78) 92 Mechanical Ventilator 40.00 06/01/19 22:00 79 17 145/42 (76) 92 Mechanical Ventilator 40.00 06/01/19 21:18 77 18 92 35 06/01/19 21:00 86 17 144/40 (74) 92 Mechanical Ventilator 40.00 06/01/19 20:00 80 23 181/49 (93) 92 Mechanical Ventilator 40.00 06/01/19 20:00 36.2 06/01/19 20:00 91 Mechanical Ventilator 35 06/01/19 19:29 85 06/01/19 19:00 80 16 185/51 (95) 90 Mechanical Ventilator 40.00 06/01/19 18:12 82 18 91 35 06/01/19 18:00 74 17 176/50 (92) 91 Mechanical Ventilator 40.00 06/01/19 17:37 76 06/01/19 17:36 76 06/01/19 17:00 78 15 172/51 (91) 91 Mechanical Ventilator 40.00 06/01/19 16:00 79 17 166/44 (84) 91 Mechanical Ventilator 40.00 06/01/19 16:00 35.8 06/01/19 16:00 91 Mechanical Ventilator 35 06/01/19 15:00 78 20 160/77 (104) 99 Mechanical Ventilator 40.00 06/01/19 14:55 80 21 90 35 06/01/19 14:00 80 16 171/89 (116) 92 Mechanical Ventilator 40.00 06/01/19 13:00 76 16 168/73 (104) 93 Mechanical Ventilator 40.00 06/01/19 12:46 90 06/01/19 12:00 74 16 149/74 (99) 93 Mechanical Ventilator 40.00 06/01/19 12:00 36.6 06/01/19 12:00 95 Mechanical Ventilator 40 06/01/19 11:00 77 17 169/73 (105) 95 Mechanical Ventilator 40.00 06/01/19 10:58 74 19 95 35 06/01/19 10:49 75 160/74 06/01/19 10:48 75 160/74 06/01/19 10:01 79 15 95 Mechanical Ventilator 40 06/01/19 10:00 78 18 160/74 (102) 95 Mechanical Ventilator 40.00 06/01/19 09:00 73 17 159/72 (101) 95 Mechanical Ventilator 40.00 06/01/19 08:00 75 16 152/67 (95) 94 Mechanical Ventilator 40.00 06/01/19 08:00 36.3 06/01/19 08:00 95 Mechanical Ventilator 40 06/01/19 07:00 74 17 138/66 (90) 94 Mechanical Ventilator 40.00 06/01/19 06:55 74 18 94 40 06/01/19 06:39 77 06/01/19 06:14 78 120/53 06/01/19 06:00 77 21 146/66 (92) 93 Mechanical Ventilator 40.00 I & O 06/02/19 06:59 Intake Total 2143 ml Output Total 3300 ml Balance -1157 ml Height & Weight Height: 5'9.00" Weight: 211lbs. 0.0oz. 95.880036gu; 28.08 BMI Method: General Appearance: Other (INTUBATED, DOES NOT APPEAR TO BE IN DISTRESS) HEENT: Other (ENDOTRACHEAL TUBE IN PLACE) Respiratory: Decreased Breath Sounds Cardiovascular: Regular Rate, Rhythm, No Edema Capillary Refill: Less Than 3 Seconds Gastrointestinal: non tender, soft Extremity: Pedal Edema (RIGHT GREATER THAN LEFT, SCDS IN PLACE BILATERAL LOWER EXTREMITIES), Other (SWELLING OF HANDS BILATERALLY - LEFT GREATER THAN RIGHT) Neurologic/Psychiatric: Other (INTUBATED AND SEDATED) Skin: Warm/Dry Results Lab Laboratory Tests 06/01/19 03:20 06/02/19 03:25 Assessment/Plan Assessment/Plan Acute worsening respiratory failure with pneumonia and influenza -Continue vent therapy -Decrease RR to 16 -CXR now improved Severe sepsis with pneumonia and influenza -Continue Cefepime and Azithromycin -Tamiflu -IVF -engel cultures -MRSA nasal swab -- is negative -Check urine strep and legionella Ag Ileus r/o obstruction -repeat KUB at 0830 -Add reglan 10mg IV BID -Hold TF -Hold Fentanyl gtt Metabolic lactic acidosis -Monitor Acute renal failure -IVF and monitor Hypophos -replace LORENZO CULLEN DO Jun 02, 2019 05:21
[2019-06-02] MEDS: POTASSIUM CL 10MEQ/50ML IVPB 50 ML IV SCH (06:16)
[2019-06-02] MEDS: KCL 20 MEQ TAB (K-DUR) PO SCH (06:17)
[2019-06-02] MEDS: MAGNESIUM 1 GM/100 ML IVPB 100 ML IV SCH (06:17)
--- NOTE | 2019-06-02 07:28 | Diagnostic Imaging Report ---
EXAMINATION: Chest 1 view HISTORY: Dyspnea. COMPARISON: Chest radiograph on 06/01/2019. FINDINGS: Stable configuration of the support devices. There has been interval decrease in lung volumes with continued diffuse opacities throughout the lungs. There is cardiomegaly with central pulmonary vascular congestion. No large pneumothorax. IMPRESSION: 1. Decreased lung volumes with continued cardiomegaly and central pulmonary vascular congestion. 2. Unchanged diffuse interstitial and alveolar opacities, which may represent infection or edema. Components of atelectasis are also likely. Dictated by: Dictated on workstation # [id number]
[2019-06-02] MEDS: methylPREDNISolone 40 MG/ML (Solu-MEDROL) VIAL IV SCH (08:01)
[2019-06-02] MEDS: lisINopril 20 MG (PRINIVIL) TABLET PO SCH (08:01)
[2019-06-02] MEDS: PANTOPRAZOLE 40 MG (PROTONIX) VIAL IV SCH (08:01)
[2019-06-02] MEDS: meTOprolol TARTRATE 50 MG (LOPRESSOR) TAB PO SCH ×2 (08:01→19:52)
[2019-06-02] MEDS: doxAzosin 4 MG (CARDURA) TAB PO SCH (08:02)
[2019-06-02] MEDS: CLOPIDOGREL 75 MG (PLAVIX) TABLET PO SCH (08:02)
[2019-06-02] MEDS: ANTACID SUSP 30 ML UDC (MYLANTA) PO SCH ×4 (08:02→19:52)
[2019-06-02] MEDS: ASPIRIN E.C. 81 MG (ECOTRIN) TAB PO SCH (08:02)
[2019-06-02] MEDS: ENOXAPARIN 40 MG/0.4 ML (LOVENOX) SYR SC SCH (08:02)
[2019-06-02] MEDS: FUROSEMIDE 40 MG/4 ML INJ (LASIX) IVP SCH (08:02)
[2019-06-02] MEDS: DOCUSATE SODIUM 100 MG (COLACE) CAP PO SCH ×2 (08:02→19:52)
[2019-06-02] MEDS: OSELTAMIVIR 75 MG (TAMIFLU) CAPSULE PO SCH (08:02)
[2019-06-02] MEDS: DULoxetine 20 MG (CYMBALTA) CAP PO SCH (08:02)
[2019-06-02] MEDS: METOCLOPRAMIDE INJ 10 MG/2 ML (REGLAN) IVP SCH ×2 (08:02→19:52)
[2019-06-02] MEDS: LACTULOSE SYRUP 10GM/15ML (ENULOSE) 30ML UDC PO SCH ×2 (08:03→19:52)
[2019-06-02] MEDS: LACTATED RINGERS 1,000 ML IV SCH (08:04)
[2019-06-02] MEDS: LIDOCAINE 4% (SALONPAS) PATCH TOP SCH (08:04)
--- NOTE | 2019-06-02 08:09 | Physical Therapy Progress Note ---
Therapy Progress Note Patient still sedated/vent. Will start evaluation when patient is medically stable and able to participate. ABELINO AQUINO PT Jun 02, 2019 08:08
[2019-06-02] MEDS ORDERED: MEROPENEM 1,000 MG in WATER (STERILE) FOR INJECTION 20 ML IV SCH (09:00)
[2019-06-02] MEDS ORDERED: METHYLNALTREXONE 12 MG/0.6 ML (RELISTOR) VIAL SQ ONE (09:00)
--- NOTE | 2019-06-02 09:03 | Progress Note ---
Subjective Subjective Date Seen by Provider: Jun 02, 2019 Time Seen by Provider: 08:30 INFLUENZA, PNEUMONIA, COPD, NON ST CA, INTUBATED (PT AGREED TO SHORT TERM ONLY) PT IN ROOM ON VENT UNRESPONSIVE TO VERBAL, TACTILE STIMULI PT'S NURSE REPORTS THAT HE HAS HAD A LITTLE BIT OF MUCOID SUBSTANCE FROM HIS RECTUM AFTER A FEW DOSES OF LACTULOSE. HIS CHEST XRAY SHOWED AIR AND FEEDINGS IN HIS STOMACH THIS MORNING. Review of Systems ROS Unable to Obtain: PT INTUBATED General: Other (INTUBATED) Neurological: Other (INTUBATED AND SEDATED) All Other Systems Reviewed All Other Systems Reviewed: Yes Objective Exam Vital Signs Vital Signs - First Documented 05/28/19 05/29/19 13:39 14:18 Temp 36.8 Pulse 112 Resp 20 B/P (MAP) 100/58 (72) Pulse Ox 92 O2 Delivery Nasal Cannula O2 Flow Rate 3.00 FiO2 40 Capillary Refill : Less Than 3 Seconds General Appearance: Other (INTUBATED, DOES NOT APPEAR TO BE IN DISTRESS) Eyes: Bilateral Eye Normal Inspection, Bilateral Eye PERRL, Bilateral Eye EOMI HEENT: Other (ENDOTRACHEAL TUBE IN PLACE) Respiratory: Decreased Breath Sounds Cardiovascular: Regular Rate, Rhythm, No Edema Gastrointestinal: Non Tender, Soft, Abnormal Bowel Sounds (NO BOWEL SOUNDS), Distended; No Tenderness Rectal: Deferred Extremity: Pedal Edema (TRACE ON RIGHT FOOT, SCD'S IN PLACE), Other (SWELLING OF HANDS BILATERALLY - LEFT GREATER THAN RIGHT) Neurologic/Psychiatric: Other (INTUBATED AND SEDATED) Skin: Warm/Dry Results Lab Laboratory Tests 06/01/19 11:41: Glucometer 170H 06/01/19 15:23: Blood Gas Puncture Site LT ART, Blood Gas Patient Temperature 97.7, Arterial Blood pH 7.46H, Arterial Blood Partial Pressure CO2 40, Arterial Blood Partial Pressure O2 73L, Arterial Blood HCO3 28H, Arterial Blood Total CO2 29.6, Arterial Blood Oxygen Saturation 91L, Arterial Blood Base Excess 4.5H, Sundeep Test YES-POS, Blood Gas Ventilator Setting NO, Blood Gas Inspired Oxygen 40% 06/01/19 17:51: Glucometer 166H 06/01/19 23:00: Glucometer 159H 06/02/19 03:25: White Blood Count 15.2H, Red Blood Count 3.11L, Hemoglobin 9.5L, Hematocrit 31L, Mean Corpuscular Volume 100H, Mean Corpuscular Hemoglobin 31, Mean Corpuscular Hemoglobin Concent 31L, Red Cell Distribution Width 15.2H, Platelet Count 192, Mean Platelet Volume 9.9, Neutrophils (%) (Auto) 92H, Lymphocytes (%) (Auto) 3L, Monocytes (%) (Auto) 5, Eosinophils (%) (Auto) 0, Basophils (%) (Auto) 0, Neutrophils # (Auto) 13.9H, Lymphocytes # (Auto) 0.5L, Monocytes # (Auto) 0.8, Eosinophils # (Auto) 0.0, Basophils # (Auto) 0.0, Sodium Level 140, Potassium Level 4.0, Chloride Level 105, Carbon Dioxide Level 27, Anion Gap 8, Blood Urea Nitrogen 32H, Creatinine 1.00, Estimat Glomerular Filtration Rate > 60, BUN/Creatinine Ratio 32, Glucose Level 152H, Calcium Level 7.8L, Corrected Calcium 8.7, Phosphorus Level 3.3, Magnesium Level 2.8H, Total Bilirubin 0.4, Aspartate Amino Transf (AST/SGOT) 67H, Alanine Aminotransferase (ALT/SGPT) 191H, Alkaline Phosphatase 69, Total Protein 5.4L, Albumin 2.9L 06/02/19 03:30: Blood Gas Puncture Site LEFT RADIAL ARTLINE, Blood Gas Patient Temperature 36.3, Arterial Blood pH 7.44H, Arterial Blood Partial Pressure CO2 42, Arterial Blood Partial Pressure O2 85, Arterial Blood HCO3 28H, Arterial Blood Total CO2 29.7, Arterial Blood Oxygen Saturation 96, Arterial Blood Base Excess 4.3H, Sundeep Test ART LINE, Blood Gas Ventilator Setting YES, Blood Gas Inspired Oxygen 45% Microbiology 05/30/19 Gram Stain - Final, Resulted 05/30/19 Sputum Culture - Preliminary, Resulted Beaded Gram Positive Bacilli YEAST 05/28/19 Blood Culture - Preliminary, Resulted No growth Assessment/Plan Assessment/Plan Admission Dx RESPIRATORY FAILURE WITH LACTIC ACIDOSIS INFLUENZA PNEUMONIA CHRONIC PULMONARY FIBROSIS COPD ACUTE ON CHRONIC RENAL FAILURE NON-ST CA CHRONIC DEPRESSION LEUKOCYTOSIS ANEMIA CONSTIPATION ELEVATED LFT'S RESPIRATORY FAILURE WITH LACTIC ACIDOSIS PT AGREED TO SHORT TERM INTUBATION ON 05/30/2019: INFLUENZA AND PNEUMONIA WITH CHRONIC PULMONARY FIBROSIS AND COPD - PT HAS COMPLETED TAMIFLU FOR TREATMENT OF THE FLU - LAST DOSE GIVEN 06/02/2019 - PT IS ON AZITHROMYCIN AND CEFEPIME, ANTIFUNGAL, STEROIDS - CONTINUE WITH CURRENT MANAGEMENT INITIATED IN ER AND BY DR. CULLEN. ACUTE ON CHRONIC RENAL FAILURE - RESOLVED - CONTINUE WITH IV FLUIDS, RENALLY ADJUST MEDICATIONS NEEDED. NON-ST CA - DEFER TO CARDIOLOGY - PT HAD SO MUCH PULMONARY DISTRESS THAT THIS CAUSED HIS SEVERE TROPONIN ELEVATION. WILL WATCH PT CLOSELY WE NAVIGATE HEALING FROM HIS PULMONARY ISSUES. CHRONIC DEPRESSION - RESTARTED CYMBALTA LEUKOCYTOSIS -IMPROVED - SUSPECT DUE TO STEROID USE, CONTINUE TO MONITOR SYMPTOMS AND LABS ANEMIA -STABLE AT 9.5 - THIS IS STATUS POST BLOOD TRANSFUSION ON 05/29/2019 - CONTINUE TO MONITOR LABS. ELEVATED LFT'S - DUE TO SHOCK - CONTINUE WITH CURRENT MANAGEMENT - LFT'S HAVE IMPROVED COMPARED TO LABS OVER THE WEEKEND. CONSTIPATION - NO BM DOCUMENTED FOR SEVERAL DAYS - DULCOLAX DID NOT PRODUCE RESULTS, HE WAS THEN STARTED ON LACTULOSE AND COLACE THROUGH NG TUBE. - WILL GIVE A DOSE OF RELISTOR TODAY DUE TO HIS RECENT FENTANYL DOSING FOR HIS CHRONIC BACK PAIN WHILE HE HAS BEEN INTUBATED - HOPEFULLY THIS WILL AUGMENT HIS BOWEL FUNCTION RETURNING - CHECK KUB TODAY - THIS HAS BEEN ORDERED PORTABLE 1 VIEW DUE TO HIS INTUBATED STATUS CONTINUE TO EXPECT SEVERAL MORE DAYS IN THE ICU - DEFER EXTUBATION PLANS TO DR. CULLEN Problems: (1) Acute respiratory failure with hypoxia (2) Endotracheally intubated (3) Severe sepsis (4) Pneumonia Qualifiers: Qualified Codes: J18.9 - Pneumonia, unspecified organism (5) Influenza (6) Lactic acidosis (7) Acute kidney injury superimposed on chronic kidney disease (8) (HFpEF) heart failure with preserved ejection fraction (9) Non-ST elevation CA (NSTEMI) Admission Dx RESPIRATORY FAILURE WITH LACTIC ACIDOSIS INFLUENZA PNEUMONIA CHRONIC PULMONARY FIBROSIS COPD ACUTE ON CHRONIC RENAL FAILURE NON-ST CA CHRONIC DEPRESSION LEUKOCYTOSIS ANEMIA CONSTIPATION ELEVATED LFT'S RESPIRATORY FAILURE WITH LACTIC ACIDOSIS PT AGREED TO SHORT TERM INTUBATION ON 05/30/2019: INFLUENZA AND PNEUMONIA WITH CHRONIC PULMONARY FIBROSIS AND COPD - PT IS ON TAMIFLU FOR TREATMENT OF THE FLU - LAST DOSE GIVEN - PT IS ON AZITHROMYCIN AND CEFEPIME, ANTIFUNGAL, STEROIDS - CONTINUE WITH CURRENT MANAGEMENT INITIATED IN ER AND BY DR. CULLEN. ACUTE ON CHRONIC RENAL FAILURE - RESOLVED - CONTINUE WITH IV FLUIDS, RENALLY ADJUST MEDICATIONS NEEDED. NON-ST CA - DEFER TO CARDIOLOGY - PT HAD SO MUCH PULMONARY DISTRESS THAT THIS CAUSED HIS SEVERE TROPONIN ELEVATION. WILL WATCH PT CLOSELY WE NAVIGATE HEALING FROM HIS PULMONARY ISSUES. CHRONIC DEPRESSION - RESTARTED CYMBALTA LEUKOCYTOSIS -INCREASING AGAIN - SUSPECT DUE TO STEROID USE, CONTINUE TO MONITOR SYMPTOMS AND LABS ANEMIA -STABLE AT 9.4 - THIS IS STATUS POST BLOOD TRANSFUSION ON 05/29/2019 - CONTINUE TO MONITOR LABS. ELEVATED LFT'S - DUE TO SHOCK - CONTINUE WITH CURRENT MANAGEMENT - LFT'S HAVE IMPROVED COMPARED TO LABS OVER THE WEEKEND. CONSTIPATION - NO BM DOCUMENTED FOR SEVERAL DAYS - GIVE DULCOLAX SUPPOSITORY TODAY CONTINUE TO EXPECT SEVERAL MORE DAYS IN THE ICU - DEFER EXTUBATION PLANS TO DR. CULLEN Clinical Quality Measures Admission Status Admission Dx RESPIRATORY FAILURE WITH LACTIC ACIDOSIS INFLUENZA PNEUMONIA CHRONIC PULMONARY FIBROSIS COPD ACUTE ON CHRONIC RENAL FAILURE NON-ST CA CHRONIC DEPRESSION LEUKOCYTOSIS ANEMIA CONSTIPATION ELEVATED LFT'S RESPIRATORY FAILURE WITH LACTIC ACIDOSIS PT AGREED TO SHORT TERM INTUBATION ON 05/30/2019: INFLUENZA AND PNEUMONIA WITH CHRONIC PULMONARY FIBROSIS AND COPD - PT IS ON TAMIFLU FOR TREATMENT OF THE FLU - LAST DOSE GIVEN - PT IS ON AZITHROMYCIN AND CEFEPIME, ANTIFUNGAL, STEROIDS - CONTINUE WITH CURRENT MANAGEMENT INITIATED IN ER AND BY DR. CULLEN. ACUTE ON CHRONIC RENAL FAILURE - RESOLVED - CONTINUE WITH IV FLUIDS, RENALLY ADJUST MEDICATIONS NEEDED. NON-ST CA - DEFER TO CARDIOLOGY - PT HAD SO MUCH PULMONARY DISTRESS THAT THIS CAUSED HIS SEVERE TROPONIN ELEVATION. WILL WATCH PT CLOSELY WE NAVIGATE HEALING FROM HIS PULMONARY ISSUES. CHRONIC DEPRESSION - RESTARTED CYMBALTA LEUKOCYTOSIS -INCREASING AGAIN - SUSPECT DUE TO STEROID USE, CONTINUE TO MONITOR SYMPTOMS AND LABS ANEMIA -STABLE AT 9.4 - THIS IS STATUS POST BLOOD TRANSFUSION ON 05/29/2019 - CONTINUE TO MONITOR LABS. ELEVATED LFT'S - DUE TO SHOCK - CONTINUE WITH CURRENT MANAGEMENT - LFT'S HAVE IMPROVED COMPARED TO LABS OVER THE WEEKEND. CONSTIPATION - NO BM DOCUMENTED FOR SEVERAL DAYS - GIVE DULCOLAX SUPPOSITORY TODAY CONTINUE TO EXPECT SEVERAL MORE DAYS IN THE ICU - DEFER EXTUBATION PLANS TO DR. CULLEN DVT/VTE Risk/Contraindication: Risk Factor Score Per Nursin RFS Level Per Nursing on Admit: 4+=Very High DEANDRA MOTA MD Jun 02, 2019 09:02
[2019-06-02] MEDS: ANIDULAFUNGIN INJECTION 100 MG in NS (IVPB) 100 ML IV SCH (09:19)
[2019-06-02] MEDS: MEROPENEM 500 MG/SWFI 10 ML IV PUSH IV SCH ×6 (09:19→19:52)
--- NOTE | 2019-06-02 09:32 | Progress Note - Cardiology ---
Cardiology SOAP Progress Note Subjective: Remains intubated and sedated Objective: I&O/Vital Signs 06/03/19 06/03/19 06/03/19 06/03/19 19:56 20:00 20:00 21:00 Temp 36.8 Pulse 71 68 Resp 17 14 B/P (MAP) 132/48 (76) 124/47 (72) Pulse Ox 96 93 95 O2 Delivery Mechanical Ventilator Mechanical Ventilator Mechanical Ventilator O2 Flow Rate 40.00 40.00 FiO2 40 06/03/19 06/03/19 06/03/19 06/03/19 21:29 22:00 22:17 23:00 Pulse 68 71 71 72 Resp 19 16 17 B/P (MAP) 139/50 (79) 143/52 150/52 (84) Pulse Ox 93 95 96 O2 Delivery Mechanical Ventilator Mechanical Ventilator O2 Flow Rate 40.00 40.00 FiO2 35 06/04/19 06/04/19 06/04/19 06/04/19 00:00 00:00 00:18 01:00 Temp 36.6 Pulse 71 70 Resp 16 17 B/P (MAP) 156/56 (89) 172/62 (98) Pulse Ox 95 93 97 O2 Delivery Mechanical Ventilator Mechanical Ventilator Mechanical Ventilator O2 Flow Rate 40.00 40.00 FiO2 40 06/04/19 06/04/19 06/04/19 06/04/19 01:00 01:40 01:56 02:00 Pulse 71 72 73 Resp 17 16 B/P (MAP) 177/61 (99) Pulse Ox 95 94 O2 Delivery Mechanical Ventilator Mechanical Ventilator O2 Flow Rate 35.00 35.00 FiO2 35 06/04/19 06/04/19 06/04/19 06/04/19 03:00 03:19 04:00 04:00 Pulse 70 69 Resp 17 28 B/P (MAP) 168/57 (94) 160/56 (90) Pulse Ox 93 92 93 O2 Delivery Mechanical Ventilator Mechanical Ventilator Mechanical Ventilator Mechanical Ventilator O2 Flow Rate 35.00 30.00 30.00 FiO2 30 06/04/19 06/04/19 06/04/19 05:00 06:00 06:54 Pulse 69 69 72 Resp 23 17 16 B/P (MAP) 170/60 (96) 163/55 (91) Pulse Ox 93 91 91 O2 Delivery Mechanical Ventilator Mechanical Ventilator O2 Flow Rate 30.00 30.00 FiO2 35 06/04/19 00:00 Intake Total 1220 ml Output Total 650 ml Balance 570 ml Weight (Pounds): 211 Weight (Ounces): 0.0 Weight (Calculated Kilograms): 95.849331 Constitutional: well-developed, well-nourished, other (On mech vent, sedated, unable to communicate) Respiratory: chest expansion is symmetric, chest is bilaterally symmetric, crackles, other Cardiovascular: regular rate-rhythm, S1 and S2 Gastrointestional: distended, audible bowel sounds Genital/Rectal: other (scrotal edema; urinary catheter to DD with cl yellow urine) Extremities: no lower extremity edema bilateral Neurologic/Psychiatric: other (On mech vent, sedated, unable to communicate) Skin: No rash on exposed areas, No ulcerations on exposed areas Results/Procedures: Labs Laboratory Tests 06/03/19 13:03: Glucometer 104 06/03/19 17:56: Glucometer 128H 06/04/19 03:09: White Blood Count 16.4H, Red Blood Count 2.83L, Hemoglobin 8.7L, Hematocrit 29L, Mean Corpuscular Volume 102H, Mean Corpuscular Hemoglobin 31, Mean Corpuscular Hemoglobin Concent 30L, Red Cell Distribution Width 15.1H, Platelet Count 171, Mean Platelet Volume 9.7, Neutrophils (%) (Auto) 88H, Lymphocytes (%) (Auto) 8L, Monocytes (%) (Auto) 3, Eosinophils (%) (Auto) 1, Basophils (%) (Auto) 0, Neutrophils # (Auto) 14.5H, Lymphocytes # (Auto) 1.2, Monocytes # (Auto) 0.6, Eosinophils # (Auto) 0.1, Basophils # (Auto) 0.0, Neutrophils % (Manual) 86, Lymphocytes % (Manual) 4, Monocytes % (Manual) 1, Eosinophils % (Manual) 0, Basophils % (Manual) 0, Band Neutrophils 9, Toxic Granulation 1+, Polychromasia SLIGHT, Hypochromasia SLIGHT, Poikilocytosis SLIGHT, Anisocytosis SLIGHT, Microcytosis SLIGHT, Macrocytosis SLIGHT, Elliptocytes SLIGHT, Schistocytes SLIGHT, Sodium Level 141, Potassium Level 4.7, Chloride Level 105, Carbon Dioxide Level 28, Anion Gap 8, Blood Urea Nitrogen 49H, Creatinine 1.41H, Estimat Glomerular Filtration Rate 49, BUN/Creatinine Ratio 35, Glucose Level 107H, Calcium Level 7.8L, Corrected Calcium 8.8, Phosphorus Level 4.2, Magnesium Level 3.5H, Total Bilirubin 0.5, Aspartate Amino Transf (AST/SGOT) 85H, Alanine Aminotransferase (ALT/SGPT) 167H, Alkaline Phosphatase 67, Total Protein 5.4L, Albumin 2.7L 06/04/19 03:18: Blood Gas Puncture Site LEFT ART LINE, Blood Gas Patient Temperature 36.8, Arterial Blood pH 7.46H, Arterial Blood Partial Pressure CO2 42, Arterial Blood Partial Pressure O2 75L, Arterial Blood HCO3 29H, Arterial Blood Total CO2 30.6, Arterial Blood Oxygen Saturation 92L, Arterial Blood Base Excess 5.4H, Sundeep Test POSITIVE, Blood Gas Ventilator Setting YES, Blood Gas Inspired Oxygen 17 Microbiology 05/30/19 Gram Stain - Final, Resulted 05/30/19 Sputum Culture - Preliminary, Resulted Aerobic actinomycetes See Comments YEAST 05/28/19 Blood Culture - Final, Complete No growth Procedures NAME: LORNA HILLMAN [facility] REC#: [id number] PT STATUS: ADM IN : 1940 PHYSICIAN: DEANDRA MOTA MD ADMIT DATE: 05/28/19/ICU Signed Date of Exam:06/02/19 CHEST 1 VIEW, AP/PA ONLY EXAMINATION: Chest 1 view HISTORY: Dyspnea. COMPARISON: Chest radiograph on 06/01/2019. FINDINGS: Stable configuration of the support devices. There has been interval decrease in lung volumes with continued diffuse opacities throughout the lungs. There is cardiomegaly with central pulmonary vascular congestion. No large pneumothorax. IMPRESSION: 1. Decreased lung volumes with continued cardiomegaly and central pulmonary vascular congestion. 2. Unchanged diffuse interstitial and alveolar opacities, which may represent infection or edema. Components of atelectasis are also likely. Dictated by: Dictated on workstation # [id number] Dict: 06/02/19724 Trans: 06/02/19725 [facility] [id number] Interpreted by: JUANJOSE PINON DO Electronically signed by: JUANJOSE PINON DO 06/02/19725 A/P: Assessment: Ac resp failure (multifactorial, see below) Severe sepsis; presented with septic shock Influenza A NSTEMI, unclear if type 1 or type 2 EMA-3, likely due to ATN due to hypotension due to septic shock, improved Anemia of undetermined etiology Chronic resp failure due to interstitial lung disease / pulmonary fibrosis CAD and ischemic cardiomyopathy - H/o 4-vessel CABG in 1998 at [facility] in [place], [place] by Dr. Magana Echo of 05/29/19: LVEF 40-45%, basal inferior hypokinesis, RVSP 18 mmHg, mod MR H/o carotid dz bilat - followed by Dr. Rosa at [facility] Syncopal episodes, being followed by Dr. Rosa, Dr. Smith (neurology services at [facility]), Dr. Cortez Orthostatic hypotension - being followed by Dr. Rosa COPD H/O tobaccoism - quit 4 years ago HTN HLD Chronic back pain Plan: * Continue DAPT * Continue BB * Sepsis with influenza A - management per medical/ICU services * Enoxaparin for DVT prophylaxis * Monitor labs and correct them as needed TRISTON ALONSO Jun 02, 2019 09:32
--- NOTE | 2019-06-02 09:40 | Diagnostic Imaging Report ---
INDICATION: Ileus. COMPARISON: CT dated August 19, 2018. TECHNIQUE: Two radiographs of the abdomen dated June 02, 2019. FINDINGS: Median sternotomy. Enteric catheter is present with the distal tip and side hole extending into the body of the stomach. The stomach is gas distended. Bilateral pulmonary infiltrates are again identified. Surgical clips are present within the right upper quadrant of the abdomen. Postsurgical changes within the lumbosacral spine. Multiple loops of small bowel are at the upper limits of normal in size measuring up to 3 cm in transverse dimension. Small amount of gas and stool is identified within the colon. No free air. Scattered vascular calcifications. No acute osseous abnormality. IMPRESSION: 1. Loops of small bowel and the stomach are gas distended and at the upper limits of normal without free air. 2. Bibasilar pulmonary opacities. 3. Additional postsurgical and chronic findings, as above. Dictated by: Dictated on workstation # [id number]
--- NOTE | 2019-06-02 10:50 | Occ Therapy Progress Note ---
Therapy Progress Note Pt remains intubated and sedated. Will continue to monitor pt status and initiate therapy when pt actively able to participate. TRISTAN CHAWLA OT Jun 02, 2019 10:50
[2019-06-02] MEDS: hydrALAZINE (APESOLINE) 20 MG/ML VIAL IV PRN (13:27)
--- NOTE | 2019-06-02 16:48 | Progress Note - Cardiology ---
Cardiology SOAP Progress Note Subjective: Unable communicate. On [facility] vent. Brother by bedside Objective: I&O/Vital Signs 06/02/19 06/02/19 06/02/19 06/02/19 05:08 06:06 06:44 06:50 Pulse 75 72 72 77 Resp 17 24 16 B/P (MAP) 151/51 (84) 159/53 (88) 159/53 Pulse Ox 96 96 96 O2 Delivery Mechanical Ventilator Mechanical Ventilator O2 Flow Rate 45.00 45.00 FiO2 45 06/02/19 06/02/19 06/02/19 06/02/19 07:00 07:00 08:00 08:00 Temp 36.6 Pulse 79 67 77 Resp 14 15 B/P (MAP) 151/50 (83) 165/57 (93) Pulse Ox 96 97 O2 Delivery Mechanical Ventilator Mechanical Ventilator O2 Flow Rate 45.00 45.00 06/02/19 06/02/19 06/02/19 06/02/19 08:00 08:01 08:04 09:00 Pulse 68 70 71 Resp 14 B/P (MAP) 159/57 159/54 149/50 (83) Pulse Ox 96 96 O2 Delivery Mechanical Ventilator Mechanical Ventilator O2 Flow Rate 45.00 FiO2 45 06/02/19 06/02/19 06/02/19 06/02/19 10:00 10:31 10:37 11:00 Pulse 70 70 71 Resp 16 16 15 B/P (MAP) 155/53 (87) 161/53 (89) Pulse Ox 97 96 95 O2 Delivery Mechanical Ventilator Mechanical Ventilator Mechanical Ventilator O2 Flow Rate 45.00 40.00 40.00 FiO2 45 06/02/19 06/02/19 06/02/19 06/02/19 11:36 12:00 12:00 13:00 Temp 36.0 Pulse 71 75 Resp 16 B/P (MAP) 164/56 (92) Pulse Ox 95 96 O2 Delivery Mechanical Ventilator Mechanical Ventilator O2 Flow Rate 40.00 FiO2 40 06/02/19 06/02/19 06/02/19 06/02/19 13:00 14:00 14:00 14:54 Pulse 70 71 73 Resp 15 14 16 B/P (MAP) 165/58 (93) 146/47 (80) Pulse Ox 96 95 96 O2 Delivery Mechanical Ventilator Mechanical Ventilator Mechanical Ventilator O2 Flow Rate 40.00 40.00 FiO2 40 06/02/19 06/02/19 06/02/19 06/02/19 15:00 15:37 15:37 16:00 Temp 36.2 Pulse 68 72 73 Resp 16 B/P (MAP) 139/45 (76) 141/48 Pulse Ox 93 O2 Flow Rate 35.00 06/02/19 16:00 Pulse 72 Resp 14 B/P (MAP) 146/45 (78) Pulse Ox 93 O2 Flow Rate 35.00 06/02/19 00:00 Intake Total 1693 ml Output Total 2500 ml Balance -807 ml Weight (Pounds): 211 Weight (Ounces): 0.0 Weight (Calculated Kilograms): 95.747438 Constitutional: well-developed, well-nourished, other (On mech vent, sedated, unable to communicate) Respiratory: chest expansion is symmetric, chest is bilaterally symmetric, crackles, other Cardiovascular: regular rate-rhythm, S1 and S2 Gastrointestional: distended, audible bowel sounds Genital/Rectal: other (scrotal edema; urinary catheter to DD with cl yellow urine) Extremities: no lower extremity edema bilateral Neurologic/Psychiatric: other (On mech vent, sedated, unable to communicate) Skin: No rash on exposed areas, No ulcerations on exposed areas Results/Procedures: Labs Laboratory Tests 06/01/19 17:51: Glucometer 166H 06/01/19 23:00: Glucometer 159H 06/02/19 03:25: White Blood Count 15.2H, Red Blood Count 3.11L, Hemoglobin 9.5L, Hematocrit 31L, Mean Corpuscular Volume 100H, Mean Corpuscular Hemoglobin 31, Mean Corpuscular Hemoglobin Concent 31L, Red Cell Distribution Width 15.2H, Platelet Count 192, Mean Platelet Volume 9.9, Neutrophils (%) (Auto) 92H, Lymphocytes (%) (Auto) 3L, Monocytes (%) (Auto) 5, Eosinophils (%) (Auto) 0, Basophils (%) (Auto) 0, Neutrophils # (Auto) 13.9H, Lymphocytes # (Auto) 0.5L, Monocytes # (Auto) 0.8, Eosinophils # (Auto) 0.0, Basophils # (Auto) 0.0, Sodium Level 140, Potassium Level 4.0, Chloride Level 105, Carbon Dioxide Level 27, Anion Gap 8, Blood Urea Nitrogen 32H, Creatinine 1.00, Estimat Glomerular Filtration Rate > 60, BUN/Creatinine Ratio 32, Glucose Level 152H, Calcium Level 7.8L, Corrected Calcium 8.7, Phosphorus Level 3.3, Magnesium Level 2.8H, Total Bilirubin 0.4, Aspartate Amino Transf (AST/SGOT) 67H, Alanine Aminotransferase (ALT/SGPT) 191H, Alkaline Phosphatase 69, Total Protein 5.4L, Albumin 2.9L 06/02/19 03:30: Blood Gas Puncture Site LEFT RADIAL ARTLINE, Blood Gas Patient Temperature 36.3, Arterial Blood pH 7.44H, Arterial Blood Partial Pressure CO2 42, Arterial Blood Partial Pressure O2 85, Arterial Blood HCO3 28H, Arterial Blood Total CO2 29.7, Arterial Blood Oxygen Saturation 96, Arterial Blood Base Excess 4.3H, Sundeep Test ART LINE, Blood Gas Ventilator Setting YES, Blood Gas Inspired Oxygen 45% 06/02/19 11:36: Glucometer 136H Microbiology 05/30/19 Gram Stain - Final, Resulted 05/30/19 Sputum Culture - Preliminary, Resulted Aerobic actinomycetes See Comments YEAST 05/28/19 Blood Culture - Final, Complete No growth Laboratory Tests 06/01/19 03:20 06/02/19 03:25 A/P: Assessment: Ac resp failure (multifactorial, see below) Severe sepsis; presented with septic shock Influenza A NSTEMI, unclear if type 1 or type 2 EMA-3, likely due to ATN due to hypotension due to septic shock, improved Anemia of undetermined etiology Chronic resp failure due to interstitial lung disease / pulmonary fibrosis CAD and ischemic cardiomyopathy - H/o 4-vessel CABG in 1998 at [facility] in [place], [place] by Dr. Magana Echo of 05/29/19: LVEF 40-45%, basal inferior hypokinesis, RVSP 18 mmHg, mod MR H/o carotid dz bilat - followed by Dr. Rosa at [facility] Syncopal episodes, being followed by Dr. Rosa, Dr. Smith (neurology services at [facility]), Dr. Cortez Orthostatic hypotension - being followed by Dr. Rosa COPD H/O tobaccoism - quit 4 years ago HTN HLD Chronic back pain Plan: * Continue DAPT * Continue BB * Sepsis with influenza A and ac resp failure - management per Medical and ICU services * Monitor labs and correct them as needed GEORGETTE,ALI MD FACP FAC CCDS Jun 02, 2019 16:48
[2019-06-02] MEDS: LIDOCAINE PATCH REMOVAL TP SCH (19:53)
[2019-06-03] VITALS (29 sets, daily range): BP systolic 91–150; BP diastolic 32–73
[2019-06-03] MEDS: RT-ALBUTEROL/IPRATROPIUM 3 ML (DUONEB) VIAL INH SCH ×5 (01:54→21:29)
[2019-06-03] MEDS: MEROPENEM 500 MG/SWFI 10 ML IV PUSH IV SCH ×8 (02:25→20:37)
[2019-06-03 02:40] LABS: ABG BASE EXCESS 6.2 MMOL/L (-2.5-2.5); ABG OXYGEN SATURATION 90 % (94-100); ABG PCO2 42 MMHG (35-45); ABG PH 7.47 (7.37-7.43); ABG PO2 60 MMHG (79-93); ABG TCO2 31.5 MMOL/L (21.0-31.0)
[2019-06-03 02:41] LABS: ALLENS TEST YES-POS; BASOPHILS % (AUTO) 0 % (0-10); EOSINOPHILS % (AUTO) 0 % (0-10); HEMATOCRIT 31 % (40-54); HEMOGLOBIN 9.3 G/DL (13.3-17.7); INSPIRED O2 35%; LYMPHOCYTES # (AUTO) 0.5 X 10^3 (1.0-4.0); LYMPHOCYTES % (AUTO) 4 % (12-44); MEAN CORPUSCULAR HEMOGLOBIN 31 PG (25-34); MEAN CORPUSCULAR HGB CONC 30 G/DL (32-36); MEAN CORPUSCULAR VOLUME 101 FL (80-99); MEAN PLATELET VOLUME 9.4 FL (7.4-10.4); MONOCYTES # (AUTO) 0.2 X 10^3 (0.0-1.0); MONOCYTES % (AUTO) 2 % (0-12); NEUTROPHILS # (AUTO) 12.6 X 10^3 (1.8-7.8); NEUTROPHILS % (AUTO) 94 % (42-75); PATIENT TEMP 36.2; PLATELET COUNT 184 10^3/uL (130-400); RED CELL DISTRIBUTION WIDTH 15.3 % (10.0-14.5); VENTILATOR YES; WHITE BLOOD COUNT 13.4 10^3/uL (4.3-11.0)
[2019-06-03 03:02] LABS: ALANINE AMINOTRANSFERASE 148 U/L (0-55); ALBUMIN 2.7 GM/DL (3.2-4.5); ALKALINE PHOSPHATASE 63 U/L (40-136); BILIRUBIN,TOTAL 0.5 MG/DL (0.1-1.0); BUN/CREATININE RATIO 38; CALCIUM 7.6 MG/DL (8.5-10.1); CARBON DIOXIDE 25 MMOL/L (21-32); CHLORIDE 107 MMOL/L (98-107); CREATININE SERUM 0.98 MG/DL (0.60-1.30); GFR ESTIMATED > 60; GLUCOSE 91 MG/DL (70-105); PHOSPHORUS 2.6 MG/DL (2.3-4.7); POTASSIUM 3.8 MMOL/L (3.6-5.0); SODIUM 141 MMOL/L (135-145)
[2019-06-03] MEDS: LACTATED RINGERS 1,000 ML IV SCH ×3 (03:10→17:59)
[2019-06-03] MEDS: fentaNYL INJECTION 100 MCG/2 ML AMP IV PRN (03:38)
[2019-06-03] MEDS: POTASSIUM CL 10MEQ/50ML IVPB 50 ML IV SCH (03:42)
[2019-06-03] MEDS: MAGNESIUM 1 GM/100 ML IVPB 100 ML IV SCH (03:43)
[2019-06-03] MEDS: KCL 20 MEQ TAB (K-DUR) PO SCH (03:43)
[2019-06-03] MEDS: PROPOFOL DRIP (ICU) 100 ML IV SCH ×2 (03:45→22:17)
[2019-06-03] MEDS ORDERED: POTASSIUM CL 10MEQ/50ML IVPB 50 ML IV SCH ×2 (04:15→09:00)
--- NOTE | 2019-06-03 04:22 | Pulmonary Progress Note ---
Subjective Time Seen by a Provider: 04:25 Subjective/Events-last exam Sedated on vent. Sepsis Event Evaluation Height, Weight, BMI Height: 5'9.00" Weight: 211lbs. 0.0oz. 95.243391ns; 28.08 BMI Method: Exam Exam Vital Signs Date Time Temp Pulse Resp B/P (MAP) Pulse Ox O2 Delivery O2 Flow Rate FiO2 06/03/19 04:00 66 17 92/32 (52) 96 Mechanical Ventilator 40.00 06/03/19 03:45 97/34 06/03/19 03:39 92 Mechanical Ventilator 35 06/03/19 03:38 36.0 06/03/19 03:00 67 16 108/37 (60) 91 Mechanical Ventilator 35.00 06/03/19 02:00 67 22 105/37 (59) 99 Mechanical Ventilator 35.00 06/03/19 01:55 67 25 96 35 06/03/19 01:00 68 06/03/19 01:00 68 17 122/42 (68) 90 Mechanical Ventilator 35.00 06/03/19 00:00 70 19 119/42 (67) Mechanical Ventilator 35.00 06/02/19 23:28 92 Mechanical Ventilator 35 06/02/19 23:00 67 15 137/49 (78) 94 Mechanical Ventilator 35.00 06/02/19 22:41 141/48 06/02/19 22:40 141/48 06/02/19 22:00 67 18 138/48 (78) 94 Mechanical Ventilator 35.00 06/02/19 21:43 66 17 94 35 06/02/19 21:00 68 16 146/51 (82) 94 Mechanical Ventilator 35.00 06/02/19 20:00 35.7 06/02/19 20:00 92 Mechanical Ventilator 35 06/02/19 20:00 68 15 142/50 (80) 94 Mechanical Ventilator 35.00 06/02/19 19:00 71 06/02/19 19:00 71 15 150/51 (84) 94 Mechanical Ventilator 35.00 06/02/19 19:00 71 06/02/19 18:21 68 17 93 35 06/02/19 18:00 71 18 149/49 (82) 94 35.00 06/02/19 17:00 69 14 136/46 (76) 93 35.00 06/02/19 16:00 72 14 146/45 (78) 93 35.00 06/02/19 16:00 96 Mechanical Ventilator 40 06/02/19 16:00 36.2 06/02/19 15:37 73 141/48 06/02/19 15:37 72 06/02/19 15:00 68 16 139/45 (76) 93 35.00 06/02/19 14:54 73 16 96 40 06/02/19 14:00 71 14 146/47 (80) 95 Mechanical Ventilator 40.00 06/02/19 14:00 Mechanical Ventilator 06/02/19 13:00 70 15 165/58 (93) 96 Mechanical Ventilator 40.00 06/02/19 13:00 75 06/02/19 12:00 96 Mechanical Ventilator 40 06/02/19 12:00 71 16 164/56 (92) 95 Mechanical Ventilator 40.00 06/02/19 11:36 36.0 06/02/19 11:00 71 15 161/53 (89) 95 Mechanical Ventilator 40.00 06/02/19 10:37 Mechanical Ventilator 40.00 06/02/19 10:31 70 16 96 45 06/02/19 10:00 70 16 155/53 (87) 97 Mechanical Ventilator 45.00 06/02/19 09:00 71 14 149/50 (83) 96 Mechanical Ventilator 45.00 06/02/19 08:04 70 159/54 06/02/19 08:01 68 159/57 06/02/19 08:00 96 Mechanical Ventilator 45 06/02/19 08:00 77 15 165/57 (93) 97 Mechanical Ventilator 45.00 06/02/19 08:00 36.6 06/02/19 07:00 67 14 151/50 (83) 96 Mechanical Ventilator 45.00 06/02/19 07:00 79 06/02/19 06:50 77 16 96 45 06/02/19 06:44 72 159/53 06/02/19 06:06 72 24 159/53 (88) 96 Mechanical Ventilator 45.00 06/02/19 05:08 75 17 151/51 (84) 96 Mechanical Ventilator 45.00 I & O 06/03/19 07:00 Intake Total 1950 ml Output Total 2570 ml Balance -620 ml Height & Weight Height: 5'9.00" Weight: 211lbs. 0.0oz. 95.249774pe; 28.08 BMI Method: General Appearance: Other (INTUBATED, DOES NOT APPEAR TO BE IN DISTRESS) HEENT: Other (ENDOTRACHEAL TUBE IN PLACE) Respiratory: Decreased Breath Sounds Cardiovascular: Regular Rate, Rhythm, No Edema Capillary Refill: Less Than 3 Seconds Gastrointestinal: non tender, soft Extremity: Pedal Edema (TRACE ON RIGHT FOOT, SCD'S IN PLACE), Other (SWELLING OF HANDS BILATERALLY - LEFT GREATER THAN RIGHT) Neurologic/Psychiatric: Other (INTUBATED AND SEDATED) Skin: Warm/Dry Results Lab Laboratory Tests 06/02/19 03:25 06/03/19 02:30 Assessment/Plan Assessment/Plan Acute worsening respiratory failure with pneumonia and influenza -- PT was intu bated 05/30 -Continue vent therapy -Decrease RR to 14 -Will do a sedation vacation with weaning trial -CXR now improved Severe sepsis with pneumonia and influenza -Abx changed to Merrem 06/02 secondary to culture results -Tamiflu -IVF - decrease to 30 -engel cultures -MRSA nasal swab -- is negative -Check urine strep and legionella Ag Ileus r/o obstruction -repeat KUB at 0830 -Add reglan 10mg IV BID -Hold TF -Hold Fentanyl gtt Metabolic lactic acidosis -Monitor Acute renal failure -IVF and monitor Hypophos -replace LORENZO CULLEN DO Jun 03, 2019 04:22
[2019-06-03] MEDS: inSUlin ASPART (NovoLOG) 1 UNIT/0.01 ML (CHARGE PER UNIT) SC SCH ×4 (05:08→17:59)
[2019-06-03] MEDS: DexMEDEtomidine 250 ML DRIP 250 ML IV SCH ×2 (05:13→22:45)
[2019-06-03] MEDS: METOCLOPRAMIDE INJ 10 MG/2 ML (REGLAN) IVP SCH ×2 (07:57→20:37)
[2019-06-03] MEDS: methylPREDNISolone 40 MG/ML (Solu-MEDROL) VIAL IV SCH (07:57)
[2019-06-03] MEDS: PANTOPRAZOLE 40 MG (PROTONIX) VIAL IV SCH (07:57)
[2019-06-03] MEDS: ASPIRIN E.C. 81 MG (ECOTRIN) TAB PO SCH (07:58)
[2019-06-03] MEDS: LACTULOSE SYRUP 10GM/15ML (ENULOSE) 30ML UDC PO SCH ×2 (07:58→20:37)
[2019-06-03] MEDS: DULoxetine 20 MG (CYMBALTA) CAP PO SCH (07:58)
[2019-06-03] MEDS: ANTACID SUSP 30 ML UDC (MYLANTA) PO SCH ×4 (07:58→20:37)
[2019-06-03] MEDS: LIDOCAINE 4% (SALONPAS) PATCH TOP SCH (07:59)
[2019-06-03] MEDS: meTOprolol TARTRATE 50 MG (LOPRESSOR) TAB PO SCH ×2 (07:59→20:37)
[2019-06-03] MEDS: DOCUSATE SODIUM 100 MG (COLACE) CAP PO SCH ×2 (07:59→20:37)
[2019-06-03] MEDS: CLOPIDOGREL 75 MG (PLAVIX) TABLET PO SCH (07:59)
[2019-06-03] MEDS: doxAzosin 4 MG (CARDURA) TAB PO SCH (07:59)
[2019-06-03] MEDS: lisINopril 20 MG (PRINIVIL) TABLET PO SCH (08:00)
--- NOTE | 2019-06-03 08:05 | Physical Therapy Progress Note ---
Therapy Progress Note Patient still sedated and on vent, will check back tomorrow. ABELINO AQUINO PT Jun 03, 2019 08:05
--- NOTE | 2019-06-03 08:09 | Occ Therapy Progress Note ---
Therapy Progress Note Pt remains intubated and sedated. Will continue to monitor pt status and initiate therapy when pt able to actively participate. TRISTAN CHAWLA OT Jun 03, 2019 08:09
--- NOTE | 2019-06-03 08:33 | Diagnostic Imaging Report ---
CHEST 1 VIEW, AP/PA ONLY Indication: Intubation Comparison: 06/02/2019 Findings: Stable ET and enteric tubes. Stable right IJ central venous catheter. Interstitial and airspace opacities in both lungs have mildly improved but persists. No pleural effusion is appreciated. No pneumothorax. Stable cardiomegaly with changes of CABG. Impression: 1. Stable support devices. 2. Improving but persistent pulmonary opacities. Dictated by: Dictated on workstation # [id number]
--- NOTE | 2019-06-03 08:38 | Progress Note ---
Subjective Subjective Date Seen by Provider: Jun 03, 2019 Time Seen by Provider: 08:30 INFLUENZA, PNEUMONIA, COPD, NON ST IL, INTUBATED (PT AGREED TO SHORT TERM ONLY) PT IN ROOM ON VENT UNRESPONSIVE TO VERBAL, TACTILE STIMULI Review of Systems ROS Unable to Obtain: PT INTUBATED General: Other (INTUBATED) Neurological: Other (INTUBATED AND SEDATED) All Other Systems Reviewed All Other Systems Reviewed: Yes Objective Exam Vital Signs Vital Signs - First Documented 05/28/19 05/29/19 13:39 14:18 Temp 36.8 Pulse 112 Resp 20 B/P (MAP) 100/58 (72) Pulse Ox 92 O2 Delivery Nasal Cannula O2 Flow Rate 3.00 FiO2 40 Capillary Refill : Less Than 3 Seconds General Appearance: Other (INTUBATED, DOES NOT APPEAR TO BE IN DISTRESS) Eyes: Bilateral Eye Normal Inspection, Bilateral Eye PERRL, Bilateral Eye EOMI HEENT: Other (ENDOTRACHEAL TUBE IN PLACE) Respiratory: Decreased Breath Sounds Cardiovascular: Regular Rate, Rhythm, No Edema Gastrointestinal: Non Tender, Soft, Abnormal Bowel Sounds (NO BOWEL SOUNDS), Distended; No Tenderness Rectal: Deferred Extremity: Pedal Edema (TRACE ON RIGHT FOOT, SCD'S IN PLACE), Other (SWELLING OF HANDS BILATERALLY - LEFT GREATER THAN RIGHT) Neurologic/Psychiatric: Other (INTUBATED AND SEDATED) Skin: Warm/Dry Results Lab Laboratory Tests 06/02/19 11:36: Glucometer 136H 06/02/19 17:46: Glucometer 153H 06/02/19 23:20: Glucometer 126H 06/03/19 02:30: White Blood Count 13.4H, Red Blood Count 3.04L, Hemoglobin 9.3L, Hematocrit 31L, Mean Corpuscular Volume 101H, Mean Corpuscular Hemoglobin 31, Mean Corpuscular Hemoglobin Concent 30L, Red Cell Distribution Width 15.3H, Platelet Count 184, Mean Platelet Volume 9.4, Neutrophils (%) (Auto) 94H, Lymphocytes (%) (Auto) 4L, Monocytes (%) (Auto) 2, Eosinophils (%) (Auto) 0, Basophils (%) (Auto) 0, Neutrophils # (Auto) 12.6H, Lymphocytes # (Auto) 0.5L, Monocytes # (Auto) 0.2, Eosinophils # (Auto) 0.0, Basophils # (Auto) 0.0, Blood Gas Puncture Site LEFT RADIAL, Blood Gas Patient Temperature 36.2, Arterial Blood pH 7.47H, Arterial Blood Partial Pressure CO2 42, Arterial Blood Partial Pressure O2 60L, Arterial Blood HCO3 30H, Arterial Blood Total CO2 31.5H, Arterial Blood Oxygen Saturation 90L, Arterial Blood Base Excess 6.2H, Sundeep Test YES-POS, Blood Gas Ventilator Setting YES, Blood Gas Inspired Oxygen 35%, Sodium Level 141, Potassium Level 3.8, Chloride Level 107, Carbon Dioxide Level 25, Anion Gap 9, Blood Urea Nitrogen 37H, Creatinine 0.98, Estimat Glomerular Filtration Rate > 60, BUN/Creatinine Ratio 38, Glucose Level 91, Calcium Level 7.6L, Corrected Calcium 8.6, Phosphorus Level 2.6, Magnesium Level 3.0H, Total Bilirubin 0.5, Aspartate Amino Transf (AST/SGOT) 51H, Alanine Aminotransferase (ALT/SGPT) 148H, Alkaline Phosphatase 63, Total Protein 5.0L, Albumin 2.7L 06/03/19 05:07: Glucometer 95 Microbiology 05/30/19 Gram Stain - Final, Resulted 05/30/19 Sputum Culture - Preliminary, Resulted Aerobic actinomycetes See Comments YEAST 05/28/19 Blood Culture - Final, Complete No growth Assessment/Plan Assessment/Plan Admission Dx SEVERE SEPSIS RESPIRATORY FAILURE WITH LACTIC ACIDOSIS INFLUENZA PNEUMONIA CHRONIC PULMONARY FIBROSIS COPD ACUTE ON CHRONIC RENAL FAILURE NON-ST IL CHRONIC DEPRESSION LEUKOCYTOSIS ANEMIA CONSTIPATION ELEVATED LFT'S RESPIRATORY FAILURE WITH LACTIC ACIDOSIS AND SEVERE SEPSIS PT AGREED TO SHORT TERM INTUBATION ON 05/30/2019: INFLUENZA AND PNEUMONIA WITH CHRONIC PULMONARY FIBROSIS AND COPD - PT HAS COMPLETED TAMIFLU FOR TREATMENT OF THE FLU - LAST DOSE GIVEN 06/02/2019 - PT IS ON AZITHROMYCIN AND CEFEPIME, ANTIFUNGAL, STEROIDS - CONTINUE WITH CURRENT MANAGEMENT INITIATED IN ER AND BY DR. CULLEN. ACUTE ON CHRONIC RENAL FAILURE - RESOLVED - CONTINUE WITH IV FLUIDS, RENALLY ADJUST MEDICATIONS NEEDED. NON-ST IL - DEFER TO CARDIOLOGY - PT HAD SO MUCH PULMONARY DISTRESS THAT THIS CAUSED HIS SEVERE TROPONIN ELEVATION. WILL WATCH PT CLOSELY WE NAVIGATE HEALING FROM HIS PULMONARY ISSUES. CHRONIC DEPRESSION - RESTARTED CYMBALTA LEUKOCYTOSIS -IMPROVED - SUSPECT DUE TO STEROID USE, CONTINUE TO MONITOR SYMPTOMS AND LABS ANEMIA -STABLE AT 9.5 - THIS IS STATUS POST BLOOD TRANSFUSION ON 05/29/2019 - CONTINUE TO MONITOR LABS. ELEVATED LFT'S - DUE TO SHOCK - CONTINUE WITH CURRENT MANAGEMENT - LFT'S HAVE IMPROVED COMPARED TO LABS OVER THE WEEKEND. CONSTIPATION - NO BM DOCUMENTED FOR SEVERAL DAYS - DULCOLAX DID NOT PRODUCE RESULTS, HE WAS THEN STARTED ON LACTULOSE AND COLACE THROUGH NG TUBE. - WILL GIVE A DOSE OF RELISTOR TODAY DUE TO HIS RECENT FENTANYL DOSING FOR HIS CHRONIC BACK PAIN WHILE HE HAS BEEN INTUBATED - HOPEFULLY THIS WILL AUGMENT HIS BOWEL FUNCTION RETURNING - CHECK KUB TODAY - THIS HAS BEEN ORDERED PORTABLE 1 VIEW DUE TO HIS INTUBATED STATUS CONTINUE TO EXPECT SEVERAL MORE DAYS IN THE ICU - DEFER EXTUBATION PLANS TO DR. CULLEN Problems: (1) Acute respiratory failure with hypoxia (2) Endotracheally intubated (3) Severe sepsis (4) Pneumonia Qualifiers: Qualified Codes: J18.9 - Pneumonia, unspecified organism (5) Influenza (6) Lactic acidosis (7) Acute kidney injury superimposed on chronic kidney disease (8) (HFpEF) heart failure with preserved ejection fraction (9) Non-ST elevation IL (NSTEMI) Admission Dx RESPIRATORY FAILURE WITH LACTIC ACIDOSIS INFLUENZA PNEUMONIA CHRONIC PULMONARY FIBROSIS COPD ACUTE ON CHRONIC RENAL FAILURE NON-ST IL CHRONIC DEPRESSION LEUKOCYTOSIS ANEMIA CONSTIPATION ELEVATED LFT'S RESPIRATORY FAILURE WITH LACTIC ACIDOSIS PT AGREED TO SHORT TERM INTUBATION ON 05/30/2019: INFLUENZA AND PNEUMONIA WITH CHRONIC PULMONARY FIBROSIS AND COPD - PT HAS COMPLETED TAMIFLU FOR TREATMENT OF THE FLU - LAST DOSE GIVEN 06/02/2019 - PT IS ON AZITHROMYCIN AND CEFEPIME, ANTIFUNGAL, STEROIDS - CONTINUE WITH CURRENT MANAGEMENT INITIATED IN ER AND BY DR. CULLEN. ACUTE ON CHRONIC RENAL FAILURE - RESOLVED - CONTINUE WITH IV FLUIDS, RENALLY ADJUST MEDICATIONS NEEDED. NON-ST IL - DEFER TO CARDIOLOGY - PT HAD SO MUCH PULMONARY DISTRESS THAT THIS CAUSED HIS SEVERE TROPONIN ELEVATION. WILL WATCH PT CLOSELY WE NAVIGATE HEALING FROM HIS PULMONARY ISSU ES. CHRONIC DEPRESSION - RESTARTED CYMBALTA LEUKOCYTOSIS -IMPROVED - SUSPECT DUE TO STEROID USE, CONTINUE TO MONITOR SYMPTOMS AND LABS ANEMIA -STABLE AT 9.5 - THIS IS STATUS POST BLOOD TRANSFUSION ON 05/29/2019 - CONTINUE TO MONITOR LABS. ELEVATED LFT'S - DUE TO SHOCK - CONTINUE WITH CURRENT MANAGEMENT - LFT'S HAVE IMPROVED COMPARED TO LABS OVER THE WEEKEND. CONSTIPATION - NO BM DOCUMENTED FOR SEVERAL DAYS - DULCOLAX DID NOT PRODUCE RESULTS, HE WAS THEN STARTED ON LACTULOSE AND COLACE THROUGH NG TUBE. - WILL GIVE A DOSE OF RELISTOR TODAY DUE TO HIS RECENT FENTANYL DOSING FOR HIS CHRONIC BACK PAIN WHILE HE HAS BEEN INTUBATED - HOPEFULLY THIS WILL AUGMENT HIS BOWEL FUNCTION RETURNING - CHECK KUB TODAY - THIS HAS BEEN ORDERED PORTABLE 1 VIEW DUE TO HIS INTUBATED STATUS CONTINUE TO EXPECT SEVERAL MORE DAYS IN THE ICU - DEFER EXTUBATION PLANS TO DR. CULLEN Clinical Quality Measures Admission Status Admission Dx RESPIRATORY FAILURE WITH LACTIC ACIDOSIS INFLUENZA PNEUMONIA CHRONIC PULMONARY FIBROSIS COPD ACUTE ON CHRONIC RENAL FAILURE NON-ST IL CHRONIC DEPRESSION LEUKOCYTOSIS ANEMIA CONSTIPATION ELEVATED LFT'S RESPIRATORY FAILURE WITH LACTIC ACIDOSIS PT AGREED TO SHORT TERM INTUBATION ON 05/30/2019: INFLUENZA AND PNEUMONIA WITH CHRONIC PULMONARY FIBROSIS AND COPD - PT HAS COMPLETED TAMIFLU FOR TREATMENT OF THE FLU - LAST DOSE GIVEN 06/02/2019 - PT IS ON AZITHROMYCIN AND CEFEPIME, ANTIFUNGAL, STEROIDS - CONTINUE WITH CURRENT MANAGEMENT INITIATED IN ER AND BY DR. CULLEN. ACUTE ON CHRONIC RENAL FAILURE - RESOLVED - CONTINUE WITH IV FLUIDS, RENALLY ADJUST MEDICATIONS NEEDED. NON-ST IL - DEFER TO CARDIOLOGY - PT HAD SO MUCH PULMONARY DISTRESS THAT THIS CAUSED HIS SEVERE TROPONIN ELEVATION. WILL WATCH PT CLOSELY WE NAVIGATE HEALING FROM HIS PULMONARY ISSUES. CHRONIC DEPRESSION - RESTARTED CYMBALTA LEUKOCYTOSIS -IMPROVED - SUSPECT DUE TO STEROID USE, CONTINUE TO MONITOR SYMPTOMS AND LABS ANEMIA -STABLE AT 9.5 - THIS IS STATUS POST BLOOD TRANSFUSION ON 05/29/2019 - CONTINUE TO MONITOR LABS. ELEVATED LFT'S - DUE TO SHOCK - CONTINUE WITH CURRENT MANAGEMENT - LFT'S HAVE IMPROVED COMPARED TO LABS OVER THE WEEKEND. CONSTIPATION - NO BM DOCUMENTED FOR SEVERAL DAYS - DULCOLAX DID NOT PRODUCE RESULTS, HE WAS THEN STARTED ON LACTULOSE AND COLACE THROUGH NG TUBE. - WILL GIVE A DOSE OF RELISTOR TODAY DUE TO HIS RECENT FENTANYL DOSING FOR HIS CHRONIC BACK PAIN WHILE HE HAS BEEN INTUBATED - HOPEFULLY THIS WILL AUGMENT HIS BOWEL FUNCTION RETURNING - CHECK KUB TODAY - THIS HAS BEEN ORDERED PORTABLE 1 VIEW DUE TO HIS INTUBATED STATUS CONTINUE TO EXPECT SEVERAL MORE DAYS IN THE ICU - DEFER EXTUBATION PLANS TO DR. CULLEN DVT/VTE Risk/Contraindication: Risk Factor Score Per Nursin RFS Level Per Nursing on Admit: 4+=Very High DEANDRA MOTA MD Jun 03, 2019 08:38
[2019-06-03] MEDS ORDERED: FUROSEMIDE 40 MG/4 ML INJ (LASIX) IVP SCH (09:00)
[2019-06-03] MEDS ORDERED: FUROSEMIDE 40 MG/4 ML INJ (LASIX) IVP NR (09:15)
[2019-06-03] MEDS: ANIDULAFUNGIN INJECTION 100 MG in NS (IVPB) 100 ML IV SCH (10:17)
[2019-06-03] MEDS: ENOXAPARIN 40 MG/0.4 ML (LOVENOX) SYR SC SCH (10:17)
--- NOTE | 2019-06-03 13:28 | Progress Note - Cardiology ---
Cardiology SOAP Progress Note Subjective: Intubated and on mech vent at time of my exam. Unable to communicate Objective: I&O/Vital Signs 06/03/19 06/03/19 06/03/19 06/03/19 01:55 02:00 03:00 03:38 Temp 36.0 Pulse 67 67 67 Resp 25 22 16 B/P (MAP) 105/37 (59) 108/37 (60) Pulse Ox 96 99 91 O2 Delivery Mechanical Ventilator Mechanical Ventilator O2 Flow Rate 35.00 35.00 FiO2 35 06/03/19 06/03/19 06/03/19 06/03/19 03:39 03:45 04:00 05:00 Pulse 66 70 Resp 17 17 B/P (MAP) 97/34 92/32 (52) 101/33 (55) Pulse Ox 92 96 90 O2 Delivery Mechanical Ventilator Mechanical Ventilator Mechanical Ventilator O2 Flow Rate 40.00 40.00 FiO2 35 06/03/19 06/03/19 06/03/19 06/03/19 05:13 06:00 07:00 07:00 Pulse 68 70 73 73 Resp 20 19 B/P (MAP) 101/35 (57) 106/36 (59) Pulse Ox 90 89 O2 Delivery Mechanical Ventilator Mechanical Ventilator O2 Flow Rate 40.00 40.00 06/03/19 06/03/19 06/03/19 06/03/19 07:04 07:28 08:00 08:00 Temp 36.7 Pulse 75 81 Resp 22 26 B/P (MAP) 118/38 (64) Pulse Ox 88 88 94 O2 Delivery Mechanical Ventilator Mechanical Ventilator O2 Flow Rate 50.00 FiO2 40 60 06/03/19 06/03/19 06/03/19 06/03/19 08:22 09:00 10:00 11:00 Pulse 92 80 81 Resp 24 18 21 B/P (MAP) 144/39 (74) 102/39 (60) 98/38 (58) Pulse Ox 93 95 94 O2 Delivery Mechanical Ventilator Mechanical Ventilator Mechanical Ventilator Mechanical Ventilator O2 Flow Rate 60.00 60.00 60.00 60.00 06/03/19 06/03/19 06/03/19 06/03/19 11:47 11:58 12:00 12:52 Pulse 81 89 81 Resp 26 B/P (MAP) 117/43 (67) Pulse Ox 97 93 O2 Delivery Mechanical Ventilator Mechanical Ventilator O2 Flow Rate 40.00 40.00 FiO2 60 06/03/19 13:00 Pulse 83 Resp 20 B/P (MAP) 106/38 (60) Pulse Ox 92 O2 Delivery Mechanical Ventilator O2 Flow Rate 40.00 06/03/19 00:00 Intake Total 530 ml Output Total 1900 ml Balance -1370 ml Weight (Pounds): 211 Weight (Ounces): 0.0 Weight (Calculated Kilograms): 95.756678 Constitutional: well-developed, well-nourished, other (On mech vent, sedated, unable to communicate) Respiratory: chest expansion is symmetric, chest is bilaterally symmetric, crackles, other Cardiovascular: regular rate-rhythm, S1 and S2 Gastrointestional: distended, audible bowel sounds Genital/Rectal: other (scrotal edema; urinary catheter to DD with cl yellow urine) Extremities: no lower extremity edema bilateral Neurologic/Psychiatric: other (On mech vent, sedated, unable to communicate) Skin: No rash on exposed areas, No ulcerations on exposed areas Results/Procedures: Labs Laboratory Tests 06/02/19 17:46: Glucometer 153H 06/02/19 23:20: Glucometer 126H 06/03/19 02:30: White Blood Count 13.4H, Red Blood Count 3.04L, Hemoglobin 9.3L, Hematocrit 31L, Mean Corpuscular Volume 101H, Mean Corpuscular Hemoglobin 31, Mean Corpuscular Hemoglobin Concent 30L, Red Cell Distribution Width 15.3H, Platelet Count 184, Mean Platelet Volume 9.4, Neutrophils (%) (Auto) 94H, Lymphocytes (%) (Auto) 4L, Monocytes (%) (Auto) 2, Eosinophils (%) (Auto) 0, Basophils (%) (Auto) 0, Neutrophils # (Auto) 12.6H, Lymphocytes # (Auto) 0.5L, Monocytes # (Auto) 0.2, Eosinophils # (Auto) 0.0, Basophils # (Auto) 0.0, Blood Gas Puncture Site LEFT RADIAL, Blood Gas Patient Temperature 36.2, Arterial Blood pH 7.47H, Arterial Blood Partial Pressure CO2 42, Arterial Blood Partial Pressure O2 60L, Arterial Blood HCO3 30H, Arterial Blood Total CO2 31.5H, Arterial Blood Oxygen Saturation 90L, Arterial Blood Base Excess 6.2H, Sundeep Test YES-POS, Blood Gas Ventilator S etting YES, Blood Gas Inspired Oxygen 35%, Sodium Level 141, Potassium Level 3.8, Chloride Level 107, Carbon Dioxide Level 25, Anion Gap 9, Blood Urea Nitrogen 37H, Creatinine 0.98, Estimat Glomerular Filtration Rate > 60, BUN/Creatinine Ratio 38, Glucose Level 91, Calcium Level 7.6L, Corrected Calcium 8.6, Phosphorus Level 2.6, Magnesium Level 3.0H, Total Bilirubin 0.5, Aspartate Amino Transf (AST/SGOT) 51H, Alanine Aminotransferase (ALT/SGPT) 148H, Alkaline Phosphatase 63, Total Protein 5.0L, Albumin 2.7L 06/03/19 05:07: Glucometer 95 Microbiology 05/30/19 Gram Stain - Final, Resulted 05/30/19 Sputum Culture - Preliminary, Resulted Aerobic actinomycetes See Comments YEAST 05/28/19 Blood Culture - Final, Complete No growth Laboratory Tests 06/02/19 03:25 06/03/19 02:30 A/P: Assessment: Ac resp failure (multifactorial, see below) Severe sepsis; presented with septic shock Influenza A NSTEMI, unclear if type 1 or type 2 EMA-3, likely due to ATN due to hypotension due to septic shock, resp;zhanna Anemia of undetermined etiology Chronic resp failure due to interstitial lung disease / pulmonary fibrosis CAD and ischemic cardiomyopathy - H/o 4-vessel CABG in 1998 at [facility] in [place], [place] by Dr. Magana Echo of 05/29/19: LVEF 40-45%, basal inferior hypokinesis, RVSP 18 mmHg, mod MR H/o carotid dz bilat - followed by Dr. Rosa at [facility] Syncopal episodes, being followed by Dr. Rosa, Dr. Smith (neurology services at [facility]), Dr. Cortez Orthostatic hypotension - being followed by Dr. Rosa COPD H/O tobaccoism - quit 4 years ago HTN HLD Chronic back pain Plan: * Continue current regimen * Prognosis guarded * Sepsis with influenza A and ac resp failure - management per Medical and ICU services * Monitor labs and correct them as needed CARINE PALOMINO MD FACP [facility] Jun 03, 2019 13:28
[2019-06-03] MEDS: LIDOCAINE PATCH REMOVAL TP SCH (20:37)
[2019-06-04] VITALS (30 sets, daily range): BP systolic 116–199; BP diastolic 29–94
[2019-06-04] MEDS: inSUlin ASPART (NovoLOG) 1 UNIT/0.01 ML (CHARGE PER UNIT) SC SCH ×5 (00:20→23:36)
[2019-06-04] MEDS: RT-ALBUTEROL/IPRATROPIUM 3 ML (DUONEB) VIAL INH SCH ×7 (01:56→21:22)
[2019-06-04] MEDS: MEROPENEM 500 MG/SWFI 10 ML IV PUSH IV SCH ×8 (03:06→20:43)
[2019-06-04] MEDS: LACTATED RINGERS 1,000 ML IV SCH (03:07)
[2019-06-04 03:23] LABS: ABG BASE EXCESS 5.4 MMOL/L (-2.5-2.5); ABG OXYGEN SATURATION 92 % (94-100); ABG PCO2 42 MMHG (35-45); ABG PH 7.46 (7.37-7.43); ABG PO2 75 MMHG (79-93); ABG TCO2 30.6 MMOL/L (21.0-31.0)
[2019-06-04 03:24] LABS: BASOPHILS % (AUTO) 0 % (0-10); EOSINOPHILS # (AUTO) 0.1 10^3/uL (0.0-0.3); EOSINOPHILS % (AUTO) 1 % (0-10); HEMATOCRIT 29 % (40-54); HEMOGLOBIN 8.7 G/DL (13.3-17.7); LYMPHOCYTES # (AUTO) 1.2 X 10^3 (1.0-4.0); LYMPHOCYTES % (AUTO) 8 % (12-44); MEAN CORPUSCULAR HEMOGLOBIN 31 PG (25-34); MEAN CORPUSCULAR HGB CONC 30 G/DL (32-36); MEAN CORPUSCULAR VOLUME 102 FL (80-99); MEAN PLATELET VOLUME 9.7 FL (7.4-10.4); MONOCYTES # (AUTO) 0.6 X 10^3 (0.0-1.0); MONOCYTES % (AUTO) 3 % (0-12); NEUTROPHILS # (AUTO) 14.5 X 10^3 (1.8-7.8); NEUTROPHILS % (AUTO) 88 % (42-75); PLATELET COUNT 171 10^3/uL (130-400); RED CELL DISTRIBUTION WIDTH 15.1 % (10.0-14.5); WHITE BLOOD COUNT 16.4 10^3/uL (4.3-11.0)
[2019-06-04 03:24] LABS: ALLENS TEST POSITIVE; INSPIRED O2 17; PATIENT TEMP 36.8; VENTILATOR YES
[2019-06-04 03:43] LABS: BAND NEUTROPHILS 9 %; BASOPHILS % (MANUAL) 0 %; EOSINOPHILS % (MANUAL) 0 %; LYMPHOCYTES % (MANUAL) 4 %; MONOCYTES % (MANUAL) 1 %; NEUTROPHILS % (MANUAL) 86 %
[2019-06-04 03:44] LABS: ANISOCYTOSIS SLIGHT; ELLIPT/OVALOCYTES SLIGHT; HYPOCHROMASIA SLIGHT; MICROCYTOSIS SLIGHT; POIKILOCYTOSIS SLIGHT; POLYCHROMASIA SLIGHT; SCHISTOCYTES SLIGHT; TOXIC GRANULATION/VACUOLAZATIO 1+
[2019-06-04 03:45] LABS: ALBUMIN 2.7 GM/DL (3.2-4.5); BILIRUBIN,TOTAL 0.5 MG/DL (0.1-1.0); CALCIUM 7.8 MG/DL (8.5-10.1); CREATININE SERUM 1.41 MG/DL (0.60-1.30); MAGNESIUM 3.5 MG/DL (1.6-2.4); PHOSPHORUS 4.2 MG/DL (2.3-4.7); POTASSIUM 4.7 MMOL/L (3.6-5.0); TOTAL PROTEIN 5.4 GM/DL (6.4-8.2)
--- NOTE | 2019-06-04 03:58 | Pulmonary Progress Note ---
CHITRA MCLAIN MEDICAL STUDENT 06/04/19 0358: Subjective Date Seen by a Provider: Jun 04, 2019 Time Seen by a Provider: 03:30 Subjective/Events-last exam Pt remains sedated, on vent. Nurse reports still no BMs. Pt does not appear to digesting much. NG suction shows 500 mL of gastric contents from last 5 hours. Review of Systems Unable to obtain due to sedation Sepsis Event Evaluation Height, Weight, BMI Height: 5'9.00" Weight: 211lbs. 0.0oz. [id number]; 28.08 BMI Method: Exam Exam Vital Signs Date Time Temp Pulse Resp B/P (MAP) Pulse Ox O2 Delivery O2 Flow Rate FiO2 06/04/19 03:19 Mechanical Ventilator 30.00 06/04/19 03:00 70 17 168/57 (94) 93 Mechanical Ventilator 35.00 06/04/19 02:00 73 16 177/61 (99) 94 Mechanical Ventilator 35.00 06/04/19 01:56 72 17 95 35 06/04/19 01:40 Mechanical Ventilator 35.00 06/04/19 01:00 71 06/04/19 01:00 70 17 172/62 (98) 97 Mechanical Ventilator 40.00 06/04/19 00:18 36.6 06/04/19 00:00 93 Mechanical Ventilator 40 06/04/19 00:00 71 16 156/56 (89) 95 Mechanical Ventilator 40.00 06/03/19 23:00 72 17 150/52 (84) 96 Mechanical Ventilator 40.00 06/03/19 22:17 71 143/52 06/03/19 22:00 71 16 139/50 (79) 95 Mechanical Ventilator 40.00 06/03/19 21:29 68 19 93 35 06/03/19 21:00 68 14 124/47 (72) 95 Mechanical Ventilator 40.00 06/03/19 20:00 93 Mechanical Ventilator 40 06/03/19 20:00 71 17 132/48 (76) 96 Mechanical Ventilator 40.00 06/03/19 19:56 36.8 06/03/19 19:00 71 15 127/46 (73) 95 Mechanical Ventilator 40.00 06/03/19 19:00 72 06/03/19 18:00 73 18 121/43 (69) 95 Mechanical Ventilator 40.00 06/03/19 17:00 74 16 113/42 (65) 96 Mechanical Ventilator 40.00 06/03/19 16:30 93 Mechanical Ventilator 40 06/03/19 16:00 36.4 06/03/19 16:00 77 21 106/37 (60) 94 Mechanical Ventilator 40.00 06/03/19 15:00 122 29 101/69 (80) 95 Mechanical Ventilator 40.00 06/03/19 14:16 76 21 93 40 06/03/19 14:00 76 21 91/34 (53) 94 Mechanical Ventilator 40.00 06/03/19 13:00 83 20 106/38 (60) 92 Mechanical Ventilator 40.00 06/03/19 12:52 81 06/03/19 12:00 89 26 117/43 (67) 93 Mechanical Ventilator 40.00 06/03/19 12:00 93 Mechanical Ventilator 40 06/03/19 11:58 Mechanical Ventilator 40.00 06/03/19 11:47 81 21 97 60 06/03/19 11:00 81 21 98/38 (58) 94 Mechanical Ventilator 60.00 06/03/19 10:00 80 18 102/39 (60) 95 Mechanical Ventilator 60.00 06/03/19 09:00 92 24 144/39 (74) 93 Mechanical Ventilator 60.00 06/03/19 08:22 Mechanical Ventilator 60.00 06/03/19 08:00 94 Mechanical Ventilator 60 06/03/19 08:00 81 26 118/38 (64) 88 Mechanical Ventilator 50.00 06/03/19 07:28 36.7 06/03/19 07:04 75 22 88 40 06/03/19 07:00 73 06/03/19 07:00 73 19 106/36 (59) 89 Mechanical Ventilator 40.00 06/03/19 06:00 70 20 101/35 (57) 90 Mechanical Ventilator 40.00 06/03/19 05:13 68 06/03/19 05:00 70 17 101/33 (55) 90 Mechanical Ventilator 40.00 06/03/19 04:00 66 17 92/32 (52) 96 Mechanical Ventilator 40.00 I & O 06/04/19 07:00 Intake Total 2290 ml Output Total 1400 ml Balance 890 ml Height & Weight Height: 5'9.00" Weight: 211lbs. 0.0oz. [id number]; 28.08 BMI Method: General Appearance: Other (INTUBATED, DOES NOT APPEAR TO BE IN DISTRESS) HEENT: No Scleral Icterus (L), No Scleral Icterus (R); Other (ENDOTRACHEAL TUBE IN PLACE) Neck: Supple, Other (central line in place) Respiratory: Lungs Clear, Normal Breath Sounds Cardiovascular: Regular Rate, Rhythm, Other (diffusely edematous) Capillary Refill: Less Than 3 Seconds Peripheral Pulses: 1+ Dorsalis Pedis (R), 1+ Left Dors-Pedis (L) Gastrointestinal: abnormal bowel sounds (hypoactive), distended (distention improved from yesterday) Extremity: Pedal Edema (TRACE ON RIGHT FOOT, SCD'S IN PLACE), Swelling (di ffusely edematous) Neurologic/Psychiatric: Other (INTUBATED AND SEDATED) Skin: Normal Color, Warm/Dry Lymphatic: No Adenopathy Results Lab Laboratory Tests 06/03/19 02:30 06/04/19 03:09 Assessment/Plan Assessment/Plan Acute worsening respiratory failure with pneumonia and influenza -- PT was intubated 05/30 -Continue vent therapy -Decrease RR to 14 -Will do a sedation vacation with weaning trial -CXR now improved Severe sepsis with pneumonia and influenza -Abx changed to Merrem 06/02 secondary to culture results -Tamiflu course completed, no longer febrile -IVF - decrease to 30 -engel cultures -MRSA nasal swab -- is negative -urine strep and legionella Ag negative Ileus r/o obstruction -repeat KUB at 0830 -Continue reglan 10mg IV BID -Hold TF -Hold Fentanyl gtt Metabolic lactic acidosis -Monitor -Now metabolic alkalosis Acute renal failure -IVF and monitor Hypophos -replace Hypermagnesemia -monitor LORENZO LOZANO DO 06/04/19 0515: Subjective Time Seen by a Provider: 05:10 Exam Exam General Appearance: Other (INTUBATED, DOES NOT APPEAR TO BE IN DISTRESS) HEENT: No Scleral Icterus (L), No Scleral Icterus (R); Other (ENDOTRACHEAL TUBE IN PLACE) Neck: Other (central line in place) Respiratory: Lungs Clear, Normal Breath Sounds Cardiovascular: Other (diffusely edematous) Gastrointestinal: abnormal bowel sounds (hypoactive), distended (distention improved from yesterday) Extremity: Pedal Edema (TRACE ON RIGHT FOOT, SCD'S IN PLACE), Swelling (diffusely edematous) Skin: Normal Color, Warm/Dry Lymphatic: No Adenopathy Assessment/Plan Assessment/Plan Acute worsening respiratory failure with pneumonia and influenza -- PT was intubated 05/30 -Continue vent therapy -Decrease RR to 14 -Will do weaning trial -CXR now improved Severe sepsis with pneumonia and influenza -Abx changed to Merrem 06/02 secondary to culture results -Tamiflu course completed, no longer febrile -IVF - decrease to 30 -engel cultures -MRSA nasal swab -- is negative -urine strep and legionella Ag negative Worsening leukocytosis -Repeat engel cultures and d/c solumedrol Ileus r/o obstruction -repeat KUB at 0830 -Continue reglan 10mg IV BID -Hold TF -Hold Fentanyl gtt Metabolic lactic acidosis -Monitor -Now metabolic alkalosis Acute renal failure -IVF and monitor Hypophos -replace Hypermagnesemia -monitor -D/C mylanta Supervisory-Addendum Brief Verification & Attestation Participated in pt care: history, physical Personally performed: exam, history Care discussed with: Medical Student Procedures: n/a Verification and Attestation of Medical Student E/M Service A medical student performed and documented this service in my presence. I reviewed and verified all information documented by the medical student and made modifications to such information, when appropriate. I personally performed the physical exam and medical decision making. Lorenzo Lozano, Jun 04, 2019,05:25 CHITRA MCLAIN MEDICAL STUDENT Jun 04, 2019 03:58 LORENZO LOZANO DO Jun 04, 2019 05:15
[2019-06-04] MEDS: MAGNESIUM 1 GM/100 ML IVPB 100 ML IV SCH (05:36)
[2019-06-04] MEDS: POTASSIUM CL 10MEQ/50ML IVPB 50 ML IV SCH (05:36)
[2019-06-04] MEDS: KCL 20 MEQ TAB (K-DUR) PO SCH (05:36)
--- NOTE | 2019-06-04 07:28 | Diagnostic Imaging Report ---
INDICATION: Dyspnea. COMPARISON: 06/03/2019 TECHNIQUE: Single radiograph of the chest dated 06/04/2019. FINDINGS: Post surgical changes of a CABG, endotracheal tube, enteric catheter, and right IJ central venous catheter appear stable. The cardiac silhouette is enlarged, though stable. Bilateral mixed interstitial and airspace opacities are again identified, appearing minimally improved since the prior examination. No pneumothorax. No large-volume pleural effusion. Osseous structures are stable. IMPRESSION: Very minimally improved though persistent extensive bilateral mixed airspace and interstitial opacities. Persistent cardiomegaly. Unchanged lines and tubes. Dictated by: Dictated on workstation # [id number]
--- NOTE | 2019-06-04 07:55 | Occ Therapy Progress Note ---
Therapy Progress Note Pt remains on mechanical ventilation per DO notes this am. OT to hold therapy on this date until pt able to participate in skilled therapy tx. REYNA RAUSCH OTR Jun 04, 2019 07:55
--- NOTE | 2019-06-04 08:09 | Physical Therapy Progress Note ---
Therapy Progress Note Pt remains on mechanical ventilation per DO notes this am. PT to hold therapy on this date until pt able to participate in skilled therapy tx. TORITO EMTZ PT Jun 04, 2019 08:09
--- NOTE | 2019-06-04 08:43 | Progress Note ---
Subjective Subjective Date Seen by Provider: Jun 04, 2019 Time Seen by Provider: 08:20 INFLUENZA, PNEUMONIA, COPD, NON ST KS, INTUBATED (PT AGREED TO SHORT TERM ONLY) PT IN ROOM ON VENT OPENS EYES TO VOICE. HE INDICATED THAT HE UNDERSTOOD THAT I WAS TELLING HIM THAT WE WERE PLANNING ON TAKING OUT THE VENTILATOR TUBE THIS MORNING. FAMILY NOT IN ROOM Review of Systems ROS Unable to Obtain: PT INTUBATED General: Other (INTUBATED) Neurological: Other (INTUBATED AND SEDATED) All Other Systems Reviewed All Other Systems Reviewed: Yes Objective Exam Vital Signs Vital Signs - First Documented 05/29/19 14:18 FiO2 40 Capillary Refill : Less Than 3 Seconds General Appearance: Chronically ill, Other (INTUBATED) Eyes: Bilateral Eye Normal Inspection, Bilateral Eye PERRL, Bilateral Eye EOMI HEENT: PERRL/EOMI, Normal ENT Inspection Neck: Supple Respiratory: Crackles, Decreased Breath Sounds Cardiovascular: Regular Rate, Rhythm Gastrointestinal: Non Tender, Soft, Distended; No Tenderness Rectal: Deferred Extremity: Normal Capillary Refill Neurologic/Psychiatric: Other (INTUBATED) Skin: Normal Color, Warm/Dry Lymphatic: No Adenopathy Results Lab Laboratory Tests 06/03/19 13:03: Glucometer 104 06/03/19 17:56: Glucometer 128H 06/04/19 03:09: White Blood Count 16.4H, Red Blood Count 2.83L, Hemoglobin 8.7L, Hematocrit 29L, Mean Corpuscular Volume 102H, Mean Corpuscular Hemoglobin 31, Mean Corpuscular Hemoglobin Concent 30L, Red Cell Distribution Width 15.1H, Platelet Count 171, Mean Platelet Volume 9.7, Neutrophils (%) (Auto) 88H, Lymphocytes (%) (Auto) 8L, Monocytes (%) (Auto) 3, Eosinophils (%) (Auto) 1, Basophils (%) (Auto) 0, Neutrophils # (Auto) 14.5H, Lymphocytes # (Auto) 1.2, Monocytes # (Auto) 0.6, Eosinophils # (Auto) 0.1, Basophils # (Auto) 0.0, Neutrophils % (Manual) 86, Lymphocytes % (Manual) 4, Monocytes % (Manual) 1, Eosinophils % (Manual) 0, Basophils % (Manual) 0, Band Neutrophils 9, Toxic Granulation 1+, Polychromasia SLIGHT, Hypochromasia SLIGHT, Poikilocytosis SLIGHT, Anisocytosis SLIGHT, Microcytosis SLIGHT, Macrocytosis SLIGHT, Elliptocytes SLIGHT, Schistocytes SLIGHT, Sodium Level 141, Potassium Level 4.7, Chloride Level 105, Carbon D ioxide Level 28, Anion Gap 8, Blood Urea Nitrogen 49H, Creatinine 1.41H, Estimat Glomerular Filtration Rate 49, BUN/Creatinine Ratio 35, Glucose Level 107H, Calcium Level 7.8L, Corrected Calcium 8.8, Phosphorus Level 4.2, Magnesium Level 3.5H, Total Bilirubin 0.5, Aspartate Amino Transf (AST/SGOT) 85H, Alanine Aminotransferase (ALT/SGPT) 167H, Alkaline Phosphatase 67, Total Protein 5.4L, Albumin 2.7L 06/04/19 03:18: Blood Gas Puncture Site LEFT ART LINE, Blood Gas Patient Temperature 36.8, Arterial Blood pH 7.46H, Arterial Blood Partial Pressure CO2 42, Arterial Blood Partial Pressure O2 75L, Arterial Blood HCO3 29H, Arterial Blood Total CO2 30.6, Arterial Blood Oxygen Saturation 92L, Arterial Blood Base Excess 5.4H, Sundeep Test POSITIVE, Blood Gas Ventilator Setting YES, Blood Gas Inspired Oxygen 17 Microbiology 05/30/19 Gram Stain - Final, Resulted 05/30/19 Sputum Culture - Preliminary, Resulted Aerobic actinomycetes See Comments YEAST 05/28/19 Blood Culture - Final, Complete No growth Assessment/Plan Assessment/Plan Admission Dx SEVERE SEPSIS RESPIRATORY FAILURE WITH LACTIC ACIDOSIS INFLUENZA PNEUMONIA CHRONIC PULMONARY FIBROSIS COPD ACUTE ON CHRONIC RENAL FAILURE NON-ST KS CHRONIC DEPRESSION LEUKOCYTOSIS ANEMIA CONSTIPATION ELEVATED LFT'S RESPIRATORY FAILURE WITH LACTIC ACIDOSIS AND NOW RESOLVED SEVERE SEPSIS SHORT TERM INTUBATION ON 05/30/2019: INFLUENZA AND PNEUMONIA WITH CHRONIC PULMONARY FIBROSIS AND COPD - PT HAS COMPLETED TAMIFLU FOR TREATMENT OF THE FLU - LAST DOSE GIVEN 06/02/2019 - PT ON MEROPENEM - EXTUBATION PLANNED FOR TODAY ACUTE ON CHRONIC RENAL FAILURE - RESOLVED - CONTINUE WITH IV FLUIDS, RENALLY ADJUST MEDICATIONS NEEDED. NON-ST KS - DEFER TO CARDIOLOGY - PT HAD SO MUCH PULMONARY DISTRESS THAT THIS CAUSED HIS SEVERE TROPONIN ELEVATION. WILL WATCH PT CLOSELY WE NAVIGATE HEALING FROM HIS PULMONARY ISSUES. CHRONIC DEPRESSION - RESTARTED CYMBALTA - ON HOLD DUE TO HIS VENTILATOR STATUS LEUKOCYTOSIS -IMPROVED - SUSPECT DUE TO STEROID USE, CONTINUE TO MONITOR SYMPTOMS AND LABS ANEMIA -STABLE STATUS POST BLOOD TRANSFUSION ON 05/29/2019 - CONTINUE TO MONITOR LABS. ELEVATED LFT'S - DUE TO SHOCK - CONTINUE WITH CURRENT MANAGEMENT - LFT'S STABLE COMPARED TO WEEKEND LABS. CONSTIPATION - NO BM DOCUMENTED FOR SEVERAL DAYS - DULCOLAX DID NOT PRODUCE RESULTS, HE WAS THEN STARTED ON LACTULOSE AND COLACE THROUGH NG TUBE - HOPEFULLY WILL HAVE RESULTS WITH ENEMA TODAY. CONTINUE TO EXPECT SEVERAL MORE DAYS IN THE ICU - DEFER EXTUBATION PLANS TO DR. CULLEN Problems: (1) Acute respiratory failure with hypoxia (2) Endotracheally intubated (3) Severe sepsis (4) Pneumonia Qualifiers: Qualified Codes: J18.9 - Pneumonia, unspecified organism (5) Influenza (6) Lactic acidosis (7) Acute kidney injury superimposed on chronic kidney disease (8) (HFpEF) heart failure with preserved ejection fraction (9) Non-ST elevation KS (NSTEMI) Admission Dx RESPIRATORY FAILURE WITH LACTIC ACIDOSIS INFLUENZA PNEUMONIA CHRONIC PULMONARY FIBROSIS COPD ACUTE ON CHRONIC RENAL FAILURE NON-ST KS CHRONIC DEPRESSION LEUKOCYTOSIS ANEMIA CONSTIPATION ELEVATED LFT'S RESPIRATORY FAILURE WITH LACTIC ACIDOSIS PT AGREED TO SHORT TERM INTUBATION ON 05/30/2019: INFLUENZA AND PNEUMONIA WITH CHRONIC PULMONARY FIBROSIS AND COPD - PT HAS COMPLETED TAMIFLU FOR TREATMENT OF THE FLU - LAST DOSE GIVEN 06/02/2019 - PT IS ON AZITHROMYCIN AND CEFEPIME, ANTIFUNGAL, STEROIDS - CONTINUE WITH CURRENT MANAGEMENT INITIATED IN ER AND BY DR. CULLEN. ACUTE ON CHRONIC RENAL FAILURE - RESOLVED - CONTINUE WITH IV FLUIDS, RENALLY ADJUST MEDICATIONS NEEDED. NON-ST KS - DEFER TO CARDIOLOGY - PT HAD SO MUCH PULMONARY DISTRESS THAT THIS CAUSED HIS SEVERE TROPONIN ELEVATION. WILL WATCH PT CLOSELY WE NAVIGATE HEALING FROM HIS PULMONARY ISSUES. CHRONIC DEPRESSION - RESTARTED CYMBALTA LEUKOCYTOSIS -IMPROVED - SUSPECT DUE TO STEROID USE, CONTINUE TO MONITOR SYMPTOMS AND LABS ANEMIA -STABLE AT 9.5 - THIS IS STATUS POST BLOOD TRANSFUSION ON 05/29/2019 - CONTINUE TO MONITOR LABS. ELEVATED LFT'S - DUE TO SHOCK - CONTINUE WITH CURRENT MANAGEMENT - LFT'S HAVE IMPROVED COMPARED TO LABS OVER THE WEEKEND. CONSTIPATION - NO BM DOCUMENTED FOR SEVERAL DAYS - DULCOLAX DID NOT PRODUCE RESULTS, HE WAS THEN STARTED ON LACTULOSE AND COLACE THROUGH NG TUBE. - WILL GIVE A DOSE OF RELISTOR TODAY DUE TO HIS RECENT FENTANYL DOSING FOR HIS CHRONIC BACK PAIN WHILE HE HAS BEEN INTUBATED - HOPEFULLY THIS WILL AUGMENT HIS BOWEL FUNCTION RETURNING - CHECK KUB TODAY - THIS HAS BEEN ORDERED PORTABLE 1 VIEW DUE TO HIS INTUBATED STATUS CONTINUE TO EXPECT SEVERAL MORE DAYS IN THE ICU - DEFER EXTUBATION PLANS TO DR. CULLEN Clinical Quality Measures Admission Status Admission Dx RESPIRATORY FAILURE WITH LACTIC ACIDOSIS INFLUENZA PNEUMONIA CHRONIC PULMONARY FIBROSIS COPD ACUTE ON CHRONIC RENAL FAILURE NON-ST KS CHRONIC DEPRESSION LEUKOCYTOSIS ANEMIA CONSTIPATION ELEVATED LFT'S RESPIRATORY FAILURE WITH LACTIC ACIDOSIS PT AGREED TO SHORT TERM INTUBATION ON 05/30/2019: INFLUENZA AND PNEUMONIA WITH CHRONIC PULMONARY FIBROSIS AND COPD - PT HAS COMPLETED TAMIFLU FOR TREATMENT OF THE FLU - LAST DOSE GIVEN 06/02/2019 - PT IS ON AZITHROMYCIN AND CEFEPIME, ANTIFUNGAL, STEROIDS - CONTINUE WITH CURRENT MANAGEMENT INITIATED IN ER AND BY DR. CULLEN. ACUTE ON CHRONIC RENAL FAILURE - RESOLVED - CONTINUE WITH IV FLUIDS, RENALLY ADJUST MEDICATIONS NEEDED. NON-ST KS - DEFER TO CARDIOLOGY - PT HAD SO MUCH PULMONARY DISTRESS THAT THIS CAUSED HIS SEVERE TROPONIN ELEVATION. WILL WATCH PT CLOSELY WE NAVIGATE HEALING FROM HIS PULMONARY ISSUES. CHRONIC DEPRESSION - RESTARTED CYMBALTA LEUKOCYTOSIS -IMPROVED - SUSPECT DUE TO STEROID USE, CONTINUE TO MONITOR SYMPTOMS AND LABS ANEMIA -STABLE AT 9.5 - THIS IS STATUS POST BLOOD TRANSFUSION ON 05/29/2019 - CONTINUE TO MONITOR LABS. ELEVATED LFT'S - DUE TO SHOCK - CONTINUE WITH CURRENT MANAGEMENT - LFT'S HAVE IMPROVED COMPARED TO LABS OVER THE WEEKEND. CONSTIPATION - NO BM DOCUMENTED FOR SEVERAL DAYS - DULCOLAX DID NOT PRODUCE RESULTS, HE WAS THEN STARTED ON LACTULOSE AND COLACE THROUGH NG TUBE. - WILL GIVE A DOSE OF RELISTOR TODAY DUE TO HIS RECENT FENTANYL DOSING FOR HIS CHRONIC BACK PAIN WHILE HE HAS BEEN INTUBATED - HOPEFULLY THIS WILL AUGMENT HIS BOWEL FUNCTION RETURNING - CHECK KUB TODAY - THIS HAS BEEN ORDERED PORTABLE 1 VIEW DUE TO HIS INTUBATED STATUS CONTINUE TO EXPECT SEVERAL MORE DAYS IN THE ICU - DEFER EXTUBATION PLANS TO DR. CULLEN DVT/VTE Risk/Contraindication: Risk Factor Score Per Nursin RFS Level Per Nursing on Admit: 4+=Very High DEANDRA MOTA MD Jun 04, 2019 08:43
[2019-06-04] MEDS: DULoxetine 20 MG (CYMBALTA) CAP PO SCH (08:46)
[2019-06-04] MEDS: ASPIRIN E.C. 81 MG (ECOTRIN) TAB PO SCH (08:46)
[2019-06-04] MEDS: CLOPIDOGREL 75 MG (PLAVIX) TABLET PO SCH (08:46)
[2019-06-04] MEDS: DOCUSATE SODIUM 100 MG (COLACE) CAP PO SCH ×2 (08:46→20:08)
[2019-06-04] MEDS: doxAzosin 4 MG (CARDURA) TAB PO SCH (08:46)
[2019-06-04] MEDS: LACTULOSE SYRUP 10GM/15ML (ENULOSE) 30ML UDC PO SCH ×2 (08:46→20:08)
[2019-06-04] MEDS: meTOprolol TARTRATE 50 MG (LOPRESSOR) TAB PO SCH ×2 (08:46→20:11)
[2019-06-04] MEDS: lisINopril 20 MG (PRINIVIL) TABLET PO SCH (08:46)
[2019-06-04] MEDS: METOCLOPRAMIDE INJ 10 MG/2 ML (REGLAN) IVP SCH ×2 (08:46→20:43)
[2019-06-04] MEDS: PANTOPRAZOLE 40 MG (PROTONIX) VIAL IV SCH (08:46)
[2019-06-04] MEDS: LIDOCAINE 4% (SALONPAS) PATCH TOP SCH (08:47)
--- NOTE | 2019-06-04 09:56 | Progress Note - Cardiology ---
Cardiology SOAP Progress Note Subjective: Responsive and follows commands, but still unable to communicate due to intubated status Objective: I&O/Vital Signs 06/03/19 06/03/19 06/03/19 06/04/19 22:00 22:17 23:00 00:00 Pulse 71 71 72 71 Resp 16 17 16 B/P (MAP) 139/50 (79) 143/52 150/52 (84) 156/56 (89) Pulse Ox 95 96 95 O2 Delivery Mechanical Ventilator Mechanical Ventilator Mechanical Ventilator O2 Flow Rate 40.00 40.00 40.00 06/04/19 06/04/19 06/04/19 06/04/19 00:00 00:18 01:00 01:00 Temp 36.6 Pulse 70 71 Resp 17 B/P (MAP) 172/62 (98) Pulse Ox 93 97 O2 Delivery Mechanical Ventilator Mechanical Ventilator O2 Flow Rate 40.00 FiO2 40 06/04/19 06/04/19 06/04/19 06/04/19 01:40 01:56 02:00 03:00 Pulse 72 73 70 Resp 17 16 17 B/P (MAP) 177/61 (99) 168/57 (94) Pulse Ox 95 94 93 O2 Delivery Mechanical Ventilator Mechanical Ventilator Mechanical Ventilator O2 Flow Rate 35.00 35.00 35.00 FiO2 35 06/04/19 06/04/19 06/04/19 06/04/19 03:19 04:00 04:00 05:00 Pulse 69 69 Resp 28 23 B/P (MAP) 160/56 (90) 170/60 (96) Pulse Ox 92 93 93 O2 Delivery Mechanical Ventilator Mechanical Ventilator Mechanical Ventilator Mechanical Ventilator O2 Flow Rate 30.00 30.00 30.00 FiO2 30 06/04/19 06/04/19 06/04/19 06/04/19 06:00 06:54 07:00 07:00 Pulse 69 72 70 73 Resp 17 16 17 B/P (MAP) 163/55 (91) 156/51 (86) Pulse Ox 91 91 91 O2 Delivery Mechanical Ventilator Mechanical Ventilator O2 Flow Rate 30.00 30.00 FiO2 35 06/04/19 06/04/19 06/04/19 08:00 09:00 09:38 Pulse 75 80 Resp 18 18 B/P (MAP) 151/59 (89) 181/56 (97) Pulse Ox 90 90 O2 Delivery Mechanical Ventilator Mechanical Ventilator O2 Flow Rate 30.00 30.00 FiO2 35 06/04/19 00:00 Intake Total 1220 ml Output Total 650 ml Balance 570 ml Weight (Pounds): 211 Weight (Ounces): 0.0 Weight (Calculated Kilograms): [id number] Constitutional: well-developed, well-nourished, other (On mech vent, responisve, unable to communicate) Respiratory: chest expansion is symmetric, chest is bilaterally symmetric, crackles, other Cardiovascular: regular rate-rhythm, S1 and S2 Gastrointestional: distended, audible bowel sounds Genital/Rectal: other (scrotal edema; urinary catheter to DD with cl yellow urine) Extremities: no lower extremity edema bilateral Neurologic/Psychiatric: other (On mech vent, responsive, unable to communicate) Skin: No rash on exposed areas, No ulcerations on exposed areas Results/Procedures: Labs Laboratory Tests 06/03/19 13:03: Glucometer 104 06/03/19 17:56: Glucometer 128H 06/04/19 03:09: White Blood Count 16.4H, Red Blood Count 2.83L, Hemoglobin 8.7L, Hematocrit 29L, Mean Corpuscular Volume 102H, Mean Corpuscular Hemoglobin 31, Mean Corpuscular Hemoglobin Concent 30L, Red Cell Distribution Width 15.1H, Platelet Count 171, Mean Platelet Volume 9.7, Neutrophils (%) (Auto) 88H, Lymphocytes (%) (Auto) 8L, Monocytes (%) (Auto) 3, Eosinophils (%) (Auto) 1, Basophils (%) (Auto) 0, Neutrophils # (Auto) 14.5H, Lymphocytes # (Auto) 1.2, Monocytes # (Auto) 0.6, Eosinophils # (Auto) 0.1, Basophils # (Auto) 0.0, Neutrophils % (Manual) 86, Lymphocytes % (Manual) 4, Monocytes % (Manual) 1, Eosinophils % (Manual) 0, Basophils % (Manual) 0, Band Neutrophils 9, Toxic Granulation 1+, Polychromasia SLIGHT, Hypochromasia SLIGHT, Poikilocytosis SLIGHT, Anisocytosis SLIGHT, Microcytosis SLIGHT, Macrocytosis SLIGHT, Elliptocytes SLIGHT, Schistocytes SLIGHT, Sodium Level 141, Potassium Level 4.7, Chloride Level 105, Carbon Dioxide Level 28, Anion Gap 8, Blood Urea Nitrogen 49H, Creatinine 1.41H, Estimat Glomerular Filtration Rate 49, BUN/Creatinine Ratio 35, Glucose Level 107H, Calcium Level 7.8L, Corrected Calcium 8.8, Phosphorus Level 4.2, Magnesium Level 3.5H, Total Bilirubin 0.5, Aspartate Amino Transf (AST/SGOT) 85H, Alanine Aminotransferase (ALT/SGPT) 167H, Alkaline Phosphatase 67, Total Protein 5.4L, Albumin 2.7L 06/04/19 03:18: Blood Gas Puncture Site LEFT ART LINE, Blood Gas Patient Temperature 36.8, Arterial Blood pH 7.46H, Arterial Blood Partial Pressure CO2 42, Arterial Blood Partial Pressure O2 75L, Arterial Blood HCO3 29H, Arterial Blood Total CO2 30.6, Arterial Blood Oxygen Saturation 92L, Arterial Blood Base Excess 5.4H, Sundeep Test POSITIVE, Blood Gas Ventilator Setting YES, Blood Gas Inspired Oxygen 17 Microbiology 05/30/19 Gram Stain - Final, Resulted 05/30/19 Sputum Culture - Preliminary, Resulted Aerobic actinomycetes See Comments YEAST 05/28/19 Blood Culture - Final, Complete No growth Laboratory Tests 06/03/19 02:30 06/04/19 03:09 A/P: Assessment: Ac resp failure (multifactorial, see below) Severe sepsis; presented with septic shock Influenza A NSTEMI, unclear if type 1 or type 2 EMA-3, likely due to ATN due to hypotension due to septic shock, resolved. Now seems to have pre-renal azotemia due to intravascular volume depletion Anemia of undetermined etiology Chronic resp failure due to interstitial lung disease / pulmonary fibrosis CAD and ischemic cardiomyopathy - H/o 4-vessel CABG in 1998 at [facility] in [place], [place] by Dr. Magana Echo of 05/29/19: LVEF 40-45%, basal inferior hypokinesis, RVSP 18 mmHg, mod MR H/o carotid dz bilat - followed by Dr. Rosa at [facility] Syncopal episodes, being followed by Dr. Rosa, [place]. Smith ([place] [facility] [place] Cort[place] Orthostatic hypotension - being followed by Dr. Rosa COPD H/O tobaccoism - quit 4 years ago HTN HLD Chronic back pain Plan: * Continue efforts at extubation * iv fluids * Monitor labs and correct them as needed CARINE PALOMINO MD FACP FAC CCDS Jun 04, 2019 09:55
[2019-06-04 10:01] LABS: BILIRUBIN,URINE NEGATIVE (NEGATIVE); CLARITY,URINE CLEAR; COLOR,URINE YELLOW; GLUCOSE, URINE (UA) NEGATIVE (NEGATIVE); KETONES,URINE NEGATIVE (NEGATIVE); LEUKOCYTE ESTERASE ,URINE NEGATIVE (NEGATIVE); NITRITE,URINE NEGATIVE (NEGATIVE); PH,URINE 6.5 (5-9); PROTEIN,URINE 2+ (NEGATIVE)
[2019-06-04] MEDS: ENOXAPARIN 40 MG/0.4 ML (LOVENOX) SYR SC SCH (10:01)
[2019-06-04] MEDS: ANIDULAFUNGIN INJECTION 100 MG in NS (IVPB) 100 ML IV SCH (10:01)
[2019-06-04 10:11] LABS: AMORPHOUS SEDIMENT,UR RARE AMOR URATES /LPF; BACTERIA,URINE TRACE /HPF; GRANULAR CASTS,URINE 0-2 /LPF; SQUAMOUS EPITHELIAL CELL,UR RARE /HPF
[2019-06-04 11:10] LABS: ABG OXYGEN SATURATION 90 % (94-100); ABG PCO2 42 MMHG (35-45); ABG PH 7.46 (7.37-7.43); ABG PO2 73 MMHG (79-93); ABG TCO2 31.1 MMOL/L (21.0-31.0)
[2019-06-04 11:11] LABS: ALLENS TEST YES-POS; INSPIRED O2 35%; PATIENT TEMP 37.4; VENTILATOR YES
[2019-06-04] MEDS: hydrALAZINE (APESOLINE) 20 MG/ML VIAL IV PRN ×3 (11:53→20:43)
--- NOTE | 2019-06-04 12:40 | NUR ---
PT EXTUBATED AT 1230. PT TOLERATED WELL. PT ON VAPOTHERM. O2 SAT 93%.
[2019-06-04] MEDS: fentaNYL INJECTION 100 MCG/2 ML AMP IV PRN ×3 (13:21→19:37)
--- NOTE | 2019-06-04 15:59 | ST Dysphagia Evaluation ---
Speech Evaluation-General Medical Diagnosis Respiratory Failure Onset Date: May 28, 2019 Therapy Diagnosis Therapy Diagnosis: Oropharyngeal dysphagia Precautions Precautions: Aspiration Referral Referring Physician: Dr. Lozano Reason for Referral: Evaluation/Treatment Medical History Reviewed History: Yes Social History Current Living Status: Speech PLF/Current-Dysphagia Prior Level of Function Unknown Subjective Patient was alert, pleasant, and cooperative for all evaluation tasks. Patient appropriately responded to clinician questions and followed one step directions with minimal cues. Patient sat upright in his bed for the duration of the evaluation. Cognitive Status Patient Orientation: Person, Place, Eyes Open, Situation Oral Motor Skills Dentition: Edentalous Current Food Consistancy: Regular Ability to Follow Directions: Good Oral Expression Ability: No Impairment Voice Voice Phonatory-Based Quality: Normal Voice Pitch: Normal Voice Loudness: Normal Face Facial Symmetry: Symmetrical Oral-Facial Assessment Oral-Facial Dentition: Normal Labial Seal Description: Normal Smile: Normal Lingual Protrusion: Normal Lingual ROM: Normal Lingual Strength: Normal Dysphagia Evaluation Consistencies Presented: Thin Liquid, Mechanical Soft, Pureed Oral Phase: Anterior Spillage (Initial anterior spillage with thin liquid via 1/2 tsp spoon, however was not present throughout the rest of the evaluation.) Funct. Velo/Pharyngeal Symptom: Clears Throat Dietary Recommendations: Mechanical Soft Liquid Recommendations: Thin Swallowing Precautions: Alternate Liquids/Solids, Double Swallow, Decreased Bolus 1/2 Tsp, Decreased Rate of Oral Intake, Liquids from Straw, Liquids from Spoon, Oral Supervision Staff, Small Bites and Sips, Sitting Upright 90 Degrees, Sitting 90 Degrees 30 Post Intake Dysphagia Evaluation Summary The patient is a 78-year-old male who was admitted to the ICU s/p respiratory failure. Patient was presented with thin liquid via 1/2 tsp spoon 2x's and straw 1x and presented with no s/s of penetration or aspiration. Anterior spillage was noted on the first spoon sip, however was not present throughout the rest of the evaluation. The patient was then presented with puree and mechanical soft consistencies via 1/2 tsp spoon 1x each. Patient demonstrated no s/s of penetration or aspiration with both consistencies. It is recommended that the patient receive a DYSPHAGIA II diet with thin liquids. The patient is to receive supervision with oral intake to insure safe and effective swallow. Additionally, the patient will utilize compensatory strategies of small bites and small sips, alternating liquids and solids, and sitting upright before, during, and after all oral intake. Barriers to Learning Current medical status Speech-Plan Patient/Family Goals Patient/Family Goals: Patient reported wanting to return to prior diet level. Treatment Plan Speech Therapy Treatment Plan: Discontinue ST Treatment Duration: Jun 04, 2019 Frequency: 1 time per week Estimated Hrs Per Day: .25 hour per day Rehab Potential: Good Barriers to Learning: Current medical status Pt/Family Agrees to Plan: Yes Safety Risks/Education Teaching Recipient: Patient Teaching Methods: Demonstration, Discussion Response to Teaching: Verbalize Understanding Education Topics Provided: Utilization of compensatory strategies during all oral intake as outlined in the evaluation summary Time Speech Therapy Time In: 15:05 Speech Therapy Time Out: 15:20 Total Billed Time: 15 Billed Treatment Time 1, ASHLEY Shannon Jun 04, 2019 15:59
--- NOTE | 2019-06-04 16:55 | NUR ---
THIS RN CONTACTED DR. MOTA REGARDING PT STOOLS. PT HAS HAD 5 LIQUID STOOLS SINCE ENEMA GIVEN. PT SCROTOM/ANCA AREA IS RED/BLOODY. DR. MOTA GAVE TELEPHONE ORDER FOR FLEXISEAL. NO FLEXISEALS ON FLOOR AT THIS TIME.
[2019-06-04] MEDS ORDERED: DexMEDEtomidine 250 ML DRIP 250 ML IV ONE (20:47)
[2019-06-04] MEDS: LIDOCAINE PATCH REMOVAL TP SCH (20:50)
[2019-06-04] MEDS ORDERED: DexMEDEtomidine 250 ML DRIP 250 ML IV SCH (21:00)
[2019-06-05] VITALS (25 sets, daily range): BP systolic 135–186; BP diastolic 35–56
[2019-06-05] MEDS: RT-ALBUTEROL/IPRATROPIUM 3 ML (DUONEB) VIAL INH SCH ×6 (02:30→22:31)
[2019-06-05 03:03] LABS: ABG BASE EXCESS 3.1 MMOL/L (-2.5-2.5); ABG OXYGEN SATURATION 99 % (94-100); ABG PCO2 39 MMHG (35-45); ABG PH 7.45 (7.37-7.43); ABG PO2 121 MMHG (79-93); ABG TCO2 28.3 MMOL/L (21.0-31.0); ALLENS TEST POS
[2019-06-05 03:04] LABS: INSPIRED O2 40%; PATIENT TEMP 36.1; VENTILATOR YES
[2019-06-05 03:04] LABS: BASOPHILS % (AUTO) 0 % (0-10); EOSINOPHILS # (AUTO) 0.2 10^3/uL (0.0-0.3); EOSINOPHILS % (AUTO) 1 % (0-10); HEMATOCRIT 29 % (40-54); HEMOGLOBIN 8.5 G/DL (13.3-17.7); LYMPHOCYTES % (AUTO) 7 % (12-44); MEAN CORPUSCULAR HEMOGLOBIN 30 PG (25-34); MEAN CORPUSCULAR HGB CONC 30 G/DL (32-36); MEAN CORPUSCULAR VOLUME 103 FL (80-99); MEAN PLATELET VOLUME 9.9 FL (7.4-10.4); MONOCYTES # (AUTO) 0.5 X 10^3 (0.0-1.0); MONOCYTES % (AUTO) 3 % (0-12); NEUTROPHILS # (AUTO) 13.1 X 10^3 (1.8-7.8); NEUTROPHILS % (AUTO) 89 % (42-75); PLATELET COUNT 178 10^3/uL (130-400); RED CELL DISTRIBUTION WIDTH 15.1 % (10.0-14.5); WHITE BLOOD COUNT 14.7 10^3/uL (4.3-11.0)
[2019-06-05] MEDS: MEROPENEM 500 MG/SWFI 10 ML IV PUSH IV SCH ×8 (03:26→22:17)
[2019-06-05 03:30] LABS: ALBUMIN 2.8 GM/DL (3.2-4.5); BILIRUBIN,TOTAL 0.8 MG/DL (0.1-1.0); CALCIUM 8.3 MG/DL (8.5-10.1); CREATININE SERUM 1.19 MG/DL (0.60-1.30); MAGNESIUM 3.4 MG/DL (1.6-2.4); PHOSPHORUS 3.6 MG/DL (2.3-4.7); POTASSIUM 4.9 MMOL/L (3.6-5.0); TOTAL PROTEIN 5.7 GM/DL (6.4-8.2)
[2019-06-05] MEDS: LACTATED RINGERS 1,000 ML IV SCH ×2 (03:31→13:10)
[2019-06-05] MEDS: KCL 20 MEQ TAB (K-DUR) PO SCH (03:52)
[2019-06-05] MEDS: MAGNESIUM 1 GM/100 ML IVPB 100 ML IV SCH (03:52)
[2019-06-05] MEDS: POTASSIUM CL 10MEQ/50ML IVPB 50 ML IV SCH (03:52)
--- NOTE | 2019-06-05 04:09 | Pulmonary Progress Note ---
CHITRA MCLAIN MEDICAL STUDENT 06/05/19 0409: Subjective Date Seen by a Provider: Jun 05, 2019 Time Seen by a Provider: 03:20 Subjective/Events-last exam Pt off vent and on BiPAP. Denies pain. Nurse reports the patient has had several bowel movements following Fleet's enema yesterday. Pt has failed initial speech therapy eval, so cannot restart anything PO yet. Review of Systems General: No Chills; Fatigue HEENT: No Head Aches, No Visual Changes Pulmonary: No Cough, No Pleuritic Chest Pain Cardiovascular: Edema; No: Chest Pain Gastrointestinal: No: Nausea, Abdominal Pain, Constipation Genitourinary: No Hematuria Sepsis Event Evaluation Height, Weight, BMI Height: 5'9.00" Weight: 211lbs. 0.0oz. [id number]; 28.08 BMI Method: Exam Exam Vital Signs Date Time Temp Pulse Resp B/P (MAP) Pulse Ox O2 Delivery O2 Flow Rate FiO2 06/05/19 03:32 92 NIV Bilevel 40 06/05/19 03:28 36.1 06/05/19 03:00 74 14 158/52 (87) 98 NIV Bilevel 40.00 06/05/19 02:32 NIV Bilevel 40.00 06/05/19 02:30 74 25 99 45.00 06/05/19 02:00 76 20 144/49 (80) 99 NIV Bilevel 45.00 06/05/19 01:00 73 18 135/51 (79) 99 NIV Bilevel 45.00 06/05/19 01:00 75 06/05/19 00:00 78 17 140/50 (80) 98 NIV Bilevel 45.00 06/04/19 23:27 92 NIV Bilevel 45 06/04/19 23:26 36.1 06/04/19 23:00 107 19 130/53 (78) 97 NIV Bilevel 45.00 06/04/19 22:00 106 16 116/50 (72) 97 NIV Bilevel 45.00 06/04/19 21:24 NIV Bilevel 45.00 06/04/19 21:22 114 14 97 45.00 06/04/19 21:00 123 20 126/49 (74) 97 NIV Bilevel 50.00 06/04/19 20:54 124 2/27/20 20:00 92 NIV Bilevel 60 06/04/19 20:00 104 17 185/51 (95) 98 NIV Bilevel 50.00 06/04/19 19:44 102 15 98 50.00 06/04/19 19:41 NIV Bilevel 50.00 06/04/19 19:15 36.2 06/04/19 19:00 110 06/04/19 19:00 112 17 175/49 (91) 98 NIV Bilevel 60.00 06/04/19 18:45 NIV Bilevel 60.00 06/04/19 18:30 120 17 98 60.00 06/04/19 18:00 109 19 176/58 (97) 90 Vapotherm 35.00 35.00 06/04/19 17:00 78 26 139/94 (109) Vapotherm 35.00 35.00 06/04/19 16:00 92 Vapotherm 45 06/04/19 16:00 101 27 151/29 (69) 90 Vapotherm 45.00 45.00 06/04/19 15:40 91 Vapotherm 30.00 35 06/04/19 15:15 36.6 06/04/19 15:00 102 21 175/47 (89) 95 Vapotherm 45.00 45.00 06/04/19 14:00 117 23 177/44 (88) 91 Vapotherm 45.00 45.00 06/04/19 13:00 102 18 193/55 (101) 93 Vapotherm 45.00 45.00 06/04/19 12:28 94 06/04/19 12:00 95 19 173/45 (87) 93 Mechanical Ventilator 30.00 06/04/19 12:00 93 Mechanical Ventilator 30 06/04/19 11:00 78 24 181/53 (95) 92 Mechanical Ventilator 30.00 06/04/19 10:13 23 91 35 06/04/19 10:00 80 24 168/53 (91) 92 Mechanical Ventilator 30.00 06/04/19 09:38 35 06/04/19 09:00 80 18 181/56 (97) 90 Mechanical Ventilator 30.00 06/04/19 08:00 93 Mechanical Ventilator 30 06/04/19 08:00 75 18 151/59 (89) 90 Mechanical Ventilator 30.00 06/04/19 07:00 73 06/04/19 07:00 70 17 156/51 (86) 91 Mechanical Ventilator 30.00 06/04/19 06:54 72 16 91 35 06/04/19 06:00 69 17 163/55 (91) 91 Mechanical Ventilator 30.00 06/04/19 05:00 69 23 170/60 (96) 93 Mechanical Ventilator 30.00 I & O0 06/05/19 06:59 Intake Total 370 ml Output Total 1400 ml Balance -1030 ml Height & Weight Height: 5'9.00" Weight: 211lbs. 0.0oz. 95.907990js; 28.08 BMI Method: General Appearance: Chronically ill, Mild Distress HEENT: Pharynx Normal; No Scleral Icterus (L), No Scleral Icterus (R) Neck: Full Range of Motion, Non Tender, Supple Respiratory: Chest Non Tender, Lungs Clear, Decreased Breath Sounds Cardiovascular: Regular Rate, Rhythm, No Murmur Capillary Refill: Less Than 3 Seconds Peripheral Pulses: 1+ Dorsalis Pedis (R), 1+ Left Dors-Pedis (L) Gastrointestinal: non tender, soft; No distended Extremity: Normal Capillary Refill, No Pedal Edema (improved), Swelling (but improved) Neurologic/Psychiatric: Alert, Oriented x3 Skin: Normal Color, Warm/Dry Lymphatic: No Adenopathy Results Lab Laboratory Tests 06/04/19 03:09 06/05/19 02:50 Assessment/Plan Assessment/Plan Acute worsening respiratory failure with pneumonia and influenza -- PT was intubated 05/30 -Continue vent therapy -Decrease RR to 14 -Will do weaning trial -CXR now improved -On BiPAP but requiring Precedex to decrease anxiety -Continue duonebs, restart Solumedrol Severe sepsis with pneumonia and influenza -Abx changed to Merrem 06/02 secondary to culture results -Tamiflu course completed, no longer febrile -IVF - decrease to 30 -engel cultures -MRSA nasal swab -- is negative -urine strep and legionella Ag negative -Repeat UA neg, continue Merrem and Eraxis Worsening leukocytosis -Repeat engel cultures and d/c solumedrol -WBC trending down, no fevers Ileus r/o obstruction -repeat KUB at 0830 -Continue reglan 10mg IV BID -Hold TF -Hold Fentanyl gtt -Several BMs following enema, abdominal distention improved Metabolic lactic acidosis -Monitor -Now metabolic alkalosis Acute renal failure -IVF and monitor -BUN remains elevated but creatinine improving Hypophos -replace Hypermagnesemia -monitor -D/C mylanta -No longer increasing, will continue to monitor LORENZO CULLEN DO 06/05/19 0502: Subjective Time Seen by a Provider: 05:00 Subjective/Events-last exam Pt is doing will off vent. Exam Exam General Appearance: Chronically ill, Mild Distress HEENT: Pharynx Normal; No Scleral Icterus (L), No Scleral Icterus (R) Neck: Full Range of Motion, Non Tender, Supple Respiratory: Chest Non Tender, Lungs Clear, Decreased Breath Sounds Cardiovascular: Regular Rate, Rhythm, No Murmur Gastrointestinal: non tender, soft; No distended Extremity: Normal Capillary Refill, No Pedal Edema (improved) Neurologic/Psychiatric: Alert, Oriented x3 Skin: Normal Color, Warm/Dry Lymphatic: No Adenopathy Assessment/Plan Assessment/Plan Acute worsening respiratory failure with pneumonia and influenza -- PT was intubated 05/30 -Continue vent therapy -Decrease RR to 14 -Will do weaning trial -CXR now improved -On BiPAP but requiring Precedex to decrease anxiety -Continue duonebs, restart Solumedrol Severe sepsis with pneumonia and influenza -Abx changed to Merrem 06/02 secondary to culture results -Tamiflu course completed, no longer febrile -IVF - decrease to 30 -engel cultures -MRSA nasal swab -- is negative -urine strep and legionella Ag negative -Repeat UA neg, continue Merrem and Eraxis Worsening leukocytosis -Repeat engel cultures and d/c solumedrol -WBC trending down, no fevers Ileus r/o obstruction -repeat KUB at 0830 -Continue reglan 10mg IV BID -Hold TF -Hold Fentanyl gtt -Several BMs following enema, abdominal distention improved Metabolic lactic acidosis -Monitor -Now metabolic alkalosis Acute renal failure -IVF and monitor -BUN remains elevated but creatinine improving Hypophos -replace Hypermagnesemia -monitor -D/C mylanta -No longer increasing, will continue to monitor CHITRA MCLAIN MEDICAL STUDENT Jun 05, 2019 04:09 LORENZO CULLEN DO Jun 05, 2019 05:02
[2019-06-05] MEDS ORDERED: BUMETANIDE 1 MG/4 ML (BUMEX) VIAL ONE (05:25)
[2019-06-05] MEDS: BUMETANIDE 1 MG/4 ML (BUMEX) VIAL IV SCH ×2 (05:33→16:18)
[2019-06-05] MEDS: inSUlin ASPART (NovoLOG) 1 UNIT/0.01 ML (CHARGE PER UNIT) SC SCH ×2 (05:34→12:04)
[2019-06-05] MEDS ORDERED: morphine INJ 4 MG/ML 1 ML (VIAL/SYRINGE) ONE (05:52)
[2019-06-05] MEDS: morphine INJ 10 MG/ML 1ML (SYR OR VIAL) IVP PRN ×2 (05:59→22:26)
[2019-06-05] MEDS: hydrALAZINE (APESOLINE) 20 MG/ML VIAL IV PRN ×4 (06:02→18:30)
[2019-06-05] MEDS ORDERED: BUMETANIDE 1 MG/4 ML (BUMEX) VIAL IV SCH (07:00)
--- NOTE | 2019-06-05 07:32 | Diagnostic Imaging Report ---
Portable erect AP chest at 318 hours. INDICATION: Respiratory distress. FINDINGS: In the interval since the prior exam of 06/04/2019, the patient has been extubated. The central venous catheter on the right remains in good position. The heart is stable in size when compared to the prior exam. The sternal wires and surgical clips noted previously are again evident and no different. The prominent alveolar/interstitial densities in both lungs seen previously are again evident. The lungs may be slightly better aerated than the prior exam but overall there has been no significant change. The mediastinum is not widened. The osseous structures are intact. IMPRESSION: Stable postextubation chest. A follow-up exam would be recommended for continued evaluation. Dictated by: Dictated on workstation # [id number]
[2019-06-05] MEDS: LIDOCAINE 4% (SALONPAS) PATCH TOP SCH (09:02)
[2019-06-05] MEDS: ANIDULAFUNGIN INJECTION 100 MG in NS (IVPB) 100 ML IV SCH (09:02)
[2019-06-05] MEDS: ENOXAPARIN 40 MG/0.4 ML (LOVENOX) SYR SC SCH (09:02)
[2019-06-05] MEDS: PANTOPRAZOLE 40 MG (PROTONIX) VIAL IV SCH (09:02)
--- NOTE | 2019-06-05 09:09 | Progress Note ---
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 Review of Systems General: No Chills; Fatigue, Malaise HEENT: No Head Aches, No Visual Changes Pulmonary: Dyspnea, Cough; No Pleuritic Chest Pain Cardiovascular: Edema; No: Chest Pain Gastrointestinal: Diarrhea (FROM ENEMAS YESTERDAY); No: Nausea, Abdominal Pain, Constipation Genitourinary: No Hematuria Neurological: Weakness, Confusion All Other Systems Reviewed All Other Systems Reviewed: Yes Objective Exam Vital Signs Vital Signs - First Documented 05/30/19 05/30/19 00:00 07:45 Temp 35.9 Pulse 75 Resp 18 B/P (MAP) 143/72 (95) Pulse Ox 91 O2 Delivery NIV Bilevel O2 Flow Rate 45.00 FiO2 50 Capillary Refill : Less Than 3 Seconds General Appearance: Chronically ill, Mild Distress Eyes: Bilateral Eye Normal Inspection, Bilateral Eye PERRL, Bilateral Eye EOMI HEENT: No Scleral Icterus (L), No Scleral Icterus (R) Neck: Full Range of Motion, Non Tender, Supple Respiratory: Chest Non Tender, Crackles, Decreased Breath Sounds Cardiovascular: Regular Rate, Rhythm, No Murmur Gastrointestinal: Non Tender, Soft, Abnormal Bowel Sounds (HYPERACTIVE), Distended; No Tenderness Rectal: Deferred Extremity: Normal Capillary Refill, Pedal Edema (IMPROVED) Neurologic/Psychiatric: Alert, Motor Weakness (WEAKN IN UPPER AND LOWER EXTREMITIES, BUT REACHER ARE EQUAL EVEN IF WEAK, AND ABILITY TO FOLLOW COMMANDS IS IN PLACE WELL WITH ABILITY TO WEAKLY MOVE HIS LEGS AND ARMS EQUALLY), Other (ORIENTED TO PERSON, AND TO PLACE, NOT TIME) Skin: Normal Color, Warm/Dry Lymphatic: No Adenopathy Results Lab Laboratory Tests 06/04/19 09:50: Urine Color YELLOW, Urine Clarity CLEAR, Urine pH 6.5, Urine Specific [place] 1.025H, Urine Protein 2+H, Urine Glucose (UA) NEGATIVE, Urine Ketones NEGATIVE, Urine Nitrite NEGATIVE, Urine Bilirubin NEGATIVE, Urine Urobilinogen 0.2, Urine Leukocyte Esterase NEGATIVE, Urine RBC (Auto) 3+H, Urine RBC 5-10H, Urine WBC NONE, Urine Squamous Epithelial Cells RARE, Urine Crystals PRESENTH, Urine Amorphous Sediment RARE ALCIDES URATESH, Urine Bacteria TRACE, Urine Casts PRESENT, Urine Granular Casts 0-2H, Urine Mucus NEGATIVE, Urine Culture Indicated NO 06/04/19 10:45: Blood Gas Puncture Site LT ART LINE, Blood Gas Patient Temperature 37.4, Arterial Blood pH 7.46H, Arterial Blood Partial Pressure CO2 42, Arterial Blood Partial Pressure O2 73L, Arterial Blood HCO3 30H, Arterial Blood Total CO2 31.1H , Arterial Blood Oxygen Saturation 90L, Arterial Blood Base Excess 6.0H, Sundeep Test YES-POS, Blood Gas Ventilator Setting YES, Blood Gas Inspired Oxygen 35% 06/04/19 12:31: Glucometer 73 06/04/19 17:36: Glucometer 77 06/04/19 23:20: Glucometer 83 06/05/19 02:05: B-Type Natriuretic Peptide 902.8H 06/05/19 02:50: White Blood Count 14.7H, Red Blood Count 2.80L, Hemoglobin 8.5L, Hematocrit 29L, Mean Corpuscular Volume 103H, Mean Corpuscular Hemoglobin 30, Mean Corpuscular Hemoglobin Concent 30L, Red Cell Distribution Width 15.1H, Platelet Count 178, Mean Platelet Volume 9.9, Neutrophils (%) (Auto) 89H, Lymphocytes (%) (Auto) 7L, Monocytes (%) (Auto) 3, Eosinophils (%) (Auto) 1, Basophils (%) (Auto) 0, Neutrophils # (Auto) 13.1H, Lymphocytes # (Auto) 1.0, Monocytes # (Auto) 0.5, Eosinophils # (Auto) 0.2, Basophils # (Auto) 0.0, Sodium Level 144, Potassium Level 4.9, Chloride Level 108H, Carbon Dioxide Level 25, Anion Gap 11, Blood Urea Nitrogen 49H, Creatinine 1.19, Estimat Glomerular Filtration Rate 59, BUN/Creatinine Ratio 41, Glucose Level 76, Calcium Level 8.3L, Corrected Calcium 9.3, Phosphorus Level 3.6, Magnesium Level 3.4H, Total Bilirubin 0.8, Aspartate Amino Transf (AST/SGOT) 62H, Alanine Aminotransferase (ALT/SGPT) 131H, Alkaline Phosphatase 66, Total Protein 5.7L, Albumin 2.8L 06/05/19 02:54: Blood Gas Puncture Site LT RAD, Blood Gas Patient Temperature 36.1, Arterial Bl ood pH 7.45H, Arterial Blood Partial Pressure CO2 39, Arterial Blood Partial Pressure O2 121H, Arterial Blood HCO3 27, Arterial Blood Total CO2 28.3, Arterial Blood Oxygen Saturation 99, Arterial Blood Base Excess 3.1H, Sundeep Test POS, Blood Gas Ventilator Setting YES, Blood Gas Inspired Oxygen 40% Microbiology 05/30/19 Gram Stain - Final, Resulted 05/30/19 Sputum Culture - Preliminary, Resulted Aerobic actinomycetes YEAST 05/28/19 Blood Culture - Final, Complete No growth Assessment/Plan Assessment/Plan Admission Dx SEVERE SEPSIS RESPIRATORY FAILURE WITH LACTIC ACIDOSIS INFLUENZA PNEUMONIA CHRONIC PULMONARY FIBROSIS COPD ACUTE ON CHRONIC RENAL FAILURE NON-ST TX CHRONIC DEPRESSION LEUKOCYTOSIS ANEMIA CONSTIPATION ELEVATED LFT'S RESPIRATORY FAILURE WITH LACTIC ACIDOSIS PT AGREED TO SHORT TERM INTUBATION ON 05/30/2019 AND WAS EXTUBATED ON 06/04/2019 INFLUENZA AND PNEUMONIA WITH CHRONIC PULMONARY FIBROSIS AND COPD - PT HAS COMPLETED TAMIFLU FOR TREATMENT OF THE FLU - LAST DOSE GIVEN 06/02/2019 -CONTINUE WITH CURRENT MANAGEMENT INITIATED IN ER AND BY DR. CULLEN. (ADILAFUNGIN AND MEROPENEM) ACUTE ON CHRONIC RENAL FAILURE - RESOLVED - CONTINUE WITH IV FLUIDS, RENALLY ADJUST MEDICATIONS NEEDED. NON-ST TX WITH HYPERTENSION - DEFER TO CARDIOLOGY - PT HAD SO MUCH PULMONARY DISTRESS THAT THIS CAUSED HIS SEVERE TROPONIN ELEVATION. WILL WATCH PT CLOSELY WE NAVIGATE HEALING FROM HIS PULMONARY ISSUES. - PT UNABLE TO SAFELY TAKE PO MEDICATION THIS MORNING, AND LOPRESSOR 5MG Q3 HOURS WAS ORDERED FOR CONTROL OF HIS BLOOD PRESSURES. CHRONIC DEPRESSION - RESTARTED CYMBALTA - BUT IT HAS BEEN HELD DUE TO HIS INTUBATED STATUS AND NOW HE HAS HAD DIFFICULTY SWALLOWING LEUKOCYTOSIS -IMPROVED - SUSPECT DUE TO STEROID USE, CONTINUE TO MONITOR SYMPTOMS AND LABS ANEMIA -STABLE STATUS POST BLOOD TRANSFUSION ON 05/29/2019 - CONTINUE TO MONITOR LABS. ELEVATED LFT'S - DUE TO SHOCK - CONTINUE WITH CURRENT MANAGEMENT - LFT'S HAVE IMPROVED SLOWLY. CONSTIPATION - RESOLVED DYSPHAGIA - SPEECH THERAPY HAS BEEN CONSULTED CRITICAL CARE MYOPATHY - WILL REQUIRE SKILLED NURSING REHAB AND STRENGTHENING DUE TO HIS DEBILITATED STATUS - WILL LOOK INTO JAIL PLACEMENT ON DISCHARGE. CONTINUE TO EXPECT SEVERAL MORE DAYS IN THE ICU - DEFER EXTUBATION PLANS TO DR. CULLEN Problems: (1) Acute respiratory failure with hypoxia (2) Endotracheally intubated (3) Severe sepsis (4) Pneumonia Qualifiers: Qualified Codes: J18.9 - Pneumonia, unspecified organism (5) Influenza (6) Lactic acidosis (7) Acute kidney injury superimposed on chronic kidney disease (8) (HFpEF) heart failure with preserved ejection fraction (9) Non-ST elevation TX (NSTEMI) Admission Dx RESPIRATORY FAILURE WITH LACTIC ACIDOSIS INFLUENZA PNEUMONIA CHRONIC PULMONARY FIBROSIS COPD ACUTE ON CHRONIC RENAL FAILURE NON-ST TX CHRONIC DEPRESSION LEUKOCYTOSIS ANEMIA CONSTIPATION ELEVATED LFT'S RESPIRATORY FAILURE WITH LACTIC ACIDOSIS PT AGREED TO SHORT TERM INTUBATION ON 05/30/2019: INFLUENZA AND PNEUMONIA WITH CHRONIC PULMONARY FIBROSIS AND COPD - PT HAS COMPLETED TAMIFLU FOR TREATMENT OF THE FLU - LAST DOSE GIVEN 06/02/2019 - PT IS ON AZITHROMYCIN AND CEFEPIME, ANTIFUNGAL, STEROIDS - CONTINUE WITH CURRENT MANAGEMENT INITIATED IN ER AND BY DR. CULLEN. ACUTE ON CHRONIC RENAL FAILURE - RESOLVED - CONTINUE WITH IV FLUIDS, RENALLY ADJUST MEDICATIONS NEEDED. NON-ST TX - DEFER TO CARDIOLOGY - PT HAD SO MUCH PULMONARY DISTRESS THAT THIS CAUSED HIS SEVERE TROPONIN ELEVATION. WILL WATCH PT CLOSELY WE NAVIGATE HEALING FROM HIS PULMONARY ISSUES. CHRONIC DEPRESSION - RESTARTED CYMBALTA LEUKOCYTOSIS -IMPROVED - SUSPECT DUE TO STEROID USE, CONTINUE TO MONITOR SYMPTOMS AND LABS ANEMIA -STABLE AT 9.5 - THIS IS STATUS POST BLOOD TRANSFUSION ON 05/29/2019 - CONTINUE TO MONITOR LABS. ELEVATED LFT'S - DUE TO SHOCK - CONTINUE WITH CURRENT MANAGEMENT - LFT'S HAVE IMPROVED COMPARED TO LABS OVER THE WEEKEND. CONSTIPATION - NO BM DOCUMENTED FOR SEVERAL DAYS - DULCOLAX DID NOT PRODUCE RESULTS, HE WAS THEN STARTED ON LACTULOSE AND COLACE THROUGH NG TUBE. - WILL GIVE A DOSE OF RELISTOR TODAY DUE TO HIS RECENT FENTANYL DOSING FOR HIS CHRONIC BACK PAIN WHILE HE HAS BEEN INTUBATED - HOPEFULLY THIS WILL AUGMENT HIS BOWEL FUNCTION RETURNING - CHECK KUB TODAY - THIS HAS BEEN ORDERED PORTABLE 1 VIEW DUE TO HIS INTUBATED STATUS CONTINUE TO EXPECT SEVERAL MORE DAYS IN THE ICU - DEFER EXTUBATION PLANS TO DR. CULLEN Clinical Quality Measures Admission Status Admission Dx RESPIRATORY FAILURE WITH LACTIC ACIDOSIS INFLUENZA PNEUMONIA CHRONIC PULMONARY FIBROSIS COPD ACUTE ON CHRONIC RENAL FAILURE NON-ST TX CHRONIC DEPRESSION LEUKOCYTOSIS ANEMIA CONSTIPATION ELEVATED LFT'S RESPIRATORY FAILURE WITH LACTIC ACIDOSIS PT AGREED TO SHORT TERM INTUBATION ON 05/30/2019: INFLUENZA AND PNEUMONIA WITH CHRONIC PULMONARY FIBROSIS AND COPD - PT HAS COMPLETED TAMIFLU FOR TREATMENT OF THE FLU - LAST DOSE GIVEN 06/02/2019 - PT IS ON AZITHROMYCIN AND CEFEPIME, ANTIFUNGAL, STEROIDS - CONTINUE WITH CURRENT MANAGEMENT INITIATED IN ER AND BY DR. CULLEN. ACUTE ON CHRONIC RENAL FAILURE - RESOLVED - CONTINUE WITH IV FLUIDS, RENALLY ADJUST MEDICATIONS NEEDED. NON-ST TX - DEFER TO CARDIOLOGY - PT HAD SO MUCH PULMONARY DISTRESS THAT THIS CAUSED HIS SEVERE TROPONIN ELEVATION. WILL WATCH PT CLOSELY WE NAVIGATE HEALING FROM HIS PULMONARY ISSUES. CHRONIC DEPRESSION - RESTARTED CYMBALTA LEUKOCYTOSIS -IMPROVED - SUSPECT DUE TO STEROID USE, CONTINUE TO MONITOR SYMPTOMS AND LABS ANEMIA -STABLE AT 9.5 - THIS IS STATUS POST BLOOD TRANSFUSION ON 05/29/2019 - CONTINUE TO MONITOR LABS. ELEVATED LFT'S - DUE TO SHOCK - CONTINUE WITH CURRENT MANAGEMENT - LFT'S HAVE IMPROVED COMPARED TO LABS OVER THE WEEKEND. CONSTIPATION - NO BM DOCUMENTED FOR SEVERAL DAYS - DULCOLAX DID NOT PRODUCE RESULTS, HE WAS THEN STARTED ON LACTULOSE AND COLACE THROUGH NG TUBE. - WILL GIVE A DOSE OF RELISTOR TODAY DUE TO HIS RECENT FENTANYL DOSING FOR HIS CHRONIC BACK PAIN WHILE HE HAS BEEN INTUBATED - HOPEFULLY THIS WILL AUGMENT HIS BOWEL FUNCTION RETURNING - CHECK KUB TODAY - THIS HAS BEEN ORDERED PORTABLE 1 VIEW DUE TO HIS INTUBATED STATUS CONTINUE TO EXPECT SEVERAL MORE DAYS IN THE ICU - DEFER EXTUBATION PLANS TO DR. CULLEN DVT/VTE Risk/Contraindication: Risk Factor Score Per Nursin RFS Level Per Nursing on Admit: 4+=Very High DEANDRA MOTA MD Jun 05, 2019 09:09
[2019-06-05] MEDS ORDERED: meTOprolol 5 MG/5 ML (LOPRESSOR) VIAL ONE (09:39)
--- NOTE | 2019-06-05 09:40 | Physical Therapy Evaluation ---
PT Evaluation-General Medical Diagnosis Admission Date May 28, 2019 at 14:45 Medical Diagnosis: Respiratory Failure Onset Date: May 28, 2019 Therapy Diagnosis Therapy Diagnosis: Debility, muscle weakness Height/Weight Height (Feet): 5 Height (Inches): 9.00 Weight (Pounds): 211 Weight (Ounces): 0.0 Precautions Precautions/Isolations: Aspiration, Droplet Isolation, Fall Prevention, S tandard Precautions Referral Physician: Marta Reason for Referral: Evaluation/Treatment Medical History Pertinent Medical History: Arthritis, CABG, CAD, HTN Current History Patient presented to ER with respiratory failure. Intubated 05/30 to 06/04. Reviewed History: Yes Social History Home: Single Level Current Living Status: Alone Prior Prior Level of Function SCALE: Activities may be completed with or without assistive devices. 9-Lfibqpgrfu-nldpzax completes the activity by him/herself with no assistance from a helper. 5-Set-up or Clean-up Assistance-helper sets up or cleans up; patient completes activity. Mcgregor assists only prior to or following the activity. 4-Supervision or Touching Assistance-helper provides verbal cues and/or touching/steadying and/or contact guard assistance as patient completes activity. Assistance may be provided throughout the activity or intermittently. 3-Partial/Moderate Assistance-helper does LESS THAN HALF the effort. Mcgregor lifts, holds or supports trunk or limbs, but provides less than half the effort. 2-Substantial/Maximal Assistance-helper does MORE THAN HALF the effort. Mcgregor lifts or holds trunk or limbs and provides more than half the effort. 3-Vxleuqclq-gdgthw does ALL the effort. Patient does none of the effort to complete the activity. Or, the assistance of 2 or more helpers is required for the patient to complete the activity. If activity was not attempted, code reason: 7-Patient Refused. 9-Not Applicable-not attempted and the patient did not perform the activity before the current illness, exacerbation or injury. 10-Not Attempted due to Environmental Limitations-(lack of equipment, weather restraints, etc.). 88-Not Attempted due to Medical Conditions or Safety Concerns. Bed Mobility: 6 Transfers (B,C,W/C): 6 Gait: 6 Indoor Mobility (Ambulation): Independent PT Evaluation-Current Subjective Patient is agreeable to therapy at this time. Pain Numeric Pain Scale: 0-No Pain Pt/Family Goals "to get stronger" Objective Patient Orientation: Person Attachments: Oxygen (Vapotherm), Bolden Catheter, IV ROM/Strength ROM Lower Extremities WNL BLE Strength Lower Extremities 1-2/5 gross BLE Integumentary/Posture Integumentary See nursing notes. Sensory Vision: Unable to Assess Hearing: Impaired Sensation Right Lower Extremit: Intact Sensation Left Lower Extremity: Intact Gait Does the Patient Walk?: No and Walking Goal IS indicated Treatment AAROM: heel slides, SLR, ankle pumps, hip abduction Assessment/Needs Patient BP in 200s before starting to move, therefore unable to sit patient EOB at this time. Patient tolerated supine exercises well. Patient was able to assist in the exercises but not do them IND. Rehab Potential: Poor Post Rehab Potential-Barriers: Respiratory failure. PT Order To Delivery Supervisor Goals Long-Term Goals PT Order To Delivery Supervisor Goals Time Frame: Jun 12, 2019 Roll Left & Right (QC): 3 Sit to Lying (QC): 3 Lying-Sitting on Side/Bed(QC): 3 Sit to Stand (QC): 3 Chair/Hxx-cx-Qgjvx Xfer(QC): 3 Does the Patient Walk: Yes Walk 10 feet (QC): 3 PT Plan Problem List Problem List: Activity Tolerance, Functional Strength, Safety, Balance, Gait, Transfer, Bed Mobility, ROM Treatment/Plan Treatment Plan: Continue Plan of Care Treatment Plan: Bed Mobility, Education, Functional Activity Alyson, Functional Strength, Gait, Safety, Therapeutic Exercise, Transfers Treatment Duration: Jun 12, 2019 Frequency: 6 times per week Estimated Hrs Per Day: .25 hour per day Patient and/or Family Agrees t: Yes Safety Risks/Education Patient Education: Correct Positioning, Safety Issues Teaching Recipient: Patient Teaching Methods: Discussion Response to Teaching: Reinforcement Needed Discharge Recommendations Plan Patient will perform bed mobility and transfer training, balance and endurance training, functional strengthening, stair training, gait training, and education, to improve functional mobility and independence at home. Therapy Discharge Recommendati: Home & Family, Post Acute PT Time/GCodes Time In: 917 Time Out: 930 Total Billed Treatment Time: 13 Total Billed Treatment 1 visit EVM ABELINO BECKMAN PT Jun 05, 2019 09:40
[2019-06-05] MEDS: meTOprolol 5 MG/5 ML (LOPRESSOR) VIAL IV SCH ×5 (09:45→22:17)
[2019-06-05] MEDS: DULoxetine 20 MG (CYMBALTA) CAP PO SCH (10:28)
[2019-06-05] MEDS: ASPIRIN E.C. 81 MG (ECOTRIN) TAB PO SCH (10:28)
[2019-06-05] MEDS: CLOPIDOGREL 75 MG (PLAVIX) TABLET PO SCH (10:28)
[2019-06-05] MEDS: doxAzosin 4 MG (CARDURA) TAB PO SCH (10:28)
[2019-06-05] MEDS: DOCUSATE SODIUM 100 MG (COLACE) CAP PO SCH ×2 (10:28→21:28)
[2019-06-05] MEDS: lisINopril 20 MG (PRINIVIL) TABLET PO SCH (10:29)
--- NOTE | 2019-06-05 11:05 | Progress Note - Cardiology ---
Cardiology SOAP Progress Note Subjective: No cp or palp or syncope Denies shortness of breath Difficulty swallowing No n/v/d Gen weakness and malaise Back and gen body pain Objective: I&O/Vital Signs 06/04/19 06/04/19 06/05/19 06/05/19 23:26 23:27 00:00 01:00 Temp 36.1 Pulse 78 75 Resp 17 B/P (MAP) 140/50 (80) Pulse Ox 92 98 O2 Delivery NIV Bilevel NIV Bilevel O2 Flow Rate 45.00 FiO2 45 06/05/19 06/05/19 06/05/19 06/05/19 01:00 02:00 02:30 02:32 Pulse 73 76 74 Resp 18 20 25 B/P (MAP) 135/51 (79) 144/49 (80) Pulse Ox 99 99 99 O2 Delivery NIV Bilevel NIV Bilevel NIV Bilevel O2 Flow Rate 45.00 45.00 45.00 40.00 06/05/19 06/05/19 06/05/19 06/05/19 03:00 03:28 03:32 04:00 Temp 36.1 Pulse 74 73 Resp 14 39 B/P (MAP) 158/52 (87) 156/46 (82) Pulse Ox 98 92 98 O2 Delivery NIV Bilevel NIV Bilevel NIV Bilevel O2 Flow Rate 40.00 40.00 FiO2 40 06/05/19 06/05/19 06/05/19 06/05/19 05:00 06:00 07:00 07:00 Pulse 70 89 123 109 Resp 31 18 24 B/P (MAP) 165/53 (90) 186/54 (98) 146/35 (72) Pulse Ox 95 96 90 O2 Delivery NIV Bilevel NIV Bilevel Vapotherm O2 Flow Rate 40.00 40.00 25.00 35.00 06/05/19 06/05/19 06/05/19 06/05/19 07:53 08:00 09:00 10:00 Pulse 121 122 105 Resp 17 24 18 B/P (MAP) 174/50 (91) 180/49 (92) 140/45 (76) Pulse Ox 96 94 95 97 O2 Delivery Vapotherm Vapotherm Vapotherm Vapotherm O2 Flow Rate 25.00 25.00 25.00 25.00 35.00 35.00 35.00 FiO2 35 06/05/19 00:00 Intake Total 35 ml Output Total 950 ml Balance -915 ml Weight (Pounds): 211 Weight (Ounces): 0.0 Weight (Calculated Kilograms): [id number] Constitutional: AAO x 3 (mildly confused), well-developed, well-nourished, other (On mech vent, responisve, unable to communicate) Respiratory: chest expansion is symmetric, chest is bilaterally symmetric, crackles, other Cardiovascular: regular rate-rhythm, S1 and S2 Gastrointestional: distended, audible bowel sounds Genital/Rectal: other (scrotal edema; urinary catheter to DD with cl yellow urine) Extremities: no lower extremity edema bilateral Neurologic/Psychiatric: other (extubated, awake, reponsive, mildly confused, seems to move all limbs, difficult swallowing on 06/05/19) Skin: No rash on exposed areas, No ulcerations on exposed areas Results/Procedures: Labs Laboratory Tests 06/04/19 12:31: Glucometer 73 06/04/19 17:36: Glucometer 77 06/04/19 23:20: Glucometer 83 06/05/19 02:05: B-Type Natriuretic Peptide 902.8H 06/05/19 02:50: White Blood Count 14.7H, Red Blood Count 2.80L, Hemoglobin 8.5L, Hematocrit 29L, Mean Corpuscular Volume 103H, Mean Corpuscular Hemoglobin 30, Mean Corpuscular Hemoglobin Concent 30L, Red Cell Distribution Width 15.1H, Platelet Count 178, Mean Platelet Volume 9.9, Neutrophils (%) (Auto) 89H, Lymphocytes (%) (Auto) 7L, Monocytes (%) (Auto) 3, Eosinophils (%) (Auto) 1, Basophils (%) (Auto) 0, Neutrophils # (Auto) 13.1H, Lymphocytes # (Auto) 1.0, Monocytes # (Auto) 0.5, Eosinophils # (Auto) 0.2, Basophils # (Auto) 0.0, Sodium Level 144, Potassium Level 4.9, Chloride Level 108H, Carbon Dioxide Level 25, Anion Gap 11, Blood Urea Nitrogen 49H, Creatinine 1.19, Estimat Glomerular Filtration Rate 59, BUN/Creatinine Ratio 41, Glucose Level 76, Calcium Level 8.3L, Corrected Calcium 9.3, Phosphorus Level 3.6, Magnesium Level 3.4H, Total Bilirubin 0.8, Aspartate Amino Transf (AST/SGOT) 62H, Alanine Aminotransferase (ALT/SGPT) 131H, Alkaline Phosphatase 66, Total Protein 5.7L, Albumin 2.8L 06/05/19 02:54: Blood Gas Puncture Site LT RAD, Blood Gas Patient Temperature 36.1, Arterial Blood pH 7.45H, Arterial Blood Partial Pressure CO2 39, Arterial Blood Partial Pressure O2 121H, Arterial Blood HCO3 27, Arterial Blood Total CO2 28.3, Arterial Blood Oxygen Saturation 99, Arterial Blood Base Excess 3.1H, Sundeep Test POS, Blood Gas Ventilator Setting YES, Blood Gas Inspired Oxygen 40% Microbiology 05/30/19 Gram Stain - Final, Resulted 05/30/19 Sputum Culture - Preliminary, Resulted Aerobic actinomycetes YEAST 05/28/19 Blood Culture - Final, Complete No growth Laboratory Tests 06/04/19 03:09 06/05/19 02:50 A/P: Assessment: Ac resp failure (multifactorial, see below) Severe sepsis; presented with septic shock Influenza A NSTEMI, unclear if type 1 or type 2 EMA-3, likely due to ATN due to hypotension due to septic shock, improved Anemia of undetermined etiology Chronic resp failure due to interstitial lung disease / pulmonary fibrosis CAD and ischemic cardiomyopathy - H/o 4-vessel CABG in 1998 at [facility] in [place], [place] by Dr. Magana Echo of 05/29/19: LVEF 40-45%, basal inferior hypokinesis, RVSP 18 mmHg, mod MR H/o carotid dz bilat - followed by Dr. Rosa at [facility] Syncopal episodes, being followed by Dr. Rosa, [place] [facility] [place] Cort[place] Orthostatic hypotension - being followed by Dr. Rosa COPD H/O tobaccoism - quit 4 years ago HTN HLD Chronic back pain Plan: * iv beta-blockers for hypertension and tachycardia. Unable to take oral bb (swallowing difficulty) * Monitor labs and correct them as needed * Dr Sarah covering our service this weekend CARINE PALOMINO MD FACP [facility] Jun 05, 2019 11:05
[2019-06-05] MEDS ORDERED: LORazepam INJ 2 MG/ML (ATIVAN) VIAL ONE (11:11)
[2019-06-05] MEDS: LORazepam INJ 2 MG/ML (ATIVAN) VIAL IVP PRN (11:20)
--- NOTE | 2019-06-05 11:40 | Occupational Therapy Eval ---
OT Evaluation-General/PLF Medical Diagnosis Admission Date May 28, 2019 at 14:45 Medical Diagnosis: Respiratory Failure Onset Date: May 28, 2019 Therapy Diagnosis Therapy Diagnosis: Decreased ADL status Height/Weight Height (Feet): 5 Height (Inches): 9.00 Weight (Pounds): 211 Weight (Ounces): 0.0 Precautions Precautions/Isolations: Aspiration, Droplet Isolation, Fall Prevention, St andard Precautions Safety Interventions: None Referral Physician: Marta Referral Reason: Activity Tolerance, Self Care, Strengthening/ROM Medical History Pertinent Medical History: Arthritis, CABG, CAD, HTN Current History pt experienced recent fall, resp failure with intubation 05/30-06/04. Reviewed History: Yes Social History Home: Single Level Current Living Status: Alone Entry Into Home: Stairs With Railing Steps Into Home: 5 ADL-Prior Level of Function SCALE: Activities may be completed with or without assistive devices. 3-Uqubcuysjd-[id number] completes the activity by him/herself with no assistance from a helper. 5-Set-up or Clean-up Assistance-helper sets up or cleans up; patient completes activity. [place] assists only prior to or following the activity. 4-Supervision or Touching Assistance-helper provides verbal cues and/or touching/steadying and/or contact guard assistance as patient completes activity. Assistance may be provided throughout the activity or intermittently. 3-Partial/Moderate Assistance-helper does LESS THAN HALF the effort. [place] lifts, holds or supports trunk or limbs, but provides less than half the effort. 2-Substantial/Maximal Assistance-helper does MORE THAN HALF the effort. [place] lifts or holds trunk or limbs and provides more than half the effort. 9-Mhyogjoir-kpbayh does ALL the effort. Patient does none of the effort to complete the activity. Or, the assistance of 2 or more helpers is required for the patient to complete the activity. If activity was not attempted, code reason: 7-Patient Refused. 9-Not Applicable-not attempted and the patient did not perform the activity before the current illness, exacerbation or injury. 10-Not Attempted due to Environmental Limitations-(lack of equipment, weather restraints, etc.). 88-Not Attempted due to Medical Conditions or Safety Concerns. 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 Pt denies pain, states very tired and weak. Pt agreeable to OT eval/ treat. Nursing present start of session. Mental Status/Objective Patient Orientation: Person, Place, Situation Attachments: [place] Catheter, IV, Oxygen (bipap), SCD's, Telemetry Current Glasses/Contacts: Yes Hearing Aids: No Dentures/Partials: No Hand Dominance: Right Upper Extremity ROM Decreased bilaterally (PROM to full range.) Upper Extremity Coordination Decreased, light mens locker room attendant strength Upper Extremity Sensation WFL per pt Upper Extremity Strength Decreased ~2/5 Edema: BUE (hands) ADL-Treatment Eating (QC): 2 (based on clinical observation pt would require mod-max A as pt unable to bring hand to mouth) Oral Hygiene (QC): 1 (Based on clinical observation) Other Treatments Pt educated on OT role. Pt oriented, very fatigued (begins falling asleep last of session). Pt completes hx with minimal interjections from family member for home s/u and environment for correction. Pt states IND with home/ outside tasks with use of cane. Pt completes AROM (decreased bilaterally), pt and family educated on PROM/ AROM of pt throughout weekend to decrease edema, increase strength, and decrease risk of contraction. Pt's family educated on finger/ wrist/ elbow/ and shoulder to only 90*. Pt's family member demonstrates back with accuracy, pt educated on moving as much as possible. Pt begins getting drowsy, nursing present. Pt left in bed with call light in reach, all needs met, family present. Education OT Patient Education: Exercise program, Home exercise program, Instructions to caregiver, Purpose of tx/functional activities Teaching Recipient: Patient Teaching Methods: Demonstration, Discussion Response to Teaching: Verbalize Understanding, Return Demonstration, Reinforcement Needed OT [facility] Goals [facility] Goals Time Frame: Jun 26, 2019 Eating (QC): 6 Oral Hygiene (QC): 6 Toileting Hygiene (QC): 6 Shower/Bathe Self (QC): 6 Upper Body Dressing (QC): 6 Lower Body Dressing (QC): 6 On/Off Footwear (QC): 6 Additional Goals: 1-Demonstrate ADL Tasks, 2-Verbalize Understanding, 3- ImproveStrength/Alyson 1=Demonstrate adherence to instructed precautions during ADL tasks. 2=Patient will verbalize/demonstrate understanding of assistive d evices/modifications for ADL. 3=Patient will improve strength/tolerance for activity to enable patient to perform ADL's. OT Education/Plan Problem List/Assessment Assessment: Decreased Activ Tolerance, Decreased UE Strength, Dependent Transfers, Edema, Impaired Bed Mobility, Impaired Coordination, Impaired Funct Balance, Impaired I ADL's, Impaired Self-Care Skills Discharge Recommendations Plan/Recommendations: Continue POC Therapy Discharge Recommendati: 24 Hour Supervision, Scheduled Assistance, Post Acute OT Equpiment Recommendations-D/C: Rails on Tub/Shower, Bath Chair, Extended Shower Sprayer, Hip Kit Treatment Plan/Plan of Care Treatment,Training & Education: Yes Patient would benefit from OT for education, treatment and training to promote independence in ADL's, mobility, safety and/or upper extremity function for ADL's. Plan of Care: ADL Retraining, Caregiver Training, Functional Mobility, UE Funct Exercise/Act Treatment Duration: Jun 26, 2019 Frequency: 5 times per week Estimated Hrs Per Day: .25 hour per day Agreement: Yes Rehab Potential: Fair Time/GCodes Start Time: 11:07 Stop Time: 11:20 Total Time Billed (hr/min): 13 Billed Treatment Time 1ALIA (13) REYNA RAUSCH OTR Jun 05, 2019 11:40
--- NOTE | 2019-06-05 15:39 | ST Mod Barium Swallow ---
Speech Evaluation-General Medical Diagnosis Respiratory Failure Onset Date: May 28, 2019 Therapy Diagnosis Therapy Diagnosis: Oropharyngeal Dysphagia Precautions Precautions: Aspiration Referral Referring Physician: Dr. Lozano Reason for Referral: Evaluation/Treatment Medical History Pertinent Medical History: Arthritis, CABG, CAD, HTN Reviewed History: Yes Social History Current Living Status: Alone Speech Mod Barium Swallow Prior Level of Function Unknown Oral Motor Skills Dentition Comments: Edentulous Lingual Protrusion: Normal Lingual ROM: Normal Lingual Strength: Normal Velum: Normal Volitional Dry Swallow: Yes Gag Reflex Comments: Did not test Textures-Lateral View Lateral View Food Presentation: Thin Liquid via Spoon, Thin Liquid via Straw, Marked Tree Liquid via Spoon, Honey Liquid via Spoon, Pureed Solids, Mechanial Soft Solids Oral Phase Labial Closure: No Impairment (WFL) Bolus Formation Pooling L/R: Mild Impairment Bolus Formation Placement: No Impairment (WFL) Mastication Rotary Chew: No Impairment (WFL) Oral Phase Residue: Mild Impairment Pharyngeal Phase Swallow Response: Mild Impairment Base of Tongue: No Impairment (WFL) Epiglottic Movement: No Impairment (WFL) Laryngeal Elevation: No Impairment (WFL) Vallecular Residue: Mild Pharyngeal Wall Residue: No Impairment (WFL) Piriform Sinus Residue: No Impairment (WFL) Laryngeal Penetration: Mild (With thin and nectar thickened liquids) Aspiration Observations: None Performed-A/P View Not Applicable/Performed Summary/Impressions Oral Phase Impression: Mild Impairment The patient is a 78-year-old male who was admitted to the ICU s/p respiratory failure. The patient was presented with thin liquids via 1/2 tsp spoon and straw 1X each and demonstrated flash penetration with the thin via straw. Marked Tree liquid consistency was then presented via 1/2 tsp spoon 1X and demonstrated mild spillover before the swallow was initiated. Patient was then presented with honey consistency via 1/2 tsp spoon and demonstrated no s/s of penetration or aspiration. Patient was then presented with puree and mechanical soft consistencies and presented via 1/2 tsp spoon and presented with mild residue with mechanical soft, however cleared with additional swallows. It is recommended that the patient receive a DYSPHAGIA I diet with honey thickened liquids. Additionally, the patient is to receive supervision for all oral intake to decrease the rate of intake and increase safe and effective swallow function.The patient will utilize compensatory strategies such as sitting upright before and after, small bites and sips, multiple swallows, and alternating liquids and solids during all oral intake. Speech Short Term Goals Short Term Goals Short Term Goals 1. Patient will tolerate least restrictive diet without s/s of aspiration at 90%. 2. Patient will utilize compensatory strategies as trained at 90% with minimal cues. Speech Recovery Specialist Goals Skilled Nursing Goals Patient will maintain adequate nutrition/hydration via safe and effective swallow function. Speech-Plan Patient/Family Goals Patient/Family Goals: Patient reported wanting to return to prior level of independence. Treatment Plan Speech Therapy Treatment Plan: Continue Plan of Care Treatment Duration: Jun 12, 2019 Frequency: 2 times per week Estimated Hrs Per Day: .25 hour per day Rehab Potential: Fair Barriers to Learning: Current medical status Pt/Family Agrees to Plan: Yes Safety Risks/Education Teaching Recipient: Patient Teaching Methods: Demonstration Response to Teaching: Verbalize Understanding, Return Demonstration Education Topics Provided: Utilization of compensatory strategies during all oral intake Time Speech Therapy Time In: 14:30 Speech Therapy Time Out: 15:00 Total Billed Time: 30 Billed Treatment Time 1, MOD No ASHLEY LIMON Jun 05, 2019 15:38
--- NOTE | 2019-06-05 15:50 | Diagnostic Imaging Report ---
INDICATION: Choking and dysphagia. TECHNIQUE: Study was performed in conjunction with speech pathology. Video fluoroscopy was performed during the swallowing of barium at multiple consistencies. Patient was administered thin barium with a straw as well as a spoon. Patient also was given nectar, honey, puree and mechanical soft consistency. Total of 1 minute and 6 seconds of fluoroscopic time was utilized. FINDINGS: There is mild early spillover with all consistencies. There was deep laryngeal penetration during swallowing of thin barium with a straw. The patient did cough therefore there may have been some aspiration. The cords were somewhat obscured on this study due to patient's overlying soft tissues. There is some mild vallecular residue which would clear with repeated swallows. No other episodes of penetration were observed. There is normal epiglottic tilt. IMPRESSION: Episode of deep laryngeal penetration and perhaps aspiration with swallowing of thin barium with a straw. There is also mild vallecular residue with multiple consistency which would clear with repeated swallows. Dictated by: Dictated on workstation # [id number]
[2019-06-05] MEDS: LIDOCAINE PATCH REMOVAL TP SCH (22:17)
[2019-06-06] VITALS (29 sets, daily range): BP systolic 123–186; BP diastolic 37–90
[2019-06-06] MEDS: hydrALAZINE (APESOLINE) 20 MG/ML VIAL IV PRN ×4 (00:28→20:20)
[2019-06-06] MEDS: meTOprolol 5 MG/5 ML (LOPRESSOR) VIAL IV SCH ×9 (00:28→23:53)
--- NOTE | 2019-06-06 00:34 | NUR ---
THIS RN CALLED SADE LOPEZ C/O BACK PAIN 12/16, DESPITE ORDERED MORPHINE GIVE 2 HOURS AGO. ORDER IS FOR Q4HR PRN. PT NPO SO UNABLE TO TAKE ORDERED TYLENOL PO.
[2019-06-06] MEDS: RT-ALBUTEROL/IPRATROPIUM 3 ML (DUONEB) VIAL INH SCH ×6 (01:59→23:09)
[2019-06-06] MEDS: morphine INJ 4 MG/ML 1 ML (VIAL/SYRINGE) IVP PRN ×3 (03:01→21:41)
[2019-06-06] MEDS: MEROPENEM 500 MG/SWFI 10 ML IV PUSH IV SCH ×8 (03:06→20:20)
[2019-06-06 04:05] LABS: BASOPHILS % (AUTO) 0 % (0-10); EOSINOPHILS # (AUTO) 0.1 10^3/uL (0.0-0.3); EOSINOPHILS % (AUTO) 1 % (0-10); HEMATOCRIT 29 % (40-54); HEMOGLOBIN 8.6 G/DL (13.3-17.7); LYMPHOCYTES # (AUTO) 0.8 X 10^3 (1.0-4.0); LYMPHOCYTES % (AUTO) 7 % (12-44); MEAN CORPUSCULAR HEMOGLOBIN 30 PG (25-34); MEAN CORPUSCULAR HGB CONC 30 G/DL (32-36); MEAN CORPUSCULAR VOLUME 103 FL (80-99); MEAN PLATELET VOLUME 10.4 FL (7.4-10.4); MONOCYTES # (AUTO) 0.5 X 10^3 (0.0-1.0); MONOCYTES % (AUTO) 4 % (0-12); NEUTROPHILS % (AUTO) 88 % (42-75); PLATELET COUNT 210 10^3/uL (130-400); RED CELL DISTRIBUTION WIDTH 14.8 % (10.0-14.5); WHITE BLOOD COUNT 12.4 10^3/uL (4.3-11.0)
[2019-06-06 04:17] LABS: ALBUMIN 2.8 GM/DL (3.2-4.5); BILIRUBIN,TOTAL 0.6 MG/DL (0.1-1.0); CALCIUM 8.2 MG/DL (8.5-10.1); CREATININE SERUM 1.2 MG/DL (0.60-1.30); MAGNESIUM 2.8 MG/DL (1.6-2.4); PHOSPHORUS 3.7 MG/DL (2.3-4.7); POTASSIUM 4.3 MMOL/L (3.6-5.0); TOTAL PROTEIN 5.9 GM/DL (6.4-8.2)
[2019-06-06] MEDS: POTASSIUM CL 10MEQ/50ML IVPB 50 ML IV SCH (04:18)
[2019-06-06] MEDS: KCL 20 MEQ TAB (K-DUR) PO SCH (04:18)
[2019-06-06] MEDS: MAGNESIUM 1 GM/100 ML IVPB 100 ML IV SCH (04:18)
[2019-06-06 04:37] LABS: ABG BASE EXCESS 4.8 MMOL/L (-2.5-2.5); ABG OXYGEN SATURATION 98 % (94-100); ABG PCO2 41 MMHG (35-45); ABG PH 7.46 (7.37-7.43); ABG PO2 146 MMHG (79-93)
[2019-06-06 04:42] LABS: ALLENS TEST ARTLINE; INSPIRED O2 40%; VENTILATOR NO
[2019-06-06 04:43] LABS: PATIENT TEMP 36.5
--- NOTE | 2019-06-06 04:45 | NUR ---
THIS RN NOTIFIED [facility] OF PATIENT'S CONTINUED HYPERTENSION WITH SBP IN 170-180'S DESPITE ORDERED PAIN MEDICATION WELL PRN HYPERTENSION MEDICATION GIVEN (SEE EMAR). NEW ORDER RECEIVED AT THIS TIME, SEE ORDER HX.
[2019-06-06] MEDS ORDERED: meTOprolol 5 MG/5 ML (LOPRESSOR) VIAL IV ONE (05:00)
[2019-06-06] MEDS: BUMETANIDE 1 MG/4 ML (BUMEX) VIAL IV SCH ×2 (06:35→17:35)
--- NOTE | 2019-06-06 07:26 | Diagnostic Imaging Report ---
INDICATION: Heart disease and COPD. Comparison made with prior examination 06/05/2019. FINDINGS: There is bilateral airspace disease. There has been previous median sternotomy and coronary bypass graft. There is no pleural effusion or pneumothorax. IMPRESSION: Persistent diffuse bilateral airspace disease. Underlying failure certainly cannot be excluded. Recommend clinical correlation. Dictated by: Dictated on workstation # [id number]
[2019-06-06] MEDS: PANTOPRAZOLE 40 MG (PROTONIX) VIAL IV SCH (07:48)
[2019-06-06] MEDS: DOCUSATE SODIUM 100 MG (COLACE) CAP PO SCH ×2 (07:49→20:20)
[2019-06-06] MEDS: lisINopril 20 MG (PRINIVIL) TABLET PO SCH (07:49)
[2019-06-06] MEDS: CLOPIDOGREL 75 MG (PLAVIX) TABLET PO SCH (07:49)
[2019-06-06] MEDS: doxAzosin 4 MG (CARDURA) TAB PO SCH (07:49)
[2019-06-06] MEDS: DULoxetine 20 MG (CYMBALTA) CAP PO SCH (07:49)
[2019-06-06] MEDS: ASPIRIN E.C. 81 MG (ECOTRIN) TAB PO SCH (07:50)
[2019-06-06] MEDS: LIDOCAINE 4% (SALONPAS) PATCH TOP SCH (07:50)
--- NOTE | 2019-06-06 08:26 | Progress Note ---
Subjective Subjective Date Seen by Provider: Jun 06, 2019 Time Seen by Provider: 08:10 INFLUENZA, PNEUMONIA, COPD, NON ST NM, S/P INTUBATION - NOW EXTUBATED HE IS ALERT AND SITTING UP IN THE HOSPITAL BED. HE STATES THAT HE WOULD LIKE TO LAY DOWN TO GO TO SLEEP. HE IS AWARE OF WHERE HE IS AND WHO I AM, BUT WAS SURPRISED WHEN I ASKED HOW HE WAS THIS MORNING STATING, " YOU ARE DR. MOTA AND THIS IS VIA [facility], MY KIDS BROUGHT ME IN, DID YOU HELP THEM LAST NIGHT?" I REMINDED HIM THAT HE WAS ON A VENTILATOR FOR ABOUT A WEEK AND HE SAID, "WELL THAT SOUNDS ABOUT RIGHT." HE DENIES CHEST PAIN, HE STATES THAT HE IS TIRED AND JUST WANTS TO SLEEP RIGHT NOW. HE ALSO REPORTS THAT HE THINKS THAT HIS BOWELS ARE CLEANED OUT AFTER THE MEDICATION I HAD HIM TAKE. Review of Systems General: No Chills; Fatigue, Malaise HEENT: No Head Aches, No Visual Changes Pulmonary: Dyspnea, Cough; No Pleuritic Chest Pain Cardiovascular: Edema; No: Chest Pain Gastrointestinal: Diarrhea (FROM ENEMAS YESTERDAY); No: Nausea, Abdominal Pain, Constipation Genitourinary: No Hematuria Musculoskeletal: No: neck pain, back pain Neurological: Weakness, Confusion (MILD) All Other Systems Reviewed All Other Systems Reviewed: Yes Objective Exam Vital Signs Vital Signs - First Documented 05/31/19 05/31/19 05/31/19 00:00 02:50 03:04 Temp 36.2 Pulse 96 Resp 18 B/P (MAP) 168/79 (108) Pulse Ox 96 O2 Delivery Mechanical Ventilator O2 Flow Rate 45.00 FiO2 35 Capillary Refill : Less Than 3 Seconds General Appearance: No Apparent Distress, Chronically ill Eyes: Bilateral Eye Normal Inspection, Bilateral Eye PERRL, Bilateral Eye EOMI HEENT: No Scleral Icterus (L), No Scleral Icterus (R) Neck: Full Range of Motion, Non Tender, Supple Respiratory: Chest Non Tender, Crackles, Decreased Breath Sounds Cardiovascular: Regular Rate, Rhythm, No Murmur Gastrointestinal: Normal Bowel Sounds, Non Tender, Soft, Distended; No Tenderness Rectal: Deferred Extremity: Normal Capillary Refill, Pedal Edema (IMPROVED) Neurologic/Psychiatric: Alert, Motor Weakness (HE CANNOT SIT UP WELL IN BED UNDER HIS OWN POWER), Other (ORIENTED TO PERSON, AND TO PLACE, NOT TIME) Skin: Normal Color, Warm/Dry Lymphatic: No Adenopathy Results Lab Laboratory Tests 06/05/19 12:00: Glucometer 69L 06/06/19 00:37: Glucometer 81 06/06/19 03:06: White Blood Count 12.4H, Red Blood Count 2.84L, Hemoglobin 8.6L, Hematocrit 29L, Mean Corpuscular Volume 103H, Mean Corpuscular Hemoglobin 30, Mean Corpuscular Hemoglobin Concent 30L, Red Cell Distribution Width 14.8H, Platelet Count 210, Mean Platelet Volume 10.4, Neutrophils (%) (Auto) 88H, Lymphocytes (%) (Auto) 7L , Monocytes (%) (Auto) 4, Eosinophils (%) (Auto) 1, Basophils (%) (Auto) 0, N eutrophils # (Auto) 11.0H, Lymphocytes # (Auto) 0.8L, Monocytes # (Auto) 0.5, Eosinophils # (Auto) 0.1, Basophils # (Auto) 0.0, Sodium Level 144, Potassium Level 4.3, Chloride Level 106, Carbon Dioxide Level 28, Anion Gap 10, Blood Urea Nitrogen 41H, Creatinine 1.20, Estimat Glomerular Filtration Rate 59, BUN/Creatinine Ratio 34, Glucose Level 97, Calcium Level 8.2L, Corrected Calcium 9.2, Phosphorus Level 3.7, Magnesium Level 2.8H, Total Bilirubin 0.6, Aspartate Amino Transf (AST/SGOT) 63H, Alanine Aminotransferase (ALT/SGPT) 101H, Alkaline Phosphatase 66, Total Protein 5.9L, Albumin 2.8L 06/06/19 04:30: Blood Gas Puncture Site LT ART LINE, Blood Gas Patient Temperature 36.5, Arterial Blood pH 7.46H, Arterial Blood Partial Pressure CO2 41, Arterial Blood Partial Pressure O2 146H, Arterial Blood HCO3 29H, Arterial Blood Total CO2 30.0, Arterial Blood Oxygen Saturation 98, Arterial Blood Base Excess 4.8H, Sundeep Test ARTLINE, Blood Gas Ventilator Setting NO, Blood Gas Inspired Oxygen 40% Microbiology 06/04/19 Blood Culture - Preliminary, Resulted No growth 05/30/19 Gram Stain - Final, Resulted 05/30/19 Sputum Culture - Preliminary, Resulted Aerobic actinomycetes YEAST Assessment/Plan Assessment/Plan Admission Dx SEVERE SEPSIS RESPIRATORY FAILURE WITH LACTIC ACIDOSIS INFLUENZA PNEUMONIA CHRONIC PULMONARY FIBROSIS COPD ACUTE ON CHRONIC RENAL FAILURE NON-ST NM CHRONIC DEPRESSION LEUKOCYTOSIS ANEMIA CONSTIPATION ELEVATED LFT'S RESPIRATORY FAILURE WITH LACTIC ACIDOSIS PT AGREED TO SHORT TERM INTUBATION ON 05/30/2019 AND WAS EXTUBATED ON 06/04/2019 INFLUENZA AND PNEUMONIA WITH CHRONIC PULMONARY FIBROSIS AND COPD - PT HAS COMPLETED TAMIFLU FOR TREATMENT OF THE FLU - LAST DOSE GIVEN 06/02/2019 -CONTINUE WITH CURRENT MANAGEMENT INITIATED IN ER AND BY DR. CULLEN. (ANIDULAFUNGIN AND MEROPENEM) ACUTE ON CHRONIC RENAL FAILURE - RESOLVED - CONTINUE WITH IV FLUIDS, RENALLY ADJUST MEDICATIONS NEEDED. NON-ST NM WITH HYPERTENSION - DEFER TO CARDIOLOGY - PT HAD SO MUCH PULMONARY DISTRESS THAT THIS CAUSED HIS SEVERE TROPONIN ELEVATION. WILL WATCH PT CLOSELY WE NAVIGATE HEALING FROM HIS PULMONARY ISSUES. - ON METOPROLOL ORAL, LISINOPRIL, AND PRN HYDRALAZINE, MONITOR BP AND SYMPTOMS. CHRONIC DEPRESSION - RESTART CYMBALTA 06/06/2019 LEUKOCYTOSIS -IMPROVED - SUSPECT DUE TO STEROID USE, CONTINUE TO MONITOR SYMPTOMS AND LABS ANEMIA -STABLE STATUS POST BLOOD TRANSFUSION ON 05/29/2019 - CONTINUE TO MONITOR LABS. ELEVATED LFT'S - DUE TO SHOCK - CONTINUE WITH CURRENT MANAGEMENT - LFT'S HAVE IMPROVED SLOWLY. CONSTIPATION - RESOLVED DYSPHAGIA - SPEECH THERAPY HAS BEEN CONSULTED - WILL CONTINUE TO FOLLOW SPEECH RECOMMENDATIONS CRITICAL CARE MYOPATHY - WILL REQUIRE [facility]PC REHAB AND STRENGTHENING DUE TO HIS DEBILITATED STATUS - WILL LOOK INTO PENITENTIARY PLACEMENT ON DISCHARGE. CONTINUE TO EXPECT SEVERAL MORE DAYS IN THE ICU . Problems: (1) Acute respiratory failure with hypoxia (2) Endotracheally intubated (3) Severe sepsis (4) Pneumonia Qualifiers: Qualified Codes: J18.9 - Pneumonia, unspecified organism (5) Influenza (6) Lactic acidosis (7) Acute kidney injury superimposed on chronic kidney disease (8) (HFpEF) heart failure with preserved ejection fraction (9) Non-ST elevation NM (NSTEMI) Admission Dx SEVERE SEPSIS RESPIRATORY FAILURE WITH LACTIC ACIDOSIS INFLUENZA PNEUMONIA CHRONIC PULMONARY FIBROSIS COPD ACUTE ON CHRONIC RENAL FAILURE NON-ST NM CHRONIC DEPRESSION LEUKOCYTOSIS ANEMIA CONSTIPATION ELEVATED LFT'S RESPIRATORY FAILURE WITH LACTIC ACIDOSIS PT AGREED TO SHORT TERM INTUBATION ON 05/30/2019 AND WAS EXTUBATED ON 06/04/2019 INFLUENZA AND PNEUMONIA WITH CHRONIC PULMONARY FIBROSIS AND COPD - PT HAS COMPLETED TAMIFLU FOR TREATMENT OF THE FLU - LAST DOSE GIVEN 06/02/2019 -CONTINUE WITH CURRENT MANAGEMENT INITIATED IN ER AND BY DR. CULLEN. (ADILAFUNGIN AND MEROPENEM) ACUTE ON CHRONIC RENAL FAILURE - RESOLVED - CONTINUE WITH IV FLUIDS, RENALLY ADJUST MEDICATIONS NEEDED. NON-ST NM WITH HYPERTENSION - DEFER TO CARDIOLOGY - PT HAD SO MUCH PULMONARY DISTRESS THAT THIS CAUSED HIS SEVERE TROPONIN ELEVATION. WILL WATCH PT CLOSELY WE NAVIGATE HEALING FROM HIS PULMONARY ISSUES. - PT UNABLE TO SAFELY TAKE PO MEDICATION THIS MORNING, AND LOPRESSOR 5MG Q3 HOURS WAS ORDERED FOR CONTROL OF HIS BLOOD PRESSURES. CHRONIC DEPRESSION - RESTARTED CYMBALTA - BUT IT HAS BEEN HELD DUE TO HIS INTUBATED STATUS AND NOW HE HAS HAD DIFFICULTY SWALLOWING LEUKOCYTOSIS -IMPROVED - SUSPECT DUE TO STEROID USE, CONTINUE TO MONITOR SYMPTOMS AND LABS ANEMIA -STABLE STATUS POST BLOOD TRANSFUSION ON 05/29/2019 - CONTINUE TO MONITOR LABS. ELEVATED LFT'S - DUE TO SHOCK - CONTINUE WITH CURRENT MANAGEMENT - LFT'S HAVE IMPROVED SLOWLY. CONSTIPATION - RESOLVED DYSPHAGIA - SPEECH THERAPY HAS BEEN CONSULTED CRITICAL CARE MYOPATHY - WILL REQUIRE FPC REHAB AND STRENGTHENING DUE TO HIS DEBILITATED STATUS - WILL LOOK INTO PENITENTIARY PLACEMENT ON DISCHARGE. CONTINUE TO EXPECT SEVERAL MORE DAYS IN THE ICU - DEFER EXTUBATION PLANS TO DR. CULLEN Clinical Quality Measures Admission Status Admission Dx SEVERE SEPSIS RESPIRATORY FAILURE WITH LACTIC ACIDOSIS INFLUENZA PNEUMONIA CHRONIC PULMONARY FIBROSIS COPD ACUTE ON CHRONIC RENAL FAILURE NON-ST NM CHRONIC DEPRESSION LEUKOCYTOSIS ANEMIA CONSTIPATION ELEVATED LFT'S RESPIRATORY FAILURE WITH LACTIC ACIDOSIS PT AGREED TO SHORT TERM INTUBATION ON 05/30/2019 AND WAS EXTUBATED ON 06/04/2019 INFLUENZA AND PNEUMONIA WITH CHRONIC PULMONARY FIBROSIS AND COPD - PT HAS COMPLETED TAMIFLU FOR TREATMENT OF THE FLU - LAST DOSE GIVEN 06/02/2019 -CONTINUE WITH CURRENT MANAGEMENT INITIATED IN ER AND BY DR. CULLEN. (ADILAFUNGIN AND MEROPENEM) ACUTE ON CHRONIC RENAL FAILURE - RESOLVED - CONTINUE WITH IV FLUIDS, RENALLY ADJUST MEDICATIONS NEEDED. NON-ST NM WITH HYPERTENSION - DEFER TO CARDIOLOGY - PT HAD SO MUCH PULMONARY DISTRESS THAT THIS CAUSED HIS SEVERE TROPONIN ELEVATION. WILL WATCH PT CLOSELY WE NAVIGATE HEALING FROM HIS PULMONARY ISSUES. - PT UNABLE TO SAFELY TAKE PO MEDICATION THIS MORNING, AND LOPRESSOR 5MG Q3 HOURS WAS ORDERED FOR CONTROL OF HIS BLOOD PRESSURES. CHRONIC DEPRESSION - RESTARTED CYMBALTA - BUT IT HAS BEEN HELD DUE TO HIS INTUBATED STATUS AND NOW HE HAS HAD DIFFICULTY SWALLOWING LEUKOCYTOSIS -IMPROVED - SUSPECT DUE TO STEROID USE, CONTINUE TO MONITOR SYMPTOMS AND LABS ANEMIA -STABLE STATUS POST BLOOD TRANSFUSION ON 05/29/2019 - CONTINUE TO MONITOR LABS. ELEVATED LFT'S - DUE TO SHOCK - CONTINUE WITH CURRENT MANAGEMENT - LFT'S HAVE IMPROVED SLO WLY. CONSTIPATION - RESOLVED DYSPHAGIA - SPEECH THERAPY HAS BEEN CONSULTED CRITICAL CARE MYOPATHY - WILL REQUIRE CORRECTIONAL THERAPY DIRECTOR REHAB AND STRENGTHENING DUE TO HIS DEBILITATED STATUS - WILL LOOK INTO PENITENTIARY PLACEMENT ON DISCHARGE. CONTINUE TO EXPECT SEVERAL MORE DAYS IN THE ICU - DEFER EXTUBATION PLANS TO DR. CULLEN DVT/VTE Risk/Contraindication: Risk Factor Score Per Nursin RFS Level Per Nursing on Admit: 4+=Very High DEANDRA MOTA MD Jun 06, 2019 08:26
--- NOTE | 2019-06-06 08:30 | Cardiology Progress Note ---
Subjective Date Seen by Provider: Jun 06, 2019 Time Seen by Provider: 08:26 Subjective/Events-last exam Patient is sitting in bed, no new complaint, feeling better Review of Systems General: No Chills, No Night Sweats; Fatigue; No Malaise, No Appetite, No Other HEENT: No Head Aches, No Visual Changes, No Eye Pain, No Ear Pain, No Dysphasia, No Sinus Congestion, No Post Nasal Drip, No Sore Throat, No Other Pulmonary: Dyspnea; No Cough, No Pleuritic Chest Pain, No Other Cardiovascular: No: Chest Pain, Palpitations, Orthopnea, Paroxysmal Noc. Dyspnea, Edema, Lt Headedness, Other Objective-Cardiology Exam Last Set of Vital Signs Vital Signs 06/06/19 06/06/19 06/06/19 06/06/19 06/06/19 04:00 04:27 06:00 06:16 07:00 Temp 36.5 Pulse 123 Resp 25 B/P (MAP) 164/55 (91) Pulse Ox 98 O2 Delivery NIV Bilevel O2 Flow Rate 35.00 FiO2 35 Capillary Refill : Less Than 3 Seconds I&O Intake and Output 06/06/19 00:00 Intake Total 1750 ml Output Total 3600 ml Balance -1850 ml Intake Oral 600 ml IV Total 1150 ml Output Urine Total 3600 ml General: Alert, Oriented X3, Cooperative HEENT: Atraumatic, PERRLA Neck: Supple, No JVD, No Thyromegaly Lungs: Clear to Auscultation, Normal Air Movement Heart: Normal S1, Normal S2, No Murmurs, Other (Tachycardia) Abdomen: Normal Bowel Sounds, Soft, No Tenderness, No Hepatosplenomegaly, No Masses Extremities: No Clubbing, No Cyanosis, No Edema, Normal Pulses, No Tenderness/Swelling Skin: No Rashes, No Breakdown, No Significant Lesion Neuro: Normal Gait, Normal Speech, Strength at 5/5 X4 Ext, Normal Tone, Sensation Intact Psych/Mental Status: Mental Status NL, Mood NL Results Lab Laboratory Tests 06/06/19 03:06 A/P-Cardiology Admission Diagnosis Acute respiratory failure Coronary artery disease Congestive heart failure Hypertension Assessment/Plan Status post respiratory failure, better at this time, improving. Paroxysmal atrial tachycardia, currently sinus tachycardia, I will start him on Lopressor 50 mg twice a day and monitor tolerance and response Hypertension, restarted lisinopril and added Lopressor, monitor blood pressure response Influenza A, treated with medical team Severe sepsis, improving. Non-ST elevation myocardial infarction, coronary artery disease with ischemic cardiomyopathy, history of CABG [address] [place] [address] Magana. Continue with co nservative management at this time Congestive heart failure, chronic compensated left ventricular systolic dysfunction, ejection fraction 40-45 percent, ischemic cardiomyopathy. Continue to monitor Status post acute renal failure, improving. Continue to monitor Hyperlipidemia, continue to monitor Chronic pain including back pain. History of syncope. Clinical Quality Measures DVT/VTE Risk/Contraindication: Risk Factor Score Per Nursin RFS Level Per Nursing on Admit: 4+=Very High DAVID DELGADO MD Jun 06, 2019 08:30
[2019-06-06] MEDS: meTOprolol TARTRATE 50 MG (LOPRESSOR) TAB PO SCH ×2 (09:36→20:20)
[2019-06-06] MEDS: ANIDULAFUNGIN INJECTION 100 MG in NS (IVPB) 100 ML IV SCH (09:36)
[2019-06-06] MEDS: ENOXAPARIN 40 MG/0.4 ML (LOVENOX) SYR SC SCH (09:36)
--- NOTE | 2019-06-06 12:36 | Physical Therapy Progress Note ---
Therapy Progress Note Pt not seen this date per nursing request; reports vitals elevated. No treatment rendered. MELISSA BOATENG PT Jun 06, 2019 12:36
[2019-06-06] MEDS ORDERED: meTOprolol 5 MG/5 ML (LOPRESSOR) VIAL ONE (13:00)
[2019-06-06] MEDS: LIDOCAINE PATCH REMOVAL TP SCH (21:41)
[2019-06-06] MEDS: LACTATED RINGERS 1,000 ML IV SCH (23:53)
[2019-06-07] VITALS (27 sets, daily range): BP systolic 82–178; BP diastolic 44–75
[2019-06-07] MEDS: hydrALAZINE (APESOLINE) 20 MG/ML VIAL IV PRN (01:18)
[2019-06-07] MEDS: morphine INJ 4 MG/ML 1 ML (VIAL/SYRINGE) IVP PRN ×3 (01:19→22:05)
[2019-06-07] MEDS: RT-ALBUTEROL/IPRATROPIUM 3 ML (DUONEB) VIAL INH SCH ×6 (02:01→22:20)
[2019-06-07] MEDS: MEROPENEM 500 MG/SWFI 10 ML IV PUSH IV SCH ×2 (02:39)
[2019-06-07] MEDS: meTOprolol 5 MG/5 ML (LOPRESSOR) VIAL IV SCH ×2 (02:39→06:15)
[2019-06-07 04:01] LABS: ABG BASE EXCESS 6.2 MMOL/L (-2.5-2.5); ABG OXYGEN SATURATION 99 % (94-100); ABG PCO2 47 MMHG (35-45); ABG PH 7.43 (7.37-7.43); ABG PO2 128 MMHG (79-93); ABG TCO2 32.2 MMOL/L (21.0-31.0)
[2019-06-07 04:02] LABS: ALLENS TEST POS; INSPIRED O2 35%; VENTILATOR NO
[2019-06-07 04:03] LABS: PATIENT TEMP 36.3
[2019-06-07 04:20] LABS: BASOPHILS % (AUTO) 0 % (0-10); EOSINOPHILS # (AUTO) 0.3 10^3/uL (0.0-0.3); EOSINOPHILS % (AUTO) 3 % (0-10); HEMATOCRIT 29 % (40-54); HEMOGLOBIN 8.2 G/DL (13.3-17.7); LYMPHOCYTES # (AUTO) 0.9 X 10^3 (1.0-4.0); LYMPHOCYTES % (AUTO) 9 % (12-44); MEAN CORPUSCULAR HEMOGLOBIN 29 PG (25-34); MEAN CORPUSCULAR HGB CONC 29 G/DL (32-36); MEAN CORPUSCULAR VOLUME 102 FL (80-99); MEAN PLATELET VOLUME 10.3 FL (7.4-10.4); MONOCYTES # (AUTO) 0.6 X 10^3 (0.0-1.0); MONOCYTES % (AUTO) 6 % (0-12); NEUTROPHILS # (AUTO) 7.7 X 10^3 (1.8-7.8); NEUTROPHILS % (AUTO) 82 % (42-75); PLATELET COUNT 222 10^3/uL (130-400); RED CELL DISTRIBUTION WIDTH 14.8 % (10.0-14.5); WHITE BLOOD COUNT 9.4 10^3/uL (4.3-11.0)
[2019-06-07 04:46] LABS: BUN/CREATININE RATIO 33; CARBON DIOXIDE 28 MMOL/L (21-32); CHLORIDE 105 MMOL/L (98-107); CREATININE SERUM 0.98 MG/DL (0.60-1.30); POTASSIUM 4.1 MMOL/L (3.6-5.0); SODIUM 142 MMOL/L (135-145)
[2019-06-07 04:47] LABS: ALANINE AMINOTRANSFERASE 79 U/L (0-55); ALBUMIN 2.6 GM/DL (3.2-4.5); ALKALINE PHOSPHATASE 59 U/L (40-136); BILIRUBIN,TOTAL 0.7 MG/DL (0.1-1.0); CALCIUM 8.3 MG/DL (8.5-10.1); GFR ESTIMATED > 60; GLUCOSE 102 MG/DL (70-105); MAGNESIUM 2.3 MG/DL (1.6-2.4); PHOSPHORUS 3.1 MG/DL (2.3-4.7); TOTAL PROTEIN 5.8 GM/DL (6.4-8.2)
[2019-06-07] MEDS: BUMETANIDE 1 MG/4 ML (BUMEX) VIAL IV SCH ×2 (06:15→17:21)
[2019-06-07] MEDS: POTASSIUM CL 10MEQ/50ML IVPB 50 ML IV SCH (06:33)
[2019-06-07] MEDS: KCL 20 MEQ TAB (K-DUR) PO SCH (06:34)
[2019-06-07] MEDS: MAGNESIUM 1 GM/100 ML IVPB 100 ML IV SCH (06:34)
--- NOTE | 2019-06-07 07:22 | Diagnostic Imaging Report ---
INDICATION: Dyspnea. COMPARISON: 06/06/2019. FINDINGS: Heart size is unchanged. There has been a previous median sternotomy and a coronary bypass graft. Right internal jugular central venous catheter remains in place. There is unchanged bilateral airspace disease. There is no pleural effusion or pneumothorax. IMPRESSION: Unchanged bilateral airspace disease. Dictated by: Dictated on workstation # [id number]
[2019-06-07] MEDS ORDERED: dilTIAZem DRIP PRE-MIX 125 ML IV ONE (07:47)
[2019-06-07] MEDS: dilTIAZem DRIP PRE-MIX 125 ML IV SCH ×2 (08:05→17:22)
--- NOTE | 2019-06-07 08:26 | Cardiology Progress Note ---
Subjective Date Seen by Provider: Jun 07, 2019 Time Seen by Provider: 08:24 Subjective/Events-last exam Patient is laying down in bed, feeling slightly better. Still short of breath and tachycardic Review of Systems General: No Chills, No Night Sweats; Fatigue, Malaise; No Appetite, No Other HEENT: No Head Aches, No Visual Changes, No Eye Pain, No Ear Pain, No Dysph hai, No Sinus Congestion, No Post Nasal Drip, No Sore Throat, No Other Pulmonary: Dyspnea, Cough; No Pleuritic Chest Pain, No Other Cardiovascular: No: Chest Pain, Palpitations, Orthopnea, Paroxysmal Noc. Dyspnea, Edema, Lt Headedness, Other Objective-Cardiology Exam Last Set of Vital Signs Vital Signs 06/07/19 06/07/19 06/07/19 04:00 06:00 07:22 Temp 36.3 Pulse 131 Resp 22 B/P (MAP) 153/59 (90) Pulse Ox 91 O2 Delivery Vapotherm O2 Flow Rate 20.00 FiO2 35 Capillary Refill : Less Than 3 Seconds I&O Intake and Output 06/07/19 00:00 Intake Total 1890 ml Output Total 3400 ml Balance -1510 ml Intake Oral 740 ml IV Total 1150 ml Output Urine Total 3400 ml General: Alert, Oriented X3, Cooperative HEENT: Atraumatic, PERRLA Neck: Supple, No JVD, No Thyromegaly Lungs: Normal Air Movement, Other (Bilateral rhonchi) Heart: Normal S1, Normal S2, No Murmurs, Other (Tachycardia) Abdomen: Normal Bowel Sounds, Soft, No Tenderness, No Hepatosplenomegaly, No Masses Extremities: No Clubbing, No Cyanosis, No Edema, Normal Pulses, No Tenderness/Swelling Skin: No Rashes, No Breakdown, No Significant Lesion Neuro: Normal Gait, Normal Speech, Strength at 5/5 X4 Ext, Normal Tone, Se nsation Intact Psych/Mental Status: Mental Status NL, Mood NL Results Lab Laboratory Tests 06/07/19 03:05 A/P-Cardiology Admission Diagnosis Acute respiratory failure Coronary artery disease Congestive heart failure Hypertension Assessment/Plan Status post respiratory failure, improving slowly, still on Vapotherm. Paroxysmal atrial tachycardia, currently in atrial flutter, I started him on Cardizem drip in addition to the metoprolol, heart rate is slightly better. Continue to titrate and change Lovenox to therapeutic dose Hypertension, monitor blood pressure on current medication Influenza A, treated with medical team Severe sepsis, improving. Non-ST elevation myocardial infarction, coronary artery disease with ischemic cardiomyopathy, history of CABG [address] [place] [address] Magana. Continue with conservative management at this time Congestive heart failure, chronic compensated left ventricular systolic dysfunction, ejection fraction 40-45 percent, ischemic cardiomyopathy. Continue to monitor Status post acute renal failure, improving. Continue to monitor Hyperlipidemia, continue to monitor Chronic pain including back pain. History of syncope. Clinical Quality Measures DVT/VTE Risk/Contraindication: Risk Factor Score Per Nursin RFS Level Per Nursing on Admit: 4+=Very High DAVID DELGADO MD Jun 07, 2019 08:26
[2019-06-07] MEDS: PANTOPRAZOLE 40 MG (PROTONIX) VIAL IV SCH (08:46)
[2019-06-07] MEDS: DOCUSATE SODIUM 100 MG (COLACE) CAP PO SCH ×2 (08:47→21:53)
[2019-06-07] MEDS: ANIDULAFUNGIN INJECTION 100 MG in NS (IVPB) 100 ML IV SCH (08:47)
[2019-06-07] MEDS: CLOPIDOGREL 75 MG (PLAVIX) TABLET PO SCH (08:47)
[2019-06-07] MEDS: meTOprolol TARTRATE 50 MG (LOPRESSOR) TAB PO SCH ×2 (08:47→21:53)
[2019-06-07] MEDS: LIDOCAINE 4% (SALONPAS) PATCH TOP SCH (08:47)
[2019-06-07] MEDS: lisINopril 20 MG (PRINIVIL) TABLET PO SCH (08:47)
[2019-06-07] MEDS: DULoxetine 20 MG (CYMBALTA) CAP PO SCH (08:47)
[2019-06-07] MEDS: ASPIRIN E.C. 81 MG (ECOTRIN) TAB PO SCH (08:47)
[2019-06-07] MEDS: doxAzosin 4 MG (CARDURA) TAB PO SCH (08:47)
[2019-06-07] MEDS: ENOXAPARIN 100 MG/1 ML (LOVENOX) SYR SC SCH ×2 (08:54→21:53)
--- NOTE | 2019-06-07 14:11 | Progress Note ---
Subjective Subjective Date Seen by Provider: Jun 07, 2019 Time Seen by Provider: 08:40 INFLUENZA, PNEUMONIA, COPD, NON ST AL, S/P INTUBATION - NOW EXTUBATED PT STATES THAT HE IS DOING WELL, HIS NURSE STATES THAT HE SEEMS TO HAVE A GOOD APPETITE, HE HAS GOTTEN UP TO SIDE OF BED WITH THERAPY AND THEY HAVE TO USE A NELL LIFT DUE TO HIS LEGS BEING TOO WEAK TO AMBULATE. HE REPORTS THAT HE IS FEELING A LOT BETTER, BUT THEN REPORTS THAT HE HAS A "[employer] WOMAN" WHO HAS BEEN BOTHERING HIM AND OFFERING HIM SEX IF HE PAID ALL OF HER BILLS...SO HE DOES HAVE SOME INTERMITTENT CONFUSION PER NURSING STAFF. Review of Systems General: No Chills, No Night Sweats; Fatigue, Malaise; No Appetite, No Other HEENT: No Head Aches, No Visual Changes, No Eye Pain, No Ear Pain, No Dysphasia, No Sinus Congestion, No Post Nasal Drip, No Sore Throat, No Other Pulmonary: Dyspnea, Cough; No Pleuritic Chest Pain, No Other Cardiovascular: Edema; No: Chest Pain, Palpitations, Orthopnea, Paroxysmal Noc. Dyspnea, Lt Headedness, Other Gastrointestinal: No: Nausea, Abdominal Pain, Constipation Genitourinary: No Hematuria Musculoskeletal: No: neck pain, back pain Neurological: Weakness, Confusion (INTERMITTENT) All Other Systems Reviewed All Other Systems Reviewed: Yes Objective Exam Vital Signs Vital Signs - First Documented 06/01/19 06/01/19 00:00 08:00 Temp 36.3 Pulse 80 Resp 22 B/P (MAP) 169/78 (108) Pulse Ox 95 O2 Delivery Mechanical Ventilator O2 Flow Rate 45.00 FiO2 45 Capillary Refill : Less Than 3 Seconds General Appearance: No Apparent Distress, Chronically ill Eyes: Bilateral Eye Normal Inspection, Bilateral Eye PERRL, Bilateral Eye EOMI HEENT: No Scleral Icterus (L), No Scleral Icterus (R) Neck: Full Range of Motion, Non Tender, Supple Respiratory: Chest Non Tender, Crackles, Decreased Breath Sounds Cardiovascular: Regular Rate, Rhythm, No Murmur Gastrointestinal: Normal Bowel Sounds, Non Tender, Soft, Distended; No Tenderness Rectal: Deferred Extremity: Normal Capillary Refill, Pedal Edema (IMPROVED) Neurologic/Psychiatric: Alert (ORIENTED TO PERSON, PLACE, NOT TIME), Motor Weakness (HE CANNOT SIT UP WELL IN BED UNDER HIS OWN POWER), Other (ORIENTED TO PERSON, AND TO PLACE, NOT TIME) Skin: Normal Color, Warm/Dry Lymphatic: No Adenopathy Results Lab Laboratory Tests 06/07/19 03:05: White Blood Count 9.4, Red Blood Count 2.82L, Hemoglobin 8.2L, Hematocrit 29L, Mean Corpuscular Volume 102H, Mean Corpuscular Hemoglobin 29, Mean Corpuscular Hemoglobin Concent 29L, Red Cell Distribution Width 14.8H, Platelet Count 222, Mean Platelet Volume 10.3, Neutrophils (%) (Auto) 82H, Lymphocytes (%) (Auto) 9L , Monocytes (%) (Auto) 6, Eosinophils (%) (Auto) 3, Basophils (%) (Auto) 0, Neutrophils # (Auto) 7.7, Lymphocytes # (Auto) 0.9L, Monocytes # (Auto) 0.6, Eosinophils # (Auto) 0.3, Basophils # (Auto) 0.0, Sodium Level 142, Potassium Level 4.1, Chloride Level 105, Carbon Dioxide Level 28, Anion Gap 9, Blood Urea Nitrogen 32H, Creatinine 0.98, Estimat Glomerular Filtration Rate > 60, BUN/Creatinine Ratio 33, Glucose Level 102, Calcium Level 8.3L, Corrected Calcium 9.4, Phosphorus Level 3.1, Magnesium Level 2.3, Total Bilirubin 0.7, Aspartate Amino Transf (AST/SGOT) 56H, Alanine Aminotransferase (ALT/SGPT) 79H, Alkaline Phosphatase 59, Total Protein 5.8L, Albumin 2.6L 06/07/19 03:47: Blood Gas Puncture Site LT ART, Blood Gas Patient Temperature 36.3, Arterial Blood pH 7.43, Arterial Blood Partial Pressure CO2 47H, Arterial Blood Partial Pressure O2 128H, Arterial Blood HCO3 31H, Arterial Blood Total CO2 32.2H, Arterial Blood Oxygen Saturation 99, Arterial Blood Base Excess 6.2H, Sundeep Test POS, Blood Gas Ventilator Setting NO, Blood Gas Inspired Oxygen 35% Microbiology 06/04/19 Blood Culture - Preliminary, Resulted No growth 05/30/19 Gram Stain - Final, Resulted 05/30/19 Sputum Culture - Preliminary, Resulted Aerobic actinomycetes YEAST Assessment/Plan Assessment/Plan Admission Dx SEVERE SEPSIS RESPIRATORY FAILURE WITH LACTIC ACIDOSIS INFLUENZA PNEUMONIA CHRONIC PULMONARY FIBROSIS COPD ACUTE ON CHRONIC RENAL FAILURE NON-ST AL CHRONIC DEPRESSION LEUKOCYTOSIS ANEMIA CONSTIPATION ELEVATED LFT'S RESPIRATORY FAILURE WITH LACTIC ACIDOSIS PT AGREED TO SHORT TERM INTUBATION ON 05/30/2019 AND WAS EXTUBATED ON 06/04/2019 INFLUENZA AND PNEUMONIA WITH CHRONIC PULMONARY FIBROSIS AND COPD - PT HAS COMPLETED TAMIFLU FOR TREATMENT OF THE FLU - LAST DOSE GIVEN 06/02/2019 -CONTINUE WITH CURRENT MANAGEMENT INITIATED IN ER AND BY DR. CULLEN. (ANIDULAFUNGIN AND MEROPENEM) ACUTE ON CHRONIC RENAL FAILURE - RESOLVED - CONTINUE WITH IV FLUIDS, RENALLY ADJUST MEDICATIONS NEEDED. NON-ST AL WITH HYPERTENSION - DEFER TO CARDIOLOGY - PT HAD SO MUCH PULMONARY DISTRESS THAT THIS CAUSED HIS SEVERE TROPONIN ELEVATION. WILL WATCH PT CLOSELY WE NAVIGATE HEALING FROM HIS PULMONARY ISSUES. - ON IV CARDIZEM, AND METOPROLOL ORAL, LISINOPRIL, AND PRN HYDRALAZINE, MONITOR BP AND SYMPTOMS. CHRONIC DEPRESSION - RESTARTED CYMBALTA 06/06/2019 LEUKOCYTOSIS -IMPROVED - SUSPECT DUE TO STEROID USE, CONTINUE TO MONITOR SYMPTOMS AND LABS ANEMIA -STABLE STATUS POST BLOOD TRANSFUSION ON 05/29/2019 - CONTINUE TO MONITOR LABS. ELEVATED LFT'S - DUE TO SHOCK - CONTINUE WITH CURRENT MANAGEMENT - LFT'S HAVE IMPROVED SLOWLY. CONSTIPATION - RESOLVED DYSPHAGIA - SPEECH THERAPY HAS BEEN CONSULTED - WILL CONTINUE TO FOLLOW SPEECH RECOMMENDATIONS CRITICAL CARE MYOPATHY - WILL REQUIRE OFFICE ENGINEER REHAB AND STRENGTHENING DUE TO HIS DEBILITATED STATUS - WILL LOOK INTO SKILLED NURSING PLACEMENT ON DISCHARGE. CONTINUE TO EXPECT SEVERAL MORE DAYS IN THE ICU . Problems: (1) Acute respiratory failure with hypoxia (2) Endotracheally intubated (3) Severe sepsis (4) Pneumonia Qualifiers: Qualified Codes: J18.9 - Pneumonia, unspecified organism (5) Influenza (6) Lactic acidosis (7) Acute kidney injury superimposed on chronic kidney disease (8) (HFpEF) heart failure with preserved ejection fraction (9) Non-ST elevation AL (NSTEMI) Admission Dx SEVERE SEPSIS RESPIRATORY FAILURE WITH LACTIC ACIDOSIS INFLUENZA PNEUMONIA CHRONIC PULMONARY FIBROSIS COPD ACUTE ON CHRONIC RENAL FAILURE NON-ST AL CHRONIC DEPRESSION LEUKOCYTOSIS ANEMIA CONSTIPATION ELEVATED LFT'S RESPIRATORY FAILURE WITH LACTIC ACIDOSIS PT AGREED TO SHORT TERM INTUBATION ON 05/30/2019 AND WAS EXTUBATED ON 06/04/2019 INFLUENZA AND PNEUMONIA WITH CHRONIC PULMONARY FIBROSIS AND COPD - PT HAS COMPLETED TAMIFLU FOR TREATMENT OF THE FLU - LAST DOSE GIVEN 06/02/2019 -CONTINUE WITH CURRENT MANAGEMENT INITIATED IN ER AND BY DR. CULLEN. (ANIDULAFUNGIN AND MEROPENEM) ACUTE ON CHRONIC RENAL FAILURE - RESOLVED - CONTINUE WITH IV FLUIDS, RENALLY ADJUST MEDICATIONS NEEDED. NON-ST AL WITH HYPERTENSION - DEFER TO CARDIOLOGY - PT HAD SO MUCH PULMONARY DISTRESS THAT THIS CAUSED HIS SEVERE TROPONIN ELEVATION. WILL WATCH PT CLOSELY WE NAVIGATE HEALING FROM HIS PULMONARY ISSUES. - ON METOPROLOL ORAL, LISINOPRIL, AND PRN HYDRALAZINE, MONITOR BP AND SYMPTOMS. CHRONIC DEPRESSION - RESTART CYMBALTA 06/06/2019 LEUKOCYTOSIS -IMPROVED - SUSPECT DUE TO STEROID USE, CONTINUE TO MONITOR SYMPTOMS AND LABS ANEMIA -STABLE STATUS POST BLOOD TRANSFUSION ON 05/29/2019 - CONTINUE TO MONITOR LABS. ELEVATED LFT'S - DUE TO SHOCK - CONTINUE WITH CURRENT MANAGEMENT - LFT'S HAVE IMPROVED SLO WLY. CONSTIPATION - RESOLVED DYSPHAGIA - SPEECH THERAPY HAS BEEN CONSULTED - WILL CONTINUE TO FOLLOW SPEECH RECOMMENDATIONS CRITICAL CARE MYOPATHY - WILL REQUIRE ASSISTED REHAB AND STRENGTHENING DUE TO HIS DEBILITATED STATUS - WILL LOOK INTO SKILLED NURSING PLACEMENT ON DISCHARGE. CONTINUE TO EXPECT SEVERAL MORE DAYS IN THE ICU . Clinical Quality Measures Admission Status Admission Dx SEVERE SEPSIS RESPIRATORY FAILURE WITH LACTIC ACIDOSIS INFLUENZA PNEUMONIA CHRONIC PULMONARY FIBROSIS COPD ACUTE ON CHRONIC RENAL FAILURE NON-ST AL CHRONIC DEPRESSION LEUKOCYTOSIS ANEMIA CONSTIPATION ELEVATED LFT'S RESPIRATORY FAILURE WITH LACTIC ACIDOSIS PT AGREED TO SHORT TERM INTUBATION ON 05/30/2019 AND WAS EXTUBATED ON 06/04/2019 INFLUENZA AND PNEUMONIA WITH CHRONIC PULMONARY FIBROSIS AND COPD - PT HAS COMPLETED TAMIFLU FOR TREATMENT OF THE FLU - LAST DOSE GIVEN 06/02/2019 -CONTINUE WITH CURRENT MANAGEMENT INITIATED IN ER AND BY DR. CULLEN. (ANIDULAFUNGIN AND MEROPENEM) ACUTE ON CHRONIC RENAL FAILURE - RESOLVED - CONTINUE WITH IV FLUIDS, RENALLY ADJUST MEDICATIONS NEEDED. NON-ST AL WITH HYPERTENSION - DEFER TO CARDIOLOGY - PT HAD SO MUCH PULMONARY DISTRESS THAT THIS CAUSED HIS SEVERE TROPONIN ELEVATION. WILL WATCH PT CLOSELY WE NAVIGATE HEALING FROM HIS PULMONARY ISSUES. - ON METOPROLOL ORAL, LISINOPRIL, AND PRN HYDRALAZINE, MONITOR BP AND SYMPTOMS. CHRONIC DEPRESSION - RESTART CYMBALTA 06/06/2019 LEUKOCYTOSIS -IMPROVED - SUSPECT DUE TO STEROID USE, CONTINUE TO MONITOR SYMPTOMS AND LABS ANEMIA -STABLE STATUS POST BLOOD TRANSFUSION ON 05/29/2019 - CONTINUE TO MONITOR LABS. ELEVATED LFT'S - DUE TO SHOCK - CONTINUE WITH CURRENT MANAGEMENT - LFT'S HAVE IMPROVED SLOWLY. CONSTIPATION - RESOLVED DYSPHAGIA - SPEECH THERAPY HAS BEEN CONSULTED - WILL CONTINUE TO FOLLOW SPEECH RECOMMENDATIONS CRITICAL CARE MYOPATHY - WILL REQUIRE ASSISTED REHAB AND STRENGTHENING DUE TO HIS DEBILITATED STATUS - WILL LOOK INTO SKILLED NURSING PLACEMENT ON DISCHARGE. CONTINUE TO EXPECT SEVERAL MORE DAYS IN THE ICU . DVT/VTE Risk/Contraindication: Risk Factor Score Per Nursin RFS Level Per Nursing on Admit: 4+=Very High DEANDRA MOTA MD Jun 07, 2019 14:11
[2019-06-07] MEDS: LIDOCAINE PATCH REMOVAL TP SCH (21:53)
[2019-06-08] VITALS (25 sets, daily range): BP systolic 101–142; BP diastolic 49–94
[2019-06-08] MEDS: RT-ALBUTEROL/IPRATROPIUM 3 ML (DUONEB) VIAL INH SCH ×6 (02:23→22:40)
[2019-06-08] MEDS: dilTIAZem DRIP PRE-MIX 125 ML IV SCH ×3 (02:38→23:16)
[2019-06-08 04:03] LABS: BASOPHILS % (AUTO) 0 % (0-10); EOSINOPHILS # (AUTO) 0.2 10^3/uL (0.0-0.3); EOSINOPHILS % (AUTO) 3 % (0-10); HEMATOCRIT 28 % (40-54); HEMOGLOBIN 8.2 G/DL (13.3-17.7); LYMPHOCYTES # (AUTO) 0.8 X 10^3 (1.0-4.0); LYMPHOCYTES % (AUTO) 9 % (12-44); MEAN CORPUSCULAR HEMOGLOBIN 30 PG (25-34); MEAN CORPUSCULAR HGB CONC 29 G/DL (32-36); MEAN CORPUSCULAR VOLUME 102 FL (80-99); MEAN PLATELET VOLUME 9.9 FL (7.4-10.4); MONOCYTES # (AUTO) 0.5 X 10^3 (0.0-1.0); MONOCYTES % (AUTO) 6 % (0-12); NEUTROPHILS # (AUTO) 7.2 X 10^3 (1.8-7.8); NEUTROPHILS % (AUTO) 82 % (42-75); PLATELET COUNT 232 10^3/uL (130-400); RED CELL DISTRIBUTION WIDTH 14.5 % (10.0-14.5); WHITE BLOOD COUNT 8.8 10^3/uL (4.3-11.0)
--- NOTE | 2019-06-08 04:17 | Pulmonary Progress Note ---
Sepsis Event Evaluation Height, Weight, BMI Height: 5'9.00" Weight: 211lbs. 0.0oz. 95.021326tz; 28.08 BMI Method: Exam Exam Vital Signs Date Time Temp Pulse Resp B/P (MAP) Pulse Ox O2 Delivery O2 Flow Rate FiO2 06/08/19 03:00 78 26 104/76 (85) 96 NIV Bilevel 25.00 06/08/19 02:40 92 16 96 NIV Bilevel 25.00 06/08/19 02:00 88 15 133/66 (88) 97 NIV Bilevel 30.00 06/08/19 01:00 97 19 112/65 (81) 97 NIV Bilevel 30.00 06/08/19 01:00 97 06/08/19 00:00 92 NIV Bilevel 30 06/08/19 00:00 92 12 122/56 (78) 97 NIV Bilevel 30.00 06/08/19 00:00 37.0 06/07/19 23:00 92 14 116/57 (76) 95 NIV Bilevel 30.00 06/07/19 22:20 105 15 98 30.00 06/07/19 22:00 125 22 116/68 (84) 97 NIV Bilevel 30.00 06/07/19 21:00 113 20 131/63 (85) 97 NIV Bilevel 30.00 06/07/19 20:00 100 20 129/63 (85) 97 NIV Bilevel 30.00 06/07/19 20:00 92 NIV Bilevel 30 06/07/19 20:00 36.7 06/07/19 19:35 94 16 99 30.00 06/07/19 19:15 100 20 128/72 (90) 98 NIV Bilevel 30.00 06/07/19 19:00 98 06/07/19 18:00 92 17 111/60 (77) 98 NIV Bilevel 35.00 06/07/19 17:00 89 18 113/63 (80) 98 NIV Bilevel 35.00 06/07/19 16:45 NIV Bilevel 35.00 06/07/19 16:00 36.6 06/07/19 16:00 92 Vapotherm 25.00 35 06/07/19 16:00 109 17 113/64 (80) 93 Vapotherm 20.00 35.00 06/07/19 15:00 105 16 114/62 (79) 92 Vapotherm 20.00 35.00 06/07/19 14:35 92 Vapotherm 20.00 35 06/07/19 14:00 101 11 103/75 (84) 90 Vapotherm 20.00 35.00 06/07/19 13:00 97 15 82/61 (68) 94 Vapotherm 20.00 35.00 06/07/19 13:00 101 06/07/19 12:00 135 17 123/74 (90) 95 Vapotherm 20.00 35.00 06/07/19 12:00 92 Vapotherm 25.00 35 06/07/19 12:00 36.1 06/07/19 11:00 131 17 115/61 (79) 95 Vapotherm 20.00 35.00 06/07/19 10:13 91 Vapotherm 20.00 35 06/07/19 10:00 122 19 134/46 (75) 91 Vapotherm 20.00 35.00 06/07/19 09:00 123 20 143/68 (93) 96 Vapotherm 20.00 35.00 06/07/19 08:00 92 Vapotherm 25.00 35 06/07/19 08:00 133 12 139/44 (75) 94 Vapotherm 20.00 35.00 06/07/19 07:22 91 Vapotherm 20.00 35 06/07/19 07:00 129 17 168/59 (95) 91 Vapotherm 20.00 35.00 06/07/19 07:00 130 06/07/19 06:00 131 22 153/59 (90) 94 Vapotherm 20.00 35.00 06/07/19 05:48 Vapotherm 20.00 35.00 06/07/19 05:00 131 13 178/57 (97) 100 NIV Bilevel 35.00 I & O 06/08/19 07:00 Intake Total 945 ml Output Total 1775 ml Balance -830 ml Height & Weight Height: 5'9.00" Weight: 211lbs. 0.0oz. 95.237499pq; 28.08 BMI Method: General Appearance: No Apparent Distress, Chronically ill HEENT: No Scleral Icterus (L), No Scleral Icterus (R) Neck: Full Range of Motion, Non Tender, Supple Respiratory: Chest Non Tender, Crackles, Decreased Breath Sounds Cardiovascular: Regular Rate, Rhythm, No Murmur Capillary Refill: Less Than 3 Seconds Peripheral Pulses: 1+ Dorsalis Pedis (R), 1+ Left Dors-Pedis (L) Gastrointestinal: non tender, soft; No distended Extremity: Normal Capillary Refill, Pedal Edema (IMPROVED) Neurologic/Psychiatric: Alert (ORIENTED TO PERSON, PLACE, NOT TIME), Motor Weakness (HE CANNOT SIT UP WELL IN BED UNDER HIS OWN POWER), Other (ORIENTED TO PERSON, AND TO PLACE, NOT TIME) Skin: Normal Color, Warm/Dry Lymphatic: No Adenopathy Results Lab Laboratory Tests 06/07/19 03:05 06/08/19 03:28 Assessment/Plan Assessment/Plan Acute on chronic respiratory failure -BiPAP QHS and PRN -CXR now improved -Continue duonebs, restart Solumedrol Severe sepsis with pneumonia and influenza -Abx changed to Merrem 06/02 secondary to culture results -Tamiflu course completed, no longer febrile -IVF - decrease to 30 -engel cultures -MRSA nasal swab -- is negative -urine strep and legionella Ag negative -Repeat UA neg, continue Merrem and Eraxis Worsening leukocytosis -Repeat engel cultures and d/c solumedrol -WBC trending down, no fevers Ileus r/o obstruction -repeat KUB at 0830 -Continue reglan 10mg IV BID -Hold TF -Hold Fentanyl gtt -Several BMs following enema, abdominal distention improved Metabolic lactic acidosis -Monitor -Now metabolic alkalosis Acute renal failure -IVF and monitor -BUN remains elevated but creatinine improving Hypophos -replace Hypermagnesemia -monitor -D/C mylanta -No longer increasing, will continue to monitor LORENZO CULLEN DO Jun 08, 2019 04:17
[2019-06-08 04:35] LABS: ALANINE AMINOTRANSFERASE 71 U/L (0-55); ALBUMIN 2.7 GM/DL (3.2-4.5); ALKALINE PHOSPHATASE 61 U/L (40-136); BILIRUBIN,TOTAL 0.6 MG/DL (0.1-1.0); BUN/CREATININE RATIO 23; CALCIUM 8.3 MG/DL (8.5-10.1); CARBON DIOXIDE 29 MMOL/L (21-32); CHLORIDE 105 MMOL/L (98-107); CREATININE SERUM 1.14 MG/DL (0.60-1.30); GFR ESTIMATED > 60; GLUCOSE 120 MG/DL (70-105); MAGNESIUM 2.1 MG/DL (1.6-2.4); PHOSPHORUS 2.7 MG/DL (2.3-4.7); POTASSIUM 4.2 MMOL/L (3.6-5.0); SODIUM 142 MMOL/L (135-145); TOTAL PROTEIN 5.9 GM/DL (6.4-8.2)
[2019-06-08] MEDS: MAGNESIUM 1 GM/100 ML IVPB 100 ML IV SCH (04:49)
[2019-06-08] MEDS: POTASSIUM CL 10MEQ/50ML IVPB 50 ML IV SCH (04:49)
[2019-06-08] MEDS: LACTATED RINGERS 1,000 ML IV SCH (04:49)
[2019-06-08] MEDS: KCL 20 MEQ TAB (K-DUR) PO SCH (04:50)
[2019-06-08] MEDS: BUMETANIDE 1 MG/4 ML (BUMEX) VIAL IV SCH ×2 (06:50→16:52)
--- NOTE | 2019-06-08 08:23 | Diagnostic Imaging Report ---
Portable erect AP chest at 0333 hours on 06/08/2019. INDICATION: Dyspnea. FINDINGS: The heart is stable in size when compared to the prior exam of 06/07/2019. The sternal wires and surgical clips noted previously are again evident and no different. The bilateral alveolar/interstitial pulmonary infiltrates seen on the prior study are also again visualized. They are essentially no different although lungs may be slightly better aerated. The mediastinum is not widened. The osseous structures are intact. The right-sided central venous catheter remains in good position. IMPRESSION: The overall appearance of the chest has not changed significantly since the prior exam, but the lungs may be slightly better aerated. A follow-up exam would be recommended for continued evaluation. Dictated by: Dictated on workstation # [id number]
[2019-06-08] MEDS: lisINopril 20 MG (PRINIVIL) TABLET PO SCH (08:24)
[2019-06-08] MEDS: DOCUSATE SODIUM 100 MG (COLACE) CAP PO SCH ×2 (08:24→19:57)
[2019-06-08] MEDS: DULoxetine 20 MG (CYMBALTA) CAP PO SCH (08:25)
[2019-06-08] MEDS: doxAzosin 4 MG (CARDURA) TAB PO SCH (08:29)
[2019-06-08] MEDS: CLOPIDOGREL 75 MG (PLAVIX) TABLET PO SCH (08:29)
[2019-06-08] MEDS: ASPIRIN E.C. 81 MG (ECOTRIN) TAB PO SCH (08:29)
[2019-06-08] MEDS: PANTOPRAZOLE 40 MG (PROTONIX) VIAL IV SCH (08:29)
[2019-06-08] MEDS: meTOprolol TARTRATE 50 MG (LOPRESSOR) TAB PO SCH ×2 (08:30→19:57)
[2019-06-08] MEDS: LIDOCAINE 4% (SALONPAS) PATCH TOP SCH (08:30)
[2019-06-08] MEDS: ENOXAPARIN 100 MG/1 ML (LOVENOX) SYR SC SCH (08:30)
--- NOTE | 2019-06-08 08:56 | Progress Note ---
Subjective Subjective Date Seen by Provider: Jun 08, 2019 Time Seen by Provider: 08:40 INFLUENZA, PNEUMONIA, COPD, NON ST PR, S/P INTUBATION - NOW EXTUBATED PT REPORTS THAT HE IS DOING "GREAT", HE THINKS THAT IT IS NIGHT-TIME. HE STATES T HAT HE IS COUGHING UP "SLIME" AND IS HAPPY THAT HE IS ABLE TO GET THE MUCUS OUT OF HIS LUNGS. STAFF STATES THAT THEY ARE WORRIED ABOUT HIS SWOLLEN SCROTUM. Review of Systems General: No Chills, No Night Sweats; Fatigue, Malaise; No Appetite, No Other HEENT: No Head Aches, No Visual Changes, No Eye Pain, No Ear Pain, No Dysphasia, No Sinus Congestion, No Post Nasal Drip, No Sore Throat, No Other Pulmonary: Dyspnea, Cough; No Pleuritic Chest Pain, No Other Cardiovascular: Edema; No: Chest Pain, Palpitations, Orthopnea, Paroxysmal Noc. Dyspnea, Lt Headedness, Other Gastrointestinal: No: Nausea, Abdominal Pain, Constipation Genitourinary: No Hematuria Musculoskeletal: No: neck pain, back pain Neurological: Weakness, Confusion (INTERMITTENT) All Other Systems Reviewed All Other Systems Reviewed: Yes Objective Exam Vital Signs Vital Signs - First Documented 06/02/19 06/02/19 00:00 00:46 Temp 36.1 Pulse 80 Resp 17 B/P (MAP) 156/44 (81) Pulse Ox 91 O2 Delivery Mechanical Ventilator O2 Flow Rate 40.00 FiO2 35 Capillary Refill : Less Than 3 Seconds General Appearance: No Apparent Distress, Chronically ill Eyes: Bilateral Eye Normal Inspection, Bilateral Eye PERRL, Bilateral Eye EOMI HEENT: No Scleral Icterus (L), No Scleral Icterus (R) Neck: Full Range of Motion, Non Tender, Supple Respiratory: Chest Non Tender, Crackles, Decreased Breath Sounds, Rhonci Cardiovascular: Regular Rate, Rhythm, No Murmur Gastrointestinal: Normal Bowel Sounds, Non Tender, Soft; No Tenderness Rectal: Deferred Genital/Rectal: Other (SWOLLEN SCROTUM WITH WOODALL IN PLACE) Extremity: Normal Capillary Refill, Pedal Edema (IMPROVED) Neurologic/Psychiatric: Alert (ORIENTED TO PERSON, PLACE, NOT TIME), Motor Weakness (HE CANNOT SIT UP WELL IN BED UNDER HIS OWN POWER), Other (ORIENTED TO PERSON, AND TO PLACE, NOT TIME) Skin: Normal Color, Warm/Dry Lymphatic: No Adenopathy Results Lab Laboratory Tests 06/08/19 03:20: B-Type Natriuretic Peptide 609.4H 06/08/19 03:28: White Blood Count 8.8, Red Blood Count 2.73L, Hemoglobin 8.2L, Hematocrit 28L, Mean Corpuscular Volume 102H, Mean Corpuscular Hemoglobin 30, Mean Corpuscular Hemoglobin Concent 29L, Red Cell Distribution Width 14.5, Platelet Count 232, Mean Platelet Volume 9.9, Neutrophils (%) (Auto) 82H, Lymphocytes (%) (Auto) 9L, Monocytes (%) (Auto) 6, Eosinophils (%) (Auto) 3, Basophils (%) (Auto) 0, Neutrophils # (Auto) 7.2, Lymphocytes # (Auto) 0.8L, Monocytes # (Auto) 0.5, Eosinophils # (Auto) 0.2, Basophils # (Auto) 0.0, Sodium Level 142, Potassium Level 4.2, Chloride Level 105, Carbon Dioxide Level 29, Anion Gap 8, Blood Urea Nitrogen 26H, Creatinine 1.14, Estimat Glomerular Filtration Rate > 60, BUN/Creatinine Ratio 23, Glucose Level 120H, Calcium Level 8.3L, Corrected Calcium 9.3, Phosphorus Level 2.7, Magnesium Level 2.1, Total Bilirubin 0.6, Aspartate Amino Transf (AST/SGOT) 57H, Alanine Aminotransferase (ALT/SGPT) 71H, Alkaline Phosphatase 61, Total Protein 5.9L, Albumin 2.7L Microbiology 06/04/19 Blood Culture - Preliminary, Resulted No growth 05/30/19 Gram Stain - Final, Resulted 05/30/19 Sputum Culture - Preliminary, Resulted Aerobic actinomycetes YEAST Assessment/Plan Assessment/Plan Admission Dx SEVERE SEPSIS RESPIRATORY FAILURE WITH LACTIC ACIDOSIS INFLUENZA PNEUMONIA CHRONIC PULMONARY FIBROSIS COPD ACUTE ON CHRONIC RENAL FAILURE NON-ST PR CHRONIC DEPRESSION LEUKOCYTOSIS ANEMIA CONSTIPATION ELEVATED LFT'S RESPIRATORY FAILURE WITH LACTIC ACIDOSIS PT AGREED TO SHORT TERM INTUBATION ON 05/30/2019 AND WAS EXTUBATED ON 06/04/2019 INFLUENZA AND PNEUMONIA WITH CHRONIC PULMONARY FIBROSIS AND COPD - PT HAS COMPLETED TAMIFLU FOR TREATMENT OF THE FLU - LAST DOSE GIVEN 06/02/2019 -CONTINUE WITH CURRENT MANAGEMENT INITIATED IN ER AND BY DR. CULLEN. (ANIDULAFUNGIN AND MEROPENEM) ACUTE ON CHRONIC RENAL FAILURE - RESOLVED - CONTINUE WITH IV FLUIDS, RENALLY ADJUST MEDICATIONS NEEDED. NON-ST PR WITH HYPERTENSION - DEFER TO CARDIOLOGY - PT HAD SO MUCH PULMONARY DISTRESS THAT THIS CAUSED HIS SEVERE TROPONIN ELEVATION. WILL WATCH PT CLOSELY WE NAVIGATE HEALING FROM HIS PULMONARY ISSUES. - ON IV CARDIZEM, AND METOPROLOL ORAL, LISINOPRIL, AND PRN HYDRALAZINE, MONITOR BP AND SYMPTOMS. CHRONIC DEPRESSION - RESTARTED CYMBALTA 06/06/2019 LEUKOCYTOSIS -IMPROVED - SUSPECT DUE TO STEROID USE, CONTINUE TO MONITOR SYMPTOMS AND LABS ANEMIA -STABLE STATUS POST BLOOD TRANSFUSION ON 05/29/2019 - CONTINUE TO MONITOR LABS. ELEVATED LFT'S - DUE TO SHOCK - CONTINUE WITH CURRENT MANAGEMENT - LFT'S HAVE IMPROVED SLOWLY. CONSTIPATION - RESOLVED DYSPHAGIA - SPEECH THERAPY HAS BEEN CONSULTED - WILL CONTINUE TO FOLLOW SPEECH RECOMMENDATIONS CRITICAL CARE MYOPATHY - WILL REQUIRE [facility] REHAB AND STRENGTHENING DUE TO HIS DEBILITATED STATUS - WILL LOOK INTO HALF-WAY PLACEMENT ON DISCHARGE. CONTINUE TO EXPECT SEVERAL MORE DAYS IN THE ICU . WILL HAVE SPECIALTIES OPERATOR LOOK AT HALF-WAY OPTIONS WITH THE PT'S FAMILY FOR DISCHARGE IN THE NEXT WEEK OR SO. Problems: (1) Acute respiratory failure with hypoxia (2) Endotracheally intubated (3) Severe sepsis (4) Pneumonia Qualifiers: Qualified Codes: J18.9 - Pneumonia, unspecified organism (5) Influenza (6) Lactic acidosis (7) Acute kidney injury superimposed on chronic kidney disease (8) (HFpEF) heart failure with preserved ejection fraction (9) Non-ST elevation PR (NSTEMI) Admission Dx SEVERE SEPSIS RESPIRATORY FAILURE WITH LACTIC ACIDOSIS INFLUENZA PNEUMONIA CHRONIC PULMONARY FIBROSIS COPD ACUTE ON CHRONIC RENAL FAILURE NON-ST PR CHRONIC DEPRESSION LEUKOCYTOSIS ANEMIA CONSTIPATION ELEVATED LFT'S RESPIRATORY FAILURE WITH LACTIC ACIDOSIS PT AGREED TO SHORT TERM INTUBATION ON 05/30/2019 AND WAS EXTUBATED ON 06/04/2019 INFLUENZA AND PNEUMONIA WITH CHRONIC PULMONARY FIBROSIS AND COPD - PT HAS COMPLETED TAMIFLU FOR TREATMENT OF THE FLU - LAST DOSE GIVEN 06/02/2019 -CONTINUE WITH CURRENT MANAGEMENT INITIATED IN ER AND BY DR. CULLEN. (ANIDULAFUNGIN AND MEROPENEM) ACUTE ON CHRONIC RENAL FAILURE - RESOLVED - CONTINUE WITH IV FLUIDS, RENALLY ADJUST MEDICATIONS NEEDED. NON-ST PR WITH HYPERTENSION - DEFER TO CARDIOLOGY - PT HAD SO MUCH PULMONARY DISTRESS THAT THIS CAUSED HIS SEVERE TROPONIN ELEVATION. WILL WATCH PT CLOSELY WE NAVIGATE HEALING FROM HIS PULMONARY ISSUES. - ON IV CARDIZEM, AND METOPROLOL ORAL, LISINOPRIL, AND PRN HYDRALAZINE, MONITOR BP AND SYMPTOMS. CHRONIC DEPRESSION - RESTARTED CYMBALTA 06/06/2019 LEUKOCYTOSIS -IMPROVED - SUSPECT DUE TO STEROID USE, CONTINUE TO MONITOR SYMPTOMS AND LABS ANEMIA -STABLE STATUS POST BLOOD TRANSFUSION ON 05/29/2019 - CONTINUE TO MONITOR LABS. ELEVATED LFT'S - DUE TO SHOCK - CONTINUE WITH CURRENT MANAGEMENT - LFT'S HAVE IMPROVED SLOWLY. CONSTIPATION - RESOLVED DYSPHAGIA - SPEECH THERAPY HAS BEEN CONSULTED - WILL CONTINUE TO FOLLOW SPEECH RECOMMENDATIONS CRITICAL CARE MYOPATHY - WILL REQUIRE DIRECTOR UNIVERSITY REHAB AND STRENGTHENING DUE TO HIS DEBILITATED STATUS - WILL LOOK INTO HALF-WAY PLACEMENT ON DISCHARGE. CONTINUE TO EXPECT SEVERAL MORE DAYS IN THE ICU . Clinical Quality Measures Admission Status Admission Dx SEVERE SEPSIS RESPIRATORY FAILURE WITH LACTIC ACIDOSIS INFLUENZA PNEUMONIA CHRONIC PULMONARY FIBROSIS COPD ACUTE ON CHRONIC RENAL FAILURE NON-ST PR CHRONIC DEPRESSION LEUKOCYTOSIS ANEMIA CONSTIPATION ELEVATED LFT'S RESPIRATORY FAILURE WITH LACTIC ACIDOSIS PT AGREED TO SHORT TERM INTUBATION ON 05/30/2019 AND WAS EXTUBATED ON 06/04/2019 INFLUENZA AND PNEUMONIA WITH CHRONIC PULMONARY FIBROSIS AND COPD - PT HAS COMPLETED TAMIFLU FOR TREATMENT OF THE FLU - LAST DOSE GIVEN 06/02/2019 -CONTINUE WITH CURRENT MANAGEMENT INITIATED IN ER AND BY DR. CULLEN. (ANIDULAFUNGIN AND MEROPENEM) ACUTE ON CHRONIC RENAL FAILURE - RESOLVED - CONTINUE WITH IV FLUIDS, RENALLY ADJUST MEDICATIONS NEEDED. NON-ST PR WITH HYPERTENSION - DEFER TO CARDIOLOGY - PT HAD SO MUCH PULMONARY DISTRESS THAT THIS CAUSED HIS SEVERE TROPONIN ELEVATION. WILL WATCH PT CLOSELY WE NAVIGATE HEALING FROM HIS PULMONARY ISSUES. - ON IV CARDIZEM, AND METOPROLOL ORAL, LISINOPRIL, AND PRN HYDRALAZINE, MONITOR BP AND SYMPTOMS. CHRONIC DEPRESSION - RESTARTED CYMBALTA 06/06/2019 LEUKOCYTOSIS -IMPROVED - SUSPECT DUE TO STEROID USE, CONTINUE TO MONITOR SYMPTOMS AND LABS ANEMIA -STABLE STATUS POST BLOOD TRANSFUSION ON 05/29/2019 - CONTINUE TO MONITOR LABS. ELEVATED LFT'S - DUE TO SHOCK - CONTINUE WITH CURRENT MANAGEMENT - LFT'S HAVE IMPROVED SLOWLY. CONSTIPATION - RESOLVED DYSPHAGIA - SPEECH THERAPY HAS BEEN CONSULTED - WILL CONTINUE TO FOLLOW SPEECH RECOMMENDATIONS CRITICAL CARE MYOPATHY - WILL REQUIRE [facility] REHAB AND STRENGTHENING DUE TO HIS DEBILITATED STATUS - WILL LOOK INTO HALF-WAY PLACEMENT ON DISCHARGE. CONTINUE TO EXPECT SEVERAL MORE DAYS IN THE ICU . DVT/VTE Risk/Contraindication: Risk Factor Score Per Nursin RFS Level Per Nursing on Admit: 4+=Very High DEANDRA MOTA MD Jun 08, 2019 08:56
--- NOTE | 2019-06-08 09:31 | Progress Note - Cardiology ---
Cardiology SOAP Progress Note Subjective: Sitting up in recliner at the bedside. States he feels good. No c/o CP or palpitations. C/O some SOB. During conversation at times his responses are not appropriate to the context of the conversation. Pleasant. Objective: I&O/Vital Signs 06/08/19 06/08/19 06/09/19 06/09/19 22:40 23:00 00:00 00:00 Pulse 105 101 Resp 22 B/P (MAP) 125/66 (85) 137/69 (91) Pulse Ox 95 91 93 94 O2 Delivery Vapotherm Vapotherm Vapotherm Vapotherm O2 Flow Rate 20.00 20.00 20.00 20.00 40.00 40.00 FiO2 40 35 06/09/19 06/09/19 06/09/19 06/09/19 00:24 01:00 01:00 02:00 Temp 36.6 Pulse 102 102 101 Resp 21 19 B/P (MAP) 125/62 (83) 157/73 (101) Pulse Ox 92 96 O2 Delivery Vapotherm Vapotherm O2 Flow Rate 20.00 20.00 40.00 40.00 06/09/19 06/09/19 06/09/19 06/09/19 02:34 03:00 04:00 04:00 Temp 36.2 Pulse 98 Resp 35 B/P (MAP) 101/59 (73) Pulse Ox 92 91 93 O2 Delivery Vapotherm Vapotherm Vapotherm O2 Flow Rate 20.00 20.00 20.00 40.00 FiO2 40 40 06/09/19 06/09/19 06/09/19 06/09/19 04:00 05:00 06:00 07:00 Pulse 98 86 87 90 Resp 23 13 23 B/P (MAP) 128/60 (82) 133/54 (80) 103/52 (69) Pulse Ox 96 95 96 O2 Delivery Vapotherm Vapotherm Vapotherm O2 Flow Rate 20.00 20.00 20.00 40.00 40.00 40.00 06/09/19 06/09/19 06/09/19 06/09/19 07:00 08:00 08:00 08:18 Temp 36.2 Pulse 84 92 Resp 18 20 B/P (MAP) 140/61 (87) 123/66 (85) Pulse Ox 92 94 95 O2 Delivery Vapotherm Vapotherm Vapotherm Vapotherm O2 Flow Rate 20.00 20.00 20.00 20.00 40.00 40.00 FiO2 40 40 06/09/19 06/09/19 06/09/19 06/09/19 08:28 09:00 09:42 10:00 Pulse 98 100 Resp 22 21 B/P (MAP) 162/80 (107) 127/56 (79) Pulse Ox 92 97 O2 Delivery Vapotherm Vapotherm Vapotherm Vapotherm O2 Flow Rate 15.00 15.00 10.00 15.00 35.00 35.00 35.00 35.00 06/09/19 00:00 Intake Total 215 ml Output Total 1220 ml Balance -1005 ml Weight (Pounds): 211 Weight (Ounces): 0.0 Weight (Calculated Kilograms): 95.892491 Constitutional: AAO x 3 (mildly confused), well-developed, well-nourished Respiratory: chest expansion is symmetric, chest is bilaterally symmetric, crackles, rhonchi (scattered), other Cardiovascular: regular rate-rhythm, S1 and S2 Gastrointestional: distended, audible bowel sounds Genital/Rectal: other (urinary catheter to DD with cl yellow urine) Extremities: other (bilat mod pedal edema) Neurologic/Psychiatric: other (extubated, awake, reponsive, mildly confused, seems to move all limbs, difficult swallowing on 06/05/19) Skin: No rash on exposed areas, No ulcerations on exposed areas Results/Procedures: Labs Laboratory Tests 06/09/19 03:18: White Blood Count 7.5, Red Blood Count 2.50L, Hemoglobin 7.6L, Hematocrit 25L, Mean Corpuscular Volume 101H, Mean Corpuscular Hemoglobin 30, Mean Corpuscular Hemoglobin Concent 30L, Red Cell Distribution Width 14.6H, Platelet Count 242, Mean Platelet Volume 10.0, Neutrophils (%) (Auto) 77H, Lymphocytes (%) (Auto) 12, Monocytes (%) (Auto) 9, Eosinophils (%) (Auto) 2, Basophils (%) (Auto) 0, Neutrophils # (Auto) 5.8, Lymphocytes # (Auto) 0.9L, Monocytes # (Auto) 0.7, Eosinophils # (Auto) 0.2, Basophils # (Auto) 0.0, Sodium Level 142, Potassium Level 3.5L, Chloride Level 106, Carbon Dioxide Level 27, Anion Gap 9, Blood Urea Nitrogen 24H, Creatinine 1.06, Estimat Glomerular Filtration Rate > 60, BUN/Cr eatinine Ratio 23, Glucose Level 104, Calcium Level 8.4L, Phosphorus Level 2.8, Magnesium Level 2.0 Microbiology 06/04/19 Blood Culture - Preliminary, Resulted No growth 05/30/19 Gram Stain - Final, Resulted 05/30/19 Sputum Culture - Preliminary, Resulted Aerobic actinomycetes YEAST Procedures NAME: LORNA HILLMAN [facility] REC#: [id number] PT STATUS: ADM IN : 1940 PHYSICIAN: DEANDRA MOTA MD ADMIT DATE: 05/28/19/ICU Draft Date of Exam:06/08/19 CHEST 1 VIEW, AP/PA ONLY Portable erect AP chest at 0333 hours on 06/08/2019. INDICATION: Dyspnea. FINDINGS: The heart is stable in size when compared to the prior exam of 06/07/2019. The sternal wires and surgical clips noted previously are again evident and no different. The bilateral alveolar/interstitial pulmonary infiltrates seen on the prior study are also again visualized. They are essentially no different although lungs may be slightly better aerated. The mediastinum is not widened. The osseous structures are intact. The right-sided central venous catheter remains in good position. IMPRESSION: The overall appearance of the chest has not changed significantly since the prior exam, but the lungs may be slightly better aerated. A follow-up exam would be recommended for continued evaluation. Dictated on workstation # [id number] Dict: 06/08/19811 Trans: 06/08/19 0823 [id number] Interpreted by: ALONZO PÉREZ MD Electronically signed by: A/P: Assessment: Ac resp failure (multifactorial, see below) Severe sepsis; presented with septic shock Influenza A New onset a-fib dx on EKG of 06-05-2019 NSTEMI, unclear if type 1 or type 2 EMA-3, likely due to ATN due to hypotension due to septic shock, improved Anemia of undetermined etiology Chronic resp failure due to interstitial lung disease / pulmonary fibrosis CAD and ischemic cardiomyopathy - H/o 4-vessel CABG in 1998 at [facility] in [place], [place] by Dr. Magana Echo of 05/29/19: LVEF 40-45%, basal inferior hypokinesis, RVSP 18 mmHg, mod MR H/o carotid dz bilat - followed by Dr. Rosa at [facility] Syncopal episodes, being followed by Dr. Rosa, Dr. Smith (neurology services at [facility] [place]), Dr. Cortez Orthostatic hypotension - being followed by Dr. Rosa COPD H/O tobaccoism - quit 4 years ago HTN HLD Chronic back pain Plan: * New onset a-fib first dx on EKG of 06-05-2019 * Start Eliquis 5mg BID for stroke prophylaxis. Stop Plavix and Lovenox, continue ASA d/t known h/o CAD - having him on all 4 agents places him at increased risk for bleeding * Continue BB * Monitor lab closely * Replace electrolytes as indicated * Mild anemia - management per medical services TRISTON ALONOS Jun 08, 2019 09:31
[2019-06-08] MEDS: MEROPENEM 500 MG/SWFI 10 ML IV PUSH IV SCH ×6 (09:33→19:57)
[2019-06-08] MEDS: ANIDULAFUNGIN INJECTION 100 MG in NS (IVPB) 100 ML IV SCH (09:33)
--- NOTE | 2019-06-08 09:44 | Progress Note - Cardiology ---
Cardiology SOAP Progress Note Subjective: Has gen weakness, malaise, tiredness No focal weakness No cp No shortness of breath at rest No leg swelling No n/v/d Objective: I&O/Vital Signs 06/07/19 06/07/19 06/07/19 06/08/19 22:00 22:20 23:00 00:00 Temp 37.0 Pulse 125 105 92 Resp 22 15 14 B/P (MAP) 116/68 (84) 116/57 (76) Pulse Ox 97 98 95 O2 Delivery NIV Bilevel NIV Bilevel O2 Flow Rate 30.00 30.00 30.00 06/08/19 06/08/19 06/08/19 06/08/19 00:00 00:00 01:00 01:00 Pulse 92 97 97 Resp 12 19 B/P (MAP) 122/56 (78) 112/65 (81) Pulse Ox 97 92 97 O2 Delivery NIV Bilevel NIV Bilevel NIV Bilevel O2 Flow Rate 30.00 30.00 FiO2 30 06/08/19 06/08/19 06/08/19 06/08/19 02:00 02:23 02:40 03:00 Pulse 88 86 92 78 Resp 15 15 16 26 B/P (MAP) 133/66 (88) 104/76 (85) Pulse Ox 97 96 96 96 O2 Delivery NIV Bilevel NIV Bilevel NIV Bilevel O2 Flow Rate 30.00 25.00 25.00 25.00 06/08/19 06/08/19 06/08/19 06/08/19 04:00 04:00 04:35 05:00 Pulse 110 109 105 Resp 25 19 19 B/P (MAP) 115/59 (77) 118/67 (84) Pulse Ox 95 92 96 93 O2 Delivery NIV Bilevel NIV Bilevel Vapotherm Vapotherm O2 Flow Rate 25.00 25.00 25.00 35.00 35.00 FiO2 30 06/08/19 06/08/19 06/08/19 06/08/19 06:00 06:39 07:00 07:22 Temp 36.3 Pulse 130 114 101 Resp 16 12 B/P (MAP) 125/68 (87) 117/59 (78) Pulse Ox 97 O2 Delivery Vapotherm Vapotherm O2 Flow Rate 25.00 25.00 35.00 35.00 3/206/08/19 06/08/19 06/08/19 08:00 08:00 09:15 09:20 Pulse 80 70 Resp 24 19 B/P (MAP) 126/69 (88) 101/50 (67) Pulse Ox 93 86 94 92 O2 Delivery NIV Bilevel Vapotherm Vapotherm Vapotherm O2 Flow Rate 25.00 25.00 20.00 35.00 35.00 FiO2 30 30 06/08/19 00:00 Intake Total 665 ml Output Total 775 ml Balance -110 ml Weight (Pounds): 211 Weight (Ounces): 0.0 Weight (Calculated Kilograms): 95.737646 Constitutional: AAO x 3 (mildly confused), well-developed, well-nourished Respiratory: chest expansion is symmetric, chest is bilaterally symmetric, crackles, rhonchi (scattered), other Cardiovascular: regular rate-rhythm, S1 and S2 Gastrointestional: distended, audible bowel sounds Genital/Rectal: other (urinary catheter to DD with cl yellow urine) Extremities: other (bilat mod pedal edema) Neurologic/Psychiatric: other (extubated, awake, reponsive, mildly confused, seems to move all limbs, difficult swallowing on 06/05/19) Skin: No rash on exposed areas, No ulcerations on exposed areas Results/Procedures: Labs Laboratory Tests 06/08/19 03:20: B-Type Natriuretic Peptide 609.4H 06/08/19 03:28: White Blood Count 8.8, Red Blood Count 2.73L, Hemoglobin 8.2L, Hematocrit 28L, Mean Corpuscular Volume 102H, Mean Corpuscular Hemoglobin 30, Mean Corpuscular Hemoglobin Concent 29L, Red Cell Distribution Width 14.5, Platelet Count 232, Mean Platelet Volume 9.9, Neutrophils (%) (Auto) 82H, Lymphocytes (%) (Auto) 9L, Monocytes (%) (Auto) 6, Eosinophils (%) (Auto) 3, Basophils (%) (Auto) 0, Neutrophils # (Auto) 7.2, Lymphocytes # (Auto) 0.8L, Monocytes # (Auto) 0.5, Eosinophils # (Auto) 0.2, Basophils # (Auto) 0.0, Sodium Level 142, Potassium Level 4.2, Chloride Level 105, Carbon Dioxide Level 29, Anion Gap 8, Blood Urea Nitrogen 26H, Creatinine 1.14, Estimat Glomerular Filtration Rate > 60, BUN/Creatinine Ratio 23, Glucose Level 120H, Calcium Level 8.3L, Corrected Calcium 9.3, Phosphorus Level 2.7, Magnesium Level 2.1, Total Bilirubin 0.6, Aspartate Amino Transf (AST/SGOT) 57H, Alanine Aminotransferase (ALT/SGPT) 71H, Alkaline Phosphatase 61, Total Protein 5.9L, Albumin 2.7L Microbiology 06/04/19 Blood Culture - Preliminary, Resulted No growth 05/30/19 Gram Stain - Final, Resulted 05/30/19 Sputum Culture - Preliminary, Resulted Aerobic actinomycetes YEAST Laboratory Tests 06/07/19 03:05 06/08/19 03:28 A/P: Assessment: Ac resp failure (multifactorial, see below) Severe sepsis; presented with septic shock Influenza A New onset a-fib dx on EKG of 06-05-2019 NSTEMI, unclear if type 1 or type 2 EMA-3, likely due to ATN due to hypotension due to septic shock, improved Anemia of undetermined etiology Chronic resp failure due to interstitial lung disease / pulmonary fibrosis CAD and ischemic cardiomyopathy - H/o 4-vessel CABG in 1998 at [facility] in [place], [place] by Dr. Magana Echo of 05/29/19: LVEF 40-45%, basal inferior hypokinesis, RVSP 18 mmHg, mod MR H/o carotid dz bilat - followed by Dr. Rosa at [facility] Syncopal episodes, being followed by Dr. Rosa, Dr. Smith (neurology services at [facility] [place] Dr. Cortez Orthostatic hypotension - being followed by Dr. Rosa COPD H/O tobaccoism - quit 4 years ago HTN HLD Chronic back pain Plan: * I interviewed and examined him and reviewed his records from the weekend * New onset a-fib first dx on EKG of 06-05-2019 * Start Eliquis 5mg BID for stroke prophylaxis. Stop Plavix and Lovenox, continue ASA d/t known h/o CAD - having him on all 4 agents places him at increased risk for bleeding * Continue BB * Monitor lab closely * Replace electrolytes as indicated * Mild anemia - management per medical services CARINE PALOMINO MD FACP [facility] Jun 08, 2019 09:44
--- NOTE | 2019-06-08 09:55 | Physical Therapy Daily Note ---
PT Daily Note-Current Subjective Patient is agreeable to therapy at this time. Appearance Patient in chair with call light and bedside table within reach. Nursing present. Mental Status Patient Orientation: Person Attachments: Oxygen (Vapotherm), Bolden Catheter, IV Transfers SCALE: Activities may be completed with or without assistive devices. 7-Qongluabcj-zokrpcc completes the activity by him/herself with no assistance from a helper. 5-Set-up or Clean-up Assistance-helper sets up or cleans up; patient completes activity. [place] assists only prior to or following the activity. 4-Supervision or Touching Assistance-helper provides verbal cues and/or touching/steadying and/or contact guard assistance as patient completes activity. Assistance may be provided throughout the activity or intermittently. 3-Partial/Moderate Assistance-helper does LESS THAN HALF the effort. [place] lifts, holds or supports trunk or limbs, but provides less than half the effort. 2-Substantial/Maximal Assistance-helper does MORE THAN HALF the effort. [place] lifts or holds trunk or limbs and provides more than half the effort. 5-Dujepzykn-lrbkex does ALL the effort. Patient does none of the effort to complete the activity. Or, the assistance of 2 or more helpers is required for the patient to complete the activity. If activity was not attempted, code reason: 7-Patient Refused. 9-Not Applicable-not attempted and the patient did not perform the activity before the current illness, exacerbation or injury. 10-Not Attempted due to Environmental Limitations-(lack of equipment, weather restraints, etc.). 88-Not Attempted due to Medical Conditions or Safety Concerns. Roll Left & Right (QC): 2 Chair/Gma-rk-Nasco Xfer(QC): 1 (Enrique lift) Gait Training Does the Patient Walk?: No and Walking Goal NOT indicated Exercises Supine Ex: Ankle pumps, Heel Slides, Straight leg raise Supine Reps: 10 (BLE) Treatments BLE exercises, bed mobility, transfers Assessment Current Status: Poor Progress Patient tolerates supine exercises well, with a limited ROM on all exercises. Initially when went into room patient O2 was around 80%, nursing increased vapotherm and O2 improved to around 93%. Patient is dependent transfer using enrique lift. 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 Goals Group Home Goals PT Group Home Goals Time Frame: Jun 12, 2019 Roll Left & Right (QC): 3 Sit to Lying (QC): 3 Lying-Sitting on Side/Bed(QC): 3 Sit to Stand (QC): 3 Chair/Pdc-tj-Nzzvm Xfer(QC): 3 Does the Patient Walk: Yes PT Plan Problem List Problem List: Activity Tolerance, Functional Strength, Safety, Balance, Gait, Transfer, Bed Mobility, ROM Treatment/Plan Treatment Plan: Continue Plan of Care Treatment Plan: Bed Mobility, Education, Functional Activity Alyson, Functional Strength, Gait, Safety, Therapeutic Exercise, Transfers Treatment Duration: Jun 12, 2019 Frequency: 6 times per week Estimated Hrs Per Day: .25 hour per day Patient and/or Family Agrees t: Yes Time/GCodes Time In: 840 Time Out: 904 Total Billed Treatment Time: 24 Total Billed Treatment 1 visit FA x 2 (24') TORITO METZ PT Jun 08, 2019 09:55
--- NOTE | 2019-06-08 11:17 | Occupational Ther Daily Note ---
OT Current Status-Daily Note Subjective Pt agreeable to OT at this time, he did not verbalize any pain during session. He states he was finally able to get warm, and he has been cold to the bone this AM. Mental Status/Objective Attachments: Bolden Catheter, IV, Oxygen (vapotherm) ADL-Treatment Therapy Code Descriptions/Definitions Functional [place] Measure: 0=Not Assessed/NA 4=Minimal Assistance 1=Total Assistance 5=Supervision or Setup 2=Maximal Assistance 6=Modified [place] 3=Moderate Assistance 7=Complete IndependenceSCALE: Activities may be completed with or without assistive devices. 2-Oasrrhfinp-htidwad completes the activity by him/herself with no assistance from a helper. 5-Set-up or Clean-up Assistance-helper sets up or cleans up; patient completes activity. [place] assists only prior to or following the activity. 4-Supervision or Touching Assistance-helper provides verbal cues and/or touching/steadying and/or contact guard assistance as patient completes activity. Assistance may be provided throughout the activity or intermittently. 3-Partial/Moderate Assistance-helper does LESS THAN HALF the effort. [place] lifts, holds or supports trunk or limbs, but provides less than half the effort. 2-Substantial/Maximal Assistance-helper does MORE THAN HALF the effort. [place] lifts or holds trunk or limbs and provides more than half the effort. 3-Cdnjhxlgl-rirgtq does ALL the effort. Patient does none of the effort to complete the activity. Or, the assistance of 2 or more helpers is required for the patient to complete the activity. If activity was not attempted, code reason: 7-Patient Refused. 9-Not Applicable-not attempted and the patient did not perform the activity before the current illness, exacerbation or injury. 10-Not Attempted due to Environmental Limitations-(lack of equipment, weather restraints, etc.). 88-Not Attempted due to Medical Conditions or Safety Concerns. Other Treatment Pt laying in bed throughout session, agreeable to UE exercises. OT educated pt on the importance of performing exercises throughout the day, he verbalized understanding. Pt performed x5 RUE shoulder flexion, x10 BUE elbow flexion/extension. Pt's O2 dropped below 90% during exercise, OT cued pt to take some deep breaths. Pt raised O2 back into the 90's within 5 seconds. Pt stated he was already shaking from cold as soon as his arm was out from under the blanket during exercises. OT assisted pt with covering up arms after each exer cises, and between exercises. Post OT session, pt laying in bed, call light in reach and all needs met. 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 2=Patient will verbalize/demonstrate understanding of assistive nirali balbir/modifications for ADL. 3=Patient will improve strength/tolerance for activity to enable patient to perform ADL's. OT Education/Plan Problem List/Assessment Assessment: Decreased Activ Tolerance, Decreased UE Strength, Dependent Transfers, Impaired I ADL's, Impaired Self-Care Skills Discharge Recommendations Plan/Recommendations: Continue POC Treatment Plan/Plan of Care Patient would benefit from OT for education, treatment and training to promote independence in ADL's, mobility, safety and/or upper extremity function for ADL's. Plan of Care: ADL Retraining, Caregiver Training, Functional Mobility, UE Funct Exercise/Act Treatment Duration: Jun 26, 2019 Frequency: 5 times per week Estimated Hrs Per Day: .25 hour per day Agreement: Yes Rehab Potential: Fair Time/GCodes Start Time: 11:00 Stop Time: 11:10 Total Time Billed (hr/min): 10 Billed Treatment Time 1, EX TASHA POWER OT Jun 08, 2019 11:17
--- NOTE | 2019-06-08 11:37 | Speech Therapy Daily Note ---
Speech Daily Progress Note Subjective Date Seen by Provider: Jun 08, 2019 Time Seen by Provider: 08:15 Patient was alert and cooperative for all therapy tasks. Patient reported that he is tolerating his diet very well and had no episodes of choking during any oral intake. Patient sat upright in his bed for the duration of treatment. Objective Patient is tolerating least restrictive diet with no s/s of penetration or aspi ration at 90% with minimal cues. Assessment Assessment Current Status: Good Progress Treatment Plan Continue Plan of Care Speech Short Term Goals Short Term Goals Short Term Goals 1. Patient will tolerate least restrictive diet without s/s of aspiration at 90%. 2. Patient will utilize compensatory strategies as trained at 90% with minimal cues. Speech Snf Goals Grid Operator Goals Patient will maintain adequate nutrition/hydration via safe and effective swallow function. Speech-Plan Patient/Family Goals Patient/Family Goals: Patient reported that he wishes to return to prior level of independence and mobility. Treatment Plan Speech Therapy Treatment Plan: Continue Plan of Care Treatment Duration: Jun 12, 2019 Frequency: 2 times per week Estimated Hrs Per Day: .25 hour per day Rehab Potential: Fair Barriers to Learning: Current medical status Pt/Family Agrees to Plan: Yes Safety Risks/Education Teaching Recipient: Patient Teaching Methods: Demonstration, Discussion Response to Teaching: Verbalize Understanding Education Topics Provided: Continued utilization of compensatory stategies during all oral intake Time Speech Therapy Time In: 08:15 Speech Therapy Time Out: 08:30 Total Billed Time: 15 Billed Treatment Time 1, LEONIDES ASHLEY Urbano Jun 08, 2019 11:36
--- NOTE | 2019-06-08 13:30 | NUR ---
CM/SS: Visited with pt and daughter Brigid [phone], as to plan for discharge Plan: Pt and daughter are open to going to a [facility] facility for care after discharge Summary: Pt is in bed at the time of the visit with some noted periods of confusion. He reports being at home prior to the visit. He reports that he is open to going somewhere to get his strength up and then returning to home. Daughter arrives at the end of this worker's visit. Options discussed, and she is given the star ratings of facilities as well as a list of skilled facilities. Daughter Brigid [phone]. She will look and determine which one she is open to making a referral to. She will let this worker know on tomorrow. She is given this workers contact information should she have additional questions.
[2019-06-08] MEDS: LORazepam INJ 2 MG/ML (ATIVAN) VIAL IVP PRN ×2 (16:52→21:30)
[2019-06-08] MEDS: APIXABAN 5 MG (ELIQUIS) TABLET PO SCH (19:57)
[2019-06-08] MEDS: polyethylene glycoL POWDER 17 GM (MIRALAX) PACK PO SCH (20:00)
[2019-06-08] MEDS: morphine INJ 4 MG/ML 1 ML (VIAL/SYRINGE) IVP PRN (20:06)
[2019-06-08] MEDS: LIDOCAINE PATCH REMOVAL TP SCH (21:00)
[2019-06-09] VITALS (28 sets, daily range): BP systolic 89–162; BP diastolic 36–94
[2019-06-09] MEDS: LACTATED RINGERS 1,000 ML IV SCH (00:15)
[2019-06-09] MEDS: RT-ALBUTEROL/IPRATROPIUM 3 ML (DUONEB) VIAL INH SCH ×5 (02:34→21:30)
[2019-06-09] MEDS: MEROPENEM 500 MG/SWFI 10 ML IV PUSH IV SCH ×8 (03:17→20:17)
[2019-06-09 03:29] LABS: BASOPHILS % (AUTO) 0 % (0-10); EOSINOPHILS # (AUTO) 0.2 10^3/uL (0.0-0.3); EOSINOPHILS % (AUTO) 2 % (0-10); HEMATOCRIT 25 % (40-54); HEMOGLOBIN 7.6 G/DL (13.3-17.7); LYMPHOCYTES # (AUTO) 0.9 X 10^3 (1.0-4.0); LYMPHOCYTES % (AUTO) 12 % (12-44); MEAN CORPUSCULAR HEMOGLOBIN 30 PG (25-34); MEAN CORPUSCULAR HGB CONC 30 G/DL (32-36); MEAN CORPUSCULAR VOLUME 101 FL (80-99); MONOCYTES # (AUTO) 0.7 X 10^3 (0.0-1.0); MONOCYTES % (AUTO) 9 % (0-12); NEUTROPHILS # (AUTO) 5.8 X 10^3 (1.8-7.8); NEUTROPHILS % (AUTO) 77 % (42-75); PLATELET COUNT 242 10^3/uL (130-400); RED CELL DISTRIBUTION WIDTH 14.6 % (10.0-14.5); WHITE BLOOD COUNT 7.5 10^3/uL (4.3-11.0)
[2019-06-09 03:45] LABS: BUN/CREATININE RATIO 23; CALCIUM 8.4 MG/DL (8.5-10.1); CARBON DIOXIDE 27 MMOL/L (21-32); CHLORIDE 106 MMOL/L (98-107); CREATININE SERUM 1.06 MG/DL (0.60-1.30); GFR ESTIMATED > 60; GLUCOSE 104 MG/DL (70-105); PHOSPHORUS 2.8 MG/DL (2.3-4.7); POTASSIUM 3.5 MMOL/L (3.6-5.0); SODIUM 142 MMOL/L (135-145)
[2019-06-09] MEDS: POTASSIUM CL 10MEQ/50ML IVPB 50 ML IV SCH ×7 (06:50→12:53)
[2019-06-09] MEDS: MAGNESIUM 1 GM/100 ML IVPB 100 ML IV SCH (06:50)
[2019-06-09] MEDS: BUMETANIDE 1 MG/4 ML (BUMEX) VIAL IV SCH ×2 (06:50→17:39)
[2019-06-09] MEDS: KCL 20 MEQ TAB (K-DUR) PO SCH (06:50)
[2019-06-09] MEDS: PANTOPRAZOLE 40 MG (PROTONIX) VIAL IV SCH (07:59)
--- NOTE | 2019-06-09 07:59 | Diagnostic Imaging Report ---
INDICATION: Pneumonia, COPD. COMPARISON: 06/08/2019 TECHNIQUE: Single frontal view of the chest. FINDINGS: Lung volumes are low. The right central line tip appears stable. Sternotomy wires and post-CABG changes are seen. There are interstitial opacities throughout the lungs bilaterally which appear stable since the prior study. No pleural effusion or pneumothorax is seen. IMPRESSION: 1. Low lung volumes with persistent interstitial opacities, which may be due to edema or infection. Findings appear stable since the prior study. Dictated by: Dictated on workstation # [id number]
[2019-06-09] MEDS: DOCUSATE SODIUM 100 MG (COLACE) CAP PO SCH ×2 (08:01→20:17)
[2019-06-09] MEDS: DULoxetine 20 MG (CYMBALTA) CAP PO SCH (08:02)
[2019-06-09] MEDS: doxAzosin 4 MG (CARDURA) TAB PO SCH (08:02)
[2019-06-09] MEDS: APIXABAN 5 MG (ELIQUIS) TABLET PO SCH ×2 (08:02→20:17)
[2019-06-09] MEDS: ASPIRIN E.C. 81 MG (ECOTRIN) TAB PO SCH (08:02)
[2019-06-09] MEDS: lisINopril 20 MG (PRINIVIL) TABLET PO SCH (08:03)
[2019-06-09] MEDS: meTOprolol TARTRATE 50 MG (LOPRESSOR) TAB PO SCH ×2 (08:03→20:17)
[2019-06-09] MEDS: LIDOCAINE 4% (SALONPAS) PATCH TOP SCH (08:03)
[2019-06-09] MEDS ORDERED: NS IV 500 ML 500 ML IV SCH ×2 (08:40→08:45)
[2019-06-09] MEDS ORDERED: FUROSEMIDE 40 MG/4 ML INJ (LASIX) IVP NR (08:45)
--- NOTE | 2019-06-09 08:54 | Progress Note ---
Subjective Subjective Date Seen by Provider: Jun 09, 2019 Time Seen by Provider: 08:00 INFLUENZA, PNEUMONIA, COPD, NON ST SD, S/P INTUBATION, NOW EXTUBATED. PT REPORTS THAT HE IS FEELING OKAY, JUST REALLY TIRED. HIS DAUGHTER REPORTS THAT SHE THINKS THAT HE IS REALLY CONFUSED, SHE REPORTS THAT HE TOLD HER ABOUT THE 39 Y/O PERSON THAT HAS "PROPOSITIONED HIM". Review of Systems General: No Chills, No Night Sweats; Fatigue, Malaise; No Appetite, No Other HEENT: No Head Aches, No Visual Changes, No Eye Pain, No Ear Pain, No Dysphasia, No Sinus Congestion, No Post Nasal Drip, No Sore Throat, No Other Pulmonary: Dyspnea, Cough; No Pleuritic Chest Pain, No Other Cardiovascular: Edema; No: Chest Pain, Palpitations, Orthopnea, Paroxysmal Noc. Dyspnea, Lt Headedness, Other Gastrointestinal: No: Nausea, Abdominal Pain, Constipation Genitourinary: No Hematuria Musculoskeletal: No: neck pain, back pain Neurological: Weakness, Confusion (INTERMITTENT) All Other Systems Reviewed All Other Systems Reviewed: Yes Objective Exam Vital Signs Vital Signs - First Documented 06/03/19 06/03/19 06/03/19 00:00 01:55 03:38 Temp 36.0 Pulse 70 Resp 19 B/P (MAP) 119/42 (67) O2 Delivery Mechanical Ventilator O2 Flow Rate 35.00 FiO2 35 Capillary Refill : Less Than 3 Seconds General Appearance: No Apparent Distress, Chronically ill Eyes: Bilateral Eye Normal Inspection, Bilateral Eye PERRL, Bilateral Eye EOMI HEENT: No Scleral Icterus (L), No Scleral Icterus (R) Neck: Full Range of Motion, Non Tender, Supple Respiratory: Chest Non Tender, Crackles, Decreased Breath Sounds, Rhonci Cardiovascular: Regular Rate, Rhythm, No Murmur Gastrointestinal: Normal Bowel Sounds, Non Tender, Soft; No Tenderness Rectal: Deferred Genital/Rectal: Other (SWOLLEN SCROTUM WITH WOODALL IN PLACE) Extremity: Normal Capillary Refill, Pedal Edema (IMPROVED) Neurologic/Psychiatric: Alert (ORIENTED TO PERSON, PLACE, NOT TIME), Motor Weakness (HE CANNOT SIT UP WELL IN BED UNDER HIS OWN POWER), Other (ORIENTED TO PERSON, AND TO PLACE, NOT TIME) Skin: Normal Color, Warm/Dry Lymphatic: No Adenopathy Results Lab Laboratory Tests 06/09/19 03:18: White Blood Count 7.5, Red Blood Count 2.50L, Hemoglobin 7.6L, Hematocrit 25L, Mean Corpuscular Volume 101H, Mean Corpuscular Hemoglobin 30, Mean Corpuscular Hemoglobin Concent 30L, Red Cell Distribution Width 14.6H, Platelet Count 242, Mean Platelet Volume 10.0, Neutrophils (%) (Auto) 77H, Lymphocytes (%) (Auto) 12, Monocytes (%) (Auto) 9, Eosinophils (%) (Auto) 2, Basophils (%) (Auto) 0, Neutrophils # (Auto) 5.8, Lymphocytes # (Auto) 0.9L, Monocytes # (Auto) 0.7, Eosinophils # (Auto) 0.2, Basophils # (Auto) 0.0, Sodium Level 142, Potassium Level 3.5L, Chloride Level 106, Carbon Dioxide Level 27, Anion Gap 9, Blood Urea Nitrogen 24H, Creatinine 1.06, Estimat Glomerular Filtration Rate > 60, BUN/Creatinine Ratio 23, Glucose Level 104, Calcium Level 8.4L, Phosphorus Level 2.8, Magnesium Level 2.0 Microbiology 06/04/19 Blood Culture - Preliminary, Resulted No growth 05/30/19 Gram Stain - Final, Resulted 05/30/19 Sputum Culture - Preliminary, Resulted Aerobic actinomycetes YEAST Assessment/Plan Assessment/Plan Admission Dx SEVERE SEPSIS RESPIRATORY FAILURE WITH LACTIC ACIDOSIS INFLUENZA PNEUMONIA CHRONIC PULMONARY FIBROSIS COPD ACUTE ON CHRONIC RENAL FAILURE NON-ST SD CHRONIC DEPRESSION LEUKOCYTOSIS ANEMIA CONSTIPATION ELEVATED LFT'S DELIRIUM RESPIRATORY FAILURE WITH LACTIC ACIDOSIS PT AGREED TO SHORT TERM INTUBATION ON 05/30/2019 AND WAS EXTUBATED ON 06/04/2019 INFLUENZA AND PNEUMONIA WITH CHRONIC PULMONARY FIBROSIS AND COPD - PT HAS COMPLETED TAMIFLU FOR TREATMENT OF THE FLU - LAST DOSE GIVEN 06/02/2019 -CONTINUE WITH CURRENT MANAGEMENT INITIATED IN ER AND BY DR. CULLEN. (ANIDULAFUNGIN AND MEROPENEM) ACUTE ON CHRONIC RENAL FAILURE - RESOLVED - CONTINUE WITH IV FLUIDS, RENALLY ADJUST MEDICATIONS NEEDED. NON-ST SD WITH HYPERTENSION - DEFER TO CARDIOLOGY - PT HAD SO MUCH PULMONARY DISTRESS THAT THIS CAUSED HIS SEVERE TROPONIN ELEVATION. WILL WATCH PT CLOSELY WE NAVIGATE HEALING FROM HIS PULMONARY ISSUES. - ON IV CARDIZEM, AND METOPROLOL ORAL, LISINOPRIL, AND PRN HYDRALAZINE, MONITOR BP AND SYMPTOMS. CHRONIC DEPRESSION - RESTARTED CYMBALTA 06/06/2019 LEUKOCYTOSIS -IMPROVED - SUSPECT DUE TO STEROID USE, CONTINUE TO MONITOR SYMPTOMS AND LABS ANEMIA -STABLE STATUS POST BLOOD TRANSFUSION ON 05/29/2019 - CONTINUE TO MONITOR LABS. ELEVATED LFT'S - DUE TO SHOCK - CONTINUE WITH CURRENT MANAGEMENT - LFT'S HAVE IMPROVED SLOWLY. CONSTIPATION - RESOLVED DYSPHAGIA - SPEECH THERAPY HAS BEEN CONSULTED - WILL CONTINUE TO FOLLOW SPEECH RECOMMENDATIONS CRITICAL CARE MYOPATHY - WILL REQUIRE NATIONAL FACILITIES MANAGER REHAB AND STRENGTHENING DUE TO HIS DEBILITATED STATUS - WILL LOOK INTO USP PLACEMENT ON DISCHARGE. DELIRIUM - DISCUSSED WITH PT'S DTR, THIS WILL BE A PROLONGED RECOVERY PROCESS SINCE HAS HAS "ICU DELIRIUM" - ONCE HE GETS OUT OF THE HOSPITAL [facility] HE WILL HAVE IMPROVEMENT IN HIS DELIRIUM. CONTINUE TO EXPECT SEVERAL MORE DAYS IN THE ICU . WILL HAVE SOW FARM MANAGER LOOK AT [employer] OPTIONS WITH THE PT'S FAMILY FOR DISCHARGE IN THE NEXT WEEK OR SO. Problems: (1) Acute respiratory failure with hypoxia (2) Endotracheally intubated (3) Severe sepsis (4) Pneumonia Qualifiers: Qualified Codes: J18.9 - Pneumonia, unspecified organism (5) Influenza (6) Lactic acidosis (7) Acute kidney injury superimposed on chronic kidney disease (8) (HFpEF) heart failure with preserved ejection fraction (9) Non-ST elevation SD (NSTEMI) Admission Dx SEVERE SEPSIS RESPIRATORY FAILURE WITH LACTIC ACIDOSIS INFLUENZA PNEUMONIA CHRONIC PULMONARY FIBROSIS COPD ACUTE ON CHRONIC RENAL FAILURE NON-ST SD CHRONIC DEPRESSION LEUKOCYTOSIS ANEMIA CONSTIPATION ELEVATED LFT'S RESPIRATORY FAILURE WITH LACTIC ACIDOSIS PT AGREED TO SHORT TERM INTUBATION ON 05/30/2019 AND WAS EXTUBATED ON 06/04/2019 INFLUENZA AND PNEUMONIA WITH CHRONIC PULMONARY FIBROSIS AND COPD - PT HAS COMPLETED TAMIFLU FOR TREATMENT OF THE FLU - LAST DOSE GIVEN 06/02/2019 -CONTINUE WITH CURRENT MANAGEMENT INITIATED IN ER AND BY DR. CULLEN. (ANIDULAFUNGIN AND MEROPENEM) ACUTE ON CHRONIC RENAL FAILURE - RESOLVED - CONTINUE WITH IV FLUIDS, RENALLY ADJUST MEDICATIONS NEEDED. NON-ST SD WITH HYPERTENSION - DEFER TO CARDIOLOGY - PT HAD SO MUCH PULMONARY DISTRESS THAT THIS CAUSED HIS SEVERE TROPONIN ELEVATION. WILL WATCH PT CLOSELY WE NAVIGATE HEALING FROM HIS PULMONARY ISSUES. - ON IV CARDIZEM, AND METOPROLOL ORAL, LISINOPRIL, AND PRN HYDRALAZINE, MONITOR BP AND SYMPTOMS. CHRONIC DEPRESSION - RESTARTED CYMBALTA 06/06/2019 LEUKOCYTOSIS -IMPROVED - SUSPECT DUE TO STEROID USE, CONTINUE TO MONITOR SYMPTOMS AND LABS ANEMIA -STABLE STATUS POST BLOOD TRANSFUSION ON 05/29/2019 - CONTINUE TO MONITOR LABS. ELEVATED LFT'S - DUE TO SHOCK - CONTINUE WITH CURRENT MANAGEMENT - LFT'S HAVE IMPROVED SLOWLY. CONSTIPATION - RESOLVED DYSPHAGIA - SPEECH THERAPY HAS BEEN CONSULTED - WILL CONTINUE TO FOLLOW SPEECH RECOMMENDATIONS CRITICAL CARE MYOPATHY - WILL REQUIRE NATIONAL FACILITIES MANAGER REHAB AND STRENGTHENING DUE TO HIS DEBILITATED STATUS - WILL LOOK INTO USP PLACEMENT ON DISCHARGE. CONTINUE TO EXPECT SEVERAL MORE DAYS IN THE ICU . WILL HAVE SOW FARM MANAGER LOOK AT [employer] OPTIONS WITH THE PT'S FAMILY FOR DISCHARGE IN THE NEXT WEEK OR SO. Clinical Quality Measures Admission Status Admission Dx SEVERE SEPSIS RESPIRATORY FAILURE WITH LACTIC ACIDOSIS INFLUENZA PNEUMONIA CHRONIC PULMONARY FIBROSIS COPD ACUTE ON CHRONIC RENAL FAILURE NON-ST SD CHRONIC DEPRESSION LEUKOCYTOSIS ANEMIA CONSTIPATION ELEVATED LFT'S RESPIRATORY FAILURE WITH LACTIC ACIDOSIS PT AGREED TO SHORT TERM INTUBATION ON 05/30/2019 AND WAS EXTUBATED ON 06/04/2019 INFLUENZA AND PNEUMONIA WITH CHRONIC PULMONARY FIBROSIS AND COPD - PT HAS COMPLETED TAMIFLU FOR TREATMENT OF THE FLU - LAST DOSE GIVEN 06/02/2019 -CONTINUE WITH CURRENT MANAGEMENT INITIATED IN ER AND BY DR. CULLEN. (ANIDULAFUNGIN AND MEROPENEM) ACUTE ON CHRONIC RENAL FAILURE - RESOLVED - CONTINUE WITH IV FLUIDS, RENALLY ADJUST MEDICATIONS NEEDED. NON-ST SD WITH HYPERTENSION - DEFER TO CARDIOLOGY - PT HAD SO MUCH PULMONARY DISTRESS THAT THIS CAUSED HIS SEVERE TROPONIN ELEVATION. WILL WATCH PT CLOSELY WE NAVIGATE HEALING FROM HIS PULMONARY ISSUES. - ON IV CARDIZEM, AND METOPROLOL ORAL, LISINOPRIL, AND PRN HYDRALAZINE, MONITOR BP AND SYMPTOMS. CHRONIC DEPRESSION - RESTARTED CYMBALTA 06/06/2019 LEUKOCYTOSIS -IMPROVED - SUSPECT DUE TO STEROID USE, CONTINUE TO MONITOR SYMPTOMS AND LABS ANEMIA -STABLE STATUS POST BLOOD TRANSFUSION ON 05/29/2019 - CONTINUE TO MONITOR LABS. ELEVATED LFT'S - DUE TO SHOCK - CONTINUE WITH CURRENT MANAGEMENT - LFT'S HAVE IMPROVED SLOWLY. CONSTIPATION - RESOLVED DYSPHAGIA - SPEECH THERAPY HAS BEEN CONSULTED - WILL CONTINUE TO FOLLOW SPEECH RECOMMENDATIONS CRITICAL CARE MYOPATHY - WILL REQUIRE [facility] REHAB AND STRENGTHENING DUE TO HIS DEBILITATED STA TUS - WILL LOOK INTO USP PLACEMENT ON DISCHARGE. CONTINUE TO EXPECT SEVERAL MORE DAYS IN THE ICU . WILL HAVE SOW FARM MANAGER LOOK AT [employer] OPT[employer] WITH THE PT'S FAMILY FOR DISCHARGE IN THE NEXT WEEK OR SO. DVT/VTE Risk/Contraindication: Risk Factor Score Per Nursin RFS Level Per Nursing on Admit: 4+=Very High DEANDRA MOTA MD Jun 09, 2019 08:54
--- NOTE | 2019-06-09 10:41 | Progress Note - Cardiology ---
Cardiology SOAP Progress Note Objective: I&O/Vital Signs 06/10/19 06/11/19 06/11/19 06/11/19 23:00 00:00 00:00 00:00 Temp 36.0 Pulse 81 76 Resp B/P (MAP) 142/73 (96) 130/81 (97) Pulse Ox 95 94 O2 Delivery Nasal Cannula Nasal Cannula NIV CPAP O2 Flow Rate 4.00 4.00 4.00 06/11/19 06/11/19 06/11/19 06/11/19 01:00 01:00 02:00 02:03 Pulse 84 83 90 Resp B/P (MAP) 132/65 (87) 144/64 (90) Pulse Ox 89 92 91 O2 Delivery Nasal Cannula Nasal Cannula Nasal Cannula O2 Flow Rate 4.00 4.00 4.00 06/11/19 06/11/19 06/11/19 06/11/19 03:00 04:00 04:00 04:00 Temp 36.3 Pulse 95 92 Resp B/P (MAP) 152/71 (98) 194/88 (123) Pulse Ox 89 92 O2 Delivery Nasal Cannula NIV CPAP Nasal Cannula O2 Flow Rate 4.00 4.00 4.00 06/11/19 06/11/19 06/11/19 06/11/19 04:52 05:00 06:00 07:00 Pulse 82 82 86 Resp B/P (MAP) 120/64 (82) 155/75 (101) Pulse Ox 96 96 O2 Delivery High Flow N/C High Flow N/C High Flow N/C O2 Flow Rate 4.00 4.00 4.00 06/11/19 06/11/19 06/11/19 06/11/19 07:00 07:05 08:00 09:00 Temp 36.6 Pulse 86 86 94 Resp 20 21 18 B/P (MAP) 117/93 (101) 164/93 (116) 132/60 (84) Pulse Ox 92 90 97 94 O2 Delivery High Flow N/C Nasal Cannula High Flow N/C High Flow N/C O2 Flow Rate 4.00 4.00 4.00 4.00 06/11/19 00:00 Intake Total 450 ml Output Total 1025 ml Balance -575 ml Weight (Pounds): 211 Weight (Ounces): 0.0 Weight (Calculated Kilograms): 95.218999 Constitutional: AAO x 3 (mildly confused), well-developed, well-nourished Respiratory: chest expansion is symmetric, chest is bilaterally symmetric, crackles, rhonchi (scattered), other Cardiovascular: regular rate-rhythm, S1 and S2 Gastrointestional: distended, audible bowel sounds Genital/Rectal: other (urinary catheter to DD with cl yellow urine) Extremities: other (bilat mod pedal edema) Neurologic/Psychiatric: other (extubated, awake, reponsive, mildly confused, seems to move all limbs, difficult swallowing on 06/05/19) Skin: No rash on exposed areas, No ulcerations on exposed areas Results/Procedures: Labs Laboratory Tests 06/10/19 11:18: Lab Scanned Report Transfusion Reaction Form 06/11/19 03:31: White Blood Count 7.5, Red Blood Count 3.01L, Hemoglobin 9.1L, Hematocrit 30L, Mean Corpuscular Volume 99, Mean Corpuscular Hemoglobin 30, Mean Corpuscular Hemoglobin Concent 31L, Red Cell Distribution Width 15.5H, Platelet Count 283, Mean Platelet Volume 9.7, Neutrophils (%) (Auto) 75, Lymphocytes (%) (Auto) 13, Monocytes (%) (Auto) 8, Eosinophils (%) (Auto) 4, Basophils (%) (Auto) 0, Neutrophils # (Auto) 5.6, Lymphocytes # (Auto) 1.0, Monocytes # (Auto) 0.6, Eosinophils # (Auto) 0.3, Basophils # (Auto) 0.0, Sodium Level 140, Potassium Level 3.9, Chloride Level 106, Carbon Dioxide Level 26, Anion Gap 8, Blood Urea Nitrogen 18, Creatinine 1.09, Estimat Glomerular Filtration Rate > 60, BUN/Creatinine Ratio 17, Glucose Level 95, Calcium Level 8.4L, Phosphorus Level 2.5, Magnesium Level 2.1 Microbiology 06/04/19 Blood Culture - Final, Complete No growth 05/30/19 Gram Stain - Final, Resulted 05/30/19 Sputum Culture - Preliminary, Resulted Aerobic actinomycetes YEAST Procedures NAME: LORNA HILLMAN [facility] REC#: [id number] PT STATUS: ADM IN : 1940 PHYSICIAN: LORENZO CULLEN DO ADMIT DATE: 05/28/19/ICU Draft Date of Exam:06/09/19 CHEST 1 VIEW, AP/PA ONLY INDICATION: Pneumonia, COPD. COMPARISON: 06/08/2019 TECHNIQUE: Single frontal view of the chest. FINDINGS: Lung volumes are low. The right central line tip appears stable. Sternotomy wires and post-CABG changes are seen. There are interstitial opacities throughout the lungs bilaterally which appear stable since the prior study. No pleural effusion or pneumothorax is seen. IMPRESSION: 1. Low lung volumes with persistent interstitial opacities, which may be due to edema or infection. Findings appear stable since the prior study. 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 Magana Echo of 05/29/19: LVEF 40-45%, basal inferior hypokinesis, RVSP 18 mmHg, mod MR H/o carotid dz bilat - followed by Dr. Rosa at [facility] Syncopal episodes, being followed by Dr. Rosa, Dr. Smith (neurology services at [facility] Dr. Cortez Orthostatic hypotension - being followed by Dr. Rosa COPD H/O tobaccoism - quit 4 years ago HTN HLD Chronic back pain Plan: * New onset a-fib first dx on EKG of 06-05-2019 * Start Eliquis 5mg BID for stroke prophylaxis. Stop Plavix and Lovenox, continue ASA d/t known h/o CAD - having him on all 4 agents places him at increased risk for bleeding * Continue BB * Monitor lab closely * Replace electrolytes as indicated * Mild anemia - management per medical services TRISTON ALONSO Jun 09, 2019 10:41
--- NOTE | 2019-06-09 11:03 | Occupational Ther Daily Note ---
OT Current Status-Daily Note Subjective Pt laying in bed at start of session, stating he still feels cold today. He did not verbalize any pain during tx. Mental Status/Objective Attachments: Bolden Catheter, IV, Oxygen ADL-Treatment Therapy Code Descriptions/Definitions Functional [place] Measure: 0=Not Assessed/NA 4=Minimal Assistance 1=Total Assistance 5=Supervision or Setup 2=Maximal Assistance 6=Modified [place] 3=Moderate Assistance 7=Complete IndependenceSCALE: Activities may be completed with or without assistive devices. 7-Jlbyuzufpe-fvkstjt completes the activity by him/herself with no assistance from a helper. 5-Set-up or Clean-up Assistance-helper sets up or cleans up; patient completes a ctivity. [place] assists only prior to or following the activity. 4-Supervision or Touching Assistance-helper provides verbal cues and/or touching/steadying and/or contact guard assistance as patient completes activity. Assistance may be provided throughout the activity or intermittently. 3-Partial/Moderate Assistance-helper does LESS THAN HALF the effort. [place] lifts, holds or supports trunk or limbs, but provides less than half the effort. 2-Substantial/Maximal Assistance-helper does MORE THAN HALF the effort. [place] lifts or holds trunk or limbs and provides more than half the effort. 8-Sllgoemmb-ycgfxg does ALL the effort. Patient does none of the effort to complete the activity. Or, the assistance of 2 or more helpers is required for the patient to complete the activity. If activity was not attempted, code reason: 7-Patient Refused. 9-Not Applicable-not attempted and the patient did not perform the activity before the current illness, exacerbation or injury. 10-Not Attempted due to Environmental Limitations-(lack of equipment, weather restraints, etc.). 88-Not Attempted due to Medical Conditions or Safety Concerns. Oral Hygiene (QC): 3 (Pt able to take a drink of thickened liquid through a straw as OT held cup for pt. ) Other Treatment Pt laying in bed during session, stated he remembered seeing the OT yesterday but could not recall her name. OT introduced self to pt. Pt requested to be covered up due to being cold, OT asked pt if he would complete some arm exercises before, pt replied "I don't make deals". Pt agreed to completing BUEs with mod encouragement. Pt completed x10 reps of the following BUEs in order to increase functional endurance and UE strengthening: wrist flexion/extension and elbow flexion/extension. Pt would complete x5 exercises, then start to fall asleep, requiring verbal and tactile cues to finish all repetitions. OT then assisted pt with covering up his arms. Pt states he needed a drink, OT provided pt a thickened drink per nursing. Post OT session, pt laying in bed, call light in reach and all needs met. Education OT Patient Education: Correct positioning, Energy conservation, Exercise program, Modified ADL techniques, Progress toward Goal/Update tx plan, Purpose of tx/functional activities Teaching Recipient: Patient Teaching Methods: Discussion Response to Teaching: Verbalize Understanding OT Senior Living Goals Senior Living Goals Time Frame: Jun 26, 2019 Eating (QC): 6 Oral Hygiene (QC): 6 Toileting Hygiene (QC): 6 Shower/Bathe Self (QC): 6 Upper Body Dressing (QC): 6 Lower Body Dressing (QC): 6 On/Off Footwear (QC): 6 Additional Goals: 1-Demonstrate ADL Tasks, 2-Verbalize Understanding, 3- ImproveStrength/Alyson 1=Demonstrate adherence to instructed precautions during ADL tasks. 2=Patient will verbalize/demonstrate understanding of assistive devices/modifications for ADL. 3=Patient will improve strength/tolerance for activity to enable patient to perform ADL's. OT Education/Plan Problem List/Assessment Assessment: Decreased Activ Tolerance, Decreased UE Strength, Impaired I ADL's, Impaired Self-Care Skills Discharge Recommendations Plan/Recommendations: Continue POC Treatment Plan/Plan of Care Patient would benefit from OT for education, treatment and training to promote independence in ADL's, mobility, safety and/or upper extremity function for ADL's. Plan of Care: ADL Retraining, Caregiver Training, Functional Mobility, UE Funct Exercise/Act Treatment Duration: Jun 26, 2019 Frequency: 5 times per week Estimated Hrs Per Day: .25 hour per day Agreement: Yes Rehab Potential: Fair Time/GCodes Start Time: 09:39 Stop Time: 09:47 Total Time Billed (hr/min): 8 Billed Treatment Time 1, EX TASHA POWER OT Jun 09, 2019 11:03
--- NOTE | 2019-06-09 12:24 | Physical Therapy Daily Note ---
PT Daily Note-Current Subjective Patient agreeable to therapy at this time. Appearance Patient in bed with call light and bedside table within reach. Mental Status Patient Orientation: Person Attachments: Oxygen (10L HF), Bolden Catheter, IV Transfers SCALE: Activities may be completed with or without assistive devices. 4-Ddwijsmicm-mkhyngd completes the activity by him/herself with no assistance from a helper. 5-Set-up or Clean-up Assistance-helper sets up or cleans up; patient completes activity. [place] assists only prior to or following the activity. 4-Supervision or Touching Assistance-helper provides verbal cues and/or touching/steadying and/or contact guard assistance as patient completes activity. Assistance may be provided throughout the activity or intermittently. 3-Partial/Moderate Assistance-helper does LESS THAN HALF the effort. [place] lifts, holds or supports trunk or limbs, but provides less than half the effort. 2-Substantial/Maximal Assistance-helper does MORE THAN HALF the effort. [place] lifts or holds trunk or limbs and provides more than half the effort. 2-Mrzjuxiil-psovfs does ALL the effort. Patient does none of the effort to complete the activity. Or, the assistance of 2 or more helpers is required for the patient to complete the activity. If activity was not attempted, code reason: 7-Patient Refused. 9-Not Applicable-not attempted and the patient did not perform the activity before the current illness, exacerbation or injury. 10-Not Attempted due to Environmental Limitations-(lack of equipment, weather restraints, etc.). 88-Not Attempted due to Medical Conditions or Safety Concerns. Roll Left & Right (QC): 2 Gait Training Does the Patient Walk?: No and Walking Goal NOT indicated Exercises Supine Ex: Ankle pumps, Heel Slides, Straight leg raise Supine Reps: 10 (BLE) Treatments BLE exercises, bed mobility Assessment Current Status: Poor Progress Attempted to sit EOB but patient O2 started dropping, monitor read as low as 40% and patient started to get light headed. Laid back down immediately and patient O2 recovered to around 92%. Nursing notified. PT [place] Priming Operator Goals [place] Priming Operator Goals PT [place] Priming Operator Goals Time Frame: Jun 12, 2019 Roll Left & Right (QC): 3 Sit to Lying (QC): 3 Lying-Sitting on Side/Bed(QC): 3 Sit to Stand (QC): 3 Chair/Whw-gd-Xpipl Xfer(QC): 3 Does the Patient Walk: Yes PT Plan Problem List Problem List: Activity Tolerance, Functional Strength, Safety, Balance, Gait, Transfer, Bed Mobility, ROM Treatment/Plan Treatment Plan: Continue Plan of Care Treatment Plan: Bed Mobility, Education, Functional Activity Alyson, Functional Strength, Gait, Safety, Therapeutic Exercise, Transfers Treatment Duration: Jun 12, 2019 Frequency: 5 times per week Estimated Hrs Per Day: .25 hour per day Patient and/or Family Agrees t: Yes Time/GCodes Time In: 1040 Time Out: 1056 Total Billed Treatment Time: 16 Total Billed Treatment 1 visit FA 16 TORITO METZ PT Jun 09, 2019 12:11
[2019-06-09] MEDS ORDERED: NS IV 500 ML 500 ML ONE (12:51)
[2019-06-09] MEDS: ACETAMINOPHEN 325 MG TABLET PO PRN (12:53)
--- NOTE | 2019-06-09 13:20 | NUR ---
CM/SS: Visited with daughter as to her longterm facility choice for patient referral Plan: Pt to discharge to a skilled facility - family preference is [facility] Summary: Pt's daughter reports she has been talking to [facility] and she would like the pt to go there for skilled stay. The worker explained the process for referral and will fax information to the facility. Daughter is ok with that at this time.
--- NOTE | 2019-06-09 13:21 | Progress Note - Cardiology ---
Cardiology SOAP Progress Note Subjective: He reports gen weakness dez of both legs No cp or palp or syncope No n/v/d Generally feels unwell Objective: I&O/Vital Signs 06/09/19 06/09/19 06/09/19 06/09/19 02:00 02:34 03:00 04:00 Temp 36.2 Pulse 101 98 Resp 19 35 B/P (MAP) 157/73 (101) 101/59 (73) Pulse Ox 96 92 91 O2 Delivery Vapotherm Vapotherm Vapotherm O2 Flow Rate 20.00 20.00 20.00 40.00 40.00 FiO2 40 06/09/19 06/09/19 06/09/19 06/09/19 04:00 04:00 05:00 06:00 Pulse 98 86 87 Resp 23 13 23 B/P (MAP) 128/60 (82) 133/54 (80) 103/52 (69) Pulse Ox 93 96 95 96 O2 Delivery Vapotherm Vapotherm Vapotherm Vapotherm O2 Flow Rate 20.00 20.00 20.00 20.00 40.00 40.00 40.00 FiO2 40 06/09/19 06/09/19 06/09/19 06/09/19 07:00 07:00 08:00 08:00 Temp 36.2 Pulse 90 84 92 Resp 18 20 B/P (MAP) 140/61 (87) 123/66 (85) Pulse Ox 92 94 O2 Delivery Vapotherm Vapotherm Vapotherm O2 Flow Rate 20.00 20.00 20.00 40.00 40.00 FiO2 40 06/09/19 06/09/19 06/09/19 06/09/19 08:18 08:28 09:00 09:42 Pulse 98 Resp 22 B/P (MAP) 162/80 (107) Pulse Ox 95 92 O2 Delivery Vapotherm Vapotherm Vapotherm Vapotherm O2 Flow Rate 20.00 15.00 15.00 10.00 35.00 35.00 35.00 FiO2 40 06/09/19 06/09/19 06/09/19 06/09/19 10:00 11:00 11:55 12:00 Pulse 100 109 Resp 21 34 B/P (MAP) 127/56 (79) 127/56 (79) Pulse Ox 97 100 99 O2 Delivery Vapotherm Nasal Cannula Nasal Cannula High Flow N/C O2 Flow Rate 15.00 10.00 10.00 10.00 35.00 06/09/19 06/09/19 06/09/19 06/09/19 12:00 12:23 13:00 13:11 Temp 36.4 Pulse 110 106 105 89 Resp 31 17 B/P (MAP) 108/94 (99) 121/86 (98) 121/86 Pulse Ox 97 97 O2 Delivery Nasal Cannula Nasal Cannula O2 Flow Rate 10.00 10.00 06/09/19 00:00 Intake Total 215 ml Output Total 1220 ml Balance -1005 ml Weight (Pounds): 211 Weight (Ounces): 0.0 Weight (Calculated Kilograms): 95.689927 Constitutional: AAO x 3 (mildly confused), well-developed, well-nourished Respiratory: chest expansion is symmetric, chest is bilaterally symmetric, crackles, rhonchi (scattered), other Cardiovascular: regular rate-rhythm, S1 and S2 Gastrointestional: distended, audible bowel sounds Genital/Rectal: other (urinary catheter to DD with cl yellow urine) Extremities: other (bilat mod pedal edema) Neurologic/Psychiatric: other (extubated, awake, reponsive, mildly confused, seems to move all limbs, difficult swallowing on 06/05/19) Skin: No rash on exposed areas, No ulcerations on exposed areas Results/Procedures: Labs Laboratory Tests 06/09/19 03:18: White Blood Count 7.5, Red Blood Count 2.50L, Hemoglobin 7.6L, Hematocrit 25L, Mean Corpuscular Volume 101H, Mean Corpuscular Hemoglobin 30, Mean Corpuscular Hemoglobin Concent 30L, Red Cell Distribution Width 14.6H, Platelet Count 242, Mean Platelet Volume 10.0, Neutrophils (%) (Auto) 77H, Lymphocytes (%) (Auto) 12, Monocytes (%) (Auto) 9, Eosinophils (%) (Auto) 2, Basophils (%) (Auto) 0, Neutrophils # (Auto) 5.8, Lymphocytes # (Auto) 0.9L, Monocytes # (Auto) 0.7, Eosinophils # (Auto) 0.2, Basophils # (Auto) 0.0, Sodium Level 142, Potassium Level 3.5L, Chloride Level 106, Carbon Dioxide Level 27, Anion Gap 9, Blood Urea Nitrogen 24H, Creatinine 1.06, Estimat Glomerular Filtration Rate > 60, BUN/Creatinine Ratio 23, Glucose Level 104, Calcium Level 8.4L, Phosphorus Level 2.8, Magnesium Level 2.0 Microbiology 06/04/19 Blood Culture - Preliminary, Resulted No growth 05/30/19 Gram Stain - Final, Resulted 05/30/19 Sputum Culture - Preliminary, Resulted Aerobic actinomycetes YEAST Laboratory Tests 06/08/19 03:28 06/09/19 03:18 A/P: Assessment: Ac resp failure (multifactorial, see below) Severe sepsis; presented with septic shock Influenza A New onset a-fib dx on EKG of 06-05-2019 NSTEMI, unclear if type 1 or type 2 EMA-3, likely due to ATN due to hypotension due to septic shock, improved Anemia of undetermined etiology Chronic resp failure due to interstitial lung disease / pulmonary fibrosis CAD and ischemic cardiomyopathy - H/o 4-vessel CABG in 1998 at [facility] in [place], [place] by Dr. Magana Echo of 05/29/19: LVEF 40-45%, basal inferior hypokinesis, RVSP 18 mmHg, mod MR H/o carotid dz bilat - followed by Dr. Rosa at [facility] Syncopal episodes, being followed by Dr. Rosa, Dr. Smith (neurology services at [facility] Dr. Cortez Orthostatic hypotension - being followed by Dr. Rosa COPD H/O tobaccoism - quit 4 years ago HTN HLD Chronic back pain Plan: * Continue current cardiac regimen of BB, Eliquis, and ASA * Monitor lab closely * Replace electrolytes as indicated * Worsening anemia - management per Medical services CARINE PALOMINO MD FACP FAC CCDS Jun 09, 2019 13:21
[2019-06-09] MEDS ORDERED: PATIENT MAY USE OWN MED,SINGLE MED PO SCH (14:45)
[2019-06-09] MEDS: MYCOPHENOLATE 500 MG TABLET PO SCH (17:39)
[2019-06-09] MEDS: LIDOCAINE PATCH REMOVAL TP SCH (20:17)
[2019-06-09] MEDS: polyethylene glycoL POWDER 17 GM (MIRALAX) PACK PO SCH (20:26)
[2019-06-10] VITALS (23 sets, daily range): BP systolic 88–175; BP diastolic 34–94
[2019-06-10] MEDS: RT-ALBUTEROL/IPRATROPIUM 3 ML (DUONEB) VIAL INH SCH ×6 (01:55→21:32)
[2019-06-10 03:37] LABS: BASOPHILS % (AUTO) 0 % (0-10); EOSINOPHILS # (AUTO) 0.3 10^3/uL (0.0-0.3); EOSINOPHILS % (AUTO) 4 % (0-10); HEMATOCRIT 29 % (40-54); HEMOGLOBIN 8.9 G/DL (13.3-17.7); LYMPHOCYTES # (AUTO) 0.8 X 10^3 (1.0-4.0); LYMPHOCYTES % (AUTO) 10 % (12-44); MEAN CORPUSCULAR HEMOGLOBIN 31 PG (25-34); MEAN CORPUSCULAR HGB CONC 31 G/DL (32-36); MEAN CORPUSCULAR VOLUME 99 FL (80-99); MEAN PLATELET VOLUME 9.7 FL (7.4-10.4); MONOCYTES # (AUTO) 0.7 X 10^3 (0.0-1.0); MONOCYTES % (AUTO) 10 % (0-12); NEUTROPHILS # (AUTO) 5.7 X 10^3 (1.8-7.8); NEUTROPHILS % (AUTO) 76 % (42-75); PLATELET COUNT 256 10^3/uL (130-400); RED CELL DISTRIBUTION WIDTH 16.1 % (10.0-14.5); WHITE BLOOD COUNT 7.5 10^3/uL (4.3-11.0)
[2019-06-10 03:54] LABS: BUN/CREATININE RATIO 18; CALCIUM 8.4 MG/DL (8.5-10.1); CARBON DIOXIDE 29 MMOL/L (21-32); CHLORIDE 106 MMOL/L (98-107); CREATININE SERUM 1.16 MG/DL (0.60-1.30); GFR ESTIMATED > 60; GLUCOSE 93 MG/DL (70-105); MAGNESIUM 2.1 MG/DL (1.6-2.4); PHOSPHORUS 2.8 MG/DL (2.3-4.7); POTASSIUM 4.3 MMOL/L (3.6-5.0); SODIUM 141 MMOL/L (135-145)
[2019-06-10] MEDS: LACTATED RINGERS 1,000 ML IV SCH (04:08)
[2019-06-10] MEDS: MEROPENEM 500 MG/SWFI 10 ML IV PUSH IV SCH ×8 (04:08→19:48)
--- NOTE | 2019-06-10 05:13 | Pulmonary Progress Note ---
Subjective Time Seen by a Provider: 05:13 Sepsis Event Evaluation Height, Weight, BMI Height: 5'9.00" Weight: 211lbs. 0.0oz. 95.611447kf; 28.08 BMI Method: Exam Exam Vital Signs Date Time Temp Pulse Resp B/P (MAP) Pulse Ox O2 Delivery O2 Flow Rate FiO2 06/10/19 04:00 High Flow N/C 4.00 06/10/19 04:00 82 19 129/72 (91) 91 Nasal Cannula 4.00 06/10/19 04:00 36.1 06/10/19 03:00 78 22 127/77 (94) 96 Nasal Cannula 4.00 06/10/19 02:00 82 21 134/66 (88) 97 Nasal Cannula 4.00 06/10/19 01:55 97 Nasal Cannula 5.00 06/10/19 01:00 84 06/10/19 01:00 84 23 120/59 (79) 93 Nasal Cannula 5.00 06/10/19 00:00 85 34 136/56 (82) 98 Nasal Cannula 5.00 06/10/19 00:00 High Flow N/C 5.00 06/10/19 00:00 36.8 06/09/19 23:00 82 19 125/54 (77) 95 Nasal Cannula 5.00 06/09/19 22:00 87 26 122/58 (79) 96 Nasal Cannula 5.00 06/09/19 21:30 91 Nasal Cannula 5.00 06/09/19 21:22 69 21 110/42 (64) 100 Nasal Cannula 5.00 06/09/19 20:36 64 28 111/69 (83) 100 Nasal Cannula 5.00 06/09/19 20:00 63 18 123/36 (65) 99 Nasal Cannula 8.00 06/09/19 20:00 36.0 06/09/19 20:00 High Flow N/C 5.00 06/09/19 19:00 63 06/09/19 19:00 63 89/45 (60) 98 Nasal Cannula 8.00 06/09/19 18:20 99 Nasal Cannula 6.00 06/09/19 18:00 93 16 135/92 (106) 96 Nasal Cannula 10.00 06/09/19 17:00 74 20 157/90 (112) 98 Nasal Cannula 10.00 06/09/19 16:10 36.4 64 132/71 06/09/19 16:00 High Flow N/C 10.00 06/09/19 16:00 76 21 117/54 (75) 98 Nasal Cannula 10.00 06/09/19 15:30 36.4 06/09/19 15:00 95 20 114/48 (70) 93 Nasal Cannula 10.00 06/09/19 14:00 86 26 119/43 (68) 100 Nasal Cannula 10.00 06/09/19 13:30 36.2 86 127/62 06/09/19 13:11 36.4 89 121/86 06/09/19 13:00 105 17 121/86 (98) 97 Nasal Cannula 10.00 06/09/19 12:23 106 06/09/19 12:00 110 31 108/94 (99) 97 Nasal Cannula 10.00 06/09/19 12:00 High Flow N/C 10.00 06/09/19 11:55 99 Nasal Cannula 10.00 06/09/19 11:55 36.7 06/09/19 11:00 109 34 127/56 (79) 100 Nasal Cannula 10.00 06/09/19 10:00 100 21 127/56 (79) 97 Vapotherm 15.00 35.00 06/09/19 09:42 Vapotherm 10.00 35.00 06/09/19 09:00 98 22 162/80 (107) 92 Vapotherm 15.00 35.00 06/09/19 08:28 Vapotherm 15.00 35.00 06/09/19 08:18 95 Vapotherm 20.00 40 06/09/19 08:00 36.2 92 20 123/66 (85) 94 Vapotherm 20.00 40.00 06/09/19 08:00 Vapotherm 20.00 40 06/09/19 07:00 84 18 140/61 (87) 92 Vapotherm 20.00 40.00 06/09/19 07:00 90 06/09/19 06:00 87 23 103/52 (69) 96 Vapotherm 20.00 40.00 I & O 06/10/19 07:00 Intake Total 1040 ml Output Total 1900 ml Balance -860 ml Height & Weight Height: 5'9.00" Weight: 211lbs. 0.0oz. 95.530825zl; 28.08 BMI Method: General Appearance: No Apparent Distress, Chronically ill HEENT: No Scleral Icterus (L), No Scleral Icterus (R) Neck: Full Range of Motion, Non Tender, Supple Respiratory: Chest Non Tender, Crackles, Decreased Breath Sounds, Rhonci Cardiovascular: Regular Rate, Rhythm, No Murmur Capillary Refill: Less Than 3 Seconds Peripheral Pulses: 1+ Dorsalis Pedis (R), 1+ Left Dors-Pedis (L) Gastrointestinal: non tender, soft; No distended Extremity: Normal Capillary Refill, Pedal Edema (IMPROVED) Neurologic/Psychiatric: Alert (ORIENTED TO PERSON, PLACE, NOT TIME), Motor Weakness (HE CANNOT SIT UP WELL IN BED UNDER HIS OWN POWER), Other (ORIENTED TO PERSON, AND TO PLACE, NOT TIME) Skin: Normal Color, Warm/Dry Lymphatic: No Adenopathy Results Lab Laboratory Tests 06/09/19 03:18 06/10/19 03:31 Assessment/Plan Assessment/Plan Acute on chronic respiratory failure -BiPAP QHS and PRN -CXR now improved -Continue duonebs, restart Solumedrol Severe sepsis with pneumonia and influenza -Abx changed to Merrem 06/02 secondary to culture results -Tamiflu course completed, no longer febrile -IVF - decrease to 30 -engel cultures -MRSA nasal swab -- is negative -urine strep and legionella Ag negative -Repeat UA neg, continue Merrem and Eraxis Worsening leukocytosis -Repeat engel cultures and d/c solumedrol -WBC trending down, no fevers Ileus r/o obstruction -repeat KUB at 0830 -Continue reglan 10mg IV BID -Hold TF -Hold Fentanyl gtt -Several BMs following enema, abdominal distention improved Metabolic lactic acidosis -Monitor -Now metabolic alkalosis Acute renal failure -IVF and monitor -BUN remains elevated but creatinine improving Hypophos -replace Hypermagnesemia -monitor -D/C mylanta -No longer increasing, will continue to monitor LORENZO CULLEN DO Jun 10, 2019 05:13
--- NOTE | 2019-06-10 05:18 | Pulmonary Progress Note ---
Subjective Time Seen by a Provider: 05:13 Subjective/Events-last exam Pt feels improved. Sepsis Event Evaluation Height, Weight, BMI Height: 5'9.00" Weight: 211lbs. 0.0oz. 95.943110xf; 28.08 BMI Method: Exam Exam Vital Signs Date Time Temp Pulse Resp B/P (MAP) Pulse Ox O2 Delivery O2 Flow Rate FiO2 06/10/19 04:00 High Flow N/C 4.00 06/10/19 04:00 82 19 129/72 (91) 91 Nasal Cannula 4.00 06/10/19 04:00 36.1 06/10/19 03:00 78 22 127/77 (94) 96 Nasal Cannula 4.00 06/10/19 02:00 82 21 134/66 (88) 97 Nasal Cannula 4.00 06/10/19 01:55 97 Nasal Cannula 5.00 06/10/19 01:00 84 06/10/19 01:00 84 23 120/59 (79) 93 Nasal Cannula 5.00 06/10/19 00:00 85 34 136/56 (82) 98 Nasal Cannula 5.00 06/10/19 00:00 High Flow N/C 5.00 06/10/19 00:00 36.8 06/09/19 23:00 82 19 125/54 (77) 95 Nasal Cannula 5.00 06/09/19 22:00 87 26 122/58 (79) 96 Nasal Cannula 5.00 06/09/19 21:30 91 Nasal Cannula 5.00 06/09/19 21:22 69 21 110/42 (64) 100 Nasal Cannula 5.00 06/09/19 20:36 64 28 111/69 (83) 100 Nasal Cannula 5.00 06/09/19 20:00 63 18 123/36 (65) 99 Nasal Cannula 8.00 06/09/19 20:00 36.0 06/09/19 20:00 High Flow N/C 5.00 06/09/19 19:00 63 06/09/19 19:00 63 89/45 (60) 98 Nasal Cannula 8.00 06/09/19 18:20 99 Nasal Cannula 6.00 06/09/19 18:00 93 16 135/92 (106) 96 Nasal Cannula 10.00 06/09/19 17:00 74 20 157/90 (112) 98 Nasal Cannula 10.00 06/09/19 16:10 36.4 64 132/71 06/09/19 16:00 High Flow N/C 10.00 06/09/19 16:00 76 21 117/54 (75) 98 Nasal Cannula 10.00 06/09/19 15:30 36.4 06/09/19 15:00 95 20 114/48 (70) 93 Nasal Cannula 10.00 06/09/19 14:00 86 26 119/43 (68) 100 Nasal Cannula 10.00 06/09/19 13:30 36.2 86 127/62 06/09/19 13:11 36.4 89 121/86 06/09/19 13:00 105 17 121/86 (98) 97 Nasal Cannula 10.00 06/09/19 12:23 106 06/09/19 12:00 110 31 108/94 (99) 97 Nasal Cannula 10.00 06/09/19 12:00 High Flow N/C 10.00 06/09/19 11:55 99 Nasal Cannula 10.00 06/09/19 11:55 36.7 06/09/19 11:00 109 34 127/56 (79) 100 Nasal Cannula 10.00 06/09/19 10:00 100 21 127/56 (79) 97 Vapotherm 15.00 35.00 06/09/19 09:42 Vapotherm 10.00 35.00 06/09/19 09:00 98 22 162/80 (107) 92 Vapotherm 15.00 35.00 06/09/19 08:28 Vapotherm 15.00 35.00 06/09/19 08:18 95 Vapotherm 20.00 40 06/09/19 08:00 36.2 92 20 123/66 (85) 94 Vapotherm 20.00 40.00 06/09/19 08:00 Vapotherm 20.00 40 06/09/19 07:00 84 18 140/61 (87) 92 Vapotherm 20.00 40.00 06/09/19 07:00 90 06/09/19 06:00 87 23 103/52 (69) 96 Vapotherm 20.00 40.00 I & O 06/10/19 07:00 Intake Total 1040 ml Output Total 1900 ml Balance -860 ml Height & Weight Height: 5'9.00" Weight: 211lbs. 0.0oz. 95.385779uv; 28.08 BMI Method: General Appearance: No Apparent Distress, Chronically ill HEENT: No Scleral Icterus (L), No Scleral Icterus (R) Neck: Full Range of Motion, Non Tender, Supple Respiratory: Chest Non Tender, Crackles, Decreased Breath Sounds, Rhonci Cardiovascular: Regular Rate, Rhythm, No Murmur Capillary Refill: Less Than 3 Seconds Peripheral Pulses: 1+ Dorsalis Pedis (R), 1+ Left Dors-Pedis (L) Gastrointestinal: non tender, soft; No distended Extremity: Normal Capillary Refill, Pedal Edema (IMPROVED) Neurologic/Psychiatric: Alert (ORIENTED TO PERSON, PLACE, NOT TIME), Motor Weakness (HE CANNOT SIT UP WELL IN BED UNDER HIS OWN POWER), Other (ORIENTED TO PERSON, AND TO PLACE, NOT TIME) Skin: Normal Color, Warm/Dry Lymphatic: No Adenopathy Results Lab Laboratory Tests 06/09/19 03:18 06/10/19 03:31 Assessment/Plan Assessment/Plan Acute on chronic respiratory failure -BiPAP QHS and PRN -CXR now improved -Continue duonebs, restart Solumedrol Severe sepsis with pneumonia and influenza -- Improving - Merrem 06/02 -- Continue for 10- 14 days. -s/p Tamiflu -IVF - decrease to 30 -engel cultures -MRSA nasal swab -- is negative -urine strep and legionella Ag negative -Repeat UA neg, continue Merrem and Eraxis Worsening leukocytosis -Repeat engel cultures and d/c solumedrol -WBC trending down, no fevers Ileus r/o obstruction -Several BMs following enema, abdominal distention improved Acute renal failure -IVF and monitor LORENZO CULLEN DO Jun 10, 2019 05:18
[2019-06-10] MEDS ORDERED: LORazepam INJ 2 MG/ML (ATIVAN) VIAL IVP PRN (05:30)
--- NOTE | 2019-06-10 07:10 | Diagnostic Imaging Report ---
INDICATION: Pneumonia. FINDINGS: Portable chest shows cardiomegaly with mild pulmonary venous distention. There is prominence of the interstitium with no alveolar consolidations. There is no effusion. There are changes of prior median sternotomy. IJ line tip is in the SVC. These findings are similar to multiple exams dating back to 06/06/2019. IMPRESSION: Stable chest. Dictated by: Dictated on workstation # [id number]
[2019-06-10] MEDS: BUMETANIDE 1 MG/4 ML (BUMEX) VIAL IV SCH ×2 (07:39→16:56)
[2019-06-10] MEDS: KCL 20 MEQ TAB (K-DUR) PO SCH ×2 (07:39→07:40)
[2019-06-10] MEDS: POTASSIUM CL 10MEQ/50ML IVPB 50 ML IV SCH (07:39)
[2019-06-10] MEDS: MAGNESIUM 1 GM/100 ML IVPB 100 ML IV SCH (07:39)
[2019-06-10] MEDS: MYCOPHENOLATE 500 MG TABLET PO SCH ×3 (07:40→19:47)
--- NOTE | 2019-06-10 08:34 | Progress Note ---
Subjective Subjective Date Seen by Provider: Jun 10, 2019 Time Seen by Provider: 08:10 INFLUENZA, PNEUMONIA, COPD, NON ST SD, S/P INTUBATION, NOW EXTUBATED. PER STAFF HE IS STILL HAVING DELIRIUM - THINKS THAT HE IS SOMEWHERE NEAR [place] AND WANTING TO GET HOME. Review of Systems General: No Chills, No Night Sweats; Fatigue, Malaise; No Appetite, No Other HEENT: No Head Aches, No Visual Changes, No Eye Pain, No Ear Pain, No Dysphasia, No Sinus Congestion, No Post Nasal Drip, No Sore Throat, No Other Pulmonary: Dyspnea, Cough; No Pleuritic Chest Pain, No Other Cardiovascular: Edema; No: Chest Pain, Palpitations, Orthopnea, Paroxysmal Noc. Dyspnea, Lt Headedness, Other Gastrointestinal: No: Nausea, Abdominal Pain, Constipation Genitourinary: No Hematuria Musculoskeletal: No: neck pain, back pain Neurological: Weakness, Confusion (INTERMITTENT) All Other Systems Reviewed All Other Systems Reviewed: Yes Objective Exam Vital Signs Vital Signs - First Documented 06/04/19 06/04/19 00:00 00:18 Temp 36.6 Pulse 71 Resp 16 B/P (MAP) 156/56 (89) Pulse Ox 95 O2 Delivery Mechanical Ventilator O2 Flow Rate 40.00 FiO2 40 Capillary Refill : Less Than 3 Seconds General Appearance: No Apparent Distress, Chronically ill Eyes: Bilateral Eye Normal Inspection, Bilateral Eye PERRL, Bilateral Eye EOMI HEENT: No Scleral Icterus (L), No Scleral Icterus (R) Neck: Full Range of Motion, Non Tender, Supple Respiratory: Chest Non Tender, Crackles, Decreased Breath Sounds, Rhonci Cardiovascular: Regular Rate, Rhythm, No Murmur Gastrointestinal: Normal Bowel Sounds, Non Tender, Soft; No Tenderness Rectal: Deferred Genital/Rectal: Other (SWOLLEN SCROTUM WITH WOODALL IN PLACE) Extremity: Normal Capillary Refill, Pedal Edema (IMPROVED) Neurologic/Psychiatric: Alert (ORIENTED TO PERSON, PLACE, NOT TIME), Motor Weakness (HE CANNOT SIT UP WELL IN BED UNDER HIS OWN POWER), Other (ORIENTED TO PERSON, AND TO PLACE, NOT TIME) Skin: Normal Color, Warm/Dry Lymphatic: No Adenopathy Results Lab Laboratory Tests 06/10/19 03:31: White Blood Count 7.5, Red Blood Count 2.89L, Hemoglobin 8.9L, Hematocrit 29L, Mean Corpuscular Volume 99, Mean Corpuscular Hemoglobin 31, Mean Corpuscular Hemoglobin Concent 31L, Red Cell Distribution Width 16.1H, Platelet Count 256, Mean Platelet Volume 9.7, Neutrophils (%) (Auto) 76H, Lymphocytes (%) (Auto) 10L , Monocytes (%) (Auto) 10, Eosinophils (%) (Auto) 4, Basophils (%) (Auto) 0, Neutrophils # (Auto) 5.7, Lymphocytes # (Auto) 0.8L, Monocytes # (Auto) 0.7, Eosinophils # (Auto) 0.3, Basophils # (Auto) 0.0, Sodium Level 141, Potassium Level 4.3, Chloride Level 106, Carbon Dioxide Level 29, Anion Gap 6, Blood Urea Nitrogen 21H, Creatinine 1.16, Estimat Glomerular Filtration Rate > 60, BUN/Creatinine Ratio 18, Glucose Level 93, Calcium Level 8.4L, Phosphorus Level 2.8, Magnesium Level 2.1 Microbiology 06/04/19 Blood Culture - Final, Complete No growth 05/30/19 Gram Stain - Final, Resulted 05/30/19 Sputum Culture - Preliminary, Resulted Aerobic actinomycetes YEAST Assessment/Plan Assessment/Plan Admission Dx SEVERE SEPSIS RESPIRATORY FAILURE WITH LACTIC ACIDOSIS INFLUENZA PNEUMONIA CHRONIC PULMONARY FIBROSIS COPD ACUTE ON CHRONIC RENAL FAILURE NON-ST SD ATRIAL FIBRILLATION CHRONIC DEPRESSION LEUKOCYTOSIS ANEMIA CONSTIPATION ELEVATED LFT'S DELIRIUM RESPIRATORY FAILURE WITH LACTIC ACIDOSIS PT AGREED TO SHORT TERM INTUBATION ON 05/30/2019 AND WAS EXTUBATED ON 06/04/2019 INFLUENZA AND PNEUMONIA WITH CHRONIC PULMONARY FIBROSIS AND COPD - PT HAS COMPLETED TAMIFLU FOR TREATMENT OF THE FLU - LAST DOSE GIVEN 06/02/2019 -CONTINUE WITH CURRENT MANAGEMENT INITIATED IN ER AND BY DR. CULLEN. (ANIDULAFUNGIN AND MEROPENEM) ACUTE ON CHRONIC RENAL FAILURE - RESOLVED - CONTINUE WITH IV FLUIDS, RENALLY ADJUST MEDICATIONS NEEDED. NON-ST SD WITH HYPERTENSION - DEFER TO CARDIOLOGY - PT HAD SO MUCH PULMONARY DISTRESS THAT THIS CAUSED HIS SEVERE TROPONIN ELEVATION. WILL WATCH PT CLOSELY WE NAVIGATE HEALING FROM HIS PULMONARY ISSUES. - CHANGED TO ORAL CARDIZEM, AND METOPROLOL ORAL, LISINOPRIL, CARDURA MONITOR BP AND SYMPTOMS. ATRIAL FIBRILLATION - HAS BEEN MAINTAINED ON CARDIZEM DRIP, TRANSITION TO ORAL CARDIZEM 180MG DAILY TODAY -MONITOR HEART RATE AND BP CLOSELY CHRONIC DEPRESSION - RESTARTED CYMBALTA 06/06/2019 LEUKOCYTOSIS -IMPROVED - SUSPECT DUE TO STEROID USE, CONTINUE TO MONITOR SYMPTOMS AND LABS ANEMIA -STABLE STATUS POST BLOOD TRANSFUSION ON 05/29/2019 - CONTINUE TO MONITOR LABS. ELEVATED LFT'S - DUE TO SHOCK - CONTINUE WITH CURRENT MANAGEMENT - LFT'S HAVE IMPROVED SLOWLY. CONSTIPATION - RESOLVED DYSPHAGIA - SPEECH THERAPY HAS BEEN CONSULTED - WILL CONTINUE TO FOLLOW SPEECH RECOMMENDATIONS CRITICAL CARE MYOPATHY - WILL REQUIRE DETECTIVE SERGEANT REHAB AND STRENGTHENING DUE TO HIS DEBILITATED STATUS - WILL LOOK INTO INTERMEDIATE PLACEMENT ON DISCHARGE. DELIRIUM - DISCUSSED WITH PT'S DTR, THIS WILL BE A PROLONGED RECOVERY PROCESS SINCE HAS HAS "ICU DELIRIUM" - ONCE HE GETS OUT OF THE HOSPITAL [facility] HE WILL HAVE IMPROVEMENT IN HIS DELIRIUM. HOPEFULLY WILL BE ABLE TO GET [place] DOWN TO 4TH FLOOR TOMORROW AND WILL LOOK AT INTERMEDIATE PLACEMENT ON SATURDAY IF HE IS WELL ENOUGH TO GO ON SATURDAY, IF NOT THEN SATURDAY. PT'S FAMILY HAS DECIDED [facility] Problems: (1) Acute respiratory failure with hypoxia (2) Endotracheally intubated (3) Severe sepsis (4) Pneumonia Qualifiers: Qualified Codes: J18.9 - Pneumonia, unspecified organism (5) Influenza (6) Lactic acidosis (7) Acute kidney injury superimposed on chronic kidney disease (8) (HFpEF) heart failure with preserved ejection fraction (9) Non-ST elevation SD (NSTEMI) Admission Dx SEVERE SEPSIS RESPIRATORY FAILURE WITH LACTIC ACIDOSIS INFLUENZA PNEUMONIA CHRONIC PULMONARY FIBROSIS COPD ACUTE ON CHRONIC RENAL FAILURE NON-ST SD CHRONIC DEPRESSION LEUKOCYTOSIS ANEMIA CONSTIPATION ELEVATED LFT'S DELIRIUM RESPIRATORY FAILURE WITH LACTIC ACIDOSIS PT AGREED TO SHORT TERM INTUBATION ON 05/30/2019 AND WAS EXTUBATED ON 06/04/2019 INFLUENZA AND PNEUMONIA WITH CHRONIC PULMONARY FIBROSIS AND COPD - PT HAS COMPLETED TAMIFLU FOR TREATMENT OF THE FLU - LAST DOSE GIVEN 06/02/2019 -CONTINUE WITH CURRENT MANAGEMENT INITIATED IN ER AND BY DR. CULLEN. (ANIDULAFUNGIN AND MEROPENEM) ACUTE ON CHRONIC RENAL FAILURE - RESOLVED - CONTINUE WITH IV FLUIDS, RENALLY ADJUST MEDICATIONS NEEDED. NON-ST SD WITH HYPERTENSION - DEFER TO CARDIOLOGY - PT HAD SO MUCH PULMONARY DISTRESS THAT THIS CAUSED HIS SEVERE TROPONIN ELEVATION. WILL WATCH PT CLOSELY WE NAVIGATE HEALING FROM HIS PULMONARY ISSUES. - ON IV CARDIZEM, AND METOPROLOL ORAL, LISINOPRIL, AND PRN HYDRALAZINE, MONITOR BP AND SYMPTOMS. CHRONIC DEPRESSION - RESTARTED CYMBALTA 06/06/2019 LEUKOCYTOSIS -IMPROVED - SUSPECT DUE TO STEROID USE, CONTINUE TO MONITOR SYMPTOMS AND LABS ANEMIA -STABLE STATUS POST BLOOD TRANSFUSION ON 05/29/2019 - CONTINUE TO MONITOR LABS. ELEVATED LFT'S - DUE TO SHOCK - CONTINUE WITH CURRENT MANAGEMENT - LFT'S HAVE IMPROVED SLOWLY. CONSTIPATION - RESOLVED DYSPHAGIA - SPEECH THERAPY HAS BEEN CONSULTED - WILL CONTINUE TO FOLLOW SPEECH RECOMMENDATIONS CRITICAL CARE MYOPATHY - WILL REQUIRE DETECTIVE SERGEANT REHAB AND STRENGTHENING DUE TO HIS DEBILITATED STATUS - WILL LOOK INTO INTERMEDIATE PLACEMENT ON DISCHARGE. DELIRIUM - DISCUSSED WITH PT'S DTR, THIS WILL BE A PROLONGED RECOVERY PROCESS SINCE HAS HAS "ICU DELIRIUM" - ONCE HE GETS OUT OF THE HOSPITAL [facility] HE WILL HAVE IMPROVEMENT IN HIS DELIRIUM. CONTINUE TO EXPECT SEVERAL MORE DAYS IN THE ICU . WILL HAVE MOLD UNLOADER LOOK AT INTERMEDIATE OPTIONS WITH THE PT'S FAMILY FOR DISCHARGE IN THE NEXT WEEK OR SO. Clinical Quality Measures Admission Status Admission Dx SEVERE SEPSIS RESPIRATORY FAILURE WITH LACTIC ACIDOSIS INFLUENZA PNEUMONIA CHRONIC PULMONARY FIBROSIS COPD ACUTE ON CHRONIC RENAL FAILURE NON-ST SD CHRONIC DEPRESSION LEUKOCYTOSIS ANEMIA CONSTIPATION ELEVATED LFT'S DELIRIUM RESPIRATORY FAILURE WITH LACTIC ACIDOSIS PT AGREED TO SHORT TERM INTUBATION ON 05/30/2019 AND WAS EXTUBATED ON 06/04/2019 INFLUENZA AND PNEUMONIA WITH CHRONIC PULMONARY FIBROSIS AND COPD - PT HAS COMPLETED TAMIFLU FOR TREATMENT OF THE FLU - LAST DOSE GIVEN 06/02/2019 -CONTINUE WITH CURRENT MANAGEMENT INITIATED IN ER AND BY DR. CULLEN. (ANIDULAFUNGIN AND MEROPENEM) ACUTE ON CHRONIC RENAL FAILURE - RESOLVED - CONTINUE WITH IV FLUIDS, RENALLY ADJUST MEDICATIONS NEEDED. NON-ST SD WITH HYPERTENSION - DEFER TO CARDIOLOGY - PT HAD SO MUCH PULMONARY DISTRESS THAT THIS CAUSED HIS SEVERE TROPONIN ELEVATION. WILL WATCH PT CLOSELY WE NAVIGATE HEALING FROM HIS PULMONARY ISSUES. - ON IV CARDIZEM, AND METOPROLOL ORAL, LISINOPRIL, AND PRN HYDRALAZINE, MONITOR BP AND SYMPTOMS. CHRONIC DEPRESSION - RESTARTED CYMBALTA 06/06/2019 LEUKOCYTOSIS -IMPROVED - SUSPECT DUE TO STEROID USE, CONTINUE TO MONITOR SYMPTOMS AND LABS ANEMIA -STABLE STATUS POST BLOOD TRANSFUSION ON 05/29/2019 - CONTINUE TO MONITOR LABS. ELEVATED LFT'S - DUE TO SHOCK - CONTINUE WITH CURRENT MANAGEMENT - LFT'S HAVE IMPROVED SLOWLY. CONSTIPATION - RESOLVED DYSPHAGIA - SPEECH THERAPY HAS BEEN CONSULTED - WILL CONTINUE TO FOLLOW SPEECH RECOMMENDATIONS CRITICAL CARE MYOPATHY - WILL REQUIRE SENIOR CARE REHAB AND STRENGTHENING DUE TO HIS DEBILITATED STATUS - WILL LOOK INTO INTERMEDIATE PLACEMENT ON DISCHARGE. DELIRIUM - DISCUSSED WITH PT'S DTR, THIS WILL BE A PROLONGED RECOVERY PROCESS SINCE HAS HAS "ICU DELIRIUM" - ONCE HE GETS OUT OF THE HOSPITAL HOPEFULLY HE WILL HAVE IMPROVEMENT IN HIS DELIRIUM. CONTINUE TO EXPECT SEVERAL MORE DAYS IN THE ICU . WILL HAVE MOLD UNLOADER LOOK AT INTERMEDIATE OPTIONS WITH THE PT'S FAMILY FOR DISCHARGE IN THE NEXT WEEK OR SO. DVT/VTE Risk/Contraindication: Risk Factor Score Per Nursin RFS Level Per Nursing on Admit: 4+=Very High DEANDRA MOTA MD Jun 10, 2019 08:34
--- NOTE | 2019-06-10 08:40 | Progress Note - Cardiology ---
Cardiology SOAP Progress Note Subjective: Lying in bed. States he feels ok. More confused this morning. Objective: I&O/Vital Signs 06/10/19 06/11/19 06/11/19 06/11/19 23:00 00:00 00:00 00:00 Temp 36.0 Pulse 81 76 Resp 20 B/P (MAP) 142/73 (96) 130/81 (97) Pulse Ox 95 94 O2 Delivery Nasal Cannula Nasal Cannula NIV CPAP O2 Flow Rate 4.00 4.00 4.00 06/11/19 06/11/19 06/11/19 06/11/19 01:00 01:00 02:00 02:03 Pulse 84 83 90 Resp 25 B/P (MAP) 132/65 (87) 144/64 (90) Pulse Ox 89 92 91 O2 Delivery Nasal Cannula Nasal Cannula Nasal Cannula O2 Flow Rate 4.00 4.00 4.00 06/11/19 06/11/19 06/11/19 06/11/19 03:00 04:00 04:00 04:00 Temp 36.3 Pulse 95 92 Resp 23 B/P (MAP) 152/71 (98) 194/88 (123) Pulse Ox 89 92 O2 Delivery Nasal Cannula NIV CPAP Nasal Cannula O2 Flow Rate 4.00 4.00 4.00 06/11/19 06/11/19 06/11/19 06/11/19 04:52 05:00 06:00 07:00 Pulse 82 82 86 Resp 22 21 B/P (MAP) 120/64 (82) 155/75 (101) Pulse Ox 96 96 O2 Delivery High Flow N/C High Flow N/C High Flow N/C O2 Flow Rate 4.00 4.00 4.00 06/11/19 06/11/19 06/11/19 06/11/19 07:00 07:05 08:00 09:00 Temp 36.6 Pulse 86 86 94 Resp 20 21 18 B/P (MAP) 117/93 (101) 164/93 (116) 132/60 (84) Pulse Ox 92 90 97 94 O2 Delivery High Flow N/C Nasal Cannula High Flow N/C High Flow N/C O2 Flow Rate 4.00 4.00 4.00 4.00 06/11/19 00:00 Intake Total 450 ml Output Total 1025 ml Balance -575 ml Weight (Pounds): 211 Weight (Ounces): 0.0 Weight (Calculated Kilograms): 95.543840 Constitutional: AAO x 3 (mildly confused), well-developed, well-nourished Respiratory: chest expansion is symmetric, chest is bilaterally symmetric, other (good air entry) Cardiovascular: regular rate-rhythm, S1 and S2 Gastrointestional: distended, audible bowel sounds Genital/Rectal: other (urinary catheter to DD with cl yellow urine) Extremities: other (bilat mod pedal edema) Neurologic/Psychiatric: other (Moves all extremities; confused at times, able t o re-orient easily) Skin: No rash on exposed areas, No ulcerations on exposed areas Results/Procedures: Labs Laboratory Tests 06/10/19 11:18: Lab Scanned Report Transfusion Reaction Form 06/11/19 03:31: White Blood Count 7.5, Red Blood Count 3.01L, Hemoglobin 9.1L, Hematocrit 30L, Mean Corpuscular Volume 99, Mean Corpuscular Hemoglobin 30, Mean Corpuscular Hemoglobin Concent 31L, Red Cell Distribution Width 15.5H, Platelet Count 283, Mean Platelet Volume 9.7, Neutrophils (%) (Auto) 75, Lymphocytes (%) (Auto) 13, Monocytes (%) (Auto) 8, Eosinophils (%) (Auto) 4, Basophils (%) (Auto) 0, Neutrophils # (Auto) 5.6, Lymphocytes # (Auto) 1.0, Monocytes # (Auto) 0.6, Eosinophils # (Auto) 0.3, Basophils # (Auto) 0.0, Sodium Level 140, Potassium Level 3.9, Chloride Level 106, Carbon Dioxide Level 26, Anion Gap 8, Blood Urea Nitrogen 18, Creatinine 1.09, Estimat Glomerular Filtration Rate > 60, BUN/Creatinine Ratio 17, Glucose Level 95, Calcium Level 8.4L, Phosphorus Level 2.5, Magnesium Level 2.1 Microbiology 06/04/19 Blood Culture - Final, Complete No growth 05/30/19 Gram Stain - Final, Resulted 05/30/19 Sputum Culture - Preliminary, Resulted Aerobic actinomycetes YEAST Procedures NAME: LORNA HILLMAN Santana [facility] REC#: [id number] PT STATUS: ADM IN : 1940 PHYSICIAN: LORENZO CULLEN DO ADMIT DATE: 05/28/19/ICU Signed Date of Exam:06/10/19 CHEST 1 VIEW, AP/PA ONLY INDICATION: Pneumonia. FINDINGS: Portable chest shows cardiomegaly with mild pulmonary venous distention. There is prominence of the interstitium with no alveolar consolidations. There is no effusion. There are changes of prior median sternotomy. IJ line tip is in the SVC. These findings are similar to multiple exams dating back to 06/06/2019. IMPRESSION: Stable chest. Dictated by: Dictated on workstation # [id number] Dict: 06/10/19 0654 Trans: 06/10/19 0733 [id number] Interpreted by: LATISHA JOE MD Electronically signed by: LATISHA JOE MD 06/10/19 0733 A/P: Assessment: Ac resp failure (multifactorial, see below) Severe sepsis; presented with septic shock Influenza A New onset a-fib dx on EKG of 06-05-2019 NSTEMI, unclear if type 1 or type 2 EMA-3, likely due to ATN due to hypotension due to septic shock, improved Anemia of undetermined etiology - management per medical services Chronic resp failure due to interstitial lung disease / pulmonary fibrosis CAD and ischemic cardiomyopathy - H/o 4-vessel CABG in 1998 at [facility] in [place], [place] by Dr. Magana Echo of 05/29/19: LVEF 40-45%, basal inferior hypokinesis, RVSP 18 mmHg, mod MR H/o carotid dz bilat - followed by Dr. Rosa at [facility] Syncopal episodes, being followed by Dr. Rosa, Dr. Smith (neurology service s at [facility]), Dr. Cortez Orthostatic hypotension - being followed by Dr. Rosa COPD H/O tobaccoism - quit 4 years ago HTN HLD Chronic back pain Plan: * Continue current cardiac regimen of BB, Eliquis, and ASA * Change IV Diltiazem to oral * Monitor lab closely * Replace electrolytes as indicated * Anemia improved following transfusion on 06-09-2019 - management per medical services * Spoke with Dr. Jones this morning TRISTON ALONSO Jun 10, 2019 08:39
[2019-06-10] MEDS ORDERED: NS IV 500 ML 500 ML ONE (08:56)
[2019-06-10] MEDS: PANTOPRAZOLE 40 MG (PROTONIX) VIAL IV SCH (09:10)
[2019-06-10] MEDS: LIDOCAINE 4% (SALONPAS) PATCH TOP SCH (09:10)
[2019-06-10] MEDS: APIXABAN 5 MG (ELIQUIS) TABLET PO SCH ×2 (09:10→20:04)
[2019-06-10] MEDS: ASPIRIN E.C. 81 MG (ECOTRIN) TAB PO SCH (09:10)
[2019-06-10] MEDS: meTOprolol TARTRATE 50 MG (LOPRESSOR) TAB PO SCH ×2 (09:11→20:04)
[2019-06-10] MEDS: DULoxetine 20 MG (CYMBALTA) CAP PO SCH (09:11)
[2019-06-10] MEDS: ACETAMINOPHEN 325 MG TABLET PO PRN (09:11)
[2019-06-10] MEDS: DOCUSATE SODIUM 100 MG (COLACE) CAP PO SCH ×2 (09:13→19:57)
[2019-06-10] MEDS ORDERED: NS IV 500 ML 500 ML IV ONE (09:15)
--- NOTE | 2019-06-10 10:19 | Occ Therapy Progress Note ---
Therapy Progress Note OT attempted visit this AM, pt asleep. OT talked with pt's nurse who stated pt needs to sit up a couple times today but that he also needed to get as much rest as he can. Nursing asked OT to come back this afternoon to complete tx in order for pt to rest at this time. OT will check back this afternoon. 1, visit 0955 TASHA POWER OT Jun 10, 2019 10:19
--- NOTE | 2019-06-10 12:09 | Progress Note - Cardiology ---
Cardiology SOAP Progress Note Subjective: No cp or palp or syncope Has gen weakness Legs are more weak No n/v/d Objective: I&O/Vital Signs 06/10/19 06/10/19 06/10/19 06/10/19 01:00 01:00 01:55 02:00 Pulse 84 84 82 Resp 23 21 B/P (MAP) 120/59 (79) 134/66 (88) Pulse Ox 93 97 97 O2 Delivery Nasal Cannula Nasal Cannula Nasal Cannula O2 Flow Rate 5.00 5.00 4.00 06/10/19 06/10/19 06/10/19 06/10/19 03:00 04:00 04:00 04:00 Temp 36.1 Pulse 78 82 Resp 19 B/P (MAP) 127/77 (94) 129/72 (91) Pulse Ox 96 91 O2 Delivery Nasal Cannula Nasal Cannula High Flow N/C O2 Flow Rate 4.00 4.00 4.00 06/10/19 06/10/19 06/10/19 06/10/19 05:00 06:00 06:12 06:15 Pulse 82 96 99 90 Resp 17 24 24 24 B/P (MAP) 140/63 (88) 128/94 (105) 106/64 (78) Pulse Ox 100 O2 Delivery Nasal Cannula Nasal Cannula Nasal Cannula Nasal Cannula O2 Flow Rate 4.00 4.00 4.00 4.00 06/10/19 06/10/19 06/10/19 06/10/19 06:42 07:00 07:47 07:49 Temp 36.1 Pulse 86 99 Resp 24 B/P (MAP) 106/51 (69) Pulse Ox 96 O2 Delivery Nasal Cannula Nasal Cannula O2 Flow Rate 4.00 4.00 06/10/19 06/10/19 06/10/19 06/10/19 07:58 08:00 08:30 08:50 Pulse 93 Resp 22 B/P (MAP) 88/71 (77) O2 Delivery Nasal Cannula Nasal Cannula High Flow N/C Nasal Cannula O2 Flow Rate 3.00 3.00 4.00 4.00 06/10/19 06/10/19 06/10/19 06/10/19 09:00 10:00 11:00 11:10 Pulse 109 96 104 Resp 39 27 22 B/P (MAP) 125/34 (64) 153/90 (111) Pulse Ox 91 92 94 94 O2 Delivery Nasal Cannula Nasal Cannula Nasal Cannula Nasal Cannula O2 Flow Rate 4.00 4.00 4.00 4.00 06/10/19 00:00 Intake Total 820 ml Output Total 800 ml Balance 20 ml Weight (Pounds): 211 Weight (Ounces): 0.0 Weight (Calculated Kilograms): 95.189539 Constitutional: AAO x 3 (mildly confused), well-developed, well-nourished Respiratory: chest expansion is symmetric, chest is bilaterally symmetric, other (good air entry) Cardiovascular: regular rate-rhythm, S1 and S2 Gastrointestional: distended, audible bowel sounds Genital/Rectal: other (urinary catheter to DD with cl yellow urine) Extremities: other (bilat mod pedal edema) Neurologic/Psychiatric: other (Moves all extremities; confused at times, able to re-orient easily) Skin: No rash on exposed areas, No ulcerations on exposed areas Results/Procedures: Labs Laboratory Tests 06/10/19 03:31: White Blood Count 7.5, Red Blood Count 2.89L, Hemoglobin 8.9L, Hematocrit 29L, Mean Corpuscular Volume 99, Mean Corpuscular Hemoglobin 31, Mean Corpuscular Hemoglobin Concent 31L, Red Cell Distribution Width 16.1H, Platelet Count 256, Mean Platelet Volume 9.7, Neutrophils (%) (Auto) 76H, Lymphocytes (%) (Auto) 10L , Monocytes (%) (Auto) 10, Eosinophils (%) (Auto) 4, Basophils (%) (Auto) 0, Neutrophils # (Auto) 5.7, Lymphocytes # (Auto) 0.8L, Monocytes # (Auto) 0.7, Eosinophils # (Auto) 0.3, Basophils # (Auto) 0.0, Sodium Level 141, Potassium Level 4.3, Chloride Level 106, Carbon Dioxide Level 29, Anion Gap 6, Blood Urea Nitrogen 21H, Creatinine 1.16, Estimat Glomerular Filtration Rate > 60, BUN/Creatinine Ratio 18, Glucose Level 93, Calcium Level 8.4L, Phosphorus Level 2.8, Magnesium Level 2.1 06/10/19 11:18: Lab Scanned Report Transfusion Reaction Form Microbiology 06/04/19 Blood Culture - Final, Complete No growth 05/30/19 Gram Stain - Final, Resulted 05/30/19 Sputum Culture - Preliminary, Resulted Aerobic actinomycetes YEAST A/P: Assessment: Ac resp failure (multifactorial, see below) Severe sepsis; presented with septic shock Influenza A New onset a-fib dx on EKG of 06-05-2019 NSTEMI, unclear if type 1 or type 2 EMA-3, likely due to ATN due to hypotension due to septic shock, improved Anemia of undetermined etiology - management per medical services Chronic resp failure due to interstitial lung disease / pulmonary fibrosis CAD and ischemic cardiomyopathy - H/o 4-vessel CABG in 1998 at [facility] in [place], [place] by Dr. Magana Echo of 05/29/19: LVEF 40-45%, basal inferior hypokinesis, RVSP 18 mmHg, mod MR H/o carotid dz bilat - followed by Dr. Rosa at [facility] Syncopal episodes, being followed by Dr. Rosa, Dr. Smith (neurology services at [facility]), Dr. Cortez Orthostatic hypotension - being followed by Dr. Rosa COPD H/O tobaccoism - quit 4 years ago HTN HLD Chronic back pain Plan: * Complex management due to multiple comorbidities * Confusion continues and is being managed by the Med Svce * Continue current cardiac regimen of BB, Eliquis, and ASA * Change IV Diltiazem to oral * Monitor lab closely * Replace electrolytes as indicated * Anemia improved following transfusion on 06-09-2019 - management per medical services CARINE PALOMINO MD FACP [facility] Jun 10, 2019 12:09
--- NOTE | 2019-06-10 13:43 | Occupational Ther Daily Note ---
OT Current Status-Daily Note Subjective Pt laying in bed with his feet hanging off of the left side, pt stated he was not comfortable and would like to get up to the chair. he did not verbalize a pain rating. Mental Status/Objective Attachments: Bolden Catheter, Oxygen, Telemetry ADL-Treatment Therapy Code Descriptions/Definitions Functional [place] Measure: 0=Not Assessed/NA 4=Minimal Assistance 1=Total Assistance 5=Supervision or Setup 2=Maximal Assistance 6=Modified [place] 3=Moderate Assistance 7=Complete IndependenceSCALE: Activities may be completed with or without assistive devices. 4-Ldpiynygyi-ubrltbt completes the activity by him/herself with no assistance from a helper. 5-Set-up or Clean-up Assistance-helper sets up or cleans up; patient completes activity. [place] assists only prior to or following the activity. 4-Supervision or Touching Assistance-helper provides verbal cues and/or touching/steadying and/or contact guard assistance as patient completes activity. Assistance may be provided throughout the activity or intermittently. 3-Partial/Moderate Assistance-helper does LESS THAN HALF the effort. [place] lifts, holds or supports trunk or limbs, but provides less than half the effort. 2-Substantial/Maximal Assistance-helper does MORE THAN HALF the effort. [place] lifts or holds trunk or limbs and provides more than half the effort. 7-Nrsjuxduj-keyfpo does ALL the effort. Patient does none of the effort to complete the activity. Or, the assistance of 2 or more helpers is required for the patient to complete the activity. If activity was not attempted, code reason: 7-Patient Refused. 9-Not Applicable-not attempted and the patient did not perform the activity before the current illness, exacerbation or injury. 10-Not Attempted due to Environmental Limitations-(lack of equipment, weather restraints, etc.). 88-Not Attempted due to Medical Conditions or Safety Concerns. Other Treatment Pt laying in bed, OT lowered HOB and assisted pt with scooting his feet towards midline. Pt reported he felt more comfortable until assistance arrived in order to get him up to the recliner. Pt agreed to completing BUE exercises, completing x10 reps each elbow flexion/extension and finger flexion/extension in order to increase strength and functional endurance with tasks. Pt's O2 dropped to 84% with activity, pt instructed to stop exercises and take deep breaths, returning his O2 to the 90's within 5-10 seconds. PT arrived to help pt transfer to recliner. OT/PT cotreat due to increased medical complexity requiring the skill of 2 clinicians which a rn rehab could not perform. OT focused on UE placement, sequencing, and cueing while PT focused on LEs and overall gross movements. Pt rolled side to side in order to put jeri sling under pt. Pt then lifted into air and attempted to transfer to the recliner, but the feet on the jeri would not spread in order to be maneuvered to the recliner (malfunction vs low battery). Pt then maneuvered over the bed and found that jeri would not lower pt to the bed. Bed was raised to support pt's weight as OT/PT removed sli ng straps from jeri with some difficulty. Pt rolled side to side in order to remove sling. HOB raised. Post OT/PT co-treat, pt laying in bed with HOB elevated, call light in reach and all needs met with PT present. Education OT Patient Education: Correct positioning, Energy conservation, Exercise program, Progress toward Goal/Update tx plan, Purpose of tx/functional activities, Transfer techniques Teaching Recipient: Patient Teaching Methods: Discussion Response to Teaching: Verbalize Understanding OT Correction Goals Lpn Medical Assistant Goals Time Frame: Jun 26, 2019 Eating (QC): 6 Oral Hygiene (QC): 6 Toileting Hygiene (QC): 6 Shower/Bathe Self (QC): 6 Upper Body Dressing (QC): 6 Lower Body Dressing (QC): 6 On/Off Footwear (QC): 6 Additional Goals: 1-Demonstrate ADL Tasks, 2-Verbalize Understanding, 3- ImproveStrength/Alyson 1=Demonstrate adherence to instructed precautions during ADL tasks. 2=Patient will verbalize/demonstrate understanding of assistive devices/modifications for ADL. 3=Patient will improve strength/tolerance for activity to enable patient to perform ADL's. OT Education/Plan Problem List/Assessment Assessment: Decreased Activ Tolerance, Decreased UE Strength, Dependent Transfers, Impaired Bed Mobility, Impaired Funct Balance, Impaired I ADL's, Impaired Self-Care Skills Discharge Recommendations Plan/Recommendations: Continue POC Treatment Plan/Plan of Care Patient would benefit from OT for education, treatment and training to promote independence in ADL's, mobility, safety and/or upper extremity function for ADL's. Plan of Care: ADL Retraining, Caregiver Training, Functional Mobility, UE Funct Exercise/Act Treatment Duration: Jun 26, 2019 Frequency: 5 times per week Estimated Hrs Per Day: .25 hour per day Agreement: Yes Rehab Potential: Fair Time/GCodes Start Time: 13:07 Stop Time: 13:30 Total Time Billed (hr/min): 23 Billed Treatment Time 7103-8303 [place] [id number] OT/PT cotreat 1, EX (8'), FA (15') TASHA POWER OT Jun 10, 2019 13:43
--- NOTE | 2019-06-10 13:49 | Physical Therapy Daily Note ---
PT Daily Note-Current Subjective Pt in bed, OT present and offers to assist with TRF via ENRIQUE to chair. Pt. c/o during rolling of pain in scrotum and weakness. Pain Numeric Pain Scale: 7 Location: Medial Location Body Site: Genital Pain Description: Burning Appearance edema noted scrotum Mental Status Patient Orientation: Person, Place Attachments: SCD's, Bolden Catheter, Other-See Comments (telemetry) Transfers SCALE: Activities may be completed with or without assistive devices. 7-Fnxvmpqhju-pasudgv completes the activity by him/herself with no assistance from a helper. 5-Set-up or Clean-up Assistance-helper sets up or cleans up; patient completes activity. [place] assists only prior to or following the activity. 4-Supervision or Touching Assistance-helper provides verbal cues and/or touching/steadying and/or contact guard assistance as patient completes activity. Assistance may be provided throughout the activity or intermittently. 3-Partial/Moderate Assistance-helper does LESS THAN HALF the effort. [place] lifts, holds or supports trunk or limbs, but provides less than half the effort. 2-Substantial/Maximal Assistance-helper does MORE THAN HALF the effort. [place] lifts or holds trunk or limbs and provides more than half the effort. 3-Tzfwsywua-wpxtvy does ALL the effort. Patient does none of the effort to complete the activity. Or, the assistance of 2 or more helpers is required for the patient to complete the activity. If activity was not attempted, code reason: 7-Patient Refused. 9-Not Applicable-not attempted and the patient did not perform the activity before the current illness, exacerbation or injury. 10-Not Attempted due to Environmental Limitations-(lack of equipment, weather restraints, etc.). 88-Not Attempted due to Medical Conditions or Safety Concerns. Roll Left & Right (QC): 2 pt. needed max to mod assist of 2 to roll left and right to get on sling to attempt ENRIQUE Exercises Supine Ex: Ankle pumps, Rolling, Heel Slides, Hip abd/add Supine Reps: 12 Treatments pt. was rolled left and right co Rx with OT for reaching and coordinating U&L extremities, pt. very weak and debilitated and required instruction for all as well as mod to max assist Assessment Current Status: Fair Progress pt. fatigued with very little activity, rolling with assist fatigued him. Pt. was on enrique sling and suspended above bed and near chair when it was discovered that the Enrique would not broaden at the base (malfunction vs low battery) pt. was then brought back over the bed and then the power to descend the enrique lift was not functioning. Pts bed was lifted to full height and both therapists manuevered sling hook/loops off with some difficulty. bed was then lowered and rolled again with mod to max assist . ALINA GLASS LEs done . Pts meal arrived and he was set up for eating with call shaw at hand PT Shelter Goals Shelter Goals PT Shelter Goals Time Frame: Jun 12, 2019 Roll Left & Right (QC): 3 Sit to Lying (QC): 3 Lying-Sitting on Side/Bed(QC): 3 Sit to Stand (QC): 3 Chair/Fba-gv-Ffkba Xfer(QC): 3 Does the Patient Walk: Yes PT Plan Treatment/Plan Treatment Plan: Continue Plan of Care Treatment Plan: Bed Mobility, Education, Functional Activity Alyson, Functional Strength, Gait, Safety, Therapeutic Exercise, Transfers Treatment Duration: Jun 12, 2019 Frequency: 5 times per week Estimated Hrs Per Day: .25 hour per day Patient and/or Family Agrees t: Yes Safety Risks/Education Patient Education: Transfer Techniques Teaching Recipient: Patient Teaching Methods: Demonstration, Discussion Response to Teaching: Unable to Return Demonstration, Reinforcement Needed Time/GCodes Time In: 1314 Time Out: 1340 Total Billed Treatment Time: 25 Total Billed Treatment 1,FA15,EX10 co Rx OT JOSE LUIS STEIN BARRER AND TACKER Jun 10, 2019 13:49
[2019-06-10] MEDS: morphine INJ 4 MG/ML 1 ML (VIAL/SYRINGE) IVP PRN (16:25)
--- NOTE | 2019-06-10 16:36 | NUR ---
CM/SS: Information - Referral faxed to [facility] for alf placement consideration Summary: Pt remains in ICU. Date of discharge to be determined.
--- NOTE | 2019-06-10 19:14 | NUR ---
PT ON HOME CPAP FOR NOC, REFUSED HOSPTIAL MACHINE Addendum: 06/10/19 at 1914 by TORITO MONROE RT Amended: Links added.
[2019-06-10] MEDS: polyethylene glycoL POWDER 17 GM (MIRALAX) PACK PO SCH (19:57)
[2019-06-10] MEDS: LIDOCAINE PATCH REMOVAL TP SCH (20:05)
[2019-06-11] VITALS (12 sets, daily range): BP systolic 117–194; BP diastolic 60–93
[2019-06-11] MEDS: RT-ALBUTEROL/IPRATROPIUM 3 ML (DUONEB) VIAL INH SCH ×6 (02:02→22:10)
[2019-06-11 03:34] LABS: BASOPHILS % (AUTO) 0 % (0-10); EOSINOPHILS # (AUTO) 0.3 10^3/uL (0.0-0.3); EOSINOPHILS % (AUTO) 4 % (0-10); HEMATOCRIT 30 % (40-54); HEMOGLOBIN 9.1 G/DL (13.3-17.7); LYMPHOCYTES % (AUTO) 13 % (12-44); MEAN CORPUSCULAR HEMOGLOBIN 30 PG (25-34); MEAN CORPUSCULAR HGB CONC 31 G/DL (32-36); MEAN CORPUSCULAR VOLUME 99 FL (80-99); MEAN PLATELET VOLUME 9.7 FL (7.4-10.4); MONOCYTES # (AUTO) 0.6 X 10^3 (0.0-1.0); MONOCYTES % (AUTO) 8 % (0-12); NEUTROPHILS # (AUTO) 5.6 X 10^3 (1.8-7.8); NEUTROPHILS % (AUTO) 75 % (42-75); PLATELET COUNT 283 10^3/uL (130-400); RED CELL DISTRIBUTION WIDTH 15.5 % (10.0-14.5); WHITE BLOOD COUNT 7.5 10^3/uL (4.3-11.0)
[2019-06-11] MEDS: MEROPENEM 500 MG/SWFI 10 ML IV PUSH IV SCH ×10 (03:44→21:24)
[2019-06-11 03:55] LABS: BUN/CREATININE RATIO 17; CALCIUM 8.4 MG/DL (8.5-10.1); CARBON DIOXIDE 26 MMOL/L (21-32); CHLORIDE 106 MMOL/L (98-107); CREATININE SERUM 1.09 MG/DL (0.60-1.30); GFR ESTIMATED > 60; GLUCOSE 95 MG/DL (70-105); MAGNESIUM 2.1 MG/DL (1.6-2.4); PHOSPHORUS 2.5 MG/DL (2.3-4.7); POTASSIUM 3.9 MMOL/L (3.6-5.0); SODIUM 140 MMOL/L (135-145)
[2019-06-11] MEDS: MAGNESIUM 1 GM/100 ML IVPB 100 ML IV SCH (04:16)
[2019-06-11] MEDS: KCL 20 MEQ TAB (K-DUR) PO SCH ×2 (04:16→05:01)
[2019-06-11] MEDS: POTASSIUM CL 10MEQ/50ML IVPB 50 ML IV SCH (04:16)
--- NOTE | 2019-06-11 04:43 | Pulmonary Progress Note ---
Subjective Time Seen by a Provider: 04:43 Sepsis Event Evaluation Height, Weight, BMI Height: 5'9.00" Weight: 211lbs. 0.0oz. 95.785004gi; 28.08 BMI Method: Exam Exam Vital Signs Date Time Temp Pulse Resp B/P (MAP) Pulse Ox O2 Delivery O2 Flow Rate FiO2 06/11/19 04:00 NIV CPAP 4.00 06/11/19 02:03 91 Nasal Cannula 4.00 06/11/19 02:00 90 25 144/64 (90) 92 Nasal Cannula 4.00 06/11/19 01:00 83 06/11/19 01:00 84 27 132/65 (87) 89 Nasal Cannula 4.00 06/11/19 00:00 NIV CPAP 4.00 06/11/19 00:00 36.0 06/11/19 00:00 76 20 130/81 (97) 94 Nasal Cannula 4.00 06/10/19 23:00 81 21 142/73 (96) 95 Nasal Cannula 4.00 06/10/19 22:00 77 18 124/67 (86) 94 Nasal Cannula 4.00 06/10/19 21:32 96 Nasal Cannula 4.00 06/10/19 21:00 80 18 171/92 (118) 95 Nasal Cannula 4.00 06/10/19 20:00 95 High Flow N/C 4.00 06/10/19 20:00 79 19 155/73 (100) 94 Nasal Cannula 4.00 06/10/19 20:00 36.3 06/10/19 19:03 97 Nasal Cannula 4.00 06/10/19 19:00 81 06/10/19 19:00 81 20 138/61 (86) 98 Nasal Cannula 4.00 06/10/19 18:00 81 17 175/80 (111) 98 Nasal Cannula 4.00 06/10/19 17:00 63 20 126/49 (74) 95 Nasal Cannula 4.00 06/10/19 16:30 High Flow N/C 4.00 06/10/19 16:00 80 26 127/73 (91) 88 Nasal Cannula 4.00 06/10/19 16:00 36.6 60 98 Nasal Cannula 4.00 06/10/19 15:00 73 22 107/77 (87) 95 Nasal Cannula 4.00 06/10/19 14:58 84 06/10/19 14:28 91 Nasal Cannula 4.00 06/10/19 14:00 105 27 100/51 (67) 94 Nasal Cannula 4.00 06/10/19 13:00 107 24 91 Nasal Cannula 4.00 06/10/19 12:00 104 24 116/43 (67) 93 Nasal Cannula 4.00 06/10/19 12:00 High Flow N/C 4.00 06/10/19 11:10 94 Nasal Cannula 4.00 06/10/19 11:00 104 22 94 Nasal Cannula 4.00 06/10/19 10:00 96 27 153/90 (111) 92 Nasal Cannula 4.00 06/10/19 09:00 109 39 125/34 (64) 91 Nasal Cannula 4.00 06/10/19 08:50 Nasal Cannula 4.00 06/10/19 08:30 High Flow N/C 4.00 06/10/19 08:00 93 22 88/71 (77) Nasal Cannula 3.00 06/10/19 07:58 Nasal Cannula 3.00 06/10/19 07:49 96 Nasal Cannula 4.00 06/10/19 07:47 36.1 06/10/19 07:00 99 24 106/51 (69) Nasal Cannula 4.00 06/10/19 06:42 86 06/10/19 06:15 90 24 106/64 (78) Nasal Cannula 4.00 06/10/19 06:12 99 24 128/94 (105) Nasal Cannula 4.00 06/10/19 06:00 96 24 Nasal Cannula 4.00 06/10/19 05:00 82 17 140/63 (88) 100 Nasal Cannula 4.00 I & O 06/11/19 07:00 Intake Total 760 ml Output Total 1675 ml Balance -915 ml Height & Weight Height: 5'9.00" Weight: 211lbs. 0.0oz. 95.524956yq; 28.08 BMI Method: General Appearance: No Apparent Distress, Chronically ill HEENT: No Scleral Icterus (L), No Scleral Icterus (R) Neck: Full Range of Motion, Non Tender, Supple Respiratory: Chest Non Tender, Crackles, Decreased Breath Sounds, Rhonci Cardiovascular: Regular Rate, Rhythm, No Murmur Capillary Refill: Less Than 3 Seconds Peripheral Pulses: 1+ Dorsalis Pedis (R), 1+ Left Dors-Pedis (L) Gastrointestinal: non tender, soft; No distended Extremity: Normal Capillary Refill, Pedal Edema (IMPROVED) Neurologic/Psychiatric: Alert (ORIENTED TO PERSON, PLACE, NOT TIME), Motor Weakness (HE CANNOT SIT UP WELL IN BED UNDER HIS OWN POWER), Other (ORIENTED TO PERSON, AND TO PLACE, NOT TIME) Skin: Normal Color, Warm/Dry Lymphatic: No Adenopathy Results Lab Laboratory Tests 06/10/19 03:31 06/11/19 03:31 Assessment/Plan Assessment/Plan Acute on chronic respiratory failure -BiPAP QHS and PRN -CXR now improved -Continue duonebs, restart Solumedrol Severe sepsis with pneumonia and influenza -- Improving - Merrem 06/02 -- Continue for 10- 14 days. -s/p Tamiflu -IVF - decrease to 30 -engel cultures -MRSA nasal swab -- is negative -urine strep and legionella Ag negative -Repeat UA neg, continue Merrem and Eraxis Worsening leukocytosis -Repeat engel cultures and d/c solumedrol -WBC trending down, no fevers Ileus r/o obstruction -Several BMs following enema, abdominal distention improved Acute renal failure -IVF and monitor LORENZO CULLEN DO Jun 11, 2019 04:43
[2019-06-11] MEDS: morphine INJ 4 MG/ML 1 ML (VIAL/SYRINGE) IVP PRN ×2 (04:57→21:23)
[2019-06-11] MEDS: MYCOPHENOLATE 500 MG TABLET PO SCH ×2 (05:02→17:51)
[2019-06-11] MEDS: BUMETANIDE 1 MG/4 ML (BUMEX) VIAL IV SCH ×2 (06:01→17:50)
--- NOTE | 2019-06-11 06:48 | Diagnostic Imaging Report ---
INDICATION: Pneumonia COMPARISON: 06/10/2019 FINDINGS: Single view chest demonstrates stable bilateral interstitial infiltrates. There is no pneumothorax or effusion. Heart is prominent. The right IJ catheter is stable. Sternal wires midline. IMPRESSION: Unchanged aeration of the lungs. Dictated by: Dictated on workstation # [id number]
--- NOTE | 2019-06-11 08:14 | Progress Note ---
Subjective Subjective INFLUENZA, PNEUMONIA, COPD, NON ST IA, S/P INTUBATION, NOW EXTUBATED. PER STAFF HE IS STILL HAVING DELIRIUM - THINKS THAT HE IS SOMEWHERE NEAR [place] AND WANTING TO GET HOME. Review of Systems General: No Chills, No Night Sweats; Fatigue, Malaise; No Appetite, No Other HEENT: No Head Aches, No Visual Changes, No Eye Pain, No Ear Pain, No Dysphasia, No Sinus Congestion, No Post Nasal Drip, No Sore Throat, No Other Pulmonary: Dyspnea, Cough; No Pleuritic Chest Pain, No Other Cardiovascular: Edema; No: Chest Pain, Palpitations, Orthopnea, Paroxysmal Noc. Dyspnea, Lt Headedness, Other Gastrointestinal: No: Nausea, Abdominal Pain, Constipation Genitourinary: No Hematuria Musculoskeletal: No: neck pain, back pain Neurological: Weakness, Confusion (INTERMITTENT) All Other Systems Reviewed All Other Systems Reviewed: Yes Objective Exam Vital Signs Vital Signs - First Documented 06/05/19 06/05/19 06/05/19 00:00 03:28 03:32 Temp 36.1 Pulse 78 Resp 17 B/P (MAP) 140/50 (80) Pulse Ox 98 O2 Delivery NIV Bilevel O2 Flow Rate 45.00 FiO2 40 Capillary Refill : Less Than 3 Seconds General Appearance: No Apparent Distress, Chronically ill Eyes: Bilateral Eye Normal Inspection, Bilateral Eye PERRL, Bilateral Eye EOMI HEENT: No Scleral Icterus (L), No Scleral Icterus (R) Neck: Full Range of Motion, Non Tender, Supple Respiratory: Chest Non Tender, Crackles, Decreased Breath Sounds, Rhonci Cardiovascular: Regular Rate, Rhythm, No Murmur Gastrointestinal: Normal Bowel Sounds, Non Tender, Soft; No Tenderness Rectal: Deferred Genital/Rectal: Other (SWOLLEN SCROTUM WITH WOODALL IN PLACE) Extremity: Normal Capillary Refill, Pedal Edema (IMPROVED) Neurologic/Psychiatric: Alert (ORIENTED TO PERSON, PLACE, NOT TIME), Motor Weakness (HE CANNOT SIT UP WELL IN BED UNDER HIS OWN POWER), Other (ORIENTED TO PERSON, AND TO PLACE, NOT TIME) Skin: Normal Color, Warm/Dry Lymphatic: No Adenopathy Results Lab Laboratory Tests 06/10/19 11:18: Lab Scanned Report Transfusion Reaction Form 06/11/19 03:31: White Blood Count 7.5, Red Blood Count 3.01L, Hemoglobin 9.1L, Hematocrit 30L, Mean Corpuscular Volume 99, Mean Corpuscular Hemoglobin 30, Mean Corpuscular Hemoglobin Concent 31L, Red Cell Distribution Width 15.5H, Platelet Count 283, Mean Platelet Volume 9.7, Neutrophils (%) (Auto) 75, Lymphocytes (%) (Auto) 13, Monocytes (%) (Auto) 8, Eosinophils (%) (Auto) 4, Basophils (%) (Auto) 0, Neutrophils # (Auto) 5.6, Lymphocytes # (Auto) 1.0, Monocytes # (Auto) 0.6, Eosinophils # (Auto) 0.3, Basophils # (Auto) 0.0, Sodium Level 140, Potassium Level 3.9, Chloride Level 106, Carbon Dioxide Level 26, Anion Gap 8, Blood Urea Nitrogen 18, Creatinine 1.09, Estimat Glomerular Filtration Rate > 60, BUN/Creatinine Ratio 17, Glucose Level 95, Calcium Level 8.4L, Phosphorus Level 2.5, Magnesium Level 2.1 Microbiology 06/04/19 Blood Culture - Final, Complete No growth 05/30/19 Gram Stain - Final, Resulted 05/30/19 Sputum Culture - Preliminary, Resulted Aerobic actinomycetes YEAST Assessment/Plan Assessment/Plan Admission Dx SEVERE SEPSIS RESPIRATORY FAILURE WITH LACTIC ACIDOSIS INFLUENZA PNEUMONIA CHRONIC PULMONARY FIBROSIS COPD ACUTE ON CHRONIC RENAL FAILURE NON-ST IA ATRIAL FIBRILLATION CHRONIC DEPRESSION LEUKOCYTOSIS ANEMIA CONSTIPATION ELEVATED LFT'S DELIRIUM RESPIRATORY FAILURE WITH LACTIC ACIDOSIS PT AGREED TO SHORT TERM INTUBATION ON 05/30/2019 AND WAS EXTUBATED ON 06/04/2019 INFLUENZA AND PNEUMONIA WITH CHRONIC PULMONARY FIBROSIS AND COPD - PT HAS COMPLETED TAMIFLU FOR TREATMENT OF THE FLU - LAST DOSE GIVEN 06/02/2019 -CONTINUE WITH CURRENT MANAGEMENT INITIATED IN ER AND BY DR. CULLEN. (ANIDULAFUNGIN AND MEROPENEM) ACUTE ON CHRONIC RENAL FAILURE - RESOLVED - CONTINUE WITH IV FLUIDS, RENALLY ADJUST MEDICATIONS NEEDED. NON-ST IA WITH HYPERTENSION - DEFER TO CARDIOLOGY - PT HAD SO MUCH PULMONARY DISTRESS THAT THIS CAUSED HIS SEVERE TROPONIN ELEVATION. WILL WATCH PT CLOSELY WE NAVIGATE HEALING FROM HIS PULMONARY ISSUES. - CHANGED TO ORAL CARDIZEM, AND METOPROLOL ORAL, LISINOPRIL, CARDURA MONITOR BP AND SYMPTOMS. ATRIAL FIBRILLATION - HAS BEEN MAINTAINED ON CARDIZEM DRIP, TRANSITION TO ORAL CARDIZEM 180MG DAILY TODAY -MONITOR HEART RATE AND BP CLOSELY CHRONIC DEPRESSION - RESTARTED CYMBALTA 06/06/2019 LEUKOCYTOSIS -IMPROVED - SUSPECT DUE TO STEROID USE, CONTINUE TO MONITOR SYMPTOMS AND LABS ANEMIA -STABLE STATUS POST BLOOD TRANSFUSION ON 05/29/2019 - CONTINUE TO MONITOR LABS. ELEVATED LFT'S - DUE TO SHOCK - CONTINUE WITH CURRENT MANAGEMENT - LFT'S HAVE IMPROVED SLOWLY. CONSTIPATION - RESOLVED DYSPHAGIA - SPEECH THERAPY HAS BEEN CONSULTED - WILL CONTINUE TO FOLLOW SPEECH RECOMMENDATIONS CRITICAL CARE MYOPATHY - WILL REQUIRE ADVANCED MANAGER REHAB AND STRENGTHENING DUE TO HIS DEBILITATED STATUS - WILL LOOK INTO ASSISTED PLACEMENT ON DISCHARGE. DELIRIUM - DISCUSSED WITH PT'S DTR, THIS WILL BE A PROLONGED RECOVERY PROCESS SINCE HAS HAS "ICU DELIRIUM" - ONCE HE GETS OUT OF THE HOSPITAL HOPEFULLY HE WILL HAVE IMPROVEMENT IN HIS DELIRIUM. HOPEFULLY WILL BE ABLE TO GET SATISH DOWN TO 4TH FLOOR TOMORROW AND WILL LOOK AT ASSISTED PLACEMENT ON SATURDAY IF HE IS WELL ENOUGH TO GO ON SATURDAY, IF NOT THEN SATURDAY. PT'S FAMILY HAS DECIDED [facility] Problems: (1) Acute respiratory failure with hypoxia (2) Endotracheally intubated (3) Severe sepsis (4) Pneumonia Qualifiers: Qualified Codes: J18.9 - Pneumonia, unspecified organism (5) Influenza (6) Lactic acidosis (7) Acute kidney injury superimposed on chronic kidney disease (8) (HFpEF) heart failure with preserved ejection fraction (9) Non-ST elevation IA (NSTEMI) Admission Dx SEVERE SEPSIS RESPIRATORY FAILURE WITH LACTIC ACIDOSIS INFLUENZA PNEUMONIA CHRONIC PULMONARY FIBROSIS COPD ACUTE ON CHRONIC RENAL FAILURE NON-ST IA ATRIAL FIBRILLATION CHRONIC DEPRESSION LEUKOCYTOSIS ANEMIA CONSTIPATION ELEVATED LFT'S DELIRIUM RESPIRATORY FAILURE WITH LACTIC ACIDOSIS PT AGREED TO SHORT TERM INTUBATION ON 05/30/2019 AND WAS EXTUBATED ON 06/04/2019 INFLUENZA AND PNEUMONIA WITH CHRONIC PULMONARY FIBROSIS AND COPD - PT HAS COMPLETED TAMIFLU FOR TREATMENT OF THE FLU - LAST DOSE GIVEN 06/02/2019 -CONTINUE WITH CURRENT MANAGEMENT INITIATED IN ER AND BY DR. CULLEN. (ANIDULAFUNGIN AND MEROPENEM) ACUTE ON CHRONIC RENAL FAILURE - RESOLVED - CONTINUE WITH IV FLUIDS, RENALLY ADJUST MEDICATIONS NEEDED. NON-ST IA WITH HYPERTENSION - DEFER TO CARDIOLOGY - PT HAD SO MUCH PULMONARY DISTRESS THAT THIS CAUSED HIS SEVERE TROPONIN ELEVATION. WILL WATCH PT CLOSELY WE NAVIGATE HEALING FROM HIS PULMONARY ISSUES. - CHANGED TO ORAL CARDIZEM, AND METOPROLOL ORAL, LISINOPRIL, CARDURA MONITOR BP AND SYMPTOMS. ATRIAL FIBRILLATION - HAS BEEN MAINTAINED ON CARDIZEM DRIP, TRANSITION TO ORAL CARDIZEM 180MG DAILY TODAY -MONITOR HEART RATE AND BP CLOSELY CHRONIC DEPRESSION - RESTARTED CYMBALTA 06/06/2019 LEUKOCYTOSIS -IMPROVED - SUSPECT DUE TO STEROID USE, CONTINUE TO MONITOR SYMPTOMS AND LABS ANEMIA -STABLE STATUS POST BLOOD TRANSFUSION ON 05/29/2019 - CONTINUE TO MONITOR LABS. ELEVATED LFT'S - DUE TO SHOCK - CONTINUE WITH CURRENT MANAGEMENT - LFT'S HAVE IMPROVED SLOWLY. CONSTIPATION - RESOLVED DYSPHAGIA - SPEECH THERAPY HAS BEEN CONSULTED - WILL CONTINUE TO FOLLOW SPEECH RECOMMENDATIONS CRITICAL CARE MYOPATHY - WILL REQUIRE CUSTODIAL REHAB AND STRENGTHENING DUE TO HIS DEBILITATED STATUS - WILL LOOK INTO ASSISTED PLACEMENT ON DISCHARGE. DELIRIUM - DISCUSSED WITH PT'S DTR, THIS WILL BE A PROLONGED RECOVERY PROCESS SINCE HAS HAS "ICU DELIRIUM" - ONCE HE GETS OUT OF THE HOSPITAL HOPEFULLY HE WILL HAVE IMPROVEMENT IN HIS DELIRIUM. HOPEFULLY WILL BE ABLE TO GET SATISH DOWN TO 4TH FLOOR TOMORROW AND WILL LOOK AT ASSISTED PLACEMENT ON SATURDAY IF HE IS WELL ENOUGH TO GO ON SATURDAY, IF NOT THEN SATURDAY. PT'S FAMILY HAS DECIDED [facility] Clinical Quality Measures Admission Status Admission Dx SEVERE SEPSIS RESPIRATORY FAILURE WITH LACTIC ACIDOSIS INFLUENZA PNEUMONIA CHRONIC PULMONARY FIBROSIS COPD ACUTE ON CHRONIC RENAL FAILURE NON-ST IA ATRIAL FIBRILLATION CHRONIC DEPRESSION LEUKOCYTOSIS ANEMIA CONSTIPATION ELEVATED LFT'S DELIRIUM RESPIRATORY FAILURE WITH LACTIC ACIDOSIS PT AGREED TO SHORT TERM INTUBATION ON 05/30/2019 AND WAS EXTUBATED ON 06/04/2019 INFLUENZA AND PNEUMONIA WITH CHRONIC PULMONARY FIBROSIS AND COPD - PT HAS COMPLETED TAMIFLU FOR TREATMENT OF THE FLU - LAST DOSE GIVEN 06/02/2019 -CONTINUE WITH CURRENT MANAGEMENT INITIATED IN ER AND BY DR. CULLEN. (ANIDULAFUNGIN AND MEROPENEM) ACUTE ON CHRONIC RENAL FAILURE - RESOLVED - CONTINUE WITH IV FLUIDS, RENALLY ADJUST MEDICATIONS NEEDED. NON-ST IA WITH HYPERTENSION - DEFER TO CARDIOLOGY - PT HAD SO MUCH PULMONARY DISTRESS THAT THIS CAUSED HIS SEVERE TROPONIN ELEVATION. WILL WATCH PT CLOSELY WE NAVIGATE HEALING FROM HIS PULMONARY ISSUES. - CHANGED TO ORAL CARDIZEM, AND METOPROLOL ORAL, LISINOPRIL, CARDURA MONITOR BP AND SYMPTOMS. ATRIAL FIBRILLATION - HAS BEEN MAINTAINED ON CARDIZEM DRIP, TRANSITION TO ORAL CARDIZEM 180MG DAILY TODAY -MONITOR HEART RATE AND BP CLOSELY CHRONIC DEPRESSION - RESTARTED CYMBALTA 06/06/2019 LEUKOCYTOSIS -IMPROVED - SUSPECT DUE TO STEROID USE, CONTINUE TO MONITOR SYMPTOMS AND LABS ANEMIA -STABLE STATUS POST BLOOD TRANSFUSION ON 05/29/2019 - CONTINUE TO MONITOR LABS. ELEVATED LFT'S - DUE TO SHOCK - CONTINUE WITH CURRENT MANAGEMENT - LFT'S HAVE IMPROVED SLOWLY. CONSTIPATION - RESOLVED DYSPHAGIA - SPEECH THERAPY HAS BEEN CONSULTED - WILL CONTINUE TO FOLLOW SPEECH RECOMMENDATIONS CRITICAL CARE MYOPATHY - WILL REQUIRE ADVANCED MANAGER REHAB AND STRENGTHENING DUE TO HIS DEBILITATED STATUS - WILL LOOK INTO ASSISTED PLACEMENT ON DISCHARGE. DELIRIUM - DISCUSSED WITH PT'S DTR, THIS WILL BE A PROLONGED RECOVERY PROCESS SINCE HAS HAS "ICU DELIRIUM" - ONCE HE GETS OUT OF THE HOSPITAL HOPEFULLY HE WILL HAVE IMPROVEMENT IN HIS DELIRIUM. HOPEFULLY WILL BE ABLE TO GET SATISH DOWN TO 4TH FLOOR TOMORROW AND WILL LOOK AT ASSISTED PLACEMENT ON SATURDAY IF HE IS WELL ENOUGH TO GO ON SATURDAY, IF NOT THEN SATURDAY. [facility] D[facility]/VTE Risk/Contraindication: Risk Factor Score Per Nursin RFS Level Per Nursing on Admit: 4+=Very High DEANDRA MOTA MD Jun 11, 2019 08:14
--- NOTE | 2019-06-11 08:45 | NUR ---
PT TRANSFERRED TO ROOM 408, BEDSIDE REPORT GIVEN TO JONATHAN HENDRICKS WHO ASSUMES CARE OF PT. NO QUESTIONS/CONCERNS VOICED. Addendum: 06/11/19 at 0918 by TOSHA JORDAN RN PHYSICAL SHIFT EXAM AND AM MEDS TO BE DONE BY JONATHAN HENDRICKS.
--- NOTE | 2019-06-11 08:45 | NUR ---
Patient transferred to 408-1 per BED accompanied by ICU staff. Patient and family notified and understand transfer. Personal belongings with patient. Report given to THIS RN FROM [employer]OL OPERATOR .
[2019-06-11] MEDS: DULoxetine 20 MG (CYMBALTA) CAP PO SCH (10:22)
[2019-06-11] MEDS: meTOprolol TARTRATE 50 MG (LOPRESSOR) TAB PO SCH ×2 (10:22→21:23)
[2019-06-11] MEDS: APIXABAN 5 MG (ELIQUIS) TABLET PO SCH ×2 (10:22→21:23)
[2019-06-11] MEDS: DOCUSATE SODIUM 100 MG (COLACE) CAP PO SCH ×2 (10:22→21:23)
[2019-06-11] MEDS: PANTOPRAZOLE 40 MG (PROTONIX) VIAL IV SCH ×2 (10:22→10:25)
[2019-06-11] MEDS: LIDOCAINE 4% (SALONPAS) PATCH TOP SCH (10:22)
[2019-06-11] MEDS: ASPIRIN E.C. 81 MG (ECOTRIN) TAB PO SCH (10:22)
--- NOTE | 2019-06-11 10:47 | Progress Note - Cardiology ---
Cardiology SOAP Progress Note Subjective: Transferred to 408 from ICU this morning. Less confused today. No c/o CP, palpitations or dyspnea. Objective: I&O/Vital Signs 06/11/19 06/11/19 06/11/19 06/11/19 04:52 05:00 06:00 07:00 Pulse 82 82 86 Resp 22 21 B/P (MAP) 120/64 (82) 155/75 (101) Pulse Ox 96 96 O2 Delivery High Flow N/C High Flow N/C High Flow N/C O2 Flow Rate 4.00 4.00 4.00 06/11/19 06/11/19 06/11/19 06/11/19 07:00 07:05 08:00 08:45 Pulse 86 86 Resp 20 21 B/P (MAP) 117/93 (101) 164/93 (116) Pulse Ox 92 90 97 O2 Delivery High Flow N/C Nasal Cannula High Flow N/C NIV CPAP O2 Flow Rate 4.00 4.00 4.00 4.00 06/11/19 06/11/19 06/11/19 06/11/19 09:00 10:58 12:00 12:21 Temp 36.6 37.0 36.6 Pulse 94 108 Resp 18 18 B/P (MAP) 132/60 (84) 126/64 (84) Pulse Ox 94 90 90 O2 Delivery High Flow N/C Nasal Cannula Nasal Cannula O2 Flow Rate 4.00 4.00 2.00 06/11/19 06/11/19 06/11/19 13:00 13:00 14:12 Temp 36.6 Pulse 87 Pulse Ox 90 O2 Delivery Nasal Cannula O2 Flow Rate 4.00 06/11/19 00:00 Intake Total 450 ml Output Total 1025 ml Balance -575 ml Weight (Pounds): 211 Weight (Ounces): 0.0 Weight (Calculated Kilograms): 95.241535 Constitutional: AAO x 3 (mildly confused), well-developed, well-nourished Respiratory: chest expansion is symmetric, chest is bilaterally symmetric, rhonchi (scattered), other (good air entry) Cardiovascular: regular rate-rhythm, S1 and S2 Gastrointestional: distended, audible bowel sounds Genital/Rectal: other (urinary catheter to DD with cl yellow urine) Extremities: other (bilat mod pedal edema) Neurologic/Psychiatric: other (Moves all extremities; confused at times, able to re-orient easily) Skin: No rash on exposed areas, No ulcerations on exposed areas Results/Procedures: Labs Laboratory Tests 06/11/19 03:31: White Blood Count 7.5, Red Blood Count 3.01L, Hemoglobin 9.1L, Hematocrit 30L, Mean Corpuscular Volume 99, Mean Corpuscular Hemoglobin 30, Mean Corpuscular Hemoglobin Concent 31L, Red Cell Distribution Width 15.5H, Platelet Count 283, Mean Platelet Volume 9.7, Neutrophils (%) (Auto) 75, Lymphocytes (%) (Auto) 13, Monocytes (%) (Auto) 8, Eosinophils (%) (Auto) 4, Basophils (%) (Auto) 0, Neutrophils # (Auto) 5.6, Lymphocytes # (Auto) 1.0, Monocytes # (Auto) 0.6, Eosinophils # (Auto) 0.3, Basophils # (Auto) 0.0, Sodium Level 140, Potassium Level 3.9, Chloride Level 106, Carbon Dioxide Level 26, Anion Gap 8, Blood Urea Nitrogen 18, Creatinine 1.09, Estimat Glomerular Filtration Rate > 60, BUN/Creatinine Ratio 17, Glucose Level 95, Calcium Level 8.4L, Phosphorus Level 2.5, Magnesium Level 2.1 Microbiology 06/04/19 Blood Culture - Final, Complete No growth 05/30/19 Gram Stain - Final, Resulted 05/30/19 Sputum Culture - Preliminary, Resulted Aerobic actinomycetes YEAST A/P: Assessment: Ac resp failure (multifactorial, see below) Severe sepsis; presented with septic shock Influenza A New onset a-fib dx on EKG of 06-05-2019 NSTEMI, unclear if type 1 or type 2 EMA-3, likely due to ATN due to hypotension due to septic shock, improved Anemia of undetermined etiology - management per medical services Chronic resp failure due to interstitial lung disease / pulmonary fibrosis CAD and ischemic cardiomyopathy - H/o 4-vessel CABG in 1998 at [facility] in [place], [place] by Dr. Magana Echo of 05/29/19: LVEF 40-45%, basal inferior hypokinesis, RVSP 18 mmHg, mod MR H/o carotid dz bilat - followed by Dr. Rosa at [facility] Syncopal episodes, being followed by Dr. Rosa, Dr. Smith (neurology services at [facility]), Dr. Cortez Orthostatic hypotension - being followed by Dr. Rosa COPD H/O tobaccoism - quit 4 years ago HTN HLD Chronic back pain Plan: * Complex management due to multiple comorbidities * Confusion has improved * Continue current cardiac regimen of BB, Eliquis, CCB and ASA * Monitor lab closely * Replace electrolytes as indicated * Anemia improved following transfusion on 06-09-2019 - management per medical services TRISTON ALONSO Jun 11, 2019 10:47
--- NOTE | 2019-06-11 10:48 | NUR ---
"RD ASSESSMENT PMHx: CAD; HTN; gallbladder disease PT INTERACTION: Pt was awake and pleasant during nutrition assessment for LOS. Pt states current appetite is good. Note avg PO intake of <50% of meals. Pt states following a regular diet at home and has no issues with chewing/swallowing food. Pt states no recent issues with n/v/c/d at this time. Note last BM was 3/4 and pt currently on bowel regimen of colace BID; and miralax HS, per chart review. Pt states no recent wt changes, and that his UBW is 185#. Note current wt of 210#, and unable to determine recent wt hx, per chart review. ABNORMAL NUTRITION-RELATED LAB VALUES LOW: Ca 8.4 HIGH: Est. kcal needs: 3403-4907 kcal | 20-25 kcal/kg Est. Pro needs: 76-96 g Pro | 0.8-1.0 g Pro/kg PES STATEMENT: Inadequate oral intake (NI-2.1) related to loss of appetite as evidenced by pt interview | avg PO intake <50% of meals INTERVENTION: Advance diet to 2000mg Na diet, as tolerated. Pt may benefit from nutrition supplementation if PO intake declines. Will continue to follow and reassess as pt needs, intake, and status change. MONITOR/EVALUATE: PO Intake; Plan of Care; Hydration Status; Weight Status; Lab Values Jennifer Edge, MS, RD, LD"
--- NOTE | 2019-06-11 11:09 | NUR ---
sl not working -- 2 RNS STUCK PT 2TIME EACH AND NOT GOT -- BISQUE BRUSHER HAD THIS RN CALL DR MOTA TO SEE ABOUT PICC LINE OR ML
--- NOTE | 2019-06-11 11:30 | NUR ---
GOT ORDER FOR MID LINE PLACEMENT --
--- NOTE | 2019-06-11 11:40 | NUR ---
CM/SS: Visited with pt as to plan for discharge Plan: Pt will discharge to [facility] for care home Summary: Pt. is now out of ICU and on 4th floor. Pt reports doing ok. Pt asked what this worker and his daughter had worked out as far as his placement goes. This worker reports he has been accepted to [facility] for a skilled stay. Pt is ok with that, he asked when he could leave. This worker indicated he could go either on Saturday or Saturday. Pt thinks he will be able to go tomorrow (Saturday). This worker explains the process, pt is ok with that. Level 1 CARE assessment will need to be completed.
--- NOTE | 2019-06-11 11:41 | Physical Therapy Daily Note ---
PT Daily Note-Current Subjective Patient is agreeable to therapy at this time. Pain Numeric Pain Scale: 5-Moderate Pain Location Body Site: Genital Appearance Patient in bed with call light and bedside table within reach. Mental Status Patient Orientation: Person Attachments: Oxygen, Bolden Catheter, IV Transfers SCALE: Activities may be completed with or without assistive devices. 1-Lhbzqzytic-wjavoda completes the activity by him/herself with no assistance from a helper. 5-Set-up or Clean-up Assistance-helper sets up or cleans up; patient completes activity. [place] assists only prior to or following the activity. 4-Supervision or Touching Assistance-helper provides verbal cues and/or touching/steadying and/or contact guard assistance as patient completes activity. Assistance may be provided throughout the activity or intermittently. 3-Partial/Moderate Assistance-helper does LESS THAN HALF the effort. [place] lifts, holds or supports trunk or limbs, but provides less than half the effort. 2-Substantial/Maximal Assistance-helper does MORE THAN HALF the effort. [place] lifts or holds trunk or limbs and provides more than half the effort. 1-Uvjgebzio-qqorbx does ALL the effort. Patient does none of the effort to complete the activity. Or, the assistance of 2 or more helpers is required for the patient to complete the activity. If activity was not attempted, code reason: 7-Patient Refused. 9-Not Applicable-not attempted and the patient did not perform the activity before the current illness, exacerbation or injury. 10-Not Attempted due to Environmental Limitations-(lack of equipment, weather restraints, etc.). 88-Not Attempted due to Medical Conditions or Safety Concerns. Roll Left & Right (QC): 3 Patient was Angela with moving up in bed. Gait Training Does the Patient Walk?: No and Walking Goal NOT indicated Wheelchair Training Does the Pt Use a Wheelchair?: No Exercises Supine Ex: Ankle pumps, Quad Set, Heel Slides, Short Arc Quads, Straight leg raise, Hip abd/add Supine Reps: 10 (BLE) Treatments BLE exercises, bed mobility Assessment Current Status: Poor Progress Patient tolerates exercises well and is able to perform all actively without assistance. Patient continues to require a Enrique Lift for safe transfers and declined OOB activity at this time. Nursing notified. PT Assisted Goals Oyster Cultivator Goals PT Assisted Goals Time Frame: Jun 19, 2019 Roll Left & Right (QC): 3 Sit to Lying (QC): 3 Lying-Sitting on Side/Bed(QC): 3 Sit to Stand (QC): 3 Chair/Qfj-ne-Mbmjq Xfer(QC): 3 Does the Patient Walk: Yes PT Plan Problem List Problem List: Activity Tolerance, Functional Strength, Safety, Balance, Gait, Transfer, Bed Mobility, ROM Treatment/Plan Treatment Plan: Continue Plan of Care Treatment Plan: Bed Mobility, Education, Functional Activity Alyson, Functional Strength, Gait, Safety, Therapeutic Exercise, Transfers Treatment Duration: Jun 19, 2019 Frequency: 5 times per week Estimated Hrs Per Day: .25 hour per day Patient and/or Family Agrees t: Yes Time/GCodes Time In: 1126 Time Out: 1138 Total Billed Treatment Time: 12 Total Billed Treatment 1 visit EX 12 TORITO METZ PT Jun 11, 2019 11:41
[2019-06-11] MEDS: ACETAMINOPHEN 325 MG TABLET PO PRN (12:21)
--- NOTE | 2019-06-11 13:01 | Progress Note - Cardiology ---
Cardiology SOAP Progress Note Subjective: Feels better Less weakness No cp or palp or syncope or shortness of breath at rest No n/v/d Objective: I&O/Vital Signs 06/11/19 06/11/19 06/11/19 06/11/19 01:00 01:00 02:00 02:03 Pulse 84 83 90 Resp 27 25 B/P (MAP) 132/65 (87) 144/64 (90) Pulse Ox 89 92 91 O2 Delivery Nasal Cannula Nasal Cannula Nasal Cannula O2 Flow Rate 4.00 4.00 4.00 06/11/19 06/11/19 06/11/19 06/11/19 03:00 04:00 04:00 04:00 Temp 36.3 Pulse 95 92 Resp 23 B/P (MAP) 152/71 (98) 194/88 (123) Pulse Ox 89 92 O2 Delivery Nasal Cannula NIV CPAP Nasal Cannula O2 Flow Rate 4.00 4.00 4.00 06/11/19 06/11/19 06/11/19 06/11/19 04:52 05:00 06:00 07:00 Pulse 82 82 86 Resp 22 21 B/P (MAP) 120/64 (82) 155/75 (101) Pulse Ox 96 96 O2 Delivery High Flow N/C High Flow N/C High Flow N/C O2 Flow Rate 4.00 4.00 4.00 06/11/19 06/11/19 06/11/19 06/11/19 07:00 07:05 08:00 09:00 Temp 36.6 Pulse 86 86 94 Resp 20 21 18 B/P (MAP) 117/93 (101) 164/93 (116) 132/60 (84) Pulse Ox 92 90 97 94 O2 Delivery High Flow N/C Nasal Cannula High Flow N/C High Flow N/C O2 Flow Rate 4.00 4.00 4.00 4.00 06/11/19 06/11/19 06/11/19 10:58 12:00 12:21 Temp 37.0 36.6 Pulse 108 Resp 18 B/P (MAP) 126/64 (84) Pulse Ox 90 90 O2 Delivery Nasal Cannula Nasal Cannula O2 Flow Rate 4.00 2.00 06/11/19 00:00 Intake Total 450 ml Output Total 1025 ml Balance -575 ml Weight (Pounds): 211 Weight (Ounces): 0.0 Weight (Calculated Kilograms): 95.850495 Constitutional: AAO x 3 (mildly confused), well-developed, well-nourished Respiratory: chest expansion is symmetric, chest is bilaterally symmetric, rhonchi (scattered), other (good air entry) Cardiovascular: regular rate-rhythm, S1 and S2 Gastrointestional: distended, audible bowel sounds Genital/Rectal: other (urinary catheter to DD with cl yellow urine) Extremities: other (bilat mod pedal edema) Neurologic/Psychiatric: other (Moves all extremities; confused at times, able to re-orient easily) Skin: No rash on exposed areas, No ulcerations on exposed areas Results/Procedures: Labs Laboratory Tests 06/11/19 03:31: White Blood Count 7.5, Red Blood Count 3.01L, Hemoglobin 9.1L, Hematocrit 30L, Mean Corpuscular Volume 99, Mean Corpuscular Hemoglobin 30, Mean Corpuscular Hemoglobin Concent 31L, Red Cell Distribution Width 15.5H, Platelet Count 283, Mean Platelet Volume 9.7, Neutrophils (%) (Auto) 75, Lymphocytes (%) (Auto) 13, Monocytes (%) (Auto) 8, Eosinophils (%) (Auto) 4, Basophils (%) (Auto) 0, Neutrophils # (Auto) 5.6, Lymphocytes # (Auto) 1.0, Monocytes # (Auto) 0.6, Eosinophils # (Auto) 0.3, Basophils # (Auto) 0.0, Sodium Level 140, Potassium Level 3.9, Chloride Level 106, Carbon Dioxide Level 26, Anion Gap 8, Blood Urea Nitrogen 18, Creatinine 1.09, Estimat Glomerular Filtration Rate > 60, BUN/Creatinine Ratio 17, Glucose Level 95, Calcium Level 8.4L, Phosphorus Level 2.5, Magnesium Level 2.1 Microbiology 06/04/19 Blood Culture - Final, Complete No growth 05/30/19 Gram Stain - Final, Resulted 05/30/19 Sputum Culture - Preliminary, Resulted Aerobic actinomycetes YEAST Laboratory Tests 06/10/19 03:31 06/11/19 03:31 A/P: Assessment: Ac resp failure (multifactorial, see below) improved Severe sepsis; presented with septic shock, improved Influenza A New onset a-fib dx on EKG of 06-05-2019 NSTEMI, unclear if type 1 or type 2 EMA-3, likely due to ATN due to hypotension due to septic shock, improved Anemia of undetermined etiology - management per medical services Chronic resp failure due to interstitial lung disease / pulmonary fibrosis CAD and ischemic cardiomyopathy - H/o 4-vessel CABG in 1998 at [facility] in [place], [place] by Dr. Magana Echo of 05/29/19: LVEF 40-45%, basal inferior hypokinesis, RVSP 18 mmHg, mod MR H/o carotid dz bilat - followed by Dr. Rosa at [facility] Syncopal episodes, being followed by Dr. Rosa, Dr. Smith ([place]rology [place] [facility] [place]. Cortez Orthostatic hypotension - being followed by Dr. Rosa COPD H/O tobaccoism - quit 4 years ago HTN HLD Chronic back pain Plan: * Complex management due to multiple comorbidities * Confusion has improved * Continue current cardiac regimen of BB, Eliquis, CCB and ASA * Monitor lab closely * Replace electrolytes as indicated * Anemia improved following transfusion on 06-09-2019 - management per Medical services * I spoke with him and answered CV-related questions CARINE PALOMINO MD FACP [facility] Jun 11, 2019 13:01
[2019-06-11] MEDS: LIDOCAINE PATCH REMOVAL TP SCH (21:00)
[2019-06-11] MEDS: polyethylene glycoL POWDER 17 GM (MIRALAX) PACK PO SCH (21:23)
[2019-06-12] VITALS: BP 157/71
[2019-06-12] MEDS: RT-ALBUTEROL/IPRATROPIUM 3 ML (DUONEB) VIAL INH SCH ×3 (02:42→11:16)
[2019-06-12] MEDS: MEROPENEM 500 MG/SWFI 10 ML IV PUSH IV SCH ×4 (04:04→08:58)
[2019-06-12 04:07] VITALS: BP 113/56
[2019-06-12 05:42] LABS: BASOPHILS % (AUTO) 0 % (0-10); EOSINOPHILS # (AUTO) 0.3 10^3/uL (0.0-0.3); EOSINOPHILS % (AUTO) 3 % (0-10); HEMATOCRIT 29 % (40-54); HEMOGLOBIN 8.9 G/DL (13.3-17.7); LYMPHOCYTES # (AUTO) 1.2 X 10^3 (1.0-4.0); LYMPHOCYTES % (AUTO) 16 % (12-44); MEAN CORPUSCULAR HEMOGLOBIN 30 PG (25-34); MEAN CORPUSCULAR HGB CONC 31 G/DL (32-36); MEAN CORPUSCULAR VOLUME 98 FL (80-99); MEAN PLATELET VOLUME 9.7 FL (7.4-10.4); MONOCYTES # (AUTO) 0.6 X 10^3 (0.0-1.0); MONOCYTES % (AUTO) 8 % (0-12); NEUTROPHILS # (AUTO) 5.8 X 10^3 (1.8-7.8); NEUTROPHILS % (AUTO) 73 % (42-75); PLATELET COUNT 331 10^3/uL (130-400); RED CELL DISTRIBUTION WIDTH 15.2 % (10.0-14.5); WHITE BLOOD COUNT 7.9 10^3/uL (4.3-11.0)
[2019-06-12 06:27] LABS: BUN/CREATININE RATIO 15; CALCIUM 8.1 MG/DL (8.5-10.1); CARBON DIOXIDE 25 MMOL/L (21-32); CHLORIDE 102 MMOL/L (98-107); CREATININE SERUM 1.15 MG/DL (0.60-1.30); GFR ESTIMATED > 60; GLUCOSE 98 MG/DL (70-105); PHOSPHORUS 2.7 MG/DL (2.3-4.7); POTASSIUM 5.1 MMOL/L (3.6-5.0); SODIUM 135 MMOL/L (135-145)
--- NOTE | 2019-06-12 06:47 | NUR ---
DR. CULLEN CONTACTED BY THIS RN AT 0644 REGARDING POTASSIUM LEVEL OF 5.1. PT HAS SCHEDULED KCL 20MEQ THIS AM. ORDERS WERE GIVEN TO DC KCL AT THIS TIME.
[2019-06-12] MEDS: MAGNESIUM 1 GM/100 ML IVPB 100 ML IV SCH (06:51)
[2019-06-12] MEDS: POTASSIUM CL 10MEQ/50ML IVPB 50 ML IV SCH (06:51)
[2019-06-12] MEDS: BUMETANIDE 1 MG/4 ML (BUMEX) VIAL IV SCH (06:55)
[2019-06-12] MEDS: MYCOPHENOLATE 500 MG TABLET PO SCH (06:55)
--- NOTE | 2019-06-12 07:59 | Diagnostic Imaging Report ---
INDICATION: Pneumonia. TECHNIQUE: Single view chest 3:12 AM. CORRELATION STUDY: 06/11/2019 FINDINGS: Mixed alveolar and interstitial infiltrate throughout both lung patricio, left greater than right does persist. Findings likely relatively stable. Poststernotomy and coronary artery bypass changes. Stable as far as cardiac enlargement. Prominent mediastinum. Vascular perhaps slightly increased. IMPRESSION: 1. Extensive mixed alveolar and interstitial infiltrate throughout both lung patricio, left greater than right, stable. 2. Vasculature overall appears somewhat increased from previous. Dictated by: Dictated on workstation # [id number]
[2019-06-12 08:00] VITALS: BP 139/70
[2019-06-12] MEDS: PANTOPRAZOLE 40 MG (PROTONIX) VIAL IV SCH (08:56)
[2019-06-12] MEDS: DULoxetine 20 MG (CYMBALTA) CAP PO SCH (08:56)
[2019-06-12] MEDS: ASPIRIN E.C. 81 MG (ECOTRIN) TAB PO SCH (08:56)
[2019-06-12] MEDS: APIXABAN 5 MG (ELIQUIS) TABLET PO SCH (08:56)
[2019-06-12] MEDS: meTOprolol TARTRATE 50 MG (LOPRESSOR) TAB PO SCH (08:57)
[2019-06-12] MEDS: LIDOCAINE 4% (SALONPAS) PATCH TOP SCH (09:01)
[2019-06-12] MEDS: DOCUSATE SODIUM 100 MG (COLACE) CAP PO SCH (09:02)
[2019-06-12] MEDS: doxAzosin 4 MG (CARDURA) TAB PO SCH (09:04)
[2019-06-12] MEDS: lisINopril 20 MG (PRINIVIL) TABLET PO SCH (09:04)
--- NOTE | 2019-06-12 09:48 | Progress Note - Cardiology ---
Cardiology SOAP Progress Note Subjective: Lying in bed. More SOB this morning with frequent lose cough. No c/o CP or palpitations. Re-oriented this morning to location. Objective: I&O/Vital Signs Weight (Pounds): 211 Weight (Ounces): 0.0 Weight (Calculated Kilograms): 95.944676 Constitutional: AAO x 3 (mildly confused), well-developed, well-nourished Respiratory: chest expansion is symmetric, chest is bilaterally symmetric, rhonchi (scattered), other (coarse breath sounds with frequent lose cough) Cardiovascular: regular rate-rhythm, S1 and S2 Gastrointestional: distended, audible bowel sounds Genital/Rectal: other (urinary catheter to DD with cl yellow urine) Extremities: other (bilat mod pedal edema) Neurologic/Psychiatric: other (Moves all extremities; confused at times, able to re-orient easily) Skin: No rash on exposed areas, No ulcerations on exposed areas Results/Procedures: Labs Microbiology 06/04/19 Blood Culture - Final, Complete No growth 05/30/19 Gram Stain - Final, Complete 05/30/19 Sputum Culture - Final, Complete Nocardia abscessus YEAST A/P: Assessment: Ac resp failure (multifactorial, see below) improved Severe sepsis; presented with septic shock, improved Influenza A New onset a-fib dx on EKG of 06-05-2019 NSTEMI, unclear if type 1 or type 2 EMA-3, likely due to ATN due to hypotension due to septic shock, improved Anemia of undetermined etiology - management per medical services Chronic resp failure due to interstitial lung disease / pulmonary fibrosis CAD and ischemic cardiomyopathy - H/o 4-vessel CABG in 1998 at [facility] in [place], [place] by Dr. Magana Echo of 05/29/19: LVEF 40-45%, basal inferior hypokinesis, RVSP 18 mmHg, mod MR H/o carotid dz bilat - followed by Dr. Rosa at [facility] Syncopal episodes, being followed by Dr. Rosa, [place] Smith [place] [facility] [place]. Cortez Orthostatic hypotension - being followed by Dr. Rosa COPD H/O tobaccoism - quit 4 years ago HTN HLD Chronic back pain Plan: * Complex management due to multiple comorbidities * Confusion has improved * Continue current cardiac regimen of BB, Eliquis, CCB and ASA * Monitor lab closely * Replace electrolytes as indicated * CXR pending * Mild hyperkalemia TRISTON ALONSO Jun 12, 2019 09:48
[2019-06-12] MEDS ORDERED: APIX5TAB PO (10:23)
[2019-06-12] MEDS ORDERED: NITR0.4T42 SL (10:23)
[2019-06-12] MEDS ORDERED: ACET325T49 PO (10:23)
[2019-06-12] MEDS ORDERED: IPRA3AMP31 INH (10:23)
[2019-06-12] MEDS ORDERED: DILT180C85 PO (10:23)
[2019-06-12] MEDS ORDERED: METO50TA15 PO (10:23)
[2019-06-12] MEDS ORDERED: BUME0.5T5 PO (10:23)
[2019-06-12] MEDS ORDERED: POTA10TA36 PO (10:24)
--- NOTE | 2019-06-12 10:29 | Discharge Inst-Skilled Nursing ---
Discharge Inst-Skilled NF Reconcile Patient Problems Problems Reviewed?: Yes Patient Instructions Patient Problems: SEVERE SEPSIS RESPIRATORY FAILURE WITH LACTIC ACIDOSIS INFLUENZA PNEUMONIA CHRONIC PULMONARY FIBROSIS COPD ACUTE ON CHRONIC RENAL FAILURE NON-ST NM ATRIAL FIBRILLATION CHRONIC DEPRESSION LEUKOCYTOSIS ANEMIA CONSTIPATION ELEVATED LFT'S DELIRIUM Goal: home with home health Consult/Follow Up/Orders Follow Up Appt.: 1 wk [facility] [address] castillo [address] monae Skilled NF Admit to: [facility] (SNF) I certify that SNF services are required to be given on an inpatient basis because of the above named patient's need for care home care on a continuing basis for the conditions(s) for which he/she was receiving inpatient hospital services prior to his/her transfer to the SNF. Long Term Facility Order: Nursing Services, Sales Service Manager-Evaluate & Treat, Physical Therapy-Evaluate & Treat, Speech Language-Evaluate & Treat Oxygen Delivery Method: High Flow N/C (with humidification) Oxygen Flow Rate L/min (Range): 4 Discharge Diet: Low Sodium Diet Resuscitation Status: Do Not Resuscitate (dnr/dni) New & Resume Previous Orders New & Resume Previous Orders if systolic bp is less than or equal to 110, hold metoprolol and doxazosin, if sbp is less than 100 hold cardizem if heart rate is less than or equal to 55 hold metoprolol and cardizem check cbc, cmp in 1 week from discharge nursing to remove blackmon catheter in 1 week from discharge Deandra Jones Jun 12, 2019 10:24 Medication List: Active Scripts Active Potassium Chloride 10 Meq Tab.er.prt 10 Meq PO DAILY Bumetanide 0.5 Mg Tablet 0.5 Mg PO BID Acetaminophen 325 Mg Tablet 650 Mg PO Q4H PRN Diltiazem 24Hr ER (Diltiazem HCl) 180 Mg Cap.er.24h 180 Mg PO DAILY Metoprolol Tartrate 50 Mg Tablet 50 Mg PO BID Nitroglycerin 0.4 Mg Tab.subl 0 Mg SL NEEDED PRN Eliquis (Apixaban) 5 Mg Tablet 5 Mg PO BID Iprat-Albut 0.5-3(2.5) mg/3 ml (Ipratropium/Albuterol Sulfate) 3 Ml Ampul.neb 3 Ml INH Q4H Reported Ibuprofen 200 Mg Tablet 400 Mg PO Q6H PRN Mycophenolate Mofetil 500 Mg Tablet 1,000 Mg PO BID Prednisone 10 Mg Tab 10 Mg PO HS Doxazosin Mesylate 4 Mg Tablet 4 Mg PO DAILY Duloxetine HCl 20 Mg Capsule.dr 20 Mg PO DAILY Montelukast Sodium 10 Mg Tablet 10 Mg PO DAILY Pantoprazole Sodium 40 Mg Tablet.dr 40 Mg PO HS Lisinopril 20 Mg Tablet 20 Mg PO DAILY Meclizine HCl 25 Mg Tablet 25 Mg PO TID PRN Aspirin EC (Aspirin) 81 Mg Tablet.dr 81 Mg PO DAILY Lab results: Laboratory Tests Test 06/12/19 05:25 Range/Units White Blood Count 7.9 4.3-11.0 10^3/uL Red Blood Count 2.94 L 4.35-5.85 10^6/uL Hemoglobin 8.9 L 13.3-17.7 G/DL Hematocrit 29 L 40-54 % Mean Corpuscular Volume 98 80-99 FL Mean Corpuscular Hemoglobin 30 25-34 PG Mean Corpuscular Hemoglobin Concent 31 L 32-36 G/DL Red Cell Distribution Width 15.2 H 10.0-14.5 % Platelet Count 331 130-400 10^3/uL Mean Platelet Volume 9.7 7.4-10.4 FL Neutrophils (%) (Auto) 73 42-75 % Lymphocytes (%) (Auto) 16 12-44 % Monocytes (%) (Auto) 8 0-12 % Eosinophils (%) (Auto) 3 0-10 % Basophils (%) (Auto) 0 0-10 % Neutrophils # (Auto) 5.8 1.8-7.8 X 10^3 Lymphocytes # (Auto) 1.2 1.0-4.0 X 10^3 Monocytes # (Auto) 0.6 0.0-1.0 X 10^3 Eosinophils # (Auto) 0.3 0.0-0.3 10^3/uL Basophils # (Auto) 0.0 0.0-0.1 10^3/uL Sodium Level 135 135-145 MMOL/L Potassium Level 5.1 H 3.6-5.0 MMOL/L Chloride Level 102 98-107 MMOL/L Carbon Dioxide Level 25 21-32 MMOL/L Anion Gap 8 5-14 MMOL/L Blood Urea Nitrogen 17 7-18 MG/DL Creatinine 1.15 0.60-1.30 MG/DL Estimat Glomerular Filtration Rate > 60 BUN/Creatinine Ratio 15 Glucose Level 98 70-105 MG/DL Calcium Level 8.1 L 8.5-10.1 MG/DL Phosphorus Level 2.7 2.3-4.7 MG/DL Magnesium Level 2.0 1.6-2.4 MG/DL My orders: Orders - DEANDRA JONES MD Venous Access Request Order (06/11/19 12:08) Sodium 2g (2000 Mg) (06/11/19 Lunch) Patient Visit (06/11/19 ) Exercise Therap, Ea 15 Min (06/11/19 ) Amb Us Guide Vascular Access (06/11/19 ) Attending Discharge Inpt/Inobs (06/12/19 10:11) DEANDRA JONES MD Jun 12, 2019 10:29
--- NOTE | 2019-06-12 11:10 | NUR ---
CM/SS: Visited with pt as to plan for discharge Plan: Pt will be going [facility] for intermediate Summary: Level I CARE Assessment Completed. Pt seems a little confused on today. He is aware that he will be going to [facility] on today. This worker talks with him about his niece being the patents examiner. He smiles. Today is pt's birthday. He is aware that he will be leaving at 11am. Level I Care Assessment faxed as well as the discharge summary to [facility].
--- NOTE | 2019-06-12 11:11 | NUR ---
REPORT GIVEN TO JULIA AT [facility].
[2019-06-12] MEDS: ACETAMINOPHEN 325 MG TABLET PO PRN (11:42)
[2019-06-12 12:00] VITALS: BP 133/63
[2019-06-12 12:37] VITALS: BP 139/70
--- NOTE | 2019-06-12 12:54 | Occ Therapy Progress Note ---
Therapy Progress Note OT attempted tx this AM, pt reports he is being discharged today. He pleasantly declines OT services at this time secondary to being discharged. 1, visit TASHA POWER OT Jun 12, 2019 12:48
--- NOTE | 2019-06-12 17:53 | Progress Note - Cardiology ---
Cardiology SOAP Progress Note Subjective: No cp or palp or syncope or shortness of breath No n/v/d Objective: I&O/Vital Signs 06/12/19 06/12/19 06/12/19 06/12/19 06:44 08:00 08:15 09:00 Temp 36.2 Pulse 85 92 Resp 18 B/P (MAP) 139/70 (93) Pulse Ox 93 91 O2 Delivery Nasal Cannula Nasal Cannula High Flow N/C O2 Flow Rate 4.00 4.00 4.00 06/12/19 06/12/19 06/12/19 06/12/19 10:29 11:18 12:00 12:37 Temp 36.2 Pulse 78 92 Resp 22 18 B/P (MAP) 133/63 (86) 139/70 Pulse Ox 90 92 90 O2 Delivery High Flow N/C Nasal Cannula Nasal Cannula Nasal Cannula O2 Flow Rate 4.00 4.00 4.00 06/12/19 00:00 Intake Total 930 ml Output Total 2450 ml Balance -1520 ml Weight (Pounds): 211 Weight (Ounces): 0.0 Weight (Calculated Kilograms): 95.761407 Constitutional: AAO x 3 (mildly confused), well-developed, well-nourished Respiratory: chest expansion is symmetric, chest is bilaterally symmetric, rhonchi (scattered), other (coarse breath sounds with frequent lose cough) Cardiovascular: regular rate-rhythm, S1 and S2 Gastrointestional: distended, audible bowel sounds Genital/Rectal: other (urinary catheter to DD with cl yellow urine) Extremities: other (bilat mod pedal edema) Neurologic/Psychiatric: other (Moves all extremities; confused at times, able to re-orient easily) Skin: No rash on exposed areas, No ulcerations on exposed areas Results/Procedures: Labs Laboratory Tests 06/12/19 05:25: White Blood Count 7.9, Red Blood Count 2.94L, Hemoglobin 8.9L, Hematocrit 29L, Mean Corpuscular Volume 98, Mean Corpuscular Hemoglobin 30, Mean Corpuscular Hemoglobin Concent 31L, Red Cell Distribution Width 15.2H, Platelet Count 331, Mean Platelet Volume 9.7, Neutrophils (%) (Auto) 73, Lymphocytes (%) (Auto) 16, Monocytes (%) (Auto) 8, Eosinophils (%) (Auto) 3, Basophils (%) (Auto) 0, Neutrophils # (Auto) 5.8, Lymphocytes # (Auto) 1.2, Monocytes # (Auto) 0.6, Eosinophils # (Auto) 0.3, Basophils # (Auto) 0.0, Sodium Level 135, Potassium Level 5.1H, Chloride Level 102, Carbon Dioxide Level 25, Anion Gap 8, Blood Urea Nitrogen 17, Creatinine 1.15, Estimat Glomerular Filtration Rate > 60, BUN/Creatinine Ratio 15, Glucose Level 98, Calcium Level 8.1L, Phosphorus Level 2.7, Magnesium Level 2.0 Microbiology 06/04/19 Blood Culture - Final, Complete No growth 05/30/19 Gram Stain - Final, Resulted 05/30/19 Sputum Culture - Preliminary, Resulted Aerobic actinomycetes YEAST Laboratory Tests 06/11/19 03:31 06/12/19 05:25 A/P: Assessment: Ac resp failure (multifactorial, see below) improved Severe sepsis; presented with septic shock, improved Influenza A New onset a-fib dx on EKG of 06-05-2019 NSTEMI, unclear if type 1 or type 2 EMA-3, likely due to ATN due to hypotension due to septic shock, improved Anemia of undetermined etiology - management per medical services Chronic resp failure due to interstitial lung disease / pulmonary fibrosis CAD and ischemic cardiomyopathy - H/o 4-vessel CABG in 1998 at [facility] in [place], [place] by Dr. Magana Echo of 05/29/19: LVEF 40-45%, basal inferior hypokinesis, RVSP 18 mmHg, mod MR H/o carotid dz bilat - followed by Dr. Rosa at [facility] Syncopal episodes, being followed by Dr. Rosa, Dr. Smith (neurology services at [facility] [place]), Dr. Cortez Orthostatic hypotension - being followed by Dr. Rosa COPD H/O tobaccoism - quit 4 years ago HTN HLD Chronic back pain Plan: * Complex management due to multiple comorbidities * Confusion has improved * Continue current cardiac regimen of BB, Eliquis, CCB and ASA * Monitor labs CARINE PALOMINO MD FACP [facility] Jun 12, 2019 17:53
--- NOTE | 2019-06-15 14:01 | Physician Query Clarification ---
PQ-CHF Specificity Admission Date: May 28, 2019 at 14:45 Discharge Date: Jun 12, 2019 at 12:35 The medical record reflects the following clinical scenario: History/Risk Factors: Sepsis with septic shock, Flu, Acute on chronic respiratory failure, NSTEMI, ATN Clinical Findings: BNP 05/28 414.0, 06/01 782.2, 06/05 902.8, 06/07 609.4, Treatment: Lasix 06/01 40 mg IVP, 06/03 80 mg IVP Question: Can you further specify the acuity &/or type of CHF per the clinical indicators above? Please document a response in the Progress Notes or Discharge Summary. 1. Acuity: Acute, Chronic or Acute on Chronic 2. Type: Systolic, Diastolic or Systolic & Diastolic 3. Unspecified: CHF cannot be further specified regarding type or acuity 4. Other, with explanation of clinical findings 5. Clinically undetermined, no explanation for clinical findings PHYSICIAN RESPONSE Acuity: Chronic Type: Systolic Please remember a lack of response to the above will prompt a phone page by CDI/Coding staff. In responding to this query, please exercise your independent professional judgment. The purpose of this communication is to more accurately reflect the complexity of your patients condition. The fact that a question is asked does not imply that any particular answer is desired or expected. Thank you for your timely response to this clarification. Requestors name: Rabia THIS PHYSICIAN QUERY FORM IS A PERMANENT PART OF THE MEDICAL RECORD RABIA PHELPS Jun 15, 2019 14:01 CARINE PALOMINO MD [facility] Jun 16, 2019 15:08
[2019-06-17] MEDS ORDERED: IBUP-2473 PO (13:14)
[2019-06-17] MEDS ORDERED: DILT180C85 PO (13:14)
[2019-06-17] MEDS ORDERED: IPRA3AMP31 IH (13:14)
[2019-06-17] MEDS ORDERED: NYST1000 PO (13:14)
[2019-06-17] MEDS ORDERED: CALA113P TP (13:14)
[2019-06-17] MEDS ORDERED: NITR0.4T39 SL (13:14)
[2019-06-17] MEDS ORDERED: POTA10TA36 PO (13:14)
[2019-06-17] MEDS ORDERED: APIX5TAB PO (13:14)
[2019-06-17] MEDS ORDERED: HYDR-4226 PO (13:14)
[2019-06-17] MEDS ORDERED: ALPR0.25 PO (13:14)
[2019-06-17] MEDS ORDERED: METO50TA15 PO (13:14)
[2019-06-17] MEDS ORDERED: BUME0.5T5 PO (13:14)
[2019-06-17] MEDS ORDERED: PRD1T PO (13:14)
[2019-06-17] MEDS ORDERED: ACET325T49 PO (13:14)
== END 2019-06-12 12:35 | DRG 870 ==
LOC: EDUNIT# 13:36 → ER 13:37 → ICU 14:45 → 4TH 06-11 08:40
PROVIDERS: ADMIT Family Medicine; ATTEND Family Medicine
PROC: 5A1955Z Respiratory Ventilation, Greater than 96 Consecutive Hours (ICD-10-PCS; principal; 2019-05-30)
PROC: 0B9F8ZX Drainage of Right Lower Lung Lobe, Via Natural or Artificial Opening Endoscopic, Diagnostic (ICD-10-PCS; 2019-05-30)
PROC: 0BH17EZ Insertion of Endotracheal Airway into Trachea, Via Natural or Artificial Opening (ICD-10-PCS; 2019-05-30)
PROC: 0B978ZX Drainage of Left Main Bronchus, Via Natural or Artificial Opening Endoscopic, Diagnostic (ICD-10-PCS; 2019-05-30)
PROC: 0B938ZX Drainage of Right Main Bronchus, Via Natural or Artificial Opening Endoscopic, Diagnostic (ICD-10-PCS; 2019-05-30)
DX: A41.9 Sepsis, unspecified organism (principal); R65.21 Severe sepsis with septic shock; J10.00 Influenza due to other identified influenza virus with unspecified type of pneumonia; J96.21 Acute and chronic respiratory failure with hypoxia; I21.4 Non-ST elevation (NSTEMI) myocardial infarction; E87.2 Acidosis; N17.0 Acute kidney failure with tubular necrosis; G72.81 Critical illness myopathy; Z66 Do not resuscitate; I13.0 Hypertensive heart and chronic kidney disease with heart failure and stage 1 through stage 4 chronic kidney disease, or unspecified chronic kidney disease; I50.22 Chronic systolic (congestive) heart failure; K56.7 Ileus, unspecified; J43.9 Emphysema, unspecified; I25.5 Ischemic cardiomyopathy; R41.0 Disorientation, unspecified; J84.10 Pulmonary fibrosis, unspecified; N18.9 Chronic kidney disease, unspecified; D64.9 Anemia, unspecified; F32.9 Major depressive disorder, single episode, unspecified; D72.829 Elevated white blood cell count, unspecified; I25.10 Atherosclerotic heart disease of native coronary artery without angina pectoris; I25.2 Old myocardial infarction; E78.5 Hyperlipidemia, unspecified; M54.9 Dorsalgia, unspecified; G47.30 Sleep apnea, unspecified; J30.2 Other seasonal allergic rhinitis; M19.91 Primary osteoarthritis, unspecified site; I95.1 Orthostatic hypotension; K59.00 Constipation, unspecified; Z87.891 Personal history of nicotine dependence
CPT/HCPCS: 36415; 36600; 71045; 74018; 74230; 76937; 80048; 80053; 80061; 81000; 82274; 82805; 82962; 83605; 83735; 83874; 83880; 84100; 84478; 84484; 85007; 85025; 85027; 85610; 85730; 86850; 86900; 86901; 86920; 87015; 87040; 87070; 87077; 87081; 87101; 87116; 87186; 87205; 87206; 87449; 87804; 87899; 93005; 93041; 93306; 94002; 94003; 94640; 94660; 94664; 94760; 94799; 96361; 96372; 96374; 96375